=== PATIENT | male | born 1965 | race Caucasian/White ===

== ENCOUNTER 2017-05-31 22:45 | Emergency (ER) | payer SELFPAY ==
[~2017-05-31] VITALS: Ht 170.2 cm; Wt 95.0 kg
[~2017-05-31 22:45] MED LIST: ASPI81TA82 PO
[2017-05-31 22:55] VITALS: BP 133/68; PULSE 84; TEMP 98; O2SAT 98
[2017-05-31] MEDS ORDERED: SODIUM CHLORIDE 0.9% FLUSH 10 ML FLUSH IVF PRN (23:15)
--- NOTE | 2017-05-31 23:15 | PD ---
HPI Chief Complaint: Respiratory Symptoms Time Seen by Provider: 23:11 Travel History International Travel<30 days: Yes (- [place] x3 days) Contact w/Intl Traveler<30days: Yes Name of Country Traveled to: Went to x3 days and [place] x1 day in April 2017 Traveled to known affect area: Yes History of Present Illness HPI The patient is a 51-year-old male that complains of nasal congestion, bilateral ear aches, myalgias and shortness of breath and cough for about 6 days. He thinks he has had a fever although he has not taken his temperature and he does have chills and diaphoresis. He denies any history of congestive heart failure. He smokes one pack of cigarettes weekly. He denies any previous history of lung problems. He states he has had some slight diarrhea and has had nausea and vomiting. [facility]LY [facility] Past Medical History Medical History: Denies Significant Hx Diminished Hearing: No Immunizations Current: Yes Sleep Apnea: Yes Tetanus Vaccination: > 5 Years Past Surgical History Surgical History: No Previous Surgery Social History Alcohol Use: No Tobacco Use: Yes Substance Use: No Allergies-Medications (Allergen,Severity, Reaction): Coded Allergies: No Known Allergies (Verified , 08/30/14) Reported Meds & Prescriptions Reported Meds & Active Scripts Active Review of Systems Except as stated in HPI: all other systems reviewed are Neg Physical Exam Narrative GENERAL: The patient is alert, oriented 3, moderately dehydrated appearing with a persistent cough which is nonproductive and no respiratory distress. His vital signs are normal. SKIN: Focused skin assessment warm/dry. No skin rashes noted. HEAD: Atraumatic. Normocephalic. EYES: Pupils equal and round. No scleral icterus. No injection or drainage. ENT: No nasal bleeding or discharge. Mucous membranes pink and moist. Both tympanic membranes are red but not distorted. NECK: Trachea midline. No JVD. There is no meningismus present. CARDIOVASCULAR: Regular rate and rhythm. No murmur appreciated. RESPIRATORY: No accessory muscle use. Scattered rhonchi and wheezes are heard in all lung wood.. Breath sounds equal bilaterally. GASTROINTESTINAL: Abdomen soft, non-tender, nondistended. Hepatic and splenic margins not palpable. MUSCULOSKELETAL: No obvious deformities. No clubbing. No cyanosis. No edema. NEUROLOGICAL: Awake and alert. No obvious cranial nerve deficits. Motor grossly within normal limits. Normal speech. PSYCHIATRIC: Appropriate mood and affect; insight and judgment normal. Data Data Last Documented VS Vital Signs Date Time Temp Pulse Resp B/P (MAP) Pulse Ox O2 Delivery O2 Flow Rate FiO2 05/31/17 23:07 98 Nasal Cannula 2.00 05/31/17 22:55 98.0 84 133/68 (89) Orders Orders Complete Blood Count With Diff (05/31/17 23:11) Basic Metabolic Panel (Bmp) (05/31/17 23:11) Chest, Pa & Lat (05/31/17 23:11) Influenzae A/B Antigen (05/31/17 23:15) Sodium Chloride 0.9% Flush (Ns Flush) (05/31/17 23:15) Sodium Chlor 0.9% 1000 Ml Inj (Ns 1000 M (05/31/17 23:30) Labs Laboratory Tests Test 05/31/17 23:15 White Blood Count 9.3 TH/MM3 Red Blood Count 5.85 MIL/MM3 Hemoglobin 15.5 GM/DL Hematocrit 47.3 % Mean Corpuscular Volume 80.9 FL Mean Corpuscular Hemoglobin 26.5 PG Mean Corpuscular Hemoglobin Concent 32.7 % Red Cell Distribution Width 13.2 % Platelet Count 330 TH/MM3 Mean Platelet Volume 8.7 FL Neutrophils (%) (Auto) 73.7 % Lymphocytes (%) (Auto) 17.0 % Monocytes (%) (Auto) 5.7 % Eosinophils (%) (Auto) 2.4 % Basophils (%) (Auto) 1.2 % Neutrophils # (Auto) 6.9 TH/MM3 Lymphocytes # (Auto) 1.6 TH/MM3 Monocytes # (Auto) 0.5 TH/MM3 Eosinophils # (Auto) 0.2 TH/MM3 Basophils # (Auto) 0.1 TH/MM3 CBC Comment DIFF FINAL Differential Comment Blood Urea Nitrogen 14 MG/DL Creatinine 1.00 MG/DL Random Glucose 122 MG/DL Calcium Level 8.3 MG/DL Sodium Level 140 MEQ/L Potassium Level 3.8 MEQ/L Chloride Level 108 MEQ/L Carbon Dioxide Level 24.1 MEQ/L Anion Gap 8 MEQ/L Estimat Glomerular Filtration Rate 79 ML/MIN MDM Medical Decision Making Medical Screen Exam Complete: Yes Emergency Medical Condition: Yes Medical Record Reviewed: Yes Interpretation(s) The CBC is normal. The basic metabolic profile shows a GFR of 79, glucose 122, calcium 8.3 but is otherwise unremarkable. The chest x-ray shows no acute cardiopulmonary disease and the influenza A/B antigen is negative for flu a and negative for flu B antigen. Differential Diagnosis Bilateral otitis media, pneumonia, bronchitis, viral upper respiratory infection , flu syndrome, electrolyte disorder, dehydration Narrative Course The patient does have bilateral otitis media. He likely also has a viral bronchitis. There is no evidence on x-ray for pneumonia. He does not have the flu. Plan: The patient will be given amoxicillin 875 mg twice daily for 10 days. The patient will also be given Robitussin-DAC. Diagnosis Primary Impression: Bilateral otitis media Additional Impression: Acute viral bronchitis Additional Instructions: Completely discontinue smoking. Drink plenty of liquids and take the antibiotic twice daily for 10 days. Follow-up with a primary care physician next week. Med/Other Pt SpecificInfo: Prescription(s) given Scripts Gcloigjgdxghiil-Pwqqupc-Cpbybtflrto Liq (Guaifenesin DAC Liq) 30-10-100 Mg/5 Ml Soln 10 ML PO Q4H Y for COUGH AND/OR COLD SYMPTOMS, #1 BOTTLE 0 Refills Prov: Winston Salcedo MD 06/01/17 Amoxicillin (Amoxicillin) 875 Mg Tab 875 MG PO BID for Infection for 10 Days, #20 TAB 0 Refills Prov: Winston Salcedo MD 06/01/17 Disposition: 01 DISCHARGE HOME Condition: Stable Winston Salcedo MD May 31, 2017 23:15
[2017-05-31 23:22] LABS: AUTOMATED NEUTROPHIL # 6.9 TH/MM3 (1.8-7.7); BASOPHIL # 0.1 TH/MM3 (0-0.2); BASOPHIL % 1.2 % (0.0-2.0); EOSINOPHIL # 0.2 TH/MM3 (0-0.4); EOSINOPHIL % 2.4 % (0.0-4.0); HEMATOCRIT 47.3 % (39.0-51.0); HEMO FLAGS DIFF FINAL; LYMPHOCYTE # 1.6 TH/MM3 (1.0-4.8); MEAN CELL VOLUME 80.9 FL (80.0-100.0); MEAN CORPUSCULAR HEMOGLOBIN 26.5 PG (27.0-34.0); MEAN CORPUSCULAR HGB CONC 32.7 % (32.0-36.0); MONO % 5.7 % (0.0-8.0); NEUT % 73.7 % (16.0-70.0); PLATELET COUNT 330 TH/MM3 (150-450); RED BLOOD COUNT 5.85 MIL/MM3 (4.50-5.90); RED CELL DISTRIBUTION WIDTH 13.2 % (11.6-17.2); WHITE BLOOD COUNT 9.3 TH/MM3 (4.0-11.0)
[2017-05-31 23:31] LABS: POTASSIUM 3.8 MEQ/L (3.5-5.1)
[2017-05-31 23:35] LABS: BICARBONATE 24.1 MEQ/L (21.0-32.0)
--- NOTE | 2017-05-31 23:48 | RADRPT ---
EXAM DATE/TIME: 05/31/2017 23:25 [place] COMPARISON: CHEST PA & LAT, August 30, 2014, 12:26. INDICATIONS : Cough and short of breath. MEDICAL HISTORY : None. SURGICAL HISTORY : None. ENCOUNTER: Initial ACUITY: 1 week PAIN SCORE: 3/10 LOCATION: Left chest FINDINGS: PA and lateral views of the chest. The lungs are clear. Cardiomediastinal silhouette within normal li mits. No evidence of pleural effusion or pneumothorax. CONCLUSION: No acute cardiopulmonary disease identified. Dexter Calvillo MD on May 31, 2017 at 23:45 Board Certified Radiologist. This report was verified electronically.
[2017-06-01] MEDS ORDERED: AMOX875T PO (00:02)
[2017-06-01] MEDS ORDERED: GUAISOL PO (00:06)
[2017-06-01] MEDS: SODIUM CHLOR 0.9% 1000 ML INJ 1,000 ML IV SCH ×2 (00:11→01:01)
[2017-06-01] MEDS ORDERED: guaiFENesin/CODEINE SYRUP 200 MG/20 MG/10 ML CUP PO ONE (00:15)
[2017-06-01 01:54] VITALS: BP 145/87; TEMP 98.4
== END 2017-06-01 02:00 | disposition home or self-care (01) ==
LOC: PHED 22:45
DX: H66.93 Otitis media, unspecified, bilateral (principal); J20.8 Acute bronchitis due to other specified organisms; F17.210 Nicotine dependence, cigarettes, uncomplicated
CPT/HCPCS: 71020; 80048; 85025; 87804; 96360; 96361; 99284; J7030

== ENCOUNTER 2018-07-30 08:39 | Inpatient (IN) ==
[~2018-07-30 08:39] MED LIST changes: -ASPI81TA82 PO; +Sodium Bicarbonate 8.4% Inj 50 MEQ/50 ML Syringe IV.PUSH ONE
[2018-07-30] MEDS ORDERED: Etomidate Inj 40 MG/20 ML Vial IV.PUSH ONE (08:47)
[2018-07-30] MEDS ORDERED: Propofol 1000 mg/100 ml Inj 1,000 MG/100 ML BOTTLE ONE (08:51)
[2018-07-30] MEDS ORDERED: Succinylcholine Inj 100 MG/5 ML Syringe IV.PUSH ONE (08:56)
[2018-07-30] MEDS ORDERED: Naloxone Inj 0.4 MG/ML Vial IV.PUSH ONE (08:56)
[2018-07-30] MEDS ORDERED: Etomidate Inj 20 MG/10 ML Ampul IV.PUSH ONE (08:56)
[2018-07-30] MEDS ORDERED: Sod Chloride 0.9% Inj 1,000 ML IV.SIG SCH ×2 (09:00→09:30)
[2018-07-30] MEDS ORDERED: Midazolam 100 MG/100 ML Inj 100 MG/100 ML BAG IV.CONT ONE (09:03)
[2018-07-30] MEDS ORDERED: Midazolam Inj 5 MG/ML 1 ML Vial ONE (09:03)
--- NOTE | 2018-07-30 09:08 | ED ---
HPI General Chief Complaint: Altered Mental Status Stated Complaint: AMS Time Seen by Provider: 07/30/18 08:53 Source: patient Mode of arrival: other Limitations: altered mental status History of Present Illness HPI narrative: The patient is a 53-year-old male who presents to the emergency department via private vehicle by a friend who found him unconscious at home. According to the friend the patient was unconscious last night, when they reevaluated the patient this morning he was still unconscious with snoring respirations. The patient was brought back emergently from triage in a stretcher, the patient had his eyes closed, was nonverbal, would not follow commands, and had snoring respirations. Physical examination revealed the patient be tachycardic, hypoxic, and severely confused. The patient's blood sugar was 88 at bedside, the patient was administered Narcan intravenously, he became somewhat more responsive but extremely combative and agitated. He was unable to answer any questions. The patient continued to be hypoxic with an O2 saturation in the 70s, therefore, was intubated emergently. No further information is obtainable from the patient. 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 MD complaint: Reports altered mental status Onset (ago): hour(s) Timing confirmed by: other Severity: severe Consistency of symptoms: unknown Related Data Home Medications Medication Instructions Recorded Confirmed Unable to Obtain Home Meds 07/30/18 07/30/18 Allergies Allergy/AdvReac Type Severity Reaction Status Date / Time No Known Allergies Allergy Verified 07/30/18 08:55 Review of Systems ROS Unobtainable ROS Unobtainable: unobtainable due to mental status PMFSH Medical History Medical History Patient denies medical problems (Acute) Surgical History Surgical History No history of previous surgery (Acute) Social History Social History Substance History: Active Abuse Smoking Status: Unknown if ever smoked How Often Do You Have a Drink Containing Alcohol: Unable to Obtain Recent Travel in [facility] within the Last 8 Weeks: No Recent Out of Country Travel within the Last 8 Weeks: No Exam Narrative Exam Narrative: GENERAL: 53-year-old male with snoring respirations, eyes closed , and mostly nonresponsive. SKIN: Focused skin assessment warm/dry. HEAD: Atraumatic. Normocephalic. EYES: Pupils equal and round. 1-2 mm bilaterally. ENT: No nasal bleeding or discharge. Dry mucous membranes with visible blood in the oropharynx. NECK: Trachea midline. No JVD. CARDIOVASCULAR: Regular, tachycardic with a heart rate in the 130s. RESPIRATORY: Tachypnea with a respiratory rate of 28, snoring respirations, rhonchi noted in the bases. GASTROINTESTINAL: Abdomen soft, non-tender, nondistended. Back: No obvious deformity or evidence of trauma. Genitourinary: Uncircumcised phallus. No visible blood. MUSCULOSKELETAL: No obvious deformities. No clubbing. No cyanosis. No edema. NEUROLOGICAL: Eyes closed, groans occasionally, but nonverbal. Does not withdrawal to pain, initial positive gag reflex. PSYCHIATRIC: Unable to obtain. Course Initial Documented Vital Signs Temperature 98.9 F 07/30/18 08:47 Pulse Rate 117 H 07/30/18 08:47 Respiratory Rate 25 H 07/30/18 08:47 Blood Pressure 107/56 L 07/30/18 08:47 Last Documented Vital Signs Temperature 98.9 F 07/30/18 08:47 Pulse Rate 110 H 07/30/18 09:19 Respiratory Rate 16 07/30/18 09:19 Blood Pressure 96/55 L 07/30/18 09:19 Pulse Oximetry 98 07/30/18 09:16 Procedures Arterial Line Size (Gauge): 18 Technique Used: guide wire technique Post-Procedure: line sutured into place Patient Tolerated Procedure: well Complications: none Site: right and radial Central Line Placement Right IJ: Time Out Performed: Yes Patient Placed on Monitor/Pulse Ox: Yes MD Prep: mask, gown and gloves Central Line Prep: Chlorhexidine scrub Local anesthesia used: lidocaine 1% Amount of anesthesia used (mL): 3 Ultrasound Used for Placement: Yes Central Line Lumen Inserted: triple Post Procedure: good blood return, all ports aspirated, flushed, capped and sterile dressing applied Post Procedure X-Ray: tip of catheter in good position and no pneumothorax seen Patient Tolerated Procedure: well Complications: none Intubation Time Out Performed: Yes Sedative: etomidate Mg Given: 20 Paralytic: succinylcholine Mg Given: 100 Laryngoscope: fiber optic video scope Assist Device Used: fiber optic device ET Tube Size: 8 ET Tube Uncuffed: No Tube Secured Depth (cm): 24 Tube Secured Location: lips Tube Placement Confirmation: visualized tube passing through cords, equal breath sounds bilaterally and no breath sounds over epigastrium Patient Tolerated Procedure: well Intubation Complications: none Critical Care Time Critical Care Time: Yes Total Critical Care Time: 50 Attestation: Aggregate critical care time was 50 minutes. Time to perform other separately billable procedures was not included in the critical care time. My time did not include minutes spent treating any other patients simultaneously or on activities that did not directly contribute to the patient's treatment. The services I provided to this patient were to treat and/or prevent clinically significant deterioration that could result in: Anoxia, hypoxia, aspiration, sepsis, . I provided critical care services requiring my management, as noted below: Chart data review, documentation time, medication orders and management, vital sign assessments/reviewing monitor data, ordering and reviewing lab tests, ordering and interpreting/reviewing x-rays and diagnostic studies, care of the patient and discussion of the patient with the admitting physicians. Medical Decision Making MDM Narrative Medical decision making narrative: IV was established, labs are drawn and sent, and the patient was placed on cardiac telemetry monitoring and continuous pulse oximetry monitoring. Bedside Accu-Chek was checked immediately, blood sugar was 88. The patient was administered Narcan, he became somewhat combative, but still was unable to answer questions or follow commands. The patient continued to be hypoxic with a good waveform with an O2 saturation in the 70s, therefore, was intubated using rapid sequence intubation. The patient initially had a blood pressure systolic of 100, therefore, was administer 1 L of IV fluids and Versed intravenously for sedation with a Versed drip. Stat CT the brain was obtained. Post intubation chest x-ray was obtained. Tox screen was sent to lab. CT of the brain was negative for intracranial hemorrhage. Tox screen is positive for opiates and cocaine. The patient was administered 3 L of fluid, however, became hypotensive with a systolic pressure in the 50s and 60s. Therefore, the patient was administered phenylephrine 50 mics intravenously and a central line was placed in the right internal jugular vein and an arterial line was placed in the right radial artery. The patient was then placed on Levophed with a goal of a mean arterial pressure greater than 65. The on-call shift supervisor melting was paged for admission. Medical Screen Exam Complete: Yes Emergency Medical Condition: Yes Differential Diagnosis Differential Diagnosis: Differential diagnosis includes heroin overdose, opiate overdose, aspiration pneumonia, hypoxic cerebral injury, intracranial hemorrhage , polysubstance abuse, encephalopathy, metabolic encephalopathy. Lab Data Result diagrams: 07/30/18 09:00 07/30/18 09:00 Lab Results 07/30/18 07/30/18 07/30/18 Range/Units 09:00 09:00 09:00 WBC 17.4 H (4.0-11.0) th/mm3 RBC 5.70 (4.50-5.90) mil/mm3 Hgb 16.0 (13.0-17.0) gm/dL Hct 48.6 (39.0-51.0) % MCV 85.3 (80.0-100.0) fL MCH 28.0 (27.0-34.0) pg MCHC 32.8 (32.0-36.0) % RDW 15.2 (11.6-17.2) % Plt Count 346 (150-450) th/mm3 MPV 8.2 (7.0-11.0) fL Neut % (Auto) 88.6 H (16.0-70.0) % Lymph % (Auto) 4.6 L (9.0-44.0) % Iron % (Auto) 6.6 (0.0-8.0) % Eos % (Auto) 0.1 (0.0-4.0) % Baso % (Auto) 0.1 (0.0-2.0) % Neut # (Auto) 15.4 H (1.8-7.7) th/mm3 Lymph # (Auto) 0.8 L (1.0-4.8) th/mm3 Iron # (Auto) 1.2 H (0.0-0.9) th/mm3 Eos # (Auto) 0.0 (0.0-0.4) th/mm3 Baso # (Auto) 0.0 (0.0-0.2) th/mm3 WBC Differential . Differential Comment Auto diff final PT 10.0 (9.8-11.6) sec INR 1.0 Ratio APTT 26.1 (23.4-31.7) sec Puncture Site Patient Temperature O2 Saturation (90-100) % ABG pH (7.380-7.420) ABG pCO2 (38-42) mmHg ABG pO2 (61-120) mmHg ABG HCO3 (22-26) mmol/L ABG O2 Content (12.0-20.0) Vol % ABG Base Excess (-2-2) mmol/L ABG Methemoglobin (0-2) % Federico Test Hemoglobin (12.0-16.0) G/DL Carboxyhemoglobin (0-4) % O2 Delivery Device Vent Setting Inspired O2 % Critical Value Sodium 138 (136-145) meq/L Potassium 4.9 (3.5-5.1) meq/L Chloride 103 (98-107) meq/L Carbon Dioxide 22.0 (21.0-32.0) meq/L Anion Gap 13 (5-15) meq/L BUN 23 H (7-18) mg/dL Creatinine 3.09 H (0.60-1.30) mg/dL Estimated GFR 21 L (>89) mL/min Random Glucose 82 (74-106) mg/dL Lactic Acid (0.4-2.0) mmol/L Calcium 8.8 (8.5-10.1) mg/dL Magnesium 2.5 (1.5-2.5) mg/dL Total Bilirubin 0.8 (0.2-1.0) mg/dL AST 59 H (15-37) U/L ALT 80 H (12-78) U/L Alkaline Phosphatase 95 (45-117) U/L Ammonia (11-32) mcmol/L Total Creatine Kinase 888 H (39-308) U/L CK-MB (CK-2) 10.9 H (0.5-3.6) ng/mL CK-MB (CK-2) % 1.2 (0.0-4.0) % Troponin I Less than 0.02 L (0.02-0.05) ng/mL Total Protein 8.2 (6.4-8.2) g/dL Albumin 4.1 (3.4-5.0) g/dL TSH 5.520 H (0.358-3.740) uIU/mL Urine Color (Yellw/Straw) Urine Clarity (Clear) Urine pH (5.0-8.5) Ur Specific [place] (1.002-1.035) Urine Protein (Neg-Trace) mg/dL Urine Glucose (UA) (Negative) mg/dL Urine Ketones (Negative) mg/dL Urine Occult Blood (Negative) Urine Nitrate (Negative) Urine Bilirubin (Negative) Urine Urobilinogen (Less than 2) mg/dL Ur Leukocyte Esterase (Negative) Urine RBC (0-3) /hpf Urine WBC (0-5) /hpf Ur Squamous Epith Cells (0-5) /hpf Urine Bacteria (None) /hpf Hyaline Casts (0-3) /lpf Granular Casts (None) /lpf Urine Mucus (Occasional) /lpf Micro UA Comment Ur Microscopic Review Urine Culture Comments Urine Opiates Screen (Neg) Acetaminophen Less than 2.0 L (10.0-30.0) mcg/mL Ur Barbiturates Screen (Neg) Phenytoin 0.9 L (10.0-20.0) mcg/mL Ur Amphetamines Screen (Neg) Phenobarbital Less than 2.1 L (15.0-40.0) mcg/mL U Benzodiazepines Scrn (Neg) Urine Cocaine Screen (Neg) U Cannabinoids Screen (Neg) Serum Alcohol Less than 3 (0-5) mg/dL 07/30/18 07/30/18 07/30/18 Range/Units 09:00 09:00 09:19 WBC (4.0-11.0) th/mm3 RBC (4.50-5.90) mil/mm3 Hgb (13.0-17.0) gm/dL Hct (39.0-51.0) % MCV (80.0-100.0) fL MCH (27.0-34.0) pg MCHC (32.0-36.0) % RDW (11.6-17.2) % Plt Count (150-450) th/mm3 MPV (7.0-11.0) fL Neut % (Auto) (16.0-70.0) % Lymph % (Auto) (9.0-44.0) % Iron % (Auto) (0.0-8.0) % Eos % (Auto) (0.0-4.0) % Baso % (Auto) (0.0-2.0) % Neut # (Auto) (1.8-7.7) th/mm3 Lymph # (Auto) (1.0-4.8) th/mm3 Iron # (Auto) (0.0-0.9) th/mm3 Eos # (Auto) (0.0-0.4) th/mm3 Baso # (Auto) (0.0-0.2) th/mm3 WBC Differential Differential Comment PT (9.8-11.6) sec INR Ratio APTT (23.4-31.7) sec Puncture Site Right radial Patient Temperature 98.6 O2 Saturation 92 (90-100) % ABG pH 7.15 L* (7.380-7.420) ABG pCO2 57 H* (38-42) mmHg ABG pO2 105 (61-120) mmHg ABG HCO3 19 L (22-26) mmol/L ABG O2 Content 19.3 (12.0-20.0) Vol % ABG Base Excess -8.3 L (-2-2) mmol/L ABG Methemoglobin 0.7 (0-2) % Federico Test Present Hemoglobin 14.8 (12.0-16.0) G/DL Carboxyhemoglobin 4.5 H (0-4) % O2 Delivery Device Ventilator Vent Setting Ac16/550/+8 Inspired O2 100 % Critical Value Yes Sodium (136-145) meq/L Potassium (3.5-5.1) meq/L Chloride (98-107) meq/L Carbon Dioxide (21.0-32.0) meq/L Anion Gap (5-15) meq/L BUN (7-18) mg/dL Creatinine (0.60-1.30) mg/dL Estimated GFR (>89) mL/min Random Glucose (74-106) mg/dL Lactic Acid 6.6 H* (0.4-2.0) mmol/L Calcium (8.5-10.1) mg/dL Magnesium (1.5-2.5) mg/dL Total Bilirubin (0.2-1.0) mg/dL AST (15-37) U/L ALT (12-78) U/L Alkaline Phosphatase (45-117) U/L Ammonia 45 H (11-32) mcmol/L Total Creatine Kinase (39-308) U/L CK-MB (CK-2) (0.5-3.6) ng/mL CK-MB (CK-2) % (0.0-4.0) % Troponin I (0.02-0.05) ng/mL Total Protein (6.4-8.2) g/dL Albumin (3.4-5.0) g/dL TSH (0.358-3.740) uIU/mL Urine Color (Yellw/Straw) Urine Clarity (Clear) Urine pH (5.0-8.5) Ur Specific [place] (1.002-1.035) Urine Protein (Neg-Trace) mg/dL Urine Glucose (UA) (Negative) mg/dL Urine Ketones (Negative) mg/dL Urine Occult Blood (Negative) Urine Nitrate (Negative) Urine Bilirubin (Negative) Urine Urobilinogen (Less than 2) mg/dL Ur Leukocyte Esterase (Negative) Urine RBC (0-3) /hpf Urine WBC (0-5) /hpf Ur Squamous Epith Cells (0-5) /hpf Urine Bacteria (None) /hpf Hyaline Casts (0-3) /lpf Granular Casts (None) /lpf Urine Mucus (Occasional) /lpf Micro UA Comment Ur Microscopic Review Urine Culture Comments Urine Opiates Screen (Neg) Acetaminophen (10.0-30.0) mcg/mL Ur Barbiturates Screen (Neg) Phenytoin (10.0-20.0) mcg/mL Ur Amphetamines Screen (Neg) Phenobarbital (15.0-40.0) mcg/mL U Benzodiazepines Scrn (Neg) Urine Cocaine Screen (Neg) U Cannabinoids Screen (Neg) Serum Alcohol (0-5) mg/dL 07/30/18 07/30/18 Range/Units 09:20 09:20 WBC (4.0-11.0) th/mm3 RBC (4.50-5.90) mil/mm3 Hgb (13.0-17.0) gm/dL Hct (39.0-51.0) % MCV (80.0-100.0) fL MCH (27.0-34.0) pg MCHC (32.0-36.0) % RDW (11.6-17.2) % Plt Count (150-450) th/mm3 MPV (7.0-11.0) fL Neut % (Auto) (16.0-70.0) % Lymph % (Auto) (9.0-44.0) % Iron % (Auto) (0.0-8.0) % Eos % (Auto) (0.0-4.0) % Baso % (Auto) (0.0-2.0) % Neut # (Auto) (1.8-7.7) th/mm3 Lymph # (Auto) (1.0-4.8) th/mm3 Iron # (Auto) (0.0-0.9) th/mm3 Eos # (Auto) (0.0-0.4) th/mm3 Baso # (Auto) (0.0-0.2) th/mm3 WBC Differential Differential Comment PT (9.8-11.6) sec INR Ratio APTT (23.4-31.7) sec Puncture Site Patient Temperature O2 Saturation (90-100) % ABG pH (7.380-7.420) ABG pCO2 (38-42) mmHg ABG pO2 (61-120) mmHg ABG HCO3 (22-26) mmol/L ABG O2 Content (12.0-20.0) Vol % ABG Base Excess (-2-2) mmol/L ABG Methemoglobin (0-2) % Efderico Test Hemoglobin (12.0-16.0) G/DL Carboxyhemoglobin (0-4) % O2 Delivery Device Vent Setting Inspired O2 % Critical Value Sodium (136-145) meq/L Potassium (3.5-5.1) meq/L Chloride (98-107) meq/L Carbon Dioxide (21.0-32.0) meq/L Anion Gap (5-15) meq/L BUN (7-18) mg/dL Creatinine (0.60-1.30) mg/dL Estimated GFR (>89) mL/min Random Glucose (74-106) mg/dL Lactic Acid (0.4-2.0) mmol/L Calcium (8.5-10.1) mg/dL Magnesium (1.5-2.5) mg/dL Total Bilirubin (0.2-1.0) mg/dL AST (15-37) U/L ALT (12-78) U/L Alkaline Phosphatase (45-117) U/L Ammonia (11-32) mcmol/L Total Creatine Kinase (39-308) U/L CK-MB (CK-2) (0.5-3.6) ng/mL CK-MB (CK-2) % (0.0-4.0) % Troponin I (0.02-0.05) ng/mL Total Protein (6.4-8.2) g/dL Albumin (3.4-5.0) g/dL TSH (0.358-3.740) uIU/mL Urine Color Yellow (Yellw/Straw) Urine Clarity Clear (Clear) Urine pH 5.0 (5.0-8.5) Ur Specific [place] 1.027 (1.002-1.035) Urine Protein 100 H (Neg-Trace) mg/dL Urine Glucose (UA) Negative (Negative) mg/dL Urine Ketones Negative (Negative) mg/dL Urine Occult Blood Negative (Negative) Urine Nitrate Negative (Negative) Urine Bilirubin Negative (Negative) Urine Urobilinogen Less than 2 (Less than 2) mg/dL Ur Leukocyte Esterase Negative (Negative) Urine RBC 1 (0-3) /hpf Urine WBC 1 (0-5) /hpf Ur Squamous Epith Cells <1 (0-5) /hpf Urine Bacteria Few H (None) /hpf Hyaline Casts 10 (0-3) /lpf Granular Casts 1 (None) /lpf Urine Mucus Few H (Occasional) /lpf Micro UA Comment Cath-culture ind Ur Microscopic Review Not Reportable Urine Culture Comments Cath-cult indicated Urine Opiates Screen Pos H (Neg) Acetaminophen (10.0-30.0) mcg/mL Ur Barbiturates Screen Neg (Neg) Phenytoin (10.0-20.0) mcg/mL Ur Amphetamines Screen Neg (Neg) Phenobarbital (15.0-40.0) mcg/mL U Benzodiazepines Scrn Neg (Neg) Urine Cocaine Screen Pos H (Neg) U Cannabinoids Screen Neg (Neg) Serum Alcohol (0-5) mg/dL Imaging Data Radiologist's impression: Head CT 07/30/18 08:54 CONCLUSION: Unremarkable study except for mild chronic sinusitis . ECG Data EKG Prior to Arrival: No Attestation: I personally reviewed and interpreted this ECG as follows: Interpretation: EKG reveals sinus tachycardia with a heart rate of 113. RSR prime in V1 with QRS of 97 ms, incomplete right bundle branch block. Nonspecific ST and T wave changes. Discharge Plan Discharge Disposition Patient Disposition: ED Admit(ED Internal Use Only) Discharge Condition Condition: Critical Discharge Details Diagnosis: Heroin overdose, Acidosis, lactic, Rhabdomyolysis, Acute renal failure Physicians Team ED Provider: Anmol Rodgers Primary Care Provider: UNKNOWN, Rxs /Orders / Referrals /Forms Prescriptions: No Action Unable to Obtain Home Meds RF: 0 Discharge Interventions Interventions: Vital Signs Last Done: 07/30/18 09:19 Status ED Status: Pending Admission
[2018-07-30 09:27] LABS: Baso % (Auto) 0.1 % (0.0-2.0); Eos % (Auto) 0.1 % (0.0-4.0); Hematocrit 48.6 % (39.0-51.0); Lymph # (Auto) 0.8 th/mm3 (1.0-4.8); Lymph % (Auto) 4.6 % (9.0-44.0); Mean Corpuscular HGB Conc 32.8 % (32.0-36.0); Mean Corpuscular Volume 85.3 fL (80.0-100.0); Mean Platelet Volume 8.2 fL (7.0-11.0); Mono # (Auto) 1.2 th/mm3 (0.0-0.9); Mono % (Auto) 6.6 % (0.0-8.0); Neut # (Auto) 15.4 th/mm3 (1.8-7.7); Neut % (Auto) 88.6 % (16.0-70.0); Platelet Count 346 th/mm3 (150-450); Red Cell Distribution Width 15.2 % (11.6-17.2); White Blood Count 17.4 th/mm3 (4.0-11.0)
[2018-07-30 09:38] LABS: Bacteria,Urine Few /hpf; Bilirubin,Urine Negative (Negative); Color,Urine Yellow (Yellw/Straw); Glucose,Urine (UA) Negative (Negative); Hyaline Casts,Urine 10 /lpf (0-3); Leukocyte Esterase,Urine Negative (Negative); Mucus,Urine Few /lpf (Occasional); Nitrite,Urine Negative (Negative); Specific Gravity,Urine 1.027 (1.002-1.035); Squamous Epithelial Cell,Urine <1 /hpf (0-5)
[2018-07-30 09:39] LABS: Amphetamine Screen,Urine Neg (Neg); Barbiturate Screen,Urine Neg (Neg); Cannabinoid Screen,Urine Neg (Neg); Cocaine Screen,Urine Pos (Neg)
[2018-07-30 09:41] LABS: Opiate Screen,Urine Pos (Neg)
[2018-07-30 09:41] LABS: Albumin 4.1 g/dL (3.4-5.0); Anion Gap 13 meq/L (5-15); Blood Urea Nitrogen 23 mg/dL (7-18); Calcium 8.8 mg/dL (8.5-10.1); Chloride 103 meq/L (98-107); Glucose,Random 82 mg/dL (74-106); Magnesium 2.5 mg/dL (1.5-2.5); Potassium 4.9 meq/L (3.5-5.1); Sodium 138 meq/L (136-145)
[2018-07-30 09:42] LABS: Aspartate Aminotransferase 59 U/L (15-37); Glomerular Filtration Rate 21 mL/min (>89)
[2018-07-30 09:43] LABS: Clarity,Urine Clear (Clear)
[2018-07-30 09:46] LABS: ABG Base Excess -8.3 mmol/L (-2-2); ABG PCO2 57 mmHg (38-42); ABG PO2 105 mmHg (61-120)
--- NOTE | 2018-07-30 09:47 | CT ---
EXAM DATE: 07/30/2018 9:39 AM EST AGE/SEX: 53 years / Male INDICATIONS: Altered mental status, found unresponsive. CLINICAL DATA: This is the patient's initial encounter. Patient reports that signs and symptoms have been present for 1 day and indicates a pain score of Nonresponsive. MEDICAL/SURGICAL HISTORY: None. None. RADIATION DOSE: 40.89 CTDI (mGy) [place] [facility] [place]. . TECHNIQUE: CT of the head without contrast. Using automated exposure control and adjustment of the mA and/or kV according to patient size, radiation dose was kept as low as reasonably achievable to ob tain optimal diagnostic quality images. DICOM format image data is available electronically for revi ew and comparison. FINDINGS: There is no evidence for intracranial hemorrhage, mass effect, mass lesions, edema, or extra-axial fl uid collections. The visualized bony structures appear intact. The ventricles are normal size for t he patient's age. There are no signs of acute infarction for technique. There is mild mucoperiostea l thickening within these ethmoid air cells. CONCLUSION: Unremarkable study except for mild chronic sinusitis . Electronically signed by: Allyson Mitchell MD Board Certified Radiologist 07/30/2018 9:46 AM EST
[2018-07-30 09:50] LABS: Activated Partial Thrombo Time 26.1 sec (23.4-31.7); Alanine Aminotransferase 80 U/L (12-78); Alkaline Phosphatase 95 U/L (45-117); Creatine Kinase 888 U/L (39-308); Phenytoin (Dilantin) 0.9 mcg/mL (10.0-20.0); Total Protein 8.2 g/dL (6.4-8.2)
[2018-07-30] MEDS ORDERED: Norepinephrine Inj 4 MG/4 ML Ampul ONE (09:56)
[2018-07-30 10:03] LABS: CKMB Percent 1.2 % (0.0-4.0); Creatine Kinase MB 10.9 ng/mL (0.5-3.6)
[2018-07-30] MEDS: Midazolam 100 MG/100 ML Inj 100 MG/100 ML BAG IV.CONT PRN ×2 (10:33→21:32)
--- NOTE | 2018-07-30 10:50 | XR ---
EXAM DATE: 07/30/2018 10:47 AM EST AGE/SEX: 53 years / Male INDICATIONS: ET tube and central line placement. CLINICAL DATA: This is the patient's subsequent encounter. Patient reports that signs and symptoms h ave been present for 1 day and indicates a pain score of Nonresponsive. MEDICAL/SURGICAL HISTORY: Non-responsive. Non-responsive. COMPARISON: [facility], CHEST PA & LAT, 05/31/2017. . FINDINGS: There is mild haziness to the perivascular structures most likely pulmonary edema. Slight cardiomegaly seen. Focal consolidation is not seen. ET tube is present with tip overlapping approxima tely 3 above the lit.Right IJ line is present with tip overlapping the expected region of the S VC. NG tube is present with tip in the stomach. No definite pneumothorax is seen for technique. CONCLUSION: Slight CHF. Electronically signed by: Allyson Mitchell MD Board Certified Radiologist 07/30/2018 10:48 AM EST
[2018-07-30] MEDS ORDERED: Phenylephrine Inj 160 MG in Sodium Chlor 0.9% Inj 484 ML IV.CONT PRN (11:08)
[2018-07-30] MEDS ORDERED: Bisacodyl 10 MG Supp RECTAL PRN (11:38)
[2018-07-30] MEDS ORDERED: Sod Chloride 0.9% Inj 1,000 ML IV.CONT SCH (11:45)
[2018-07-30] MEDS ORDERED: Dextrose 50% in Water 50 ML Vial IV.PUSH PRN (11:46)
[2018-07-30] MEDS ORDERED: Vasopressin Inj 40 UNIT in Sodium Chlor 0.9% Inj 98 ML IV.CONT SCH (12:00)
--- NOTE | 2018-07-30 12:12 | P.HPCC ---
History of Present Illness Service: Critical care medicine Primary Care Physician: UNKNOWN Chief Complaint: Overdose, respiratory failure History of Present Illness: This is a 53-year-old male. Date of admission 07/30/2018. Past medical history in reviewing records includes headaches and increased BMI. Per ED documentation [facility] a friend who found him unconscious at his residence. According to the friend the patient was unconscious last night, when they reevaluated the patient this morning he was still unconscious with sonorous respirations. Upon Dr. Rodgers examination, this patient was noted to be tachycardic, hypoxic, and severely confused. The patient's blood sugar was 88 at bedside, the patient was administered Narcan intravenously, he became somewhat more responsive but extremely combative and agitated. Bed. No further information is obtainable from the patient. 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 Attempt to contact these people were not successful A central line and arterial line placed with the ED physician. Patient was quite hypotensive and required 4 L of normal saline crystalloid resuscitation. He was started on norepinephrine is currently 50 mcg/min. Patient had no palpable pulse and patient actually was coded for 2 minutes after receiving 1 mg of epinephrine and 1 ampicillin bicarbonate with return of spontaneous circulation after 2 minutes. During the code he received a crystalloid bolus. She is currently on epinephrine, phenylephrine and vasopressin drips. CT brain revealed no acute intracranial signs. Tox screen revealed opiates and cocaine. Laboratories reveal initial lactate of 6.6 currently 4.4. Leukocytosis, acute kidney injury with creatinine 3.1 and elevated transaminases and ammonia level. Inpatient Certification: I certify that the inpatient services were ordered in accordance with Medicare regulations governing the order. This includes certification that hospital inpatient services are reasonable and necessary and in the case of services not specified as inpatient-only under 42 CFR 419.22(n), that they are appropriately provided as inpatient services in accordance to with the 2-midnight benchmark under 43 CFR 412.3(e) Estimated Total Length of Stay (Days): 5 Plans for Post Hospital Care: Not yet determined Review of Systems unobtainable due to endotracheal tube PMFSH - History History Provided By: Patient - Medical History Medical History: Medical History (Last Updated 07/30/18 @ 09:11 by Jaelyn Shields) Patient denies medical problems - Surgical History Surgical History: Surgical History (Last Updated 07/30/18 @ 09:11 by Jaelyn Shields) No history of previous surgery - Family History Family History: Family History (Last Updated 07/30/18 @ 12:13 by Aries Hilliard MD) Other Family history unobtainable - Tobacco History Smoking Status: Unknown if ever smoked - Alcohol History How Often Do You Have a Drink Containing Alcohol: Unable to Obtain - Substance Use History Substance History: Active Abuse - Substance Use Type Opiates Status: Active Route Used: Intramuscular Reason for Use: Feels Good - Travel History Recent Travel in the [place] Within the Last 8 Weeks: No Recent Travel Out of the Country Within the Last 8 Weeks: No - Immunization History Tetanus Immunization: Unable to Assess Medications and Allergies Active Medications: Active Medications Al Hydroxide/Mg Hydroxide (Milk Of Magnrick Liq) 30 ml PO Q12H PRN PRN Reason: Mild Constipation Albuterol (Albuterol Neb (Michelle)) 2.5 mg NEB Q2HR NEB PRN PRN Reason: SHORTNESS OF BREATH/WHEEZING Albuterol (Duoneb Neb (Prn)) 1 ampul NEB Q4HR NEB MICHELLE Artificial Tears (Tears Naturale Opth Drops) 1 drop EACH EYE Q8H [facility] Bisacodyl (Dulcolax Supp) 10 mg RECTAL DAILY PRN PRN Reason: SEVERE CONSITIPATION Chlorhexidine Gluconate (Peridex 0.12% Oral Kit) 15 ml OROPHARYNG BID@0800, 2000 [facility] Chlorhexidine Gluconate (Chlorhexidine 2% Cloth) 3 pack TOPICAL DAILY@0400 MICHELLE Stop: 08/05/18 03:59 Chlorhexidine Gluconate (Chlorhexidine 2% Cloth) 3 pack TOPICAL DAILY@0400 PRN PRN Reason: Extra cloth needed Stop: 08/05/18 03:59 Dextrose (D50w Vial) 50 ml IV.PUSH UNSCH PRN PRN Reason: PER HYPOGLYCEMIA PROTOCOL Glucagon (Glucagon Inj) 1 mg OTHER PRN PRN PRN Reason: for Hypoglycemia Protocol Heparin Sodium (Porcine) (Heparin Inj) 5,000 units SQ Q12H MICHELLE Midazolam HCl (Versed Inj) 100 mg in 100 mls @ 2 mls/hr IV.CONT TITRATE PRN; Protocol PRN Reason: See protocol Last Admin: 07/30/18 10:33 Dose: 2 mg/hr, 2 mls/hr Norepinephrine Bitartrate (Levophed-Dextrose 4 Mg/250 Ml Drip) 4 mg in 250 mls @ 7.5 mls/hr IV.SIG TITRATE PRN; Protocol PRN Reason: Per Protocol Last Admin: 07/30/18 10:34 Dose: 2 mcg/min, 7.5 mls/hr Phenylephrine HCl 160 mg/ (Sodium Chloride) 500 mls @ 7.5 mls/hr IV.CONT TITRATE PRN; Protocol PRN Reason: Per Protocol Last Admin: 07/30/18 11:41 Dose: 40 mcg/min, 7.5 mls/hr Vasopressin 40 unit/ Sodium (Chloride) 100 mls @ 6 mls/hr IV.CONT CONT MICHELLE; Protocol Sodium Chloride (Ns Inj) 1,000 mls @ 84 mls/hr IV.CONT .[id number] MICHELLE Norepinephrine Bitartrate 16 (mg/ Sodium Chloride) 250 mls @ 1.87 mls/hr IV.CONT TITRATE PRN; Protocol PRN Reason: See Protocol Insulin Aspart (Novolog Insulin Correctional Sugar Inj) 0 unit SQ Q6HR MICHELLE; Protocol Lactulose (Lactulose Liq) 30 ml PO DAILY PRN PRN Reason: SEVERE CONSITIPATION Lactulose (Lactulose Liq) 30 ml PO BID [facility] Miscellaneous Medication () 1 each OROPHARYNG 0000,0400,1200,1600 MICHELLE Pantoprazole Sodium (Protonix Inj) 40 mg IV.PUSH DAILY [facility] Senna/Docusate Sodium (Vonda-Colace) 1 tab PO BID [facility] Sennosides (Senokot) 17.2 mg PO Q12H PRN PRN Reason: Moderate Constipation Sodium Chloride (Ns Flush) 2 ml IV.FLUSH PRN PRN PRN Reason: FLUSH AFTER USING IV ACCESS Sodium Chloride (Ns Flush) 2 ml IV.FLUSH BID MICHELLE Sodium Chloride (Ns Flush) 2 ml IV.FLUSH PRN PRN PRN Reason: FLUSH AFTER USING IV ACCESS Terbutaline Sulfate (Brethine Inj) 1 mg SQ UNSCH PRN PRN Reason: For Extravasation Terbutaline Sulfate (Brethine Inj) 1 mg SQ UNSCH PRN PRN Reason: For Extravasation Terbutaline Sulfate (Brethine Inj) 1 mg SQ UNSCH PRN PRN Reason: For Extravasation Allergies Allergy/AdvReac Type Severity Reaction Status Date / Time No Known Allergies Allergy Verified 07/30/18 08:55 Home Medications Medication Instructions Recorded Confirmed Type Unable to Obtain Home Meds 07/30/18 07/30/18 History Results - Labs CBC & Chem 7: 07/30/18 09:00 07/30/18 09:00 Labs: Short CBC 07/30/18 Range/Units 09:00 WBC 17.4 H (4.0-11.0) th/mm3 Hgb 16.0 (13.0-17.0) gm/dL Hct 48.6 (39.0-51.0) % Plt Count 346 (150-450) th/mm3 BMP 07/30/18 09:00 Sodium 138 Potassium 4.9 Chloride 103 Carbon Dioxide 22.0 BUN 23 H Creatinine 3.09 H Calcium 8.8 Cardiac Enzymes 07/30/18 Range/Units 09:00 Total Creatine Kinase 888 H (39-308) U/L CK-MB (CK-2) 10.9 H (0.5-3.6) ng/mL Troponin I Less than 0.02 L (0.02-0.05) ng/mL Liver Function 07/30/18 Range/Units 09:00 Total Bilirubin 0.8 (0.2-1.0) mg/dL AST 59 H (15-37) U/L ALT 80 H (12-78) U/L Alkaline Phosphatase 95 (45-117) U/L Albumin 4.1 (3.4-5.0) g/dL Urine 07/30/18 Range/Units 09:20 Urine Color Yellow (Yellw/Straw) Urine Clarity Clear (Clear) Urine pH 5.0 (5.0-8.5) Ur Specific [place] 1.027 (1.002-1.035) Urine Protein 100 H (Neg-Trace) mg/dL Urine Glucose (UA) Negative (Negative) mg/dL - Imaging Impressions Chest X-Ray 07/30/18 08:54 CONCLUSION: Slight CHF. Head CT 07/30/18 08:54 CONCLUSION: Unremarkable study except for mild chronic sinusitis . Exam Vital signs: Vital Signs 07/30/18 08:47 07/30/18 09:16 07/30/18 09:19 Temperature 98.9 F Pulse Rate 117 H 110 H Respiratory Rate 25 H 28 H 16 Blood Pressure 107/56 L 96/55 L Pulse Oximetry 98 07/30/18 09:30 07/30/18 10:00 07/30/18 10:40 Temperature Pulse Rate 96 H Respiratory Rate 16 16 Blood Pressure 76/45 L 73/39 L Pulse Oximetry 100 99 100 07/30/18 11:10 07/30/18 11:28 Temperature Pulse Rate 80 108 H Respiratory Rate 24 Blood Pressure 205/93 H 91/49 L Pulse Oximetry Intake & Output 07/29/18 07/30/18 07/30/18 18:59 06:59 18:59 Intake Total 1999 Balance 1999 Weight 110 kg Intake: IV 1999 NS Inj 1,000 ML @ 1000 mls/hr 1999 IV.SIG BOLUS MICHELLE Rx#:[id number] Narrative: GENERAL: This is a 53-year-old gentleman currently orotracheally intubated with OG tube in place SKIN: Warm and dry. No rash HEAD: Atraumatic. Normocephalic. EYES: Pupils equal and round. No scleral icterus. No injection or drainage. ENT: No nasal bleeding or discharge. Mucous membranes pink and moist. NECK: Trachea midline. No JVD. CARDIOVASCULAR: Regular rate and rhythm. S1, S2. No S4. Without murmur RESPIRATORY: Coarse rhonchorous breath sounds bilateral. No wheezing.. Equal excursion GASTROINTESTINAL: Abdomen distended but reducible. No hernias appreciated hypoactive bowel sounds appreciated. MUSCULOSKELETAL: Extremities without without significant edema NEUROLOGICAL: Positive gag and cough. Slightly moving bilateral extremities. Positive corneal reflex. Pupils are about 3 mm bilaterally and reactive. Septic Shock Reassessment Septic shock perfusion: reassessment completed Caprini VTE Risk Assessment Caprini VTE Risk Assessment: Moderate/High Risk (score >= 2) Caprini Risk Assessment Model: Point Value = 1 Point Value = 2 Point Value = 3 Point Value = 5 Age 41-60 Minor surgery BMI > 25 kg/m2 Swollen legs Varicose veins or History of unexplained or recurrent spontaneous Oral contraceptives or hormone replacement Sepsis (< 1 month) Serious lung disease, including pneumonia (< 1 month) Abnormal pulmonary function Acute myocardial infarction Congestive heart failure (< 1 month) History of inflammatory bowel disease Medical patient at bed rest Age 61-74 Arthroscopic surgery Major open surgery (> 45 min) Laparoscopic surgery (> 45 min) Malignancy Confined to bed (> 72 hours) Immobilizing plaster cast Central venous access Age >= 75 History of VTE Family history of VTE Factor V Leiden Prothrombin [id number] Lupus anticoagulant Anticardiolipin antibodies Elevated serum homocysteine Heparin-induced thrombocytopenia Other congenital or acquired thrombophilia Stroke (< 1 month) Elective arthroplasty Hip, pelvis, or leg fracture Acute spinal cord injury (< 1 month) Prophylaxis Regimen: Total Risk Factor Score Risk Level Prophylaxis Regimen 0-1 Low Early ambulation 2 Moderate Order ONE of the following: *Sequential Compression Device (SCD) *Heparin 5000 units SQ BID 3-4 Higher Order ONE of the following medications: *Heparin 5000 units SQ TID *Enoxaparin/Lovenox 40 mg SQ daily (WT < 150 kg, CrCl > 30 mL/min) *Enoxaparin/Lovenox 30 mg SQ daily (WT < 150 kg, CrCl > 10-29 mL/min) *Enoxaparin/Lovenox 30 mg SQ BID (WT < 150 kg, CrCl > 30 mL/min) AND/OR *Sequential Compression Device (SCD) 5 or more Highest Order ONE of the following medications: *Heparin 5000 units SQ TID (Preferred with Epidurals) *Enoxaparin/Lovenox 40 mg SQ daily (WT < 150 kg, CrCl > 30 mL/min) *Enoxaparin/Lovenox 30 mg SQ daily (WT < 150 kg, CrCl > 10-29 mL/min) *Enoxaparin/Lovenox 30 mg SQ BID (WT < 150 kg, CrCl > 30 mL/min) AND *Sequential Compression Device (SCD) Assessment and Plan - Assessment and Plan Plan: Neuro/Psych: Polysubstance use including heroin, cocaine and opiates CV: Severe shock Lactic acidosis Resp: Acute respiratory failure Aspiration pneumonia GI: Elevated transaminases Elevated ammonia : Endo: Elevated TSH Renal: Acute kidney injury Heme: Leukocytosis ID: [id number]: MSK: Elevated BMI Access -Right IJ CVL day 1. Right radial arterial line day 1 Prophylaxis -GI pantoprazole DVT-SCD/heparin subcu 35 minutes critical care time admission Code Status: Full code Discussed Condition With: ED physician. Care plan discussed and all questions answered. Procedures - Arterial Line Size (Gauge): 18
[2018-07-30] MEDS ORDERED: Vancomycin Consult Pharmacy OTHER PRN (12:14)
[2018-07-30 12:38] LABS: Magnesium 2.5 mg/dL (1.5-2.5); Phosphorus 8.3 mg/dL (2.5-4.9)
[2018-07-30] MEDS ORDERED: Heparin - SQ 10,000 UNITS/ML Vial SQ SCH (13:00)
[2018-07-30] MEDS ORDERED: Norepinephrine Inj 16 MG in Sodium Chlor 0.9% Inj 234 ML IV.CONT PRN (13:00)
[2018-07-30 13:13] LABS: Creatinine,Urine Random 271 mg/dL (27-300); Sodium,Urine Random 47 meq/L
[2018-07-30 13:48] LABS: ABG Base Excess -6.6 mmol/L (-2-2); ABG PCO2 48 mmHg (38-42); ABG PO2 73 mmHg (61-120)
[2018-07-30] MEDS ORDERED: Vancomycin Inj 2,000 MG in Sodium Chlor 0.9% Inj 500 ML IV.SIG ONE (14:00)
[2018-07-30] MEDS: Oral Hygiene Kit OROPHARYNG SCH ×2 (14:19→15:41)
[2018-07-30] MEDS: Hydrocortisone Sod Succinate 100 MG Vial IV.PUSH SCH ×2 (14:19→21:33)
--- NOTE | 2018-07-30 14:38 | US ---
EXAM DATE: 07/30/2018 2:34 PM EST AGE/SEX: 53 years / Male INDICATIONS: Bilateral leg swelling. CLINICAL DATA: This is the patient's initial encounter. Patient reports that signs and symptoms have been present for 1 day and indicates a pain score of Nonresponsive. MEDICAL/SURGICAL HISTORY: . Bilateral leg swelling. None. COMPARISON: No prior exams available for comparison. TECHNIQUE: Venous ultrasound of both lower extremities was performed from the inguinal ligament to t he proximal calf. Real-time, color Doppler and spectral tracing, compression and augmentation techni ques were used. FINDINGS: Right Leg: Normal compression of the deep venous system from the inguinal region to the proximal antonia f. No echogenic clot is seen. Normal response of the venous system to augmentation and respiration. Left Leg: Normal compression of the deep venous system from the inguinal region to the proximal calf . No echogenic clot is seen. Normal response of the venous system to augmentation and respiration. Other: None. CONCLUSION: 1. Negative for deep venous thrombosis Electronically signed by: Steve Pacheco MD Board Certified Radiologist 07/30/2018 2:37 PM EST
--- NOTE | 2018-07-30 15:03 | US ---
EXAM DATE: 07/30/2018 2:40 PM EST AGE/SEX: 53 years / Male INDICATIONS: Increased BUN/Creat nine. CLINICAL DATA: This is the patient's initial encounter. Patient reports that signs and symptoms have been present for 1 day and indicates a pain score of Nonresponsive. MEDICAL/SURGICAL HISTORY: . Increased BUN/Creat nine. Bilateral leg swelling. None. COMPARISON: No prior exams available for comparison. MEASUREMENTS: Right Kidney:__11.2 x 4.6 x 6.0 cm Left Kidney:__11.5 x 5.0 x 6.2 cm FINDINGS: Right Kidney: Normal echogenicity and cortical thickness. No mass or hydronephrosis. Left Kidney: 1.4 cm cyst lower pole left kidney normal echogenicity and cortical thickness. No mass h ydronephrosis Bladder: Giles catheter is present. Bladder decompressed. Other: Liver is enlarged and echogenic. CONCLUSION: 1. Enlarged echogenic liver 2. Normal size kidneys without mass or hydronephrosis. 3. 1.4 cm left renal cyst Electronically signed by: Steve Pacheco MD Board Certified Radiologist 07/30/2018 3:02 PM EST
--- NOTE | 2018-07-30 15:09 | P.CONPAL ---
Consult Service: Palliative Care Requesting Physician: Aries Hilliard Reason for Consult: a. To assist with evaluation and management of symptoms including: Anxiety. b. To assist medical decision maker(s) with: better understanding of current medical conditions; weighing benefits/burdens of medical treatment options; making medical treatment decisions. Primary Care Provider: UNKNOWN History of Present Illness History of Present Illness: Mr. Whitehead is a 53-year-old male with a medical history of chronic sinusitis and Heroin use. Patient presented to ED via private vehicle on 07/30/18 after being found unconscious at home. Patient was found tachypneic and hypoxic with oxygen saturation in the 70s. He was given Glentana and intravenously, he became somewhat more responsive but extremely combative and agitated. Patient was intubated and placed on mechanical ventilation. Laboratory workup revealing WBC of 17.4, BUN/creatinine 23/3.09 and lactic acid of 6.6. UA negative for nitrates or leukocytes. Toxicology positive for cocaine and opioids. Chest x- ray revealing slight CHF. Head CT negative for acute process. Bilateral lower extremities ultrasound negative for DVT. Clinical condition complicated by hypotension requiring fluid resuscitation, he was started on norepinephrine drip while in the ED. Patient was found with no palpable pulse and required CPR with ROSC after 2 minutes. Patient was placed on multiple vasopressors and admitted to medical ICU for further management. Palliative care has been consulted for further clarifications of goals of care, family support. Patient seen in medical ICU, endotracheal intubated on mechanical ventilation. Currently on vasopressin, Levophed and phenylephrine as well as Versed drip. Ultrasound kidney/renal/bladder revealing enlarged echogenic liver and 1.4 cm left renal cyst. Repeat laboratory workup revealing WBC of 22.5, lactic acid 4.4, BUN/creatinine 25/2.99. Troponin 3.43. Telephone call to patient's brother listed on contact Danny Whitehead, left . Received telephone call from patient's sister Argelia. Notified of patient's current critical condition. Argelia reports that patient is single, has 1 daughter by the name of Rhonda Mariano. Telephone conversation with daughter Rhonda, medical update provided. Daughter is very tearful, reports that she will be visiting patient as soon as possible. 15:45. Met with patient's daughter and her mother at bedside. Medical update provided. In this first visit, introduced the role of palliative care and advance illness in regards to symptom management as well as support surrounding goals of care and advance planning. Daughter receptive to palliative care visit. Obtained patient's past medical history, psychosocial history. Reviewed events leading to this hospitalization, clinical course and current medical management. Share concerns of patient's current critical condition in the setting of severe sepsis requiring multiple vasopressors, acute respiratory failure. Goals of treatment reasonably aggressive to include full code, family wishing to allow a few more days or clinical improvement. Reviewed guarded prognosis. Family receptive to palliative care follow-ups for support. Case discussed with Dr. Hilliard. Function/Cognitive Trajectory: Patient independent with all ADLs prior to this acute event. No cognitive deficit reported. Review of Systems unobtainable due to mental condition PMFSH - History History Provided By: Patient, Medical Record - Medical History Medical History: Medical History (Last Updated 07/30/18 @ 15:55 by Dawn Larson APRN) Chronic back pain Chronic sinusitis Drug abuse - Surgical History Surgical History: Surgical History (Last Updated 07/30/18 @ 15:01 by Dawn Larson APRN) No history of previous surgery - Family History Family History: Family History (Last Updated 07/30/18 @ 15:56 by Dawn Larson APRN) Other Hypertension - Social History I have reviewed the patient's Social History: Yes - Tobacco History Smoking Status: Unknown if ever smoked - Alcohol History How Often Do You Have a Drink Containing Alcohol: Unable to Obtain - Substance Use History Substance History: Active Abuse - Substance Use Type Opiates Status: Active Route Used: Intramuscular Reason for Use: Feels Good - Travel History Recent Travel in the [place] Within the Last 8 Weeks: No Recent Travel Out of the Country Within the Last 8 Weeks: No - Immunization History Tetanus Immunization: Unable to Assess Medications and Allergies Active Medications: Active Medications Al Hydroxide/Mg Hydroxide (Milk Of Magnesia Liq) 30 ml PO Q12H PRN PRN Reason: Mild Constipation Albuterol (Albuterol Neb (Prn)) 2.5 mg NEB Q2HR NEB PRN PRN Reason: SHORTNESS OF BREATH Albuterol (Duoneb Neb (Michelle)) 1 ampul NEB Q4HR NEB MICHELLE Artificial Tears (Tears Naturale Opth Drops) 1 drop EACH EYE Q8H MICHELLE Bisacodyl (Dulcolax Supp) 10 mg RECTAL DAILY PRN PRN Reason: SEVERE CONSITIPATION Chlorhexidine Gluconate (Peridex 0.12% Oral Kit) 15 ml OROPHARYNG BID@0800, 2000 [facility] Chlorhexidine Gluconate (Chlorhexidine 2% Cloth) 3 pack TOPICAL DAILY@0400 MICHELLE Stop: 08/05/18 03:59 Chlorhexidine Gluconate (Chlorhexidine 2% Cloth) 3 pack TOPICAL DAILY@0400 PRN PRN Reason: Extra cloth needed Stop: 08/05/18 03:59 Dextrose (D50w Vial) 50 ml IV.PUSH UNSCH PRN PRN Reason: PER HYPOGLYCEMIA PROTOCOL Glucagon (Glucagon Inj) 1 mg OTHER PRN PRN PRN Reason: for Hypoglycemia Protocol Heparin Sodium (Porcine) (Heparin Inj) 5,000 units SQ Q12H [facility] Last Admin: 07/30/18 14:19 Dose: 5,000 units Hydrocortisone Sodium Succinate (Solucortef Inj) 100 mg IV.PUSH Q8HR [facility] Last Admin: 07/30/18 14:19 Dose: 100 mg Midazolam HCl (Versed Inj) 100 mg in 100 mls @ 2 mls/hr IV.CONT TITRATE PRN; Protocol PRN Reason: See protocol Last Admin: 07/30/18 10:33 Dose: 2 mg/hr, 2 mls/hr Phenylephrine HCl 160 mg/ (Sodium Chloride) 500 mls @ 7.5 mls/hr IV.CONT TITRATE PRN; Protocol PRN Reason: Per Protocol Last Admin: 07/30/18 11:41 Dose: 40 mcg/min, 7.5 mls/hr Vasopressin 40 unit/ Sodium (Chloride) 100 mls @ 6 mls/hr IV.CONT CONT MICHELLE; Protocol Sodium Chloride (Ns Inj) 1,000 mls @ 84 mls/hr IV.CONT .[id number] [facility] Last Admin: 07/30/18 12:15 Dose: 84 mls/hr Norepinephrine Bitartrate 16 (mg/ Sodium Chloride) 250 mls @ 1.87 mls/hr IV.CONT TITRATE PRN; Protocol PRN Reason: See Protocol Piperacillin/Tazobactam/Dextrose (Zosyn 2.25 Gm Premix) 2.25 gm in 50 mls @ 100 mls/hr IV.SIG Q6H [facility] Vancomycin HCl 2,000 mg/ (Sodium Chloride) 520 mls @ 250 mls/hr IV.SIG ONCE ONE Stop: 07/30/18 16:04 Last Admin: 07/30/18 14:19 Dose: 250 mls/hr Multivitamins 10 ml/ Thiamine HCl 100 mg/ Folic Acid 1 mg/Sodium Chloride 511.2 mls @ 125 mls/hr IV.SIG Q24H MICHELLE Stop: 08/01/18 20:06 Insulin Aspart (Novolog Insulin Correctional Sugar Inj) 0 unit SQ Q6HR [facility]; Protocol Lactulose (Lactulose Liq) 30 ml PO DAILY PRN PRN Reason: SEVERE CONSITIPATION Lactulose (Lactulose Liq) 30 ml PO BID [facility] Miscellaneous Medication () 1 each OROPHARYNG 0000,0400,1200,1600 [facility] Last Admin: 07/30/18 14:19 Dose: 1 each Pantoprazole Sodium (Protonix Inj) 40 mg IV.PUSH DAILY [facility] Pharmacy Profile Note (Vancomycin Consult Pharmacy) 1 each OTHER UNSCH PRN PRN Reason: Pharmacy to dose Senna/Docusate Sodium (Vonda-Colace) 1 tab PO BID [facility] Sennosides (Senokot) 17.2 mg PO Q12H PRN PRN Reason: Moderate Constipation Sodium Chloride (Ns Flush) 2 ml IV.FLUSH PRN PRN PRN Reason: FLUSH AFTER USING IV ACCESS Sodium Chloride (Ns Flush) 2 ml IV.FLUSH BID MICHELLE Sodium Chloride (Ns Flush) 2 ml IV.FLUSH PRN PRN PRN Reason: FLUSH AFTER USING IV ACCESS Terbutaline Sulfate (Brethine Inj) 1 mg SQ UNSCH PRN PRN Reason: For Extravasation Terbutaline Sulfate (Brethine Inj) 1 mg SQ UNSCH PRN PRN Reason: For Extravasation Terbutaline Sulfate (Brethine Inj) 1 mg SQ UNSCH PRN PRN Reason: For Extravasation Allergies Allergy/AdvReac Type Severity Reaction Status Date / Time No Known Allergies Allergy Verified 07/30/18 08:55 Home Medications Medication Instructions Recorded Confirmed Type Unable to Obtain Home Meds 07/30/18 07/30/18 History Advance Directives Living Will: No Healthcare Surrogate: No Power of Heel Top Lift Splitter: No Physical Exam Vital Signs: Vital Signs - 24 hr 07/30/18 08:47 07/30/18 09:16 07/30/18 09:19 Temperature 98.9 F Pulse Rate 117 H 110 H Respiratory Rate 25 H 28 H 16 Blood Pressure 107/56 L 96/55 L Pulse Oximetry 98 07/30/18 09:30 07/30/18 10:00 07/30/18 10:40 Temperature Pulse Rate 96 H Respiratory Rate 16 16 Blood Pressure 76/45 L 73/39 L Pulse Oximetry 100 99 100 07/30/18 11:10 07/30/18 11:28 07/30/18 12:08 Temperature Pulse Rate 80 108 H 111 H Respiratory Rate 24 24 Blood Pressure 205/93 H 91/49 L 151/86 H Pulse Oximetry 07/30/18 12:24 07/30/18 13:08 07/30/18 13:25 Temperature Pulse Rate 89 Respiratory Rate 19 19 Blood Pressure 130/75 Pulse Oximetry 100 100 I&O: Intake & Output 07/28/18 07/29/18 07/30/18 07/31/18 06:59 06:59 06:59 06:59 Intake Total 1999 Balance 1999 Weight 110 kg Physical Exam: CONSTITUTIONAL/GENERAL: This is an adequately nourished patient, in no apparent distress. Endotracheally intubated on mechanical ventilation. TUBES/LINES/DRAINS: ETT, OG, right IJ, right arterial line, soft wrist restraints, Giles catheter. SKIN: No jaundice, rashes, or lesions. No wounds seen anteriorly. Skin temperature appropriate. Not diaphoretic. HEAD: Atraumatic. Normocephalic. EYES: Pupils equal and round and reactive. No scleral icterus. No injection or drainage. Fundi not examined. ENT: Unable to evaluate hearing secondary to clinical condition. Nose without bleeding or purulent drainage. Moist oral mucosa. NECK: Trachea midline. Supple, nontender. CARDIOVASCULAR: Tachycardic with heart rate in the low 100's. Peripheral pulses symmetric. RESPIRATORY/CHEST: Symmetric, endotracheal intubated on mechanical ventilation. Clear breath sounds. GASTROINTESTINAL: Abdomen soft, obese. Positive bowel sounds. GENITOURINARY: Without palpable bladder distension. Giles catheter in place. MUSCULOSKELETAL: Extremities without clubbing, cyanosis, or edema. No mottling or clubbing. LYMPHATICS: No palpable cervical or supraclavicular adenopathy. NEUROLOGICAL: Unresponsive to verbal stimuli, sedated on Precedex drip. PSYCHIATRIC: Unable to evaluate secondary to clinical condition. Diagnostic Tests Laboratory: Laboratory Results - last 72 hr 07/30/18 07/30/18 07/30/18 09:00 09:00 09:00 WBC 17.4 H RBC 5.70 Hgb 16.0 Hct 48.6 MCV 85.3 MCH 28.0 MCHC 32.8 RDW 15.2 Plt Count 346 MPV 8.2 Neut % (Auto) 88.6 H Lymph % (Auto) 4.6 L [place] % (Auto) 6.6 Eos % (Auto) 0.1 Baso % (Auto) 0.1 Neut # (Auto) 15.4 H Lymph # (Auto) 0.8 L [place] # (Auto) 1.2 H Eos # (Auto) 0.0 Baso # (Auto) 0.0 WBC Differential . Differential Comment Auto diff final PT 10.0 INR 1.0 APTT 26.1 Puncture Site Patient Temperature O2 Saturation ABG pH ABG pCO2 ABG pO2 ABG HCO3 ABG O2 Content ABG Base Excess ABG Methemoglobin Federico Test Hemoglobin Carboxyhemoglobin O2 Delivery Device Vent Setting Inspired O2 Critical Value Sodium 138 Potassium 4.9 Chloride 103 Carbon Dioxide 22.0 Anion Gap 13 BUN 23 H Creatinine 3.09 H Estimated GFR 21 L Random Glucose 82 Lactic Acid Calcium 8.8 Phosphorus Magnesium 2.5 Total Bilirubin 0.8 AST 59 H ALT 80 H Alkaline Phosphatase 95 Ammonia Total Creatine Kinase 888 H CK-MB (CK-2) 10.9 H CK-MB (CK-2) % 1.2 Troponin I Less than 0.02 L Total Protein 8.2 Albumin 4.1 TSH 5.520 H Urine Color Urine Clarity Urine pH Ur Specific [place] Urine Protein Urine Glucose (UA) Urine Ketones Urine Occult Blood Urine Nitrate Urine Bilirubin Urine Urobilinogen Ur Leukocyte Esterase Urine RBC Urine WBC Ur Squamous Epith Cells Urine Bacteria Hyaline Casts Granular Casts Urine Mucus Micro UA Comment Ur Microscopic Review Urine Culture Comments Ur Random Creatinine Ur Random Sodium Salicylates Urine Opiates Screen Acetaminophen Less than 2.0 L Ur Barbiturates Screen Phenytoin 0.9 L Ur Amphetamines Screen Phenobarbital Less than 2.1 L U Benzodiazepines Scrn Urine Cocaine Screen U Cannabinoids Screen Serum Alcohol Less than 3 07/30/18 07/30/18 07/30/18 09:00 09:00 09:00 WBC RBC Hgb Hct MCV MCH MCHC RDW Plt Count MPV Neut % (Auto) Lymph % (Auto) [place] % (Auto) Eos % (Auto) Baso % (Auto) Neut # (Auto) Lymph # (Auto) [place] # (Auto) Eos # (Auto) Baso # (Auto) WBC Differential Differential Comment PT INR APTT Puncture Site Patient Temperature O2 Saturation ABG pH ABG pCO2 ABG pO2 ABG HCO3 ABG O2 Content ABG Base Excess ABG Methemoglobin Federico Test Hemoglobin Carboxyhemoglobin O2 Delivery Device Vent Setting Inspired O2 Critical Value Sodium Potassium Chloride Carbon Dioxide Anion Gap BUN Creatinine Estimated GFR Random Glucose Lactic Acid 6.6 H* Calcium Phosphorus Magnesium Total Bilirubin AST ALT Alkaline Phosphatase Ammonia 45 H Total Creatine Kinase CK-MB (CK-2) CK-MB (CK-2) % Troponin I Total Protein Albumin TSH Urine Color Urine Clarity Urine pH Ur Specific [place] Urine Protein Urine Glucose (UA) Urine Ketones Urine Occult Blood Urine Nitrate Urine Bilirubin Urine Urobilinogen Ur Leukocyte Esterase Urine RBC Urine WBC Ur Squamous Epith Cells Urine Bacteria Hyaline Casts Granular Casts Urine Mucus Micro UA Comment Ur Microscopic Review Urine Culture Comments Ur Random Creatinine Ur Random Sodium Salicylates 2.0 L Urine Opiates Screen Acetaminophen Ur Barbiturates Screen Phenytoin Ur Amphetamines Screen Phenobarbital U Benzodiazepines Scrn Urine Cocaine Screen U Cannabinoids Screen Serum Alcohol 07/30/18 07/30/18 07/30/18 09:00 09:19 09:20 WBC RBC Hgb Hct MCV MCH MCHC RDW Plt Count MPV Neut % (Auto) Lymph % (Auto) [place] % (Auto) Eos % (Auto) Baso % (Auto) Neut # (Auto) Lymph # (Auto) [place] # (Auto) Eos # (Auto) Baso # (Auto) WBC Differential Differential Comment PT INR APTT Puncture Site Right radial Patient Temperature 98.6 O2 Saturation 92 ABG pH 7.15 L* ABG pCO2 57 H* ABG pO2 105 ABG HCO3 19 L ABG O2 Content 19.3 ABG Base Excess -8.3 L ABG Methemoglobin 0.7 Federico Test Present Hemoglobin 14.8 Carboxyhemoglobin 4.5 H O2 Delivery Device Ventilator Vent Setting Ac16/550/+8 Inspired O2 100 Critical Value Yes Sodium Potassium Chloride Carbon Dioxide Anion Gap BUN Creatinine Estimated GFR Random Glucose Lactic Acid Calcium Phosphorus 8.3 H Magnesium 2.5 Total Bilirubin AST ALT Alkaline Phosphatase Ammonia Total Creatine Kinase CK-MB (CK-2) CK-MB (CK-2) % Troponin I Total Protein Albumin TSH Urine Color Urine Clarity Urine pH Ur Specific [place] Urine Protein Urine Glucose (UA) Urine Ketones Urine Occult Blood Urine Nitrate Urine Bilirubin Urine Urobilinogen Ur Leukocyte Esterase Urine RBC Urine WBC Ur Squamous Epith Cells Urine Bacteria Hyaline Casts Granular Casts Urine Mucus Micro UA Comment Ur Microscopic Review Urine Culture Comments Ur Random Creatinine Ur Random Sodium Salicylates Urine Opiates Screen Pos H Acetaminophen Ur Barbiturates Screen Neg Phenytoin Ur Amphetamines Screen Neg Phenobarbital U Benzodiazepines Scrn Neg Urine Cocaine Screen Pos H U Cannabinoids Screen Neg Serum Alcohol 07/30/18 07/30/18 07/30/18 09:20 09:20 11:10 WBC RBC Hgb Hct MCV MCH MCHC RDW Plt Count MPV Neut % (Auto) Lymph % (Auto) [place] % (Auto) Eos % (Auto) Baso % (Auto) Neut # (Auto) Lymph # (Auto) [place] # (Auto) Eos # (Auto) Baso # (Auto) WBC Differential Differential Comment PT INR APTT Puncture Site Patient Temperature O2 Saturation ABG pH ABG pCO2 ABG pO2 ABG HCO3 ABG O2 Content ABG Base Excess ABG Methemoglobin Federico Test Hemoglobin Carboxyhemoglobin O2 Delivery Device Vent Setting Inspired O2 Critical Value Sodium Potassium Chloride Carbon Dioxide Anion Gap BUN Creatinine Estimated GFR Random Glucose Lactic Acid 4.4 H* Calcium Phosphorus Magnesium Total Bilirubin AST ALT Alkaline Phosphatase Ammonia Total Creatine Kinase CK-MB (CK-2) CK-MB (CK-2) % Troponin I Total Protein Albumin TSH Urine Color Yellow Urine Clarity Clear Urine pH 5.0 Ur Specific [place] 1.027 Urine Protein 100 H Urine Glucose (UA) Negative Urine Ketones Negative Urine Occult Blood Negative Urine Nitrate Negative Urine Bilirubin Negative Urine Urobilinogen Less than 2 Ur Leukocyte Esterase Negative Urine RBC 1 Urine WBC 1 Ur Squamous Epith Cells <1 Urine Bacteria Few H Hyaline Casts 10 Granular Casts 1 Urine Mucus Few H Micro UA Comment Cath-culture ind Ur Microscopic Review Not Reportable Urine Culture Comments Cath-cult indicated Ur Random Creatinine 271 Ur Random Sodium 47 Salicylates Urine Opiates Screen Acetaminophen Ur Barbiturates Screen Phenytoin Ur Amphetamines Screen Phenobarbital U Benzodiazepines Scrn Urine Cocaine Screen U Cannabinoids Screen Serum Alcohol 07/30/18 11:53 WBC RBC Hgb Hct MCV MCH MCHC RDW Plt Count MPV Neut % (Auto) Lymph % (Auto) [place] % (Auto) Eos % (Auto) Baso % (Auto) Neut # (Auto) Lymph # (Auto) [place] # (Auto) Eos # (Auto) Baso # (Auto) WBC Differential Differential Comment PT INR APTT Puncture Site Art line Patient Temperature 98.6 O2 Saturation 91 ABG pH 7.23 L* ABG pCO2 48 H ABG pO2 73 ABG HCO3 20 L ABG O2 Content 16.1 ABG Base Excess -6.6 L ABG Methemoglobin 0.8 Federico Test Present Hemoglobin 12.6 Carboxyhemoglobin 2.2 O2 Delivery Device Ventilator Vent Setting Prvc20/700/0.9/+8 Inspired O2 100 Critical Value Yes Sodium Potassium Chloride Carbon Dioxide Anion Gap BUN Creatinine Estimated GFR Random Glucose Lactic Acid Calcium Phosphorus Magnesium Total Bilirubin AST ALT Alkaline Phosphatase Ammonia Total Creatine Kinase CK-MB (CK-2) CK-MB (CK-2) % Troponin I Total Protein Albumin TSH Urine Color Urine Clarity Urine pH Ur Specific [place] Urine Protein Urine Glucose (UA) Urine Ketones Urine Occult Blood Urine Nitrate Urine Bilirubin Urine Urobilinogen Ur Leukocyte Esterase Urine RBC Urine WBC Ur Squamous Epith Cells Urine Bacteria Hyaline Casts Granular Casts Urine Mucus Micro UA Comment Ur Microscopic Review Urine Culture Comments Ur Random Creatinine Ur Random Sodium Salicylates Urine Opiates Screen Acetaminophen Ur Barbiturates Screen Phenytoin Ur Amphetamines Screen Phenobarbital U Benzodiazepines Scrn Urine Cocaine Screen U Cannabinoids Screen Serum Alcohol Result Diagrams: 07/30/18 15:00 07/30/18 15:00 Procedures: 07/30/18: Endotracheal intubation. Patient/Family Conference Present at Family Conference: Daughter Naomi Ellis, Sister Argelia. Family Conference Time: 44 Family Conference Location: Bedside, Telephone Issues Discussed: * Palliative care role, purpose, approach * Additional medical, psychosocial, and spiritual history * Patients general health, functional status, and cognitive changes in the months leading up to the current hospitalization * Patient/family understanding of the current medical problems * Patient/family understanding of prognosis -guarded * Patients goals of care as best understood from advance directives and/or conversations and/or values * Current medical treatment options and benefits/burdens of those options * Questions answered to the best of my ability * Palliative care contact information provided Assessment and Plan - Disease Oriented Problem List (1) Septic shock (2) Acute respiratory failure (3) Aspiration pneumonia (4) Acidosis, lactic (5) Acute renal failure - Symptom Scale (1) Anxiety 0-10 Scale: Unable to quantify Pertinent Non-Medical Issues: Psychosocial: Patient from [place] heritage, he was born in [place] while his father was stationed there in the . Patient is single, has 1 daughter. 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 No service. Spiritual: Scientologist jovanny. Legal: No advance directives reported. Ethical issues impacting care: No ethical issues identified. Important Contacts: Daughter Naomi Mariano , Sister Argelia Brother Danny Prognosis: alejandro Whitehead is a 53-year-old male with a medical history of chronic sinusitis, chronic back pain and drug abuse. Patient presented to ED via private vehicle on 07/30/18 after being found unconscious at home. He was found with severe sepsis. Clinical course complicated by severe hypotension requiring multiple vasopressors and CPR with ROSC after 2 minutes. Overall prognosis is guarded. Patient at high risk for further complications, continued decline and . Code Status: Full Code Plan: * CODE STATUS: FULL code. * HEALTHCARE DECISION-MAKING: Patient unable to participating medical decision making secondary to clinical condition, critically ill on life support. No advance directives reported as completed. Patient is single, has 1 biological daughter. As per [place] statue, healthcare proxy decision making falls to patient's daughter Naomi Mariano. She has accepted this role and is fully supported by patient's family. * GOALS OF CARE: Goals of care reasonably aggressive to include full code. Family wishing to allow a few more days for clinical improvement, reassess patient's clinical condition and overall prognosis for recovery. Palliative care following for support. * SYMPTOMS: = Anxiety: In the setting of significant polysubstance drug abuse. Currently on Versed drip. = Dyspnea: Secondary to aspiration pneumonia, sepsis. Currently endotracheally intubated on mechanical ventilation. Duo nebs around -the-clock. * Palliative care contact information has been provided to patient's family. * Case discussed with Dr. Hilliard and bedside RN. * Palliative care will continue to follow-up for further clarifications of goals of care, family support, as patient's clinical course continues to evolve. Time Spent Total Floor Time (mins): 60 (Total time to include review of medical records, physical exam, multiple telephone conversations with patient's family, goals of care discussion with patient's family, case discussion with attending at bedside RN.) >50% Time in Counseling or Coordination of Care: Yes (Total visit time = 60 minutes; > 50% spent counseling/coordinating care) Appreciation Thank you for the opportunity to participate in the care of Tyler Whitehead. Attestation Attestation: To help prompt me to consider important information that might be impacting today's encounter and assessment, information from prior notes written by myself or my colleagues may have been "brought forward" into today's note. My signature on this note, however, is an attestation that I personally performed the exam, history, and/or decision-making noted today, and, unless otherwise indicated, the interactions with patient, family, and staff as well as the review of records all occurred today. I also attest that the listed assessment and stated plan reflect my best clinical judgment today based on the combination of historical information, prior notes, and today's exam/ interactions. When time spent is documented, it refers only to time spent today by the signer, or if indicated, combined time spent today by collaborating physician/nurse practitioner.
[2018-07-30 15:11] LABS: ABG Base Excess -7.4 mmol/L (-2-2); ABG PCO2 43 mmHg (38-42); ABG PO2 172 mmHG (61-120)
--- NOTE | 2018-07-30 15:19 | ECHRPT ---
Indication: SEPSIS POSSIBLE ENDOCARDITIS CONCLUSIONS Technically very difficult study making assessment of left ventricular function and wall motion very suboptimal. Grossly left ventricular function appears to be low normal with ejection fraction rough ly estimated at 50%. Regional wall motion abnormalities cannot be completely excluded. Normal left ventricular size. Wall thickness is normal. The tricuspid valve is not well visualized. The estimated pulmonary arterial pressure is 23 mmHg. There is mild tricuspid valve regurgitation. BP: / HR: Rhythm: MEASUREMENTS (Male / Female) Normal Values Technical Quality: 2D ECHO LV Diastolic Diameter PLAX 3.9 cm 4.2 - 5.9 / 3.9 - 5.3 cm LV Systolic Diameter PLAX 3.1 cm IVS Diastolic Thickness 1.2 cm 0.6 - 1.0 / 0.6 - 0.9 cm LVPW Diastolic Thickness 1.1 cm 0.6 - 1.0 / 0.6 - 0.9 cm LV Relative Wall Thickness 0.6 RV Internal Dim ED PLAX 4.0 cm LVOT Diameter 1.8 cm Aortic Root Diameter 2.1 cm LA Systolic Diameter LX 3.0 cm 3.0 - 4.0 / 2.7 - 3.8 cm LV Ejection Fraction MOD 4C 43.0 % LV Ejection Fraction 4C AL 45.4 % M-MODE Aortic Root Diameter MM 2.6 cm LA Systolic Diameter MM 3.5 cm LA Ao Ratio MM 1.3 AV Cusp Separation MM 2.0 cm DOPPLER AV Peak Velocity 134.0 cm/s AV Peak Gradient 7.2 mmHg LVOT Peak Velocity 87.9 cm/s LVOT Peak Gradient 3.1 mmHg AV Area Cont Eq pk 1.7 cm Mitral E Point Velocity 64.7 cm/s Mitral A Point Velocity 48.4 cm/s Mitral E to A Ratio 1.3 LV E' Lateral Velocity 4.6 cm/s Mitral E to LV E' Lateral Ratio 14.1 LV E' Septal Velocity 5.5 cm/s Mitral E to LV E' Septal Ratio 11.8 TR Peak Velocity 183.0 cm/s TR Peak Gradient 13.4 mmHg Right Atrial Pressure 10.0 mmHg Pulmonary Artery Systolic Pressu 23.4 mmHg Right Ventricular Systolic Press 23.4 mmHg PV Peak Velocity 155.0 cm/s PV Peak Gradient 9.6 mmHg FINDINGS LEFT VENTRICLE Technically very difficult study making assessment of left ventricular function and wall motion very suboptimal. Grossly left ventricular function appears to be low normal with ejection fraction rough ly estimated at 50%. Regional wall motion abnormalities cannot be completely excluded. Normal left ventricular size. Wall thickness is normal. RIGHT VENTRICLE The right ventriclar size is upper limits of normal. LEFT ATRIUM The left atrial size is normal. RIGHT ATRIUM The right atrial size is normal. ATRIAL SEPTUM Normal atrial septal thickness without atrial level shunting by limited color doppler interrogation. AORTA The aortic root and proximal ascending aorta are normal in size on limited imaging. MITRAL VALVE Structurally normal mitral valve. No mitral valve stenosis or regurgitation. AORTIC VALVE Trileaflet aortic valve. No aortic valve stenosis or regurgitation. TRICUSPID VALVE The tricuspid valve is not well visualized. The estimated pulmonary arterial pressure is 23 mmHg. There is mild tricuspid valve regurgitation. PULMONARY VALVE No pulmonary valve regurgitation or stenosis. VESSELS The inferior vena cava is normal in size. PERICARDIUM No pericardial effusion. Jorge Batres MD (Electronically Signed) Final Date:30 July 2018 15:19
[2018-07-30] MEDS: Insulin NovoLOG Aspart Correctional Sugar Inj SQ SCH ×2 (15:21→19:33)
[2018-07-30 15:22] LABS: Baso # (Auto) 0.1 th/mm3 (0.0-0.2); Baso % (Auto) 0.5 % (0.0-2.0); Hematocrit 43.4 % (39.0-51.0); Hemoglobin 14.1 gm/dL (13.0-17.0); Lymph # (Auto) 1.5 th/mm3 (1.0-4.8); Lymph % (Auto) 6.4 % (9.0-44.0); Mean Corpuscular HGB Conc 32.5 % (32.0-36.0); Mean Corpuscular Hemoglobin 27.8 pg (27.0-34.0); Mean Corpuscular Volume 85.7 fL (80.0-100.0); Mono # (Auto) 0.9 th/mm3 (0.0-0.9); Mono % (Auto) 4.1 % (0.0-8.0); Neut # (Auto) 20.1 th/mm3 (1.8-7.7); Platelet Count 257 th/mm3 (150-450); Red Blood Count 5.06 mil/mm3 (4.50-5.90); Red Cell Distribution Width 15.1 % (11.6-17.2); White Blood Count 22.5 th/mm3 (4.0-11.0)
[2018-07-30] MEDS: Piperacil/Tazo 2.25 GM Premix 2.25 GM/50 ML PIGGYBACK IV.SIG SCH ×2 (15:22→21:31)
[2018-07-30] MEDS ORDERED: Sod Chloride 0.9% Inj 1,000 ML IV.SIG ONE (15:30)
[2018-07-30] MEDS ORDERED: Sodium Bicarbonate 8.4% Inj 50 MEQ/50 ML Syringe IV.PUSH ONE (15:30)
[2018-07-30] MEDS: Artificial Tears Opth Drops 15 ML Bottle EACH EYE SCH ×2 (15:41→21:33)
[2018-07-30 15:46] LABS: Calcium 6.6 mg/dL (8.5-10.1); Carbon Dioxide 22.1 meq/L (21.0-32.0); Potassium 6.1 meq/L (3.5-5.1)
[2018-07-30 15:47] LABS: Troponin I 3.43 ng/mL (0.02-0.05)
[2018-07-30] MEDS: Multivitamin Inj 10 ML, Thiamine Inj 100 MG, Folic Acid Inj 1 MG in Sodium Chlor 0.9% I... IV.SIG SCH (16:02)
[2018-07-30 16:04] LABS: Albumin 3.3 g/dL (3.4-5.0)
[2018-07-30 16:07] LABS: Calcium-Albumin Corrected 7.2 mg/dL (8.5-10.1)
--- NOTE | 2018-07-30 16:46 | P.PCN ---
Date of procedure: 07/29/18 Pre-op diagnosis: Hemodynamic instability Post-op diagnosis: same Procedure: DATE: 07/30/2018 PROCEDURE: Right femoral arterial catheter placement INDICATION: Hemodynamic access DETAILS OF PROCEDURE The patient was placed in supine position. The skin was cleansed with Chloraprep. Additional barrier precautions included large sterile drape, sterile gloves, sterile gown, face mask, and hat. 1% lidocaine was used for local anesthesia. Under direct ultrasound guidance and on the initial attempt, the artery was accessed with an introducer needle. The guide wire was advanced. Using Seldinger technique 20 gauge arterial catheter was placed. The guide wire was removed. The catheter was connected to a transducer line and flushed with saline. The video monitor displayed normal arterial wave forms. The catheter was secured with 2-0 silk. A sterile dressing with antibiotic disc was applied. Noted attempted to place left femoral arterial line. At that time the skin was cleansed with ChloraPrep. Same. Protections and 1% lidocaine used for local anesthesia. Under direct ultrasound guidance and an initial temp of the artery was accessed with introducer needle. The guidewire was advanced but controlled. ESTIMATED BLOOD LOSS: minimal COMPLICATIONS: None
[2018-07-30] MEDS ORDERED: RASS Change Order OTHER ONE (17:00)
[2018-07-30] MEDS ORDERED: RESP: Albuterol Concentrated 2.5 MG/0.5 ML Neb NEB ONE (17:00)
[2018-07-30] MEDS ORDERED: Dextrose 50% in Water 50 ML Vial IV.PUSH ONE (17:00)
[2018-07-30] MEDS ORDERED: Calcium Chloride Inj 1 GM in Sodium Chlor 0.9% Inj 100 ML IV.SIG ONE (17:30)
[2018-07-30] MEDS ORDERED: Sodium Polystyrene Sulfonate Powder 15 GM Bottle PO ONE (17:30)
[2018-07-30] MEDS: Sodium Bicarbonate 8.4% Inj 150 MEQ in Water for Inj, Sterile 850 ML IV.CONT SCH (17:33)
[2018-07-30 18:14] LABS: Hemoglobin A1c 6.1 % (4.3-6.0)
[2018-07-30] MEDS: Chlorhexidine 0.12% Oral Kit 15 ML UDC OROPHARYNG SCH (21:31)
[2018-07-30] MEDS: Senna/Docusate Sodium 8.6/50 MG Tablet PO SCH (21:33)
[2018-07-30 22:20] LABS: Hepatitis A IgM Antibody Nonreactive (Nonreactive)
[2018-07-30 22:21] LABS: Hepatitits B Surface Antigen Nonreactive (Nonreactive)
[2018-07-30 22:34] LABS: Chol/HDL Ratio 3.55 Ratio; HDL Cholesterol 33.5 mg/dL (40.0-60.0); Potassium 3.9 meq/L (3.5-5.1)
[2018-07-30 23:00] LABS: Troponin I 29.5 ng/mL (0.02-0.05)
[2018-07-30] MEDS ORDERED: Heparin 10,000 UNITS/10 ML Vial (for IV use) IV.PUSH STA (23:17)
[2018-07-30] MEDS: fentaNYL 10 mcg/mL Premix Drip 2,500 MCG/250 ML BAG IV.SIG PRN (23:25)
[2018-07-30] MEDS: Heparin Drip 25,000 UNIT/250 ML BAG IV.CONT PRN (23:42)
[2018-07-30 23:59] LABS: Prothrombin Time 10.6 sec (9.8-11.6)
[2018-07-31 00:20] LABS: ABG Base Excess 1.3 mmol/L (-2-2); ABG PCO2 30 mmHg (38-42); ABG PO2 76 mmHG (61-120)
[2018-07-31] MEDS: Sodium Bicarbonate 8.4% Inj 150 MEQ in Water for Inj, Sterile 850 ML IV.CONT SCH ×4 (00:28→20:56)
[2018-07-31] MEDS: Insulin NovoLOG Aspart Correctional Sugar Inj SQ SCH ×5 (00:51→23:39)
[2018-07-31] MEDS: Oral Hygiene Kit OROPHARYNG SCH ×5 (00:52→23:40)
[2018-07-31 02:48] LABS: CKMB Percent 0.5 % (0.0-4.0); Creatine Kinase MB 62.9 ng/mL (0.5-3.6)
[2018-07-31] MEDS: Piperacil/Tazo 2.25 GM Premix 2.25 GM/50 ML PIGGYBACK IV.SIG SCH ×4 (03:23→20:58)
[2018-07-31] MEDS: Vasopressin Inj 40 UNIT in Sodium Chlor 0.9% Inj 98 ML IV.CONT SCH ×2 (03:24→20:55)
[2018-07-31] MEDS: Chlorhexidine Gluconate 2% 1 Pack (2 Cloths) TOPICAL SCH (03:25)
[2018-07-31] MEDS ORDERED: Chlorhexidine Gluconate 2% 1 Pack (2 Cloths) TOPICAL PRN (04:00)
[2018-07-31 05:29] LABS: Activated Partial Thrombo Time 49.4 sec (23.4-31.7); INR 1.1 Ratio; Prothrombin Time 11.2 sec (9.8-11.6)
[2018-07-31 05:36] LABS: Baso % (Auto) 0.2 % (0.0-2.0); Hematocrit 38.6 % (39.0-51.0); Hemoglobin 12.7 gm/dL (13.0-17.0); Lymph # (Auto) 1.1 th/mm3 (1.0-4.8); Mean Corpuscular Hemoglobin 27.4 pg (27.0-34.0); Mean Corpuscular Volume 83.1 fL (80.0-100.0); Mean Platelet Volume 8.2 fL (7.0-11.0); Mono # (Auto) 0.8 th/mm3 (0.0-0.9); Neut % (Auto) 90.8 % (16.0-70.0); Platelet Count 216 th/mm3 (150-450); Red Blood Count 4.65 mil/mm3 (4.50-5.90); Red Cell Distribution Width 14.6 % (11.6-17.2); White Blood Count 20.9 th/mm3 (4.0-11.0)
--- NOTE | 2018-07-31 05:44 | XR ---
EXAM DATE: 07/31/2018 5:41 AM EST AGE/SEX: 53 years / Male INDICATIONS: Shortness of breath, possible pulmonary disease. CLINICAL DATA: This is the patient's subsequent encounter. Patient reports that signs and symptoms h ave been present for 2 days and indicates a pain score of Nonresponsive. MEDICAL/SURGICAL HISTORY: Non-responsive. Non-responsive. COMPARISON: [facility], CHEST 1V SINGLE AP, 07/30/2018. . FINDINGS: The ET tube, NG tube and right internal jugular central line are well placed. The heart size is withi n normal limits. This increased density seen in the left perihilar region and at the bases bilaterall y being worse in the left. The costophrenic angles are grossly clear. CONCLUSION: Suspected consolidation in the left perihilar and bases bilaterally. When compared to the prior exam, there has been slight worsening. Electronically signed by: Paul Schroeder MD Board Certified Radiologist 07/31/2018 5:43 AM EST
[2018-07-31 05:53] LABS: Albumin 2.7 g/dL (3.4-5.0); Calcium 7.4 mg/dL (8.5-10.1); Carbon Dioxide 29.9 meq/L (21.0-32.0); Magnesium 1.6 mg/dL (1.5-2.5); Phosphorus 3.3 mg/dL (2.5-4.9); Potassium 3.3 meq/L (3.5-5.1); Total Protein 5.6 g/dL (6.4-8.2); Vancomycin,Random 10.1 Comment
[2018-07-31 05:55] LABS: Troponin I 28.6 ng/mL (0.02-0.05)
[2018-07-31] MEDS: Hydrocortisone Sod Succinate 100 MG Vial IV.PUSH SCH ×3 (06:38→21:01)
[2018-07-31] MEDS: Midazolam 100 MG/100 ML Inj 100 MG/100 ML BAG IV.CONT PRN ×2 (06:38→23:38)
[2018-07-31] MEDS: Artificial Tears Opth Drops 15 ML Bottle EACH EYE SCH ×3 (06:39→21:02)
[2018-07-31 08:21] LABS: Lymphocytes 4 % (9-44); Monocytes 5 % (0-8)
[2018-07-31 08:22] LABS: Platelet Estimate Normal (Normal); Platelet Morphology Normal (Normal); Stomatocytes 1+
[2018-07-31] MEDS: Senna/Docusate Sodium 8.6/50 MG Tablet PO SCH ×2 (08:38→20:58)
[2018-07-31] MEDS: Chlorhexidine 0.12% Oral Kit 15 ML UDC OROPHARYNG SCH ×2 (08:38→20:58)
[2018-07-31] MEDS: Pantoprazole Inj 40 MG Vial IV.PUSH SCH (08:39)
--- NOTE | 2018-07-31 09:31 | P.PNCC ---
Subjective Subjective Remarks/Hospital Course: This is a 53-year-old male. Date of admission 07/30/2018. Past medical history in reviewing records includes headaches and increased BMI. Per ED documentation this patient arrived to [facility] via private vehicle by a friend who found him unconscious at his residence. According to the friend the patient was unconscious last night, when they reevaluated the patient this morning he was still unconscious with sonorous respirations. Upon Dr. Rodgers examination, this patient was noted to be tachycardic, hypoxic, and severely confused. The patient's blood sugar was 88 at bedside, the patient was administered Narcan intravenously, he became somewhat more responsive but extremely combative and agitated. Bed. No further information is obtainable from the patient. 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 Attempt to contact these people were not successful A central line and arterial line placed with the ED physician. Patient was quite hypotensive and required 4 L of normal saline crystalloid resuscitation. He was started on norepinephrine is currently 50 mcg/min. Patient had no palpable pulse and patient actually was coded for 2 minutes after receiving 1 mg of epinephrine and 1 ampicillin bicarbonate with return of spontaneous circulation after 2 minutes. During the code he received a crystalloid bolus. She is currently on epinephrine, phenylephrine and vasopressin drips. CT brain revealed no acute intracranial signs. Tox screen revealed opiates and cocaine. Laboratories reveal initial lactate of 6.6 currently 4.4. Leukocytosis, acute kidney injury with creatinine 3.1 and elevated transaminases and ammonia level. Subjective 07/31: Lactic currently trending down to 3.6. Elevated troponin start heparin drip overnight. Remains on aspirin. Unable to do beta-amy or TOR inhibitor due to hypotension/is received in acute kidney injury. Lipids normal. Cardiology evaluated the same. Adequate urine output. Replacing electrolytes the same. Arousable the ventilator and follows commands. Objective Vital Signs / I&O: Vital Signs 07/30/18 10:00 07/30/18 10:40 07/30/18 11:10 Temperature Pulse Rate 96 H 80 Respiratory Rate 16 16 Blood Pressure 76/45 L 73/39 L 205/93 H Pulse Oximetry 99 100 07/30/18 11:28 07/30/18 12:08 07/30/18 12:24 Temperature Pulse Rate 108 H 111 H Respiratory Rate 24 24 19 Blood Pressure 91/49 L 151/86 H Pulse Oximetry 100 07/30/18 13:00 07/30/18 13:08 07/30/18 13:25 Temperature Pulse Rate 89 Respiratory Rate 22 19 Blood Pressure 147/58 H 130/75 Pulse Oximetry 100 100 07/30/18 14:00 07/30/18 15:00 07/30/18 15:55 Temperature 98.2 F Pulse Rate 100 H 98 H 96 H Respiratory Rate 22 22 20 Blood Pressure 104/74 78/52 L Pulse Oximetry 100 100 96 07/30/18 16:00 07/30/18 17:00 07/30/18 17:13 Temperature Pulse Rate 97 H 95 H 93 H Respiratory Rate 22 22 20 Blood Pressure 159/77 H 120/79 Pulse Oximetry 100 100 07/30/18 18:00 07/30/18 19:52 07/30/18 20:00 Temperature 99.5 F Pulse Rate 91 H 91 H 91 H Respiratory Rate 22 22 22 Blood Pressure 167/95 H 177/95 H Pulse Oximetry 100 99 99 07/30/18 20:15 07/30/18 20:30 07/30/18 20:37 Temperature Pulse Rate 91 H 90 91 H Respiratory Rate 22 22 22 Blood Pressure 168/92 H 167/98 H Pulse Oximetry 99 100 100 07/30/18 20:45 07/30/18 21:00 07/30/18 21:15 Temperature Pulse Rate 92 H 91 H 92 H Respiratory Rate 22 22 22 Blood Pressure 169/92 H 175/96 H 170/95 H Pulse Oximetry 99 100 100 07/30/18 21:30 07/30/18 21:45 07/30/18 22:00 Temperature Pulse Rate 93 H 89 91 H Respiratory Rate 4 L 22 22 Blood Pressure 170/100 H 177/102 H 174/95 H Pulse Oximetry 99 99 99 07/30/18 22:15 07/30/18 22:30 07/30/18 22:45 Temperature Pulse Rate 90 90 89 Respiratory Rate 22 22 22 Blood Pressure 170/90 H 170/93 H 171/90 H Pulse Oximetry 100 100 99 07/30/18 23:00 07/30/18 23:15 07/30/18 23:30 Temperature Pulse Rate 88 102 H 90 Respiratory Rate 22 27 H 22 Blood Pressure 170/91 H 179/97 H 171/90 H Pulse Oximetry 99 95 94 L 07/30/18 23:45 07/31/18 00:00 07/31/18 00:15 Temperature Pulse Rate 89 91 H 85 Respiratory Rate 22 22 22 Blood Pressure 158/86 H 171/91 H 163/92 H Pulse Oximetry 96 96 96 07/31/18 00:30 07/31/18 00:44 07/31/18 00:45 Temperature Pulse Rate 85 87 84 Respiratory Rate 16 16 16 Blood Pressure 159/89 H 156/85 H Pulse Oximetry 95 95 95 07/31/18 01:00 07/31/18 01:15 07/31/18 01:30 Temperature Pulse Rate 85 86 84 Respiratory Rate 16 16 16 Blood Pressure 155/85 H 159/87 H 163/89 H Pulse Oximetry 96 97 96 07/31/18 01:45 07/31/18 02:00 07/31/18 02:15 Temperature Pulse Rate 84 82 82 Respiratory Rate 16 16 16 Blood Pressure 167/92 H 168/91 H 164/92 H Pulse Oximetry 97 96 97 07/31/18 02:30 07/31/18 02:45 07/31/18 03:00 Temperature Pulse Rate 80 80 79 Respiratory Rate 16 16 16 Blood Pressure 167/93 H 169/95 H 166/96 H Pulse Oximetry 97 96 96 07/31/18 03:15 07/31/18 03:30 07/31/18 03:43 Temperature 99 F Pulse Rate 79 84 79 Respiratory Rate 16 16 16 Blood Pressure 168/96 H 157/88 H Pulse Oximetry 97 97 97 07/31/18 03:45 07/31/18 04:00 07/31/18 04:15 Temperature Pulse Rate 80 79 78 Respiratory Rate 16 16 16 Blood Pressure 162/90 H 168/94 H 159/93 H Pulse Oximetry 97 97 98 07/31/18 04:30 07/31/18 04:45 07/31/18 05:00 Temperature Pulse Rate 77 73 71 Respiratory Rate 16 16 16 Blood Pressure 164/92 H 167/95 H 159/93 H Pulse Oximetry 97 97 98 07/31/18 05:15 07/31/18 05:30 07/31/18 05:45 Temperature Pulse Rate 72 69 81 Respiratory Rate 16 16 16 Blood Pressure 162/91 H 146/84 H 129/71 Pulse Oximetry 98 98 98 07/31/18 06:00 07/31/18 07:41 Temperature Pulse Rate 73 71 Respiratory Rate 1 L 16 Blood Pressure 151/93 H Pulse Oximetry 98 98 Intake & Output 07/30/18 07/31/18 07/31/18 18:59 06:59 18:59 Intake Total 2049 4501.2 / 4501.2 1000 / 1000 Output Total 800 / 800 2650 / 2650 Balance 1250 / 1250 1851.2 / 1851.2 1000 / 1000 Weight 110 kg 107.002 kg Intake: IV 2049 4441.2 / 4441.2 1000 / 1000 Versed Inj 100 mg In 100 ml @ 2 200 / 200 MG/HR 2 mls/hr IV.CONT TITRATE PRN Rx#:[id number] Sodium Bicarbonate 8.4% Inj 150 1000 / 1000 1000 / 1000 MEQ In Sterile Water for Inj 850 ML @ 150 mls/hr IV.CONT . Q6H40M FOR[facility]LY [facility], 1928–1983 Rx#:[id number] Calcium Chloride Inj 1 GM In NS 110 / 110 Inj 100 ML @ 110 mls/hr IV.SIG ONCE ONE Rx#:[id number] MVI-12 Inj 10 ML Thiamine Inj 511.2 / 511.2 100 MG Folvite Inj 1 MG In NS Inj 500 ML @ 125 mls/hr IV.SIG Q24H FOR[facility]LY [facility], 1928–1983 Rx#:[id number] Zosyn 2.25 GM Premix 2.25 gm In 50 / 50 100 / 100 50 ml @ 100 mls/hr IV.SIG Q6H FOR[facility]LY [facility], [facility]–1983 Rx#:[id number] NS Inj 1,000 ML @ Wide Open IV. 1999 / 1999 1000 / 1000 SIG BOLUS ONE Rx#:[id number] Vancomycin Inj 2,000 MG In NS 520 / 520 Inj 500 ML @ 250 mls/hr IV.SIG ONCE ONE Rx#:[id number] Water Bolus Amount 60 / 60 Output: Urine Amount (Catheter) 800 / 800 2550 / 2550 Indwelling Urethral Catheter 800 / 800 2550 / 2550 Gastric Drainage 100 / 100 Oral 100 / 100 Result Diagrams: 07/31/18 05:00 07/31/18 05:00 Other Results: Microbiology 07/31/18 00:50 Nasal Wash Influenza Types A,B Antigen - Final Negative for FLU A and B antigen Infection due to influenza A or B cannot be ruled out since the antigen present in the sample may be below the detection limit of the test. Imaging: ITS Impressions Venous Doppler Study 07/30/18 00:00 CONCLUSION: 1. Negative for deep venous thrombosis Head CT 07/30/18 08:54 CONCLUSION: Unremarkable study except for mild chronic sinusitis . Abdomen/Bladder Ultrasound 07/30/18 12:07 CONCLUSION: 1. Enlarged echogenic liver 2. Normal size kidneys without mass or hydronephrosis. 3. 1.4 cm left renal cyst Chest X-Ray 07/31/18 06:00 CONCLUSION: Suspected consolidation in the left perihilar and bases bilaterally. When compared to the prior exam, there has been slight worsening. Objective Remarks: GENERAL: This is a 53-year-old male currently orotracheally intubated SKIN: Warm and dry. Multiple tattoos. HEAD: Atraumatic. Normocephalic. EYES: Pupils equal and round. No scleral icterus. No injection or drainage. ENT: No nasal bleeding or discharge. Mucous membranes pink and moist. NECK: Trachea midline. No JVD. Right IJ CVL is clean dry and intact CARDIOVASCULAR: Regular rate and rhythm. S1, S2. No S4. Without murmur RESPIRATORY: Few crackles in the bases. No wheezing. GASTROINTESTINAL: Abdomen soft, non-tender, nondistended. Hepatic and splenic margins not palpable. MUSCULOSKELETAL: Extremities with trace bilateral lower extremity edema. No obvious deformities. NEUROLOGICAL: Arousable on the ventilator follows simple commands. Moves all 4 extremities spontaneously. Assessment and Plan - Assessment and Plan Plan: Neuro/Psych: Polysubstance use including heroin, cocaine and opiates Currently on midazolam drip for sedation/analgesia while intubated Goal of RA SS -[address] brain revealed no acute intracranial findings CV: Severe shock Lactic acidosis Status post 4 L normal saline in the ED. Aggressive crystalloid resuscitation. Norepinephrine, phenylephrine and vasopressin to maintain mean artery pressure critical 65 wean as tolerated. Continue sterile water 3 ampoules of sodium bicarbonate 150 cc an hour Serial lactates until cleared. Currently 3.6 Cycle troponins trending upward. Heparin drip initiated overnight 2D echocardiogram ejection fraction 50%. PA P 25 mmHg. Mild TR. Cardiology consultation for elevated troponin. Start aspirin 81 mg daily. I will beta-amy or TOR inhibitor due to acute kidney injury/hypotension vasopressors unable to use statin secondary to liver injury. Resp: Acute respiratory failure Aspiration pneumonia PRVC ventilation Head of bed at 30 degrees Ventilator bundle Albuterol/ipratropium aerosols every 4 hours with albuterol aerosols every 2 as needed dyspnea Spontaneous breathing trials and clinically indicated We will attempt extubation this a.m. Her chest x-ray revealed bilateral lower lobe infiltrates 1/3 GI: Elevated transaminases Elevated ammonia NG tube to low inner wall suction to PT if not extubated Pantoprazole for GI prophylax Docusate serum/senna 1 tablet twice daily for bowel regimen Follow-up on ammonia level in a.m. Lactulose 30 cc twice daily Hepatitis panel negative : Giles catheter is indicated for accurate I's and O's in a critical patient Endo: Elevated TSH Check free T3-T4. Sliding scale insulin Accu-Cheks to maintain euglycemia Renal: Acute kidney injury Renal ultrasound revealed enlarged echogenic liver however no signs of hydronephrosis Check urine eosinophil Avoid nephrotoxic medication Nephrology consultation Monitor urine output Check BMP in a.m. Heme: Leukocytosis Normocytic anemia Monitor CBC daily. Follow trends. No indication for transfusion of blood products at this time ID: Empirically placed on vancomycin and piperacillin/tazobactam day #2 Blood cultures x2 ordered FEN: Hypokalemia Replace electro lites as clinically indicated MSK: Elevated BMI Weight loss encouraged PT evaluate and treat Access -Right IJ CVL day 2. Right femoral arterial line day #2 Prophylaxis -GI pantoprazole DVT-SCD/heparin drip 35 minutes critical care time follow-up Code Status: Full code Procedures - Arterial Line Size (Gauge): 18
[2018-07-31] MEDS ORDERED: Potassium Chlor 40 mEq Premix 40 MEQ/100 ML PIGGYBACK IV.SIG ONE (11:00)
--- NOTE | 2018-07-31 11:25 | P.CONNP ---
<Mariama Childress - Last Filed: 07/31/18 11:04> History of Present Illness Service: Nephrology Consult date: 07/31/18 Requesting Physician: Aries Hilliard Reason for Consult: Acute kidney injury with hyperkalemia Primary Care Provider: UNKNOWN Chief Complaint: Overdose, respiratory failure History of Present Illness: The patient is a 53-year-old male who presents to the emergency department via private vehicle by a friend who found him unconscious at home. According to records the friend found patient unconscious, when they reevaluated the patient this morning he was still unconscious with snoring respirations. Patient is none intubated on pressors with mild sedation. All information is obtained from chart. Nephrology is consulted for acute kidney injury with a creatinine on admission of 3.09 and potassium level of 4.9 which increased to 6.1. Creatinine this morning has improved at 2.15, potassium normal with good urinary output. US with normal size kidneys, no masses or hydronephrosis. Over a year ago creatinine was noted to 1.0. Review of Systems unobtainable due to endotracheal tube PMFSH - History History Provided By: Patient, Medical Record - Medical History Medical History: Medical History (Last Reviewed 07/31/18 @ 07:38 by Romeo Joe) Chronic back pain Chronic sinusitis Drug abuse - Surgical History Surgical History: Surgical History (Last Reviewed 07/31/18 @ 07:38 by Romeo Joe) No history of previous surgery - Family History Family History: Family History (Last Updated 07/30/18 @ 15:56 by Dawn Larson APRN) Other Hypertension - Tobacco History Smoking Status: Unknown if ever smoked - Alcohol History How Often Do You Have a Drink Containing Alcohol: Unable to Obtain - Substance Use History Substance History: Active Abuse - Substance Use Type Opiates Status: Active Route Used: Intramuscular Reason for Use: Feels Good - Travel History Recent Travel in the [place] Within the Last 8 Weeks: No Recent Travel Out of the Country Within the Last 8 Weeks: No - Immunization History Tetanus Immunization: Unable to Assess Medications and Allergies Allergies Allergy/AdvReac Type Severity Reaction Status Date / Time No Known Allergies Allergy Verified 07/30/18 08:55 Home Medications Medication Instructions Recorded Confirmed Type Unable to Obtain Home Meds 07/30/18 07/30/18 History Active Medications: Active Medications Al Hydroxide/Mg Hydroxide (Milk Of Magnrick Liq) 30 ml PO Q12H PRN PRN Reason: Mild Constipation Albuterol (Albuterol Neb (Prn)) 2.5 mg NEB Q2HR NEB PRN PRN Reason: SHORTNESS OF BREATH Albuterol (Duoneb Neb (Michelle)) 1 ampul NEB Q4HR NEB [facility] Last Admin: 07/31/18 07:41 Dose: 1 ampul Artificial Tears (Tears Naturale Opth Drops) 1 drop EACH EYE Q8H [facility] Last Admin: 07/31/18 06:39 Dose: Not Given Aspirin (Aspirin Chew) 81 mg PO DAILY [facility] [place] Last Admin: 07/31/18 08:38 Dose: 81 mg Bisacodyl (Dulcolax Supp) 10 mg RECTAL DAILY PRN PRN Reason: SEVERE CONSITIPATION Chlorhexidine Gluconate (Peridex 0.12% Oral Kit) 15 ml OROPHARYNG BID@0800, 2000 [facility] Last Admin: 07/31/18 08:38 Dose: 15 ml Chlorhexidine Gluconate (Chlorhexidine 2% Cloth) 3 pack TOPICAL DAILY@0400 [facility] Stop: 08/05/18 03:59 Last Admin: 07/31/18 03:25 Dose: 3 pack Chlorhexidine Gluconate (Chlorhexidine 2% Cloth) 3 pack TOPICAL DAILY@0400 PRN PRN Reason: Extra cloth needed Stop: 08/05/18 03:59 Dextrose (D50w Vial) 50 ml IV.PUSH UNSCH PRN PRN Reason: PER HYPOGLYCEMIA PROTOCOL Glucagon (Glucagon Inj) 1 mg OTHER PRN PRN PRN Reason: for Hypoglycemia Protocol Hydrocortisone Sodium Succinate (Solucortef Inj) 100 mg IV.PUSH Q8HR [facility] Last Admin: 07/31/18 06:38 Dose: 100 mg Midazolam HCl (Versed Inj) 100 mg in 100 mls @ 2 mls/hr IV.CONT TITRATE PRN; Protocol PRN Reason: See protocol Last Admin: 07/31/18 06:38 Dose: 10 mg/hr, 10 mls/hr Phenylephrine HCl 160 mg/ (Sodium Chloride) 500 mls @ 7.5 mls/hr IV.CONT TITRATE PRN; Protocol PRN Reason: Per Protocol Last Titration: 07/31/18 00:30 Dose: 160 mcg/min, 30 mls/hr Vasopressin 40 unit/ Sodium (Chloride) 100 mls @ 6 mls/hr IV.CONT CONT MICHELLE; Protocol Last Admin: 07/31/18 03:24 Dose: 0.04 units/min, 6 mls/hr Norepinephrine Bitartrate 16 (mg/ Sodium Chloride) 250 mls @ 1.87 mls/hr IV.CONT TITRATE PRN; Protocol PRN Reason: See Protocol Last Titration: 07/31/18 00:13 Dose: 0 mcg/min, 0 mls/hr Piperacillin/Tazobactam/Dextrose (Zosyn 2.25 Gm Premix) 2.25 gm in 50 mls @ 100 mls/hr IV.SIG Q6H [facility] [place] Last Admin: 07/31/18 08:37 Dose: 100 mls/hr Multivitamins 10 ml/ Thiamine HCl 100 mg/ Folic Acid 1 mg/Sodium Chloride 511.2 mls @ 125 mls/hr IV.SIG Q24H [facility] Stop: 08/01/18 20:06 Last Infusion: 07/31/18 00:11 Dose: Infused Fentanyl (Fentanyl 10 Mcg/Ml Premix Drip) 2,500 mcg in 250 mls @ 5 mls/hr IV.SIG TITRATE PRN; Protocol PRN Reason: Per Protocol Last Titration: 07/30/18 23:35 Dose: 100 mcg/hr, 10 mls/hr Sodium Bicarbonate 150 meq/ (Sterile Water) 1,000 mls @ 150 mls/hr IV.CONT .Q6H40M [facility] [place] Last Admin: 07/31/18 07:29 Dose: 150 mls/hr Heparin Sodium/Dextrose (Heparin/D5w 25,000 U/250 Ml) 25,000 unit in 250 mls @ 0 mls/hr IV.CONT TITRATE PRN; Protocol PRN Reason: Per Protocol Last Admin: 07/30/18 23:42 Dose: 1,000 units/hr, 10 mls/hr Magnesium Sulfate 4 gm/ Sodium (Chloride) 100 mls @ 25 mls/hr IV.SIG ONCE ONE Stop: 07/31/18 15:59 Potassium Chloride (Kcl 40 Meq Premix Inj) 40 meq in 100 mls @ 25 mls/hr IV.SIG ONCE ONE Stop: 07/31/18 14:59 Vancomycin HCl 2,000 mg/ (Sodium Chloride) 520 mls @ 250 mls/hr IV.SIG ONCE ONE Stop: 07/31/18 14:04 Insulin Aspart (Novolog Insulin Correctional Sugar Inj) 0 unit SQ Q6HR [facility]; Protocol Last Admin: 07/31/18 05:57 Dose: Not Given Lactulose (Lactulose Liq) 30 ml PO DAILY PRN PRN Reason: SEVERE CONSITIPATION Lactulose (Lactulose Liq) 30 ml PO BID [facility] Last Admin: 07/31/18 08:38 Dose: 30 ml Miscellaneous Medication () 1 each OROPHARYNG 0000,0400,1200,1600 [facility] Last Admin: 07/31/18 03:25 Dose: 1 each Pantoprazole Sodium (Protonix Inj) 40 mg IV.PUSH DAILY [facility] Last Admin: 07/31/18 08:39 Dose: 40 mg Pharmacy Profile Note (Vancomycin Consult Pharmacy) 1 each OTHER UNSCH PRN PRN Reason: Pharmacy to dose Senna/Docusate Sodium (Vonda-Colace) 1 tab PO BID [facility] Last Admin: 07/31/18 08:38 Dose: 1 tab Sennosides (Senokot) 17.2 mg PO Q12H PRN PRN Reason: Moderate Constipation Sodium Chloride (Ns Flush) 2 ml IV.FLUSH BID [facility] Last Admin: 07/31/18 08:39 Dose: 2 ml Sodium Chloride (Ns Flush) 2 ml IV.FLUSH PRN PRN PRN Reason: FLUSH AFTER USING IV ACCESS Terbutaline Sulfate (Brethine Inj) 1 mg SQ UNSCH PRN PRN Reason: For Extravasation Terbutaline Sulfate (Brethine Inj) 1 mg SQ UNSCH PRN PRN Reason: For Extravasation Terbutaline Sulfate (Brethine Inj) 1 mg SQ UNSCH PRN PRN Reason: For Extravasation Exam Vital signs: Vital Signs 07/30/18 11:10 07/30/18 11:28 07/30/18 12:08 Temperature Pulse Rate 80 108 H 111 H Respiratory Rate 24 24 Blood Pressure 205/93 H 91/49 L 151/86 H Pulse Oximetry 07/30/18 12:24 07/30/18 13:00 07/30/18 13:08 Temperature Pulse Rate 89 Respiratory Rate 19 22 Blood Pressure 147/58 H 130/75 Pulse Oximetry 100 100 07/30/18 13:25 07/30/18 14:00 07/30/18 15:00 Temperature 98.2 F Pulse Rate 100 H 98 H Respiratory Rate 19 22 22 Blood Pressure 104/74 78/52 L Pulse Oximetry 100 100 100 07/30/18 15:55 07/30/18 16:00 07/30/18 17:00 Temperature Pulse Rate 96 H 97 H 95 H Respiratory Rate 20 22 22 Blood Pressure 159/77 H 120/79 Pulse Oximetry 96 100 100 07/30/18 17:13 07/30/18 18:00 07/30/18 19:52 Temperature Pulse Rate 93 H 91 H 91 H Respiratory Rate 20 22 22 Blood Pressure 167/95 H Pulse Oximetry 100 99 07/30/18 20:00 07/30/18 20:15 07/30/18 20:30 Temperature 99.5 F Pulse Rate 91 H 91 H 90 Respiratory Rate 22 22 22 Blood Pressure 177/95 H 168/92 H 167/98 H Pulse Oximetry 99 99 100 07/30/18 20:37 07/30/18 20:45 07/30/18 21:00 Temperature Pulse Rate 91 H 92 H 91 H Respiratory Rate 22 22 22 Blood Pressure 169/92 H 175/96 H Pulse Oximetry 100 99 100 07/30/18 21:15 07/30/18 21:30 07/30/18 21:45 Temperature Pulse Rate 92 H 93 H 89 Respiratory Rate 22 4 L 22 Blood Pressure 170/95 H 170/100 H 177/102 H Pulse Oximetry 100 99 99 07/30/18 22:00 07/30/18 22:15 07/30/18 22:30 Temperature Pulse Rate 91 H 90 90 Respiratory Rate 22 22 22 Blood Pressure 174/95 H 170/90 H 170/93 H Pulse Oximetry 99 100 100 07/30/18 22:45 07/30/18 23:00 07/30/18 23:15 Temperature Pulse Rate 89 88 102 H Respiratory Rate 22 22 27 H Blood Pressure 171/90 H 170/91 H 179/97 H Pulse Oximetry 99 99 95 07/30/18 23:30 07/30/18 23:45 07/31/18 00:00 Temperature Pulse Rate 90 89 91 H Respiratory Rate 22 22 22 Blood Pressure 171/90 H 158/86 H 171/91 H Pulse Oximetry 94 L 96 96 07/31/18 00:15 07/31/18 00:30 07/31/18 00:44 Temperature Pulse Rate 85 85 87 Respiratory Rate 22 16 16 Blood Pressure 163/92 H 159/89 H Pulse Oximetry 96 95 95 07/31/18 00:45 07/31/18 01:00 07/31/18 01:15 Temperature Pulse Rate 84 85 86 Respiratory Rate 16 16 16 Blood Pressure 156/85 H 155/85 H 159/87 H Pulse Oximetry 95 96 97 07/31/18 01:30 07/31/18 01:45 07/31/18 02:00 Temperature Pulse Rate 84 84 82 Respiratory Rate 16 16 16 Blood Pressure 163/89 H 167/92 H 168/91 H Pulse Oximetry 96 97 96 07/31/18 02:15 07/31/18 02:30 07/31/18 02:45 Temperature Pulse Rate 82 80 80 Respiratory Rate 16 16 16 Blood Pressure 164/92 H 167/93 H 169/95 H Pulse Oximetry 97 97 96 07/31/18 03:00 07/31/18 03:15 07/31/18 03:30 Temperature 99 F Pulse Rate 79 79 84 Respiratory Rate 16 16 16 Blood Pressure 166/96 H 168/96 H 157/88 H Pulse Oximetry 96 97 97 07/31/18 03:43 07/31/18 03:45 07/31/18 04:00 Temperature Pulse Rate 79 80 79 Respiratory Rate 16 16 16 Blood Pressure 162/90 H 168/94 H Pulse Oximetry 97 97 97 07/31/18 04:15 07/31/18 04:30 07/31/18 04:45 Temperature Pulse Rate 78 77 73 Respiratory Rate 16 16 16 Blood Pressure 159/93 H 164/92 H 167/95 H Pulse Oximetry 98 97 97 07/31/18 05:00 07/31/18 05:15 07/31/18 05:30 Temperature Pulse Rate 71 72 69 Respiratory Rate 16 16 16 Blood Pressure 159/93 H 162/91 H 146/84 H Pulse Oximetry 98 98 98 07/31/18 05:45 07/31/18 06:00 07/31/18 07:00 Temperature Pulse Rate 81 73 71 Respiratory Rate 16 1 L 16 Blood Pressure 129/71 151/93 H 144/90 H Pulse Oximetry 98 98 98 07/31/18 07:15 07/31/18 07:30 07/31/18 07:41 Temperature Pulse Rate 72 71 71 Respiratory Rate 16 Blood Pressure 135/85 133/81 Pulse Oximetry 98 97 98 07/31/18 07:45 07/31/18 08:00 07/31/18 08:15 Temperature 98.2 F Pulse Rate 71 73 75 Respiratory Rate Blood Pressure 128/81 129/79 134/79 Pulse Oximetry 98 97 96 07/31/18 08:30 07/31/18 08:45 07/31/18 09:00 Temperature Pulse Rate 74 75 74 Respiratory Rate Blood Pressure 129/79 134/80 118/74 Pulse Oximetry 97 98 98 07/31/18 09:15 07/31/18 09:30 07/31/18 09:45 Temperature Pulse Rate 70 70 68 Respiratory Rate Blood Pressure 115/73 114/72 115/74 Pulse Oximetry 98 98 99 07/31/18 10:00 07/31/18 10:15 Temperature Pulse Rate 69 69 Respiratory Rate Blood Pressure 115/75 112/76 Pulse Oximetry 98 98 Intake & Output 07/30/18 07/31/18 07/31/18 18:59 06:59 18:59 Intake Total 2049 4501.2 / 4501.2 1000 / 1000 Output Total 800 / 800 2650 / 2650 Balance 1250 / 1250 1851.2 / 1851.2 1000 / 1000 Weight 110 kg 107.002 kg Intake: IV 2049 4441.2 / 4441.2 1000 / 1000 Versed Inj 100 mg In 100 ml @ 2 200 / 200 MG/HR 2 mls/hr IV.CONT TITRATE PRN Rx#:[id number] Sodium Bicarbonate 8.4% Inj 150 1000 / 1000 1000 / 1000 MEQ In Sterile Water for Inj 850 ML @ 150 mls/hr IV.CONT . Q6H40M [facility] Rx#:[id number] Calcium Chloride Inj 1 GM In NS 110 / 110 Inj 100 ML @ 110 mls/hr IV.SIG ONCE ONE Rx#:[id number] MVI-12 Inj 10 ML Thiamine Inj 511.2 / 511.2 100 MG Folvite Inj 1 MG In NS Inj 500 ML @ 125 mls/hr IV.SIG Q24H [facility] Rx#:[id number] Zosyn 2.25 GM Premix 2.25 gm In 50 / 50 100 / 100 50 ml @ 100 mls/hr IV.SIG Q6H [facility] Rx#:[id number] NS Inj 1,000 ML @ Wide Open IV. 1999 1000 / 1000 SIG BOLUS ONE Rx#:[id number] Vancomycin Inj 2,000 MG In NS 520 / 520 Inj 500 ML @ 250 mls/hr IV.SIG ONCE ONE Rx#:[id number] Water Bolus Amount 60 / 60 Output: Urine Amount (Catheter) 800 / 800 2550 / 2550 Indwelling Urethral Catheter 800 / 800 2550 / 2550 Gastric Drainage 100 / 100 Oral 100 / 100 Narrative: GENERAL: Orally intubated on mild sedation. SKIN: Warm and dry. NECK: Supple, trachea midline. No JVD. CARDIOVASCULAR: Regular rate and rhythm without murmurs, gallops, or rubs. Right triple lumen IJ. Art line right femoral. RESPIRATORY: Breath sounds coarse bilaterally. No accessory muscle use. Intubated. GASTROINTESTINAL: Abdomen soft, non-tender, nondistended. +BS. OG tube present GENITOURINARY: Indwelling Giles catheter with tami urine. MUSCULOSKELETAL: No cyanosis, or edema. Results - Lab Results 07/31/18 05:00 07/31/18 05:00 Most recent lab results ABG pH 7.52 (7.380-7.420) H* 07/31/18 00:09 ABG pCO2 30 mmHg (38-42) L 07/31/18 00:09 ABG pO2 76 mmHG (61-120) 07/31/18 00:09 ABG HCO3 24 mmol/L (22-26) 07/31/18 00:09 Calcium 7.4 mg/dL (8.5-10.1) L* D 07/31/18 05:00 Phosphorus 3.3 mg/dL (2.5-4.9) D 07/31/18 05:00 Magnesium 1.6 mg/dL (1.5-2.5) D 07/31/18 05:00 - Image Kidney/bladder ultrasound: report reviewed Assessment and Plan - Assessment (1) Acute kidney injury Code(s): N17.9 - Acute kidney failure, unspecified Status: Acute Plan: Acute kidney injury with a creatinine on admission of 3.09 and potassium level of 4.9 which increased to 6.1 on admission. Creatinine this morning has improved at 2.15, potassium normal with good urinary output. GRABIEL with FeNA of 0.37 % suggestive of prerenal but also possible ATN with hypotension. US with normal size kidneys, no masses or hydronephrosis. Maintain strict I+O, indwelling catheter with good output. Maintain Map greater than 65 mmHG. On pressors for blood pressure support. On antibiotics renal dose as appropriate. Avoid nephrotoxins including NSAIDS and IV contrast. Will follow urinary output and BMP. Fluids and electrolytes stable. Labs in AM. (2) Acute respiratory failure Code(s): J96.00 - Acute respiratory failure, unspecified whether with hypoxia or hypercapnia Status: Acute Plan: Intubated on mild sedation. Antibiotics for aspiration pneumonia (3) Septic shock Code(s): A41.9 - Sepsis, unspecified organism; R65.21 - Severe sepsis with septic shock Status: Acute Plan: On antibiotics and pressors for blood pressure support. Procedures - Arterial Line Size (Gauge): 18 <Girma Nguyen Q - Last Filed: 07/31/18 20:33> History of Present Illness Primary Care Provider: UNKNOWN [facility] - Medical History Medical History: Medical History (Last Reviewed 07/31/18 @ 07:38 by Romeo Joe) Chronic back pain Chronic sinusitis Drug abuse - Surgical History Surgical History: Surgical History (Last Reviewed 07/31/18 @ 07:38 by Romeo Joe) No history of previous surgery - Family History Family History: Family History (Last Updated 07/30/18 @ 15:56 by Dawn Larson APRN) Other Hypertension Medications and Allergies Active Medications: Active Medications Al Hydroxide/Mg Hydroxide (Milk Of Magnrick Liq) 30 ml PO Q12H PRN PRN Reason: Mild Constipation Albuterol (Albuterol Neb (Prn)) 2.5 mg NEB Q2HR NEB PRN PRN Reason: SHORTNESS OF BREATH Albuterol (Duoneb Neb (Michelle)) 1 ampul NEB Q4HR NEB [facility]HELLE Last Admin: 07/31/18 15:37 Dose: 1 ampul Artificial Tears (Tears Naturale Opth Drops) 1 drop EACH EYE Q8H [facility] Last Admin: 07/31/18 13:32 Dose: 1 drop Aspirin (Aspirin Chew) 81 mg PO DAILY [facility] [place] Last Admin: 07/31/18 08:38 Dose: 81 mg Bisacodyl (Dulcolax Supp) 10 mg RECTAL DAILY PRN PRN Reason: SEVERE CONSITIPATION Chlorhexidine Gluconate (Peridex 0.12% Oral Kit) 15 ml OROPHARYNG BID@0800, 2000 [facility] [place] Last Admin: 07/31/18 08:38 Dose: 15 ml Chlorhexidine Gluconate (Chlorhexidine 2% Cloth) 3 pack TOPICAL DAILY@0400 [facility] Stop: 08/05/18 03:59 Last Admin: 07/31/18 03:25 Dose: 3 pack Chlorhexidine Gluconate (Chlorhexidine 2% Cloth) 3 pack TOPICAL DAILY@0400 PRN PRN Reason: Extra cloth needed Stop: 08/05/18 03:59 Dextrose (D50w Vial) 50 ml IV.PUSH UNSCH PRN PRN Reason: PER HYPOGLYCEMIA PROTOCOL Glucagon (Glucagon Inj) 1 mg OTHER PRN PRN PRN Reason: for Hypoglycemia Protocol Hydrocortisone Sodium Succinate (Solucortef Inj) 100 mg IV.PUSH Q8HR [facility] Last Admin: 07/31/18 13:31 Dose: 100 mg Midazolam HCl (Versed Inj) 100 mg in 100 mls @ 2 mls/hr IV.CONT TITRATE PRN; Protocol PRN Reason: See protocol Last Admin: 07/31/18 06:38 Dose: 10 mg/hr, 10 mls/hr Phenylephrine HCl 160 mg/ (Sodium Chloride) 500 mls @ 7.5 mls/hr IV.CONT TITRATE PRN; Protocol PRN Reason: Per Protocol Last Titration: 07/31/18 00:30 Dose: 160 mcg/min, 30 mls/hr Vasopressin 40 unit/ Sodium (Chloride) 100 mls @ 6 mls/hr IV.CONT CONT MICHELLE; Protocol Last Admin: 07/31/18 03:24 Dose: 0.04 units/min, 6 mls/hr Norepinephrine Bitartrate 16 (mg/ Sodium Chloride) 250 mls @ 1.87 mls/hr IV.CONT TITRATE PRN; Protocol PRN Reason: See Protocol Last Titration: 07/31/18 00:13 Dose: 0 mcg/min, 0 mls/hr Piperacillin/Tazobactam/Dextrose (Zosyn 2.25 Gm Premix) 2.25 gm in 50 mls @ 100 mls/hr IV.SIG Q6H [facility] Last Infusion: 07/31/18 16:44 Dose: Infused Multivitamins 10 ml/ Thiamine HCl 100 mg/ Folic Acid 1 mg/Sodium Chloride 511.2 mls @ 125 mls/hr IV.SIG Q24H [facility] Stop: 08/01/18 20:06 Last Admin: 07/31/18 16:41 Dose: 125 mls/hr Fentanyl (Fentanyl 10 Mcg/Ml Premix Drip) 2,500 mcg in 250 mls @ 5 mls/hr IV.SIG TITRATE PRN; Protocol PRN Reason: Per Protocol Last Admin: 07/31/18 16:40 Dose: 100 mcg/hr, 10 mls/hr Sodium Bicarbonate 150 meq/ (Sterile Water) 1,000 mls @ 150 mls/hr IV.CONT .Q6H40M [facility] Last Admin: 07/31/18 13:35 Dose: 150 mls/hr Heparin Sodium/Dextrose (Heparin/D5w 25,000 U/250 Ml) 25,000 unit in 250 mls @ 0 mls/hr IV.CONT TITRATE PRN; Protocol PRN Reason: Per Protocol Last Admin: 07/30/18 23:42 Dose: 1,000 units/hr, 10 mls/hr Insulin Aspart (Novolog Insulin Correctional Sugar Inj) 0 unit SQ Q6HR [facility]; Protocol Last Admin: 07/31/18 19:26 Dose: Not Given Lactulose (Lactulose Liq) 30 ml PO DAILY PRN PRN Reason: SEVERE CONSITIPATION Lactulose (Lactulose Liq) 30 ml PO BID [facility] Last Admin: 07/31/18 08:38 Dose: 30 ml Miscellaneous Medication () 1 each OROPHARYNG 0000,0400,1200,1600 [facility] Last Admin: 07/31/18 16:43 Dose: 1 each Pantoprazole Sodium (Protonix Inj) 40 mg IV.PUSH DAILY [facility] Last Admin: 07/31/18 08:39 Dose: 40 mg Pharmacy Profile Note (Vancomycin Consult Pharmacy) 1 each OTHER UNSCH PRN PRN Reason: Pharmacy to dose Senna/Docusate Sodium (Vonda-Colace) 1 tab PO BID [facility] Last Admin: 07/31/18 08:38 Dose: 1 tab Sennosides (Senokot) 17.2 mg PO Q12H PRN PRN Reason: Moderate Constipation Sodium Chloride (Ns Flush) 2 ml IV.FLUSH BID [facility] Last Admin: 07/31/18 08:39 Dose: 2 ml Sodium Chloride (Ns Flush) 2 ml IV.FLUSH PRN PRN PRN Reason: FLUSH AFTER USING IV ACCESS Terbutaline Sulfate (Brethine Inj) 1 mg SQ UNSCH PRN PRN Reason: For Extravasation Terbutaline Sulfate (Brethine Inj) 1 mg SQ UNSCH PRN PRN Reason: For Extravasation Terbutaline Sulfate (Brethine Inj) 1 mg SQ UNSCH PRN PRN Reason: For Extravasation Exam Vital signs: Vital Signs 07/30/18 20:37 07/30/18 20:45 07/30/18 21:00 Temperature Pulse Rate 91 H 92 H 91 H Respiratory Rate 22 22 22 Blood Pressure 169/92 H 175/96 H Pulse Oximetry 100 99 100 07/30/18 21:15 07/30/18 21:30 07/30/18 21:45 Temperature Pulse Rate 92 H 93 H 89 Respiratory Rate 22 4 L 22 Blood Pressure 170/95 H 170/100 H 177/102 H Pulse Oximetry 100 99 99 07/30/18 22:00 07/30/18 22:15 07/30/18 22:30 Temperature Pulse Rate 91 H 90 90 Respiratory Rate 22 22 22 Blood Pressure 174/95 H 170/90 H 170/93 H Pulse Oximetry 99 100 100 07/30/18 22:45 07/30/18 23:00 07/30/18 23:15 Temperature Pulse Rate 89 88 102 H Respiratory Rate 22 22 27 H Blood Pressure 171/90 H 170/91 H 179/97 H Pulse Oximetry 99 99 95 07/30/18 23:30 07/30/18 23:45 07/31/18 00:00 Temperature Pulse Rate 90 89 91 H Respiratory Rate 22 22 22 Blood Pressure 171/90 H 158/86 H 171/91 H Pulse Oximetry 94 L 96 96 07/31/18 00:15 07/31/18 00:30 07/31/18 00:44 Temperature Pulse Rate 85 85 87 Respiratory Rate 22 16 16 Blood Pressure 163/92 H 159/89 H Pulse Oximetry 96 95 95 07/31/18 00:45 07/31/18 01:00 07/31/18 01:15 Temperature Pulse Rate 84 85 86 Respiratory Rate 16 16 16 Blood Pressure 156/85 H 155/85 H 159/87 H Pulse Oximetry 95 96 97 07/31/18 01:30 07/31/18 01:45 07/31/18 02:00 Temperature Pulse Rate 84 84 82 Respiratory Rate 16 16 16 Blood Pressure 163/89 H 167/92 H 168/91 H Pulse Oximetry 96 97 96 07/31/18 02:15 07/31/18 02:30 07/31/18 02:45 Temperature Pulse Rate 82 80 80 Respiratory Rate 16 16 16 Blood Pressure 164/92 H 167/93 H 169/95 H Pulse Oximetry 97 97 96 07/31/18 03:00 07/31/18 03:15 07/31/18 03:30 Temperature 99 F Pulse Rate 79 79 84 Respiratory Rate 16 16 16 Blood Pressure 166/96 H 168/96 H 157/88 H Pulse Oximetry 96 97 97 07/31/18 03:43 07/31/18 03:45 07/31/18 04:00 Temperature Pulse Rate 79 80 79 Respiratory Rate 16 16 16 Blood Pressure 162/90 H 168/94 H Pulse Oximetry 97 97 97 07/31/18 04:15 07/31/18 04:30 07/31/18 04:45 Temperature Pulse Rate 78 77 73 Respiratory Rate 16 16 16 Blood Pressure 159/93 H 164/92 H 167/95 H Pulse Oximetry 98 97 97 07/31/18 05:00 07/31/18 05:15 07/31/18 05:30 Temperature Pulse Rate 71 72 69 Respiratory Rate 16 16 16 Blood Pressure 159/93 H 162/91 H 146/84 H Pulse Oximetry 98 98 98 07/31/18 05:45 07/31/18 06:00 07/31/18 07:00 Temperature Pulse Rate 81 73 71 Respiratory Rate 16 1 L 16 Blood Pressure 129/71 151/93 H 144/90 H Pulse Oximetry 98 98 98 07/31/18 07:15 07/31/18 07:30 07/31/18 07:41 Temperature Pulse Rate 72 71 71 Respiratory Rate 16 Blood Pressure 135/85 133/81 Pulse Oximetry 98 97 98 07/31/18 07:45 07/31/18 08:00 07/31/18 08:15 Temperature 98.2 F Pulse Rate 71 73 75 Respiratory Rate Blood Pressure 128/81 129/79 134/79 Pulse Oximetry 98 97 96 07/31/18 08:30 07/31/18 08:45 07/31/18 09:00 Temperature Pulse Rate 74 75 74 Respiratory Rate Blood Pressure 129/79 134/80 118/74 Pulse Oximetry 97 98 98 07/31/18 09:15 07/31/18 09:30 07/31/18 09:45 Temperature Pulse Rate 70 70 68 Respiratory Rate Blood Pressure 115/73 114/72 115/74 Pulse Oximetry 98 98 99 07/31/18 10:00 07/31/18 10:15 07/31/18 10:30 Temperature Pulse Rate 69 69 66 Respiratory Rate Blood Pressure 115/75 112/76 115/75 Pulse Oximetry 98 98 98 07/31/18 10:45 07/31/18 11:00 07/31/18 11:15 Temperature Pulse Rate 67 68 66 Respiratory Rate Blood Pressure 112/74 110/75 108/70 Pulse Oximetry 97 97 97 07/31/18 11:30 07/31/18 11:45 07/31/18 11:59 Temperature Pulse Rate 69 71 75 Respiratory Rate 15 Blood Pressure 103/66 104/66 Pulse Oximetry 96 96 07/31/18 12:00 07/31/18 12:15 07/31/18 12:30 Temperature 97.2 F L Pulse Rate 71 70 71 Respiratory Rate 15 Blood Pressure 101/63 103/62 104/61 Pulse Oximetry 96 96 96 07/31/18 12:45 07/31/18 13:00 07/31/18 13:15 Temperature Pulse Rate 77 68 70 Respiratory Rate Blood Pressure 99/57 L 106/65 108/66 Pulse Oximetry 95 96 96 07/31/18 13:30 07/31/18 13:45 07/31/18 14:00 Temperature Pulse Rate 71 82 88 Respiratory Rate Blood Pressure 98/62 L 97/59 L Pulse Oximetry 97 95 95 07/31/18 14:01 07/31/18 14:15 07/31/18 14:30 Temperature Pulse Rate 89 89 79 Respiratory Rate Blood Pressure 119/56 L 118/68 120/66 Pulse Oximetry 94 L 92 L 90 L 07/31/18 14:45 07/31/18 15:00 07/31/18 15:15 Temperature Pulse Rate 90 87 79 Respiratory Rate Blood Pressure 124/65 119/58 L 117/56 L Pulse Oximetry 91 L 92 L 93 L 07/31/18 15:30 07/31/18 15:37 07/31/18 15:45 Temperature Pulse Rate 74 71 71 Respiratory Rate 8 L Blood Pressure 112/59 L 110/62 Pulse Oximetry 95 96 96 01/03/19 16:00 07/31/18 16:15 07/31/18 16:30 Temperature 97.8 F Pulse Rate 73 73 73 Respiratory Rate Blood Pressure 111/67 114/64 114/66 Pulse Oximetry 96 96 96 07/31/18 16:45 07/31/18 17:00 07/31/18 17:15 Temperature Pulse Rate 73 77 78 Respiratory Rate Blood Pressure 115/65 115/69 123/68 Pulse Oximetry 96 96 96 07/31/18 17:31 07/31/18 17:45 07/31/18 18:00 Temperature Pulse Rate 82 72 70 Respiratory Rate Blood Pressure 128/90 116/68 117/68 Pulse Oximetry 96 95 96 07/31/18 18:15 07/31/18 18:30 Temperature Pulse Rate 82 69 Respiratory Rate Blood Pressure 117/73 118/69 Pulse Oximetry 94 L 95 Intake & Output 07/31/18 07/31/18 08/01/18 06:59 18:59 06:59 Intake Total 4501.2 / 4501.2 2350 / 2350 Output Total 2650 / 2650 800 / 800 Balance 1851.2 / 1851.2 1550 / 1550 Weight 107.002 kg Intake: IV 4441.2 / 4441.2 2350 / 2350 Versed Inj 100 mg In 100 ml @ 2 200 / 200 MG/HR 2 mls/hr IV.CONT TITRATE PRN Rx#:[id number] Sodium Bicarbonate 8.4% Inj 150 1000 / 1000 2000 / 2000 MEQ In Sterile Water for Inj 850 ML @ 150 mls/hr IV.CONT . Q6H40M [facility] Rx#:[id number] Calcium Chloride Inj 1 GM In NS 110 / 110 Inj 100 ML @ 110 mls/hr IV.SIG ONCE ONE Rx#:[id number] MVI-12 Inj 10 ML Thiamine Inj 511.2 / 511.2 100 MG Folvite Inj 1 MG In NS Inj 500 ML @ 125 mls/hr IV.SIG Q24H [facility] Rx#:[id number] Zosyn 2.25 GM Premix 2.25 gm In 100 / 100 100 / 100 50 ml @ 100 mls/hr IV.SIG Q6H [facility] Rx#:[id number] NS Inj 1,000 ML @ Wide Open IV. 1000 / 1000 SIG BOLUS ONE Rx#:[id number] Vancomycin Inj 2,000 MG In NS 520 / 520 Inj 500 ML @ 250 mls/hr IV.SIG ONCE ONE Rx#:[id number] fentaNYL 10 mcg/mL Premix Drip 250 / 250 2,500 mcg In 250 ml @ 50 MCG/HR 5 mls/hr IV.SIG TITRATE PRN Rx #:[id number] Water Bolus Amount 60 / 60 Output: Urine Amount (Catheter) 2550 / 2550 700 / 700 Indwelling Urethral Catheter 2550 / 2550 700 / 700 Gastric Drainage 100 / 100 100 / 100 Oral 100 / 100 100 / 100 Results - Lab Results 07/31/18 05:00 07/31/18 05:00 Most recent lab results ABG pH 7.52 (7.380-7.420) H* 07/31/18 00:09 ABG pCO2 30 mmHg (38-42) L 07/31/18 00:09 ABG pO2 76 mmHG (61-120) 07/31/18 00:09 ABG HCO3 24 mmol/L (22-26) 07/31/18 00:09 Calcium 7.4 mg/dL (8.5-10.1) L* D 07/31/18 05:00 Phosphorus 3.3 mg/dL (2.5-4.9) D 07/31/18 05:00 Magnesium 1.6 mg/dL (1.5-2.5) D 07/31/18 05:00 Assessment and Plan - Assessment (1) Acute kidney injury Code(s): N17.9 - Acute kidney failure, unspecified Status: Acute Plan: Patient seen and examined, agree with above. Patient has GRABIEL, most likely due to ATN from Hypotension. (2) Acute respiratory failure Code(s): J96.00 - Acute respiratory failure, unspecified whether with hypoxia or hypercapnia Status: Acute (3) Septic shock Code(s): A41.9 - Sepsis, unspecified organism; R65.21 - Severe sepsis with septic shock Status: Acute
[2018-07-31] MEDS ORDERED: Magnesium Sulfate Inj 4 GM in Sodium Chlor 0.9% Inj 92 ML IV.SIG ONE (12:00)
[2018-07-31] MEDS ORDERED: Vancomycin Inj 2,000 MG in Sodium Chlor 0.9% Inj 500 ML IV.SIG ONE (12:00)
--- NOTE | 2018-07-31 12:14 | ECG ---
Date Performed: 07/30/2018 Time Performed: 23:34:42 PTAGE: 53 years EKG: Sinus rhythm . Inferior/lateral ST-T changes are nonspecific Borderline ECG Since the PREVIOUS TRACING , no significant change noted PREVIOUS TRACIN07/30/2018 17.00 DOCTOR: Joslyn Gardner Interpretating Date/Time 07/31/2018 12:12:07
--- NOTE | 2018-07-31 13:51 | MB ---
cc: Jorge Batres MD DATE: 07/31/2018 REASON FOR CONSULTATION: Elevated cardiac enzymes. HISTORY OF PRESENT ILLNESS: History is difficult to elicit from the patient who is intubated and sedated. He answers yes to almost every question. He apparently is a 53-year-old white male with a history of sleep apnea, who was found unconscious by a neighbor. He was brought to the hospital and found to be hypoxemic with toxicology screen revealing evidence for cocaine and opiates. Cardiac enzymes were checked and found to be abnormal. Echocardiogram here in the hospital has been technically difficult. There seems to be low normal left ventricular systolic function with ejection fraction of roughly 50%. PAST MEDICAL HISTORY: Sleep apnea. CURRENT CARDIAC MEDICATIONS: 1. Aspirin 81 mg p.o. daily. 2. Heparin drip. 3. Phenylephrine drip. ALLERGIES: NO KNOWN DRUG ALLERGIES. Family history, social history, and review of systems are currently unobtainable. PHYSICAL EXAMINATION: VITAL SIGNS: His blood pressure 112/76 with a pulse of 70, respirations 15. GENERAL: He is a well-developed, well-nourished white male, currently intubated and sedated, arousable. HEENT: Jugular venous pressure is normal. Carotid pulses are 2+ bilaterally and without bruits. CHEST: Reveals clear lungs wood anteriorly. CARDIAC: He has a regular rhythm and rate without S3, S4, or murmur. ABDOMEN: He has a soft, obese, nontender abdomen. Bowel sounds are present. There is no definite hepatosplenomegaly. EXTREMITIES: Reveals no clubbing, cyanosis or edema. LABORATORY DATA: EKG shows sinus tachycardia, diffuse nonspecific ST and T-wave abnormalities. Chest x-ray shows haziness in the perivascular structures suggestive of slight pulmonary edema. LABORATORY DATA: Includes WBC 20.9, hemoglobin 12.7, platelets 216. INR 1.1, PTT 50.4. Potassium 3.3, BUN 23, creatinine 2.15, AST 382, ALT 249. CK 12,163, with 0.5% MB fraction. Troponin 28.60. IMPRESSION: Probable non-ST elevation myocardial infarction in this 53-year-old white male with a history of sleep apnea, admitted unresponsive, hypoxemic, confused after possible heroin, cocaine abuse. Echocardiogram this admission unfortunately is technically very difficult. Ejection fraction appears to be low normal at 50%. Regional wall motion abnormalities cannot be completely excluded. His troponin level is elevated, suggestive of non-ST elevation myocardial infarction. Chest x-ray also suggests possibility of mild congestive heart failure. At this point, he is not a good candidate for invasive cardiac evaluation with his renal insufficiency. His blood pressure is still somewhat too low to initiate beta amy therapy. RECOMMENDATIONS: 1. Continue daily aspirin and the heparin drip. 2. Should his renal indices improve, consider cardiac catheterization. 3. When his blood pressures will tolerate consider beta amy therapy with carvedilol. Jorge Batres MD [facility] , 01:27 PM , 01:37 PM
--- NOTE | 2018-07-31 14:43 | P.PNPAL ---
Reason for Visit Reason for visit: a. To assist with evaluation and management of symptoms including: Anxiety. b. To assist medical decision maker(s) with: better understanding of current medical conditions; weighing benefits/burdens of medical treatment options; making medical treatment decisions. Subjective Subjective/Interval History: Palliative care follow-up for verification of goals of care, family support. Patient seen in medical ICU, remains endotracheally intubated on mechanical ventilation. Currently on 2 vasopressors, appears more stable than yesterday. On CPAP trials during my visit. Patient following simple commands while on low- dose fentanyl drip for pain. Patient seen by nephrology today for evaluation of acute kidney injury, BUN/creatinine 23/2.15. Cardiology consulted given abnormal cardiac enzymes. Patient with probable non-ST elevation [place], not a good candidate for invasive cardiac eval given renal insufficiency. Patient's daughter Rhonda at bedside. Medical update provided. Daughter verbalized feeling hopeful regarding this patient's clinical condition, currently on CPAP trials and following simple commands. Goals of therapy remains aggressive. Case reviewed with Dr. Hilliard and bedside RN. Advance Directives Living Will: Never completed Health Care Surrogate: Never completed Durable Power of [employer] Senior Officer: Never completed Objective Vital Signs: Vital Signs 07/30/18 15:00 07/30/18 15:55 07/30/18 16:00 Temperature Pulse Rate 98 H 96 H 97 H Respiratory Rate 22 20 22 Blood Pressure 78/52 L 159/77 H Pulse Oximetry 100 96 100 07/30/18 17:00 07/30/18 17:13 07/30/18 18:00 Temperature Pulse Rate 95 H 93 H 91 H Respiratory Rate 22 20 22 Blood Pressure 120/79 167/95 H Pulse Oximetry 100 100 07/30/18 19:52 07/30/18 20:00 07/30/18 20:15 Temperature 99.5 F Pulse Rate 91 H 91 H 91 H Respiratory Rate 22 22 22 Blood Pressure 177/95 H 168/92 H Pulse Oximetry 99 99 99 07/30/18 20:30 07/30/18 20:37 07/30/18 20:45 Temperature Pulse Rate 90 91 H 92 H Respiratory Rate 22 22 22 Blood Pressure 167/98 H 169/92 H Pulse Oximetry 100 100 99 07/30/18 21:00 07/30/18 21:15 07/30/18 21:30 Temperature Pulse Rate 91 H 92 H 93 H Respiratory Rate 22 22 4 L Blood Pressure 175/96 H 170/95 H 170/100 H Pulse Oximetry 100 100 99 07/30/18 21:45 07/30/18 22:00 07/30/18 22:15 Temperature Pulse Rate 89 91 H 90 Respiratory Rate 22 22 22 Blood Pressure 177/102 H 174/95 H 170/90 H Pulse Oximetry 99 99 100 07/30/18 22:30 07/30/18 22:45 07/30/18 23:00 Temperature Pulse Rate 90 89 88 Respiratory Rate 22 22 22 Blood Pressure 170/93 H 171/90 H 170/91 H Pulse Oximetry 100 99 99 07/30/18 23:15 07/30/18 23:30 07/30/18 23:45 Temperature Pulse Rate 102 H 90 89 Respiratory Rate 27 H 22 22 Blood Pressure 179/97 H 171/90 H 158/86 H Pulse Oximetry 95 94 L 96 07/31/18 00:00 07/31/18 00:15 07/31/18 00:30 Temperature Pulse Rate 91 H 85 85 Respiratory Rate 22 22 16 Blood Pressure 171/91 H 163/92 H 159/89 H Pulse Oximetry 96 96 95 07/31/18 00:44 07/31/18 00:45 07/31/18 01:00 Temperature Pulse Rate 87 84 85 Respiratory Rate 16 16 16 Blood Pressure 156/85 H 155/85 H Pulse Oximetry 95 95 96 07/31/18 01:15 07/31/18 01:30 07/31/18 01:45 Temperature Pulse Rate 86 84 84 Respiratory Rate 16 16 16 Blood Pressure 159/87 H 163/89 H 167/92 H Pulse Oximetry 97 96 97 07/31/18 02:00 07/31/18 02:15 07/31/18 02:30 Temperature Pulse Rate 82 82 80 Respiratory Rate 16 16 16 Blood Pressure 168/91 H 164/92 H 167/93 H Pulse Oximetry 96 97 97 07/31/18 02:45 07/31/18 03:00 07/31/18 03:15 Temperature Pulse Rate 80 79 79 Respiratory Rate 16 16 16 Blood Pressure 169/95 H 166/96 H 168/96 H Pulse Oximetry 96 96 97 07/31/18 03:30 07/31/18 03:43 07/31/18 03:45 Temperature 99 F Pulse Rate 84 79 80 Respiratory Rate 16 16 16 Blood Pressure 157/88 H 162/90 H Pulse Oximetry 97 97 97 07/31/18 04:00 07/31/18 04:15 07/31/18 04:30 Temperature Pulse Rate 79 78 77 Respiratory Rate 16 16 16 Blood Pressure 168/94 H 159/93 H 164/92 H Pulse Oximetry 97 98 97 07/31/18 04:45 07/31/18 05:00 07/31/18 05:15 Temperature Pulse Rate 73 71 72 Respiratory Rate 16 16 16 Blood Pressure 167/95 H 159/93 H 162/91 H Pulse Oximetry 97 98 98 07/31/18 05:30 07/31/18 05:45 07/31/18 06:00 Temperature Pulse Rate 69 81 73 Respiratory Rate 16 16 1 L Blood Pressure 146/84 H 129/71 151/93 H Pulse Oximetry 98 98 98 07/31/18 07:00 07/31/18 07:15 07/31/18 07:30 Temperature Pulse Rate 71 72 71 Respiratory Rate 16 Blood Pressure 144/90 H 135/85 133/81 Pulse Oximetry 98 98 97 07/31/18 07:41 07/31/18 07:45 07/31/18 08:00 Temperature 98.2 F Pulse Rate 71 71 73 Respiratory Rate 16 Blood Pressure 128/81 129/79 Pulse Oximetry 98 98 97 07/31/18 08:15 07/31/18 08:30 07/31/18 08:45 Temperature Pulse Rate 75 74 75 Respiratory Rate Blood Pressure 134/79 129/79 134/80 Pulse Oximetry 96 97 98 07/31/18 09:00 07/31/18 09:15 07/31/18 09:30 Temperature Pulse Rate 74 70 70 Respiratory Rate Blood Pressure 118/74 115/73 114/72 Pulse Oximetry 98 98 98 07/31/18 09:45 07/31/18 10:00 07/31/18 10:15 Temperature Pulse Rate 68 69 69 Respiratory Rate Blood Pressure 115/74 115/75 112/76 Pulse Oximetry 99 98 98 07/31/18 10:30 07/31/18 10:45 07/31/18 11:00 Temperature Pulse Rate 66 67 68 Respiratory Rate Blood Pressure 115/75 112/74 110/75 Pulse Oximetry 98 97 97 07/31/18 11:15 07/31/18 11:30 07/31/18 11:45 Temperature Pulse Rate 66 69 71 Respiratory Rate Blood Pressure 108/70 103/66 104/66 Pulse Oximetry 97 96 96 07/31/18 11:59 07/31/18 12:00 07/31/18 12:15 Temperature 97.2 F L Pulse Rate 75 71 70 Respiratory Rate 15 15 Blood Pressure 101/63 103/62 Pulse Oximetry 96 96 07/31/18 12:30 07/31/18 12:45 07/31/18 13:00 Temperature Pulse Rate 71 77 68 Respiratory Rate Blood Pressure 104/61 99/57 L 106/65 Pulse Oximetry 96 95 96 07/31/18 13:15 07/31/18 13:30 07/31/18 13:45 Temperature Pulse Rate 70 71 82 Respiratory Rate Blood Pressure 108/66 98/62 L 97/59 L Pulse Oximetry 96 97 95 07/31/18 14:00 07/31/18 14:01 07/31/18 14:15 Temperature Pulse Rate 88 89 89 Respiratory Rate Blood Pressure 119/56 L 118/68 Pulse Oximetry 95 94 L 92 L 07/31/18 14:30 Temperature Pulse Rate 79 Respiratory Rate Blood Pressure 120/66 Pulse Oximetry 90 L Intake & Output 07/30/18 07/31/18 07/31/18 18:59 06:59 18:59 Intake Total 2049 4501.2 / 4501.2 2049 Output Total 800 / 800 2650 / 2650 Balance 1250 / 1250 1851.2 / 1851.2 2049 Weight 110 kg 107.002 kg Intake: IV 2049 4441.2 / 4441.2 2049 Versed Inj 100 mg In 100 ml @ 2 200 / 200 MG/HR 2 mls/hr IV.CONT TITRATE PRN Rx#:[id number] Sodium Bicarbonate 8.4% Inj 150 1000 / 1000 2000 / 2000 MEQ In Sterile Water for Inj 850 ML @ 150 mls/hr IV.CONT . Q6H40M [facility] Rx#:[id number] Calcium Chloride Inj 1 GM In NS 110 / 110 Inj 100 ML @ 110 mls/hr IV.SIG ONCE ONE Rx#:[id number] MVI-12 Inj 10 ML Thiamine Inj 511.2 / 511.2 100 MG Folvite Inj 1 MG In NS Inj 500 ML @ 125 mls/hr IV.SIG Q24H [facility] Rx#:[id number] Zosyn 2.25 GM Premix 2.25 gm In 50 / 50 100 / 100 50 / 50 50 ml @ 100 mls/hr IV.SIG Q6H [facility] Rx#:[id number] NS Inj 1,000 ML @ Wide Open IV. 1999 / 1999 1000 / 1000 SIG BOLUS ONE Rx#:[id number] Vancomycin Inj 2,000 MG In NS 520 / 520 Inj 500 ML @ 250 mls/hr IV.SIG ONCE ONE Rx#:[id number] Water Bolus Amount 60 / 60 Output: Urine Amount (Catheter) 800 / 800 2550 / 2550 Indwelling Urethral Catheter 800 / 800 2550 / 2550 Gastric Drainage 100 / 100 Oral 100 / 100 Physical Exam: CONSTITUTIONAL/GENERAL: This is an adequately nourished patient, in no apparent distress. Endotracheally intubated on mechanical ventilation. TUBES/LINES/DRAINS: ETT, OG, right IJ, soft wrist restraints, Giles catheter. SKIN: No jaundice, rashes, or lesions. No wounds seen anteriorly. Ecchymosis to right arm. Skin temperature appropriate. Not diaphoretic. HEAD: Atraumatic. Normocephalic. EYES: Pupils equal and round and reactive. No scleral icterus. No injection or drainage. Fundi not examined. ENT: Unable to evaluate hearing secondary to clinical condition. Nose without bleeding or purulent drainage. Moist oral mucosa. NECK: Trachea midline. Supple, nontender. CARDIOVASCULAR: Normal rate and rhythm. Peripheral pulses symmetric. RESPIRATORY/CHEST: Symmetric, endotracheal intubated on mechanical ventilation. Clear breath sounds. GASTROINTESTINAL: Abdomen soft, obese. Positive bowel sounds. GENITOURINARY: Without palpable bladder distension. Giles catheter in place. MUSCULOSKELETAL: Extremities without clubbing, cyanosis, or edema. No mottling or clubbing. NEUROLOGICAL: Following simple commands while on fentanyl drip. PSYCHIATRIC: Calm. Diagnostic Tests Laboratory: Laboratory Results - last 72 hr 07/30/18 07/30/18 07/30/18 09:00 09:00 09:00 WBC 17.4 H RBC 5.70 Hgb 16.0 Hct 48.6 MCV 85.3 MCH 28.0 MCHC 32.8 RDW 15.2 Plt Count 346 MPV 8.2 Prelim Diff (Auto) Neut % (Auto) 88.6 H Lymph % (Auto) 4.6 L King % (Auto) 6.6 Eos % (Auto) 0.1 Baso % (Auto) 0.1 Neut # (Auto) 15.4 H Lymph # (Auto) 0.8 L King # (Auto) 1.2 H Eos # (Auto) 0.0 Baso # (Auto) 0.0 WBC Differential . Seg Neuts % (Manual) Band Neuts % (Manual) Lymphocytes % (Manual) Monocytes % (Manual) Abs Neuts (Manual) Differential Comment Auto diff final Platelet Estimate Platelet Morphology Stomatocytes PT 10.0 INR 1.0 APTT 26.1 Fibrinogen Puncture Site Patient Temperature O2 Saturation ABG pH ABG pCO2 ABG pO2 ABG HCO3 ABG O2 Content ABG Base Excess ABG Methemoglobin Federico Test Hemoglobin Carboxyhemoglobin O2 Delivery Device Vent Setting Inspired O2 Critical Value Sodium 138 Potassium 4.9 Chloride 103 Carbon Dioxide 22.0 Anion Gap 13 BUN 23 H Creatinine 3.09 H Estimated GFR 21 L POC Glucose Random Glucose 82 Hemoglobin A1c Lactic Acid Calcium 8.8 Calcium Adj for Albumin Phosphorus Magnesium 2.5 Total Bilirubin 0.8 AST 59 H ALT 80 H Alkaline Phosphatase 95 Ammonia Total Creatine Kinase 888 H CK-MB (CK-2) 10.9 H CK-MB (CK-2) % 1.2 Troponin I Less than 0.02 L Total Protein 8.2 Albumin 4.1 Triglycerides Cholesterol LDL Cholesterol, Calc HDL Cholesterol Cholesterol/HDL Ratio Amylase Lipase TSH 5.520 H Urine Color Urine Clarity Urine pH Ur Specific [place] Urine Protein Urine Glucose (UA) Urine Ketones Urine Occult Blood Urine Nitrate Urine Bilirubin Urine Urobilinogen Ur Leukocyte Esterase Urine RBC Urine WBC Ur Squamous Epith Cells Urine Bacteria Hyaline Casts Granular Casts Urine Mucus Micro UA Comment Ur Microscopic Review Urine Culture Comments Ur Random Creatinine Ur Random Sodium Nasal Screen MRSA (PCR) Random Vancomycin Salicylates Urine Opiates Screen Acetaminophen Less than 2.0 L Ur Barbiturates Screen Phenytoin 0.9 L Ur Amphetamines Screen Phenobarbital Less than 2.1 L U Benzodiazepines Scrn [place] Urine Cocaine Screen U Cannabinoids Screen Serum Alcohol Less than 3 Hepatitis A IgM Ab Hep Bs Antigen Hep B Core IgM Ab Hep C IgG Ab 07/30/18 07/30/18 07/30/18 09:00 09:00 09:00 WBC RBC Hgb Hct MCV MCH MCHC RDW Plt Count MPV Prelim Diff (Auto) Neut % (Auto) Lymph % (Auto) King % (Auto) Eos % (Auto) Baso % (Auto) Neut # (Auto) Lymph # (Auto) King # (Auto) Eos # (Auto) Baso # (Auto) WBC Differential Seg Neuts % (Manual) Band Neuts % (Manual) Lymphocytes % (Manual) Monocytes % (Manual) Abs Neuts (Manual) Differential Comment Platelet Estimate Platelet Morphology Stomatocytes PT INR APTT Fibrinogen Puncture Site Patient Temperature O2 Saturation ABG pH ABG pCO2 ABG pO2 ABG HCO3 ABG O2 Content ABG Base Excess ABG Methemoglobin [place] Test Hemoglobin Carboxyhemoglobin O2 Delivery Device Vent Setting Inspired O2 Critical Value Sodium Potassium Chloride Carbon Dioxide Anion Gap BUN Creatinine Estimated GFR POC Glucose Random Glucose Hemoglobin A1c Lactic Acid 6.6 H* Calcium Calcium Adj for Albumin Phosphorus Magnesium Total Bilirubin AST ALT Alkaline Phosphatase Ammonia 45 H Total Creatine Kinase CK-MB (CK-2) CK-MB (CK-2) % Troponin I Total Protein Albumin Triglycerides Cholesterol LDL Cholesterol, Calc HDL Cholesterol Cholesterol/HDL Ratio Amylase Lipase TSH Urine Color Urine Clarity Urine pH Ur Specific [place] Urine Protein Urine Glucose (UA) Urine Ketones Urine Occult Blood Urine Nitrate Urine Bilirubin Urine Urobilinogen Ur Leukocyte Esterase Urine RBC Urine WBC Ur Squamous Epith Cells Urine Bacteria Hyaline Casts Granular Casts Urine Mucus Micro UA Comment Ur Microscopic Review Urine Culture Comments Ur Random Creatinine Ur Random Sodium Nasal Screen MRSA (PCR) Random Vancomycin Salicylates 2.0 L Urine Opiates Screen Acetaminophen Ur Barbiturates Screen Phenytoin Ur Amphetamines Screen Phenobarbital U Benzodiazepines Scrn [place] Urine Cocaine Screen U Cannabinoids Screen Serum Alcohol Hepatitis A IgM Ab Hep Bs Antigen Hep B Core IgM Ab Hep C IgG Ab 07/30/18 07/30/18 07/30/18 09:00 09:19 09:20 WBC RBC Hgb Hct MCV MCH MCHC RDW Plt Count MPV Prelim Diff (Auto) Neut % (Auto) Lymph % (Auto) King % (Auto) Eos % (Auto) Baso % (Auto) Neut # (Auto) Lymph # (Auto) King # (Auto) Eos # (Auto) Baso # (Auto) WBC Differential Seg Neuts % (Manual) Band Neuts % (Manual) Lymphocytes % (Manual) Monocytes % (Manual) Abs Neuts (Manual) Differential Comment Platelet Estimate Platelet Morphology Stomatocytes PT INR APTT Fibrinogen Puncture Site Right radial Patient Temperature 98.6 O2 Saturation 92 ABG pH 7.15 L* ABG pCO2 57 H* ABG pO2 105 ABG HCO3 19 L ABG O2 Content 19.3 ABG Base Excess -8.3 L ABG Methemoglobin 0.7 Federico Test Present Hemoglobin 14.8 Carboxyhemoglobin 4.5 H O2 Delivery Device Ventilator Vent Setting Ac16/550/+8 Inspired O2 100 Critical Value Yes Sodium Potassium Chloride Carbon Dioxide Anion Gap BUN Creatinine Estimated GFR POC Glucose Random Glucose Hemoglobin A1c Lactic Acid Calcium Calcium Adj for Albumin Phosphorus 8.3 H Magnesium 2.5 Total Bilirubin AST ALT Alkaline Phosphatase Ammonia Total Creatine Kinase CK-MB (CK-2) CK-MB (CK-2) % Troponin I Total Protein Albumin Triglycerides Cholesterol LDL Cholesterol, Calc HDL Cholesterol Cholesterol/HDL Ratio Amylase Lipase TSH Urine Color Urine Clarity Urine pH Ur Specific [place] Urine Protein Urine Glucose (UA) Urine Ketones Urine Occult Blood Urine Nitrate Urine Bilirubin Urine Urobilinogen Ur Leukocyte Esterase Urine RBC Urine WBC Ur Squamous Epith Cells Urine Bacteria Hyaline Casts Granular Casts Urine Mucus Micro UA Comment Ur Microscopic Review Urine Culture Comments Ur Random Creatinine Ur Random Sodium Nasal Screen MRSA (PCR) Random Vancomycin Salicylates Urine Opiates Screen Pos H Acetaminophen Ur Barbiturates Screen Neg Phenytoin Ur Amphetamines Screen Neg Phenobarbital U Benzodiazepines Scrn Neg [place] Urine Cocaine Screen Pos H U Cannabinoids Screen Neg Serum Alcohol Hepatitis A IgM Ab Hep Bs Antigen Hep B Core IgM Ab Hep C IgG Ab 07/30/18 07/30/18 07/30/18 09:20 09:20 11:10 WBC RBC Hgb Hct MCV MCH MCHC RDW Plt Count MPV Prelim Diff (Auto) Neut % (Auto) Lymph % (Auto) King % (Auto) Eos % (Auto) Baso % (Auto) Neut # (Auto) Lymph # (Auto) King # (Auto) Eos # (Auto) Baso # (Auto) WBC Differential Seg Neuts % (Manual) Band Neuts % (Manual) Lymphocytes % (Manual) Monocytes % (Manual) Abs Neuts (Manual) Differential Comment Platelet Estimate Platelet Morphology Stomatocytes PT INR APTT Fibrinogen Puncture Site Patient Temperature O2 Saturation ABG pH ABG pCO2 ABG pO2 ABG HCO3 ABG O2 Content ABG Base Excess ABG Methemoglobin [place] Test Hemoglobin Carboxyhemoglobin O2 Delivery Device Vent Setting Inspired O2 Critical Value Sodium Potassium Chloride Carbon Dioxide Anion Gap BUN Creatinine Estimated GFR POC Glucose Random Glucose Hemoglobin A1c Lactic Acid 4.4 H* Calcium Calcium Adj for Albumin Phosphorus Magnesium Total Bilirubin AST ALT Alkaline Phosphatase Ammonia Total Creatine Kinase CK-MB (CK-2) CK-MB (CK-2) % Troponin I Total Protein Albumin Triglycerides Cholesterol LDL Cholesterol, Calc HDL Cholesterol Cholesterol/HDL Ratio Amylase Lipase TSH Urine Color Yellow Urine Clarity Clear Urine pH 5.0 Ur Specific [place] 1.027 Urine Protein 100 H Urine Glucose (UA) Negative Urine Ketones Negative Urine Occult Blood Negative Urine Nitrate Negative Urine Bilirubin Negative Urine Urobilinogen Less than 2 Ur Leukocyte Esterase Negative Urine RBC 1 Urine WBC 1 Ur Squamous Epith Cells <1 Urine Bacteria Few H Hyaline Casts 10 Granular Casts 1 Urine Mucus Few H Micro UA Comment Cath-culture ind Ur Microscopic Review Not Reportable Urine Culture Comments Cath-cult indicated Ur Random Creatinine 271 Ur Random Sodium 47 Nasal Screen MRSA (PCR) Random Vancomycin Salicylates Urine Opiates Screen Acetaminophen Ur Barbiturates Screen Phenytoin Ur Amphetamines Screen Phenobarbital U Benzodiazepines Scrn [place] Urine Cocaine Screen U Cannabinoids Screen Serum Alcohol Hepatitis A IgM Ab Hep Bs Antigen Hep B Core IgM Ab Hep C IgG Ab 07/30/18 07/30/18 07/30/18 11:53 13:30 14:58 WBC RBC Hgb Hct MCV MCH MCHC RDW Plt Count MPV Prelim Diff (Auto) Neut % (Auto) Lymph % (Auto) King % (Auto) Eos % (Auto) Baso % (Auto) Neut # (Auto) Lymph # (Auto) King # (Auto) Eos # (Auto) Baso # (Auto) WBC Differential Seg Neuts % (Manual) Band Neuts % (Manual) Lymphocytes % (Manual) Monocytes % (Manual) Abs Neuts (Manual) Differential Comment Platelet Estimate Platelet Morphology Stomatocytes PT INR APTT Fibrinogen Puncture Site Art line Art line Patient Temperature 98.6 98.6 O2 Saturation 91 97 ABG pH 7.23 L* 7.26 L* ABG pCO2 48 H 43 H ABG pO2 73 172 H ABG HCO3 20 L 18 L ABG O2 Content 16.1 19.5 ABG Base Excess -6.6 L -7.4 L ABG Methemoglobin 0.8 1.6 Federico Test Present Present Hemoglobin 12.6 14.2 Carboxyhemoglobin 2.2 0.6 O2 Delivery Device Ventilator Ventilator Vent Setting Prvc20/700/0.9/+8 Prvc/ac Inspired O2 100 100 Critical Value Yes Yes Sodium Potassium Chloride Carbon Dioxide Anion Gap BUN Creatinine Estimated GFR POC Glucose Random Glucose Hemoglobin A1c Lactic Acid Calcium Calcium Adj for Albumin Phosphorus Magnesium Total Bilirubin AST ALT Alkaline Phosphatase Ammonia Total Creatine Kinase CK-MB (CK-2) CK-MB (CK-2) % Troponin I Total Protein Albumin Triglycerides Cholesterol LDL Cholesterol, Calc HDL Cholesterol Cholesterol/HDL Ratio Amylase Lipase TSH Urine Color Urine Clarity Urine pH Ur Specific [place] Urine Protein Urine Glucose (UA) Urine Ketones Urine Occult Blood Urine Nitrate Urine Bilirubin Urine Urobilinogen Ur Leukocyte Esterase Urine RBC Urine WBC Ur Squamous Epith Cells Urine Bacteria Hyaline Casts Granular Casts Urine Mucus Micro UA Comment Ur Microscopic Review Urine Culture Comments Ur Random Creatinine Ur Random Sodium Nasal Screen MRSA (PCR) Not detected Random Vancomycin Salicylates Urine Opiates Screen Acetaminophen Ur Barbiturates Screen Phenytoin Ur Amphetamines Screen Phenobarbital U Benzodiazepines Scrn [place] Urine Cocaine Screen U Cannabinoids Screen Serum Alcohol Hepatitis A IgM Ab Hep Bs Antigen Hep B Core IgM Ab Hep C IgG Ab 07/30/18 07/30/18 07/30/18 15:00 15:00 15:00 WBC 22.5 H RBC 5.06 Hgb 14.1 Hct 43.4 MCV 85.7 MCH 27.8 MCHC 32.5 RDW 15.1 Plt Count 257 MPV 8.0 Prelim Diff (Auto) Neut % (Auto) 89.0 H Lymph % (Auto) 6.4 L King % (Auto) 4.1 Eos % (Auto) 0.0 Baso % (Auto) 0.5 Neut # (Auto) 20.1 H Lymph # (Auto) 1.5 King # (Auto) 0.9 Eos # (Auto) 0.0 Baso # (Auto) 0.1 WBC Differential . Seg Neuts % (Manual) Band Neuts % (Manual) Lymphocytes % (Manual) Monocytes % (Manual) Abs Neuts (Manual) Differential Comment Auto diff final Platelet Estimate Platelet Morphology Stomatocytes PT INR APTT Fibrinogen Puncture Site Patient Temperature O2 Saturation ABG pH ABG pCO2 ABG pO2 ABG HCO3 ABG O2 Content ABG Base Excess ABG Methemoglobin Fed[place] Test Hemoglobin Carboxyhemoglobin O2 Delivery Device Vent Setting Inspired O2 Critical Value Sodium 140 Potassium 6.1 H D Chloride 109 H Carbon Dioxide 22.1 Anion Gap 9 BUN 25 H Creatinine 2.99 H Estimated GFR 22 L POC Glucose Random Glucose 137 H Hemoglobin A1c Lactic Acid Calcium 6.6 L* D Calcium Adj for Albumin 7.2 L* Phosphorus Magnesium Total Bilirubin AST ALT Alkaline Phosphatase Ammonia Total Creatine Kinase CK-MB (CK-2) CK-MB (CK-2) % Troponin I 3.43 H* Total Protein Albumin 3.3 L D Triglycerides Cholesterol LDL Cholesterol, Calc HDL Cholesterol Cholesterol/HDL Ratio Amylase Lipase TSH Urine Color Urine Clarity Urine pH Ur Specific [place] Urine Protein Urine Glucose (UA) Urine Ketones Urine Occult Blood Urine Nitrate Urine Bilirubin Urine Urobilinogen Ur Leukocyte Esterase Urine RBC Urine WBC Ur Squamous Epith Cells Urine Bacteria Hyaline Casts Granular Casts Urine Mucus Micro UA Comment Ur Microscopic Review Urine Culture Comments Ur Random Creatinine Ur Random Sodium Nasal Screen MRSA (PCR) Random Vancomycin Salicylates Urine Opiates Screen Acetaminophen Ur Barbiturates Screen Phenytoin Ur Amphetamines Screen Phenobarbital U Benzodiazepines Scrn [place] Less than 0.1 L Urine Cocaine Screen U Cannabinoids Screen Serum Alcohol Hepatitis A IgM Ab Hep Bs Antigen Hep B Core IgM Ab Hep C IgG Ab 07/30/18 07/30/18 07/30/18 15:00 18:30 18:47 WBC RBC Hgb Hct MCV MCH MCHC RDW Plt Count MPV Prelim Diff (Auto) Neut % (Auto) Lymph % (Auto) King % (Auto) Eos % (Auto) Baso % (Auto) Neut # (Auto) Lymph # (Auto) King # (Auto) Eos # (Auto) Baso # (Auto) WBC Differential Seg Neuts % (Manual) Band Neuts % (Manual) Lymphocytes % (Manual) Monocytes % (Manual) Abs Neuts (Manual) Differential Comment Platelet Estimate Platelet Morphology Stomatocytes PT INR APTT Fibrinogen Puncture Site Patient Temperature O2 Saturation ABG pH ABG pCO2 ABG pO2 ABG HCO3 ABG O2 Content ABG Base Excess ABG Methemoglobin [place] Test Hemoglobin Carboxyhemoglobin O2 Delivery Device Vent Setting Inspired O2 Critical Value Sodium Potassium Chloride Carbon Dioxide Anion Gap BUN Creatinine Estimated GFR POC Glucose 218 H Random Glucose Hemoglobin A1c 6.1 H Lactic Acid 7.1 H* Calcium Calcium Adj for Albumin Phosphorus Magnesium Total Bilirubin AST ALT Alkaline Phosphatase Ammonia Total Creatine Kinase CK-MB (CK-2) CK-MB (CK-2) % Troponin I Total Protein Albumin Triglycerides Cholesterol LDL Cholesterol, Calc HDL Cholesterol Cholesterol/HDL Ratio Amylase Lipase TSH Urine Color Urine Clarity Urine pH Ur Specific [place] Urine Protein Urine Glucose (UA) Urine Ketones Urine Occult Blood Urine Nitrate Urine Bilirubin Urine Urobilinogen Ur Leukocyte Esterase Urine RBC Urine WBC Ur Squamous Epith Cells Urine Bacteria Hyaline Casts Granular Casts Urine Mucus Micro UA Comment Ur Microscopic Review Urine Culture Comments Ur Random Creatinine Ur Random Sodium Nasal Screen MRSA (PCR) Random Vancomycin Salicylates Urine Opiates Screen Acetaminophen Ur Barbiturates Screen Phenytoin Ur Amphetamines Screen Phenobarbital U Benzodiazepines Scrn [place] Urine Cocaine Screen U Cannabinoids Screen Serum Alcohol Hepatitis A IgM Ab Hep Bs Antigen Hep B Core IgM Ab Hep C IgG Ab 07/30/18 07/30/18 07/30/18 18:47 20:51 20:51 WBC RBC Hgb Hct MCV MCH MCHC RDW Plt Count MPV Prelim Diff (Auto) Neut % (Auto) Lymph % (Auto) King % (Auto) Eos % (Auto) Baso % (Auto) Neut # (Auto) Lymph # (Auto) King # (Auto) Eos # (Auto) Baso # (Auto) WBC Differential Seg Neuts % (Manual) Band Neuts % (Manual) Lymphocytes % (Manual) Monocytes % (Manual) Abs Neuts (Manual) Differential Comment Platelet Estimate Platelet Morphology Stomatocytes PT INR APTT Fibrinogen Puncture Site Patient Temperature O2 Saturation ABG pH ABG pCO2 ABG pO2 ABG HCO3 ABG O2 Content ABG Base Excess ABG Methemoglobin [place] Test Hemoglobin Carboxyhemoglobin O2 Delivery Device Vent Setting Inspired O2 Critical Value Sodium Potassium 3.9 D Chloride Carbon Dioxide Anion Gap BUN Creatinine Estimated GFR POC Glucose Random Glucose Hemoglobin A1c Lactic Acid Calcium Calcium Adj for Albumin Phosphorus Magnesium Total Bilirubin AST ALT Alkaline Phosphatase Ammonia Total Creatine Kinase CK-MB (CK-2) CK-MB (CK-2) % Troponin I Cancelled 29.50 H* Total Protein Albumin Triglycerides Cancelled 171 H Cholesterol Cancelled 119 L LDL Cholesterol, Calc Cancelled 51 HDL Cholesterol Cancelled 33.5 L Cholesterol/HDL Ratio Cancelled 3.55 Amylase Lipase TSH Urine Color Urine Clarity Urine pH Ur Specific [place] Urine Protein Urine Glucose (UA) Urine Ketones Urine Occult Blood Urine Nitrate Urine Bilirubin Urine Urobilinogen Ur Leukocyte Esterase Urine RBC Urine WBC Ur Squamous Epith Cells Urine Bacteria Hyaline Casts Granular Casts Urine Mucus Micro UA Comment Ur Microscopic Review Urine Culture Comments Ur Random Creatinine Ur Random Sodium Nasal Screen MRSA (PCR) Random Vancomycin Salicylates Urine Opiates Screen Acetaminophen Ur Barbiturates Screen Phenytoin Ur Amphetamines Screen Phenobarbital U Benzodiazepines Scrn [place] Urine Cocaine Screen U Cannabinoids Screen Serum Alcohol Hepatitis A IgM Ab Nonreactive Hep Bs Antigen Nonreactive Hep B Core IgM Ab Nonreactive Hep C IgG Ab Nonreactive 07/30/18 07/30/18 07/31/18 23:30 23:30 00:09 WBC RBC Hgb Hct MCV MCH MCHC RDW Plt Count MPV Prelim Diff (Auto) Neut % (Auto) Lymph % (Auto) King % (Auto) Eos % (Auto) Baso % (Auto) Neut # (Auto) Lymph # (Auto) King # (Auto) Eos # (Auto) Baso # (Auto) WBC Differential Seg Neuts % (Manual) Band Neuts % (Manual) Lymphocytes % (Manual) Monocytes % (Manual) Abs Neuts (Manual) Differential Comment Platelet Estimate Platelet Morphology Stomatocytes PT 10.6 INR 1.0 APTT 29.0 Fibrinogen Puncture Site Art line Patient Temperature 98.6 O2 Saturation 94 ABG pH 7.52 H* ABG pCO2 30 L ABG pO2 76 ABG HCO3 24 ABG O2 Content 17.3 ABG Base Excess 1.3 ABG Methemoglobin 1.6 Federico Test Hemoglobin 13.1 Carboxyhemoglobin 0.9 O2 Delivery Device Ventilator Vent Setting See comment Inspired O2 35 Critical Value Yes Sodium Potassium Chloride Carbon Dioxide Anion Gap BUN Creatinine Estimated GFR POC Glucose Random Glucose Hemoglobin A1c Lactic Acid 5.2 H* Calcium Calcium Adj for Albumin Phosphorus Magnesium Total Bilirubin AST ALT Alkaline Phosphatase Ammonia Total Creatine Kinase CK-MB (CK-2) CK-MB (CK-2) % Troponin I Total Protein Albumin Triglycerides Cholesterol LDL Cholesterol, Calc HDL Cholesterol Cholesterol/HDL Ratio Amylase Lipase TSH Urine Color Urine Clarity Urine pH Ur Specific [place] Urine Protein Urine Glucose (UA) Urine Ketones Urine Occult Blood Urine Nitrate Urine Bilirubin Urine Urobilinogen Ur Leukocyte Esterase Urine RBC Urine WBC Ur Squamous Epith Cells Urine Bacteria Hyaline Casts Granular Casts Urine Mucus Micro UA Comment Ur Microscopic Review Urine Culture Comments Ur Random Creatinine Ur Random Sodium Nasal Screen MRSA (PCR) Random Vancomycin Salicylates Urine Opiates Screen Acetaminophen Ur Barbiturates Screen Phenytoin Ur Amphetamines Screen Phenobarbital U Benzodiazepines Scrn [place] Urine Cocaine Screen U Cannabinoids Screen Serum Alcohol Hepatitis A IgM Ab Hep Bs Antigen Hep B Core IgM Ab Hep C IgG Ab 07/31/18 07/31/18 07/31/18 00:49 01:27 01:27 WBC RBC Hgb Hct MCV MCH MCHC RDW Plt Count MPV Prelim Diff (Auto) Neut % (Auto) Lymph % (Auto) King % (Auto) Eos % (Auto) Baso % (Auto) Neut # (Auto) Lymph # (Auto) King # (Auto) Eos # (Auto) Baso # (Auto) WBC Differential Seg Neuts % (Manual) Band Neuts % (Manual) Lymphocytes % (Manual) Monocytes % (Manual) Abs Neuts (Manual) Differential Comment Platelet Estimate Platelet Morphology Stomatocytes PT INR APTT Fibrinogen Puncture Site Patient Temperature O2 Saturation ABG pH ABG pCO2 ABG pO2 ABG HCO3 ABG O2 Content ABG Base Excess ABG Methemoglobin Federico Test Hemoglobin Carboxyhemoglobin O2 Delivery Device Vent Setting Inspired O2 Critical Value Sodium Potassium Chloride Carbon Dioxide Anion Gap BUN Creatinine Estimated GFR POC Glucose 175 H Random Glucose Hemoglobin A1c Lactic Acid Calcium Calcium Adj for Albumin Phosphorus Magnesium Total Bilirubin AST ALT Alkaline Phosphatase Ammonia 31 Total Creatine Kinase 33589 H CK-MB (CK-2) 62.9 H CK-MB (CK-2) % 0.5 Troponin I Total Protein Albumin Triglycerides Cholesterol LDL Cholesterol, Calc HDL Cholesterol Cholesterol/HDL Ratio Amylase 97 Lipase 92 TSH Urine Color Urine Clarity Urine pH Ur Specific [place] Urine Protein Urine Glucose (UA) Urine Ketones Urine Occult Blood Urine Nitrate Urine Bilirubin Urine Urobilinogen Ur Leukocyte Esterase Urine RBC Urine WBC Ur Squamous Epith Cells Urine Bacteria Hyaline Casts Granular Casts Urine Mucus Micro UA Comment Ur Microscopic Review Urine Culture Comments Ur Random Creatinine Ur Random Sodium Nasal Screen MRSA (PCR) Random Vancomycin Salicylates Urine Opiates Screen Acetaminophen Ur Barbiturates Screen Phenytoin Ur Amphetamines Screen Phenobarbital U Benzodiazepines Scrn [place] Urine Cocaine Screen U Cannabinoids Screen Serum Alcohol Hepatitis A IgM Ab Hep Bs Antigen Hep B Core IgM Ab Hep C IgG Ab 07/31/18 07/31/18 07/31/18 05:00 05:00 05:00 WBC 20.9 H RBC 4.65 Hgb 12.7 L Hct 38.6 L MCV 83.1 MCH 27.4 MCHC 33.0 RDW 14.6 Plt Count 216 MPV 8.2 Prelim Diff (Auto) Slide review pending Neut % (Auto) 90.8 H Lymph % (Auto) 5.0 L King % (Auto) 4.0 Eos % (Auto) 0.0 Baso % (Auto) 0.2 Neut # (Auto) 19.0 H Lymph # (Auto) 1.1 King # (Auto) 0.8 Eos # (Auto) 0.0 Baso # (Auto) 0.0 WBC Differential Manual diff final Seg Neuts % (Manual) 71 H Band Neuts % (Manual) 20 H Lymphocytes % (Manual) 4 L Monocytes % (Manual) 5 Abs Neuts (Manual) 19.0 H Differential Comment . Platelet Estimate Normal Platelet Morphology Normal Stomatocytes 1+ H PT 11.2 INR 1.1 APTT 49.4 H D Fibrinogen 536 H Puncture Site Patient Temperature O2 Saturation ABG pH ABG pCO2 ABG pO2 ABG HCO3 ABG O2 Content ABG Base Excess ABG Methemoglobin Federico Test Hemoglobin Carboxyhemoglobin O2 Delivery Device Vent Setting Inspired O2 Critical Value Sodium 141 Potassium 3.3 L Chloride 102 Carbon Dioxide 29.9 Anion Gap 9 BUN 23 H Creatinine 2.15 H Estimated GFR 32 L POC Glucose Random Glucose 180 H Hemoglobin A1c Lactic Acid Calcium 7.4 L* D Calcium Adj for Albumin 8.4 L Phosphorus 3.3 D Magnesium 1.6 D Total Bilirubin 1.6 H AST 382 H ALT 249 H Alkaline Phosphatase 62 Ammonia Total Creatine Kinase CK-MB (CK-2) CK-MB (CK-2) % Troponin I 28.60 H* Total Protein 5.6 L D Albumin 2.7 L D Triglycerides Cholesterol LDL Cholesterol, Calc HDL Cholesterol Cholesterol/HDL Ratio Amylase Lipase TSH Urine Color Urine Clarity Urine pH Ur Specific [place] Urine Protein Urine Glucose (UA) Urine Ketones Urine Occult Blood Urine Nitrate Urine Bilirubin Urine Urobilinogen Ur Leukocyte Esterase Urine RBC Urine WBC Ur Squamous Epith Cells Urine Bacteria Hyaline Casts Granular Casts Urine Mucus Micro UA Comment Ur Microscopic Review Urine Culture Comments Ur Random Creatinine Ur Random Sodium Nasal Screen MRSA (PCR) Random Vancomycin 10.1 Salicylates Urine Opiates Screen Acetaminophen Ur Barbiturates Screen Phenytoin Ur Amphetamines Screen Phenobarbital U Benzodiazepines Scrn [place] Urine Cocaine Screen U Cannabinoids Screen Serum Alcohol Hepatitis A IgM Ab Hep Bs Antigen Hep B Core IgM Ab Hep C IgG Ab 07/31/18 07/31/18 07/31/18 05:00 11:00 13:10 WBC RBC Hgb Hct MCV MCH MCHC RDW Plt Count MPV Prelim Diff (Auto) Neut % (Auto) Lymph % (Auto) King % (Auto) Eos % (Auto) Baso % (Auto) Neut # (Auto) Lymph # (Auto) King # (Auto) Eos # (Auto) Baso # (Auto) WBC Differential Seg Neuts % (Manual) Band Neuts % (Manual) Lymphocytes % (Manual) Monocytes % (Manual) Abs Neuts (Manual) Differential Comment Platelet Estimate Platelet Morphology Stomatocytes PT INR APTT 50.4 H Fibrinogen Puncture Site Patient Temperature O2 Saturation ABG pH ABG pCO2 ABG pO2 ABG HCO3 ABG O2 Content ABG Base Excess ABG Methemoglobin Federico Test Hemoglobin Carboxyhemoglobin O2 Delivery Device Vent Setting Inspired O2 Critical Value Sodium Potassium Chloride Carbon Dioxide Anion Gap BUN Creatinine Estimated GFR POC Glucose 181 H Random Glucose Hemoglobin A1c Lactic Acid 3.6 H Calcium Calcium Adj for Albumin Phosphorus Magnesium Total Bilirubin AST ALT Alkaline Phosphatase Ammonia Total Creatine Kinase CK-MB (CK-2) CK-MB (CK-2) % Troponin I Total Protein Albumin Triglycerides Cholesterol LDL Cholesterol, Calc HDL Cholesterol Cholesterol/HDL Ratio Amylase Lipase TSH Urine Color Urine Clarity Urine pH Ur Specific [place] Urine Protein Urine Glucose (UA) Urine Ketones Urine Occult Blood Urine Nitrate Urine Bilirubin Urine Urobilinogen Ur Leukocyte Esterase Urine RBC Urine WBC Ur Squamous Epith Cells Urine Bacteria Hyaline Casts Granular Casts Urine Mucus Micro UA Comment Ur Microscopic Review Urine Culture Comments Ur Random Creatinine Ur Random Sodium Nasal Screen MRSA (PCR) Random Vancomycin Salicylates Urine Opiates Screen Acetaminophen Ur Barbiturates Screen Phenytoin Ur Amphetamines Screen Phenobarbital U Benzodiazepines Scrn [place] Urine Cocaine Screen U Cannabinoids Screen Serum Alcohol Hepatitis A IgM Ab Hep Bs Antigen Hep B Core IgM Ab Hep C IgG Ab Result Diagrams: 07/31/18 05:00 07/31/18 05:00 Microbiology: Microbiology 07/30/18 09:20 Urine Culture - Preliminary Catheterized Urine No growth in 24 hours 07/31/18 00:53 Gram Stain - Final Sputum - Endotracheal 07/30/18 12:00 Aerobic Blood Culture - Preliminary Blood - Peripheral No growth in 1 day Anaerobic Blood Culture - Preliminary No growth in 1 day 07/30/18 12:00 Aerobic Blood Culture - Preliminary Blood - Peripheral No growth in 1 day Anaerobic Blood Culture - Preliminary No growth in 1 day 07/31/18 00:50 Influenza Types A,B Antigen - Final Nasal Wash Negative for FLU A and B antigen Infection due to influenza A or B cannot be ruled out since the antigen present in the sample may be below the detection limit of the test. Procedures: 07/30/18: Endotracheal intubation. Assessment and Plan - Disease Oriented Problem List (1) Septic shock (2) Acute respiratory failure (3) Aspiration pneumonia (4) Acidosis, lactic (5) Acute renal failure - Symptom Scale (1) Anxiety 0-10 Scale: 0 Pertinent Non-Medical Issues: Psychosocial: Patient from [facility], he was born in [place] while his father was stationed there in the . Patient is single, has 1 daughter. 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 No service. Spiritual: Holiness jovanny. Legal: No advance directives reported. Ethical issues impacting care: No ethical issues identified. Important Contacts: Daughter Naomi Mariano , Sister Argelia Brother Danny Prognosis: alejandro Whitehead is a 53-year-old male with a medical history of chronic sinusitis, chronic back pain and drug abuse. Patient presented to ED via private vehicle on 07/30/18 after being found unconscious at home. He was found with severe sepsis. Clinical course complicated by severe hypotension requiring multiple vasopressors and CPR with ROSC after 2 minutes. Overall prognosis is guarded. Patient at high risk for further complications, continued decline and . Code Status: Full Code Plan: * CODE STATUS: FULL code. * HEALTHCARE DECISION-MAKING: Patient unable to participating medical decision making secondary to clinical condition, critically ill on life support. No advance directives reported as completed. Patient is single, has 1 biological daughter. As per [place] statue, healthcare proxy decision making falls to patient's daughter Naomi Mariano. She has accepted this role and is fully supported by patient's family. * GOALS OF CARE: Goals of care reasonably aggressive to include full code. Family wishing to allow a few more days for clinical improvement, reassess patient's clinical condition and overall prognosis for recovery. Palliative care following for support. * SYMPTOMS: = Anxiety: In the setting of significant polysubstance drug abuse. Versed drip has been discontinued, palliative care recommends low dose benzodiazepine as needed. = Dyspnea: Secondary to aspiration pneumonia, sepsis. Currently endotracheally intubated on mechanical ventilation. Duo nebs [id number]. = Pain: History of chronic back pain. Currently on fentanyl drip for comfort. * Palliative care contact information has been provided to patient's family. * Case discussed with Dr. Hilliard and bedside RN. * Palliative care will continue to follow-up for further clarifications of goals of care, family support, as patient's clinical course continues to evolve. Time Spent Total Floor Time (mins): 26 (Total time to include review of medical records, physical exam, conversation with patient's daughter, case discussion with attending and bedside RN.) >50% Time in Counseling or Coordination of Care: Yes (Total visit time = 26 minutes; > 50% spent counseling/coordinating care) Attestation Attestation: To help prompt me to consider important information that might be impacting today's encounter and assessment, information from prior notes written by myself or my colleagues may have been "brought forward" into today's note. My signature on this note, however, is an attestation that I personally performed the exam, history, and/or decision-making noted today, and, unless otherwise indicated, the interactions with patient, family, and staff as well as the review of records all occurred today. I also attest that the listed assessment and stated plan reflect my best clinical judgment today based on the combination of historical information, prior notes, and today's exam/ interactions. When time spent is documented, it refers only to time spent today by the signer, or if indicated, combined time spent today by collaborating physician/nurse practitioner.
--- NOTE | 2018-07-31 15:38 | ECG ---
Date Performed: 07/30/2018 Time Performed: 08:57:40 PTAGE: 53 years EKG: SINUS TACHYCARDIA INCOMPLETE RIGHT BUNDLE BRANCH BLOCK NONSPECIFIC ST & T-WAVE ABNORMALITY ABNORMAL RHYTHM ECG Compared to PREVIOUS TRACING , the sinus tachycardia and the anterolateral ST segment depression is n ew. Clinical correlation to exclude myocardial ischemia would be important. PREVIOUS TRACIN12/19/19 16 [id number] DOCTOR: Joslyn Gardner Interpretating Date/Time 07/31/2018 15:36:53
--- NOTE | 2018-07-31 15:39 | ECG ---
Date Performed: 07/30/2018 Time Performed: 17:00:45 PTAGE: 53 years EKG: Sinus rhythm POSSIBLE RIGHT VENTRICULAR CONDUCTION DELAY MODERATE ST DEPRESSION ABNORMAL ECG Compared to PREVIOUS TRACING , sinus tachycardia has resolved. There has been a marked improvement in the anterolateral ST segment depression. The early R-wave transition persists. Serial EKGs are consi stent with improvement in myocardial ischemia. Clinical correlation would be important. PREVIOUS TRAC IN07/30/2018 08.57 DOCTOR: Joslyn Gardner Interpretating Date/Time 07/31/2018 15:37:58
[2018-07-31] MEDS: fentaNYL 10 mcg/mL Premix Drip 2,500 MCG/250 ML BAG IV.SIG PRN (16:40)
[2018-07-31] MEDS: Multivitamin Inj 10 ML, Thiamine Inj 100 MG, Folic Acid Inj 1 MG in Sodium Chlor 0.9% I... IV.SIG SCH (16:41)
[2018-07-31] MEDS: Heparin Drip 25,000 UNIT/250 ML BAG IV.CONT PRN (20:57)
[2018-07-31 20:59] LABS: Carbon Dioxide 37.5 meq/L (21.0-32.0); Magnesium 2.9 mg/dL (1.5-2.5); Phosphorus 3.4 mg/dL (2.5-4.9); Potassium 3.2 meq/L (3.5-5.1)
[2018-07-31 21:36] LABS: Albumin 2.7 g/dL (3.4-5.0)
[2018-08-01] MEDS: Potassium Chlor 40 mEq Premix 40 MEQ/100 ML PIGGYBACK IV.SIG SCH ×2 (00:03→04:03)
[2018-08-01] MEDS: Piperacil/Tazo 2.25 GM Premix 2.25 GM/50 ML PIGGYBACK IV.SIG SCH ×4 (02:36→20:02)
[2018-08-01] MEDS: Sodium Bicarbonate 8.4% Inj 150 MEQ in Water for Inj, Sterile 850 ML IV.CONT SCH ×2 (03:37→09:05)
[2018-08-01] MEDS: Oral Hygiene Kit OROPHARYNG SCH ×4 (05:36→23:26)
[2018-08-01] MEDS: Chlorhexidine Gluconate 2% 1 Pack (2 Cloths) TOPICAL SCH (05:36)
[2018-08-01 06:09] LABS: Hematocrit 31.4 % (39.0-51.0); Hemoglobin 10.6 gm/dL (13.0-17.0); Mean Corpuscular HGB Conc 33.8 % (32.0-36.0); Mean Corpuscular Hemoglobin 27.7 pg (27.0-34.0); Mean Corpuscular Volume 81.9 fL (80.0-100.0); Mean Platelet Volume 8.5 fL (7.0-11.0); Platelet Count 162 th/mm3 (150-450); Red Blood Count 3.84 mil/mm3 (4.50-5.90); Red Cell Distribution Width 14.6 % (11.6-17.2)
[2018-08-01 06:36] LABS: Albumin 2.6 g/dL (3.4-5.0); Carbon Dioxide 36.4 meq/L (21.0-32.0); Magnesium 2.6 mg/dL (1.5-2.5); Potassium 3.2 meq/L (3.5-5.1)
[2018-08-01] MEDS: Insulin NovoLOG Aspart Correctional Sugar Inj SQ SCH ×4 (06:43→23:25)
[2018-08-01 06:55] LABS: Phosphorus 2.2 mg/dL (2.5-4.9); Total Protein 5.7 g/dL (6.4-8.2); Vancomycin,Random 13.9 Comment
[2018-08-01 07:10] LABS: CKMB Percent 0.2 % (0.0-4.0); Creatine Kinase MB 12.4 ng/mL (0.5-3.6)
[2018-08-01] MEDS: Artificial Tears Opth Drops 15 ML Bottle EACH EYE SCH ×3 (07:15→21:28)
[2018-08-01] MEDS: Hydrocortisone Sod Succinate 100 MG Vial IV.PUSH SCH ×3 (07:15→21:28)
[2018-08-01] MEDS: fentaNYL 10 mcg/mL Premix Drip 2,500 MCG/250 ML BAG IV.SIG PRN (07:17)
[2018-08-01] MEDS: Chlorhexidine 0.12% Oral Kit 15 ML UDC OROPHARYNG SCH ×2 (09:01→20:02)
[2018-08-01] MEDS: Senna/Docusate Sodium 8.6/50 MG Tablet PO SCH ×2 (09:02→20:02)
[2018-08-01] MEDS: Pantoprazole Inj 40 MG Vial IV.PUSH SCH (09:03)
--- NOTE | 2018-08-01 09:03 | P.PNCA ---
Subjective Interval history: Intubated. Sedated. Medications and Allergies Active Medications: Active Medications Al Hydroxide/Mg Hydroxide (Milk Of Magnrick Liq) 30 ml PO Q12H PRN PRN Reason: Mild Constipation Albuterol (Albuterol Neb (Prn)) 2.5 mg NEB Q2HR NEB PRN PRN Reason: SHORTNESS OF BREATH Albuterol (Duoneb Neb (Michelle)) 1 ampul NEB Q4HR NEB [facility] Last Admin: 08/01/18 07:29 Dose: 1 ampul Artificial Tears (Tears Naturale Opth Drops) 1 drop EACH EYE Q8H [facility] Last Admin: 08/01/18 07:15 Dose: 1 drop Aspirin (Aspirin Chew) 81 mg PO DAILY [facility] Last Admin: 07/31/18 08:38 Dose: 81 mg Bisacodyl (Dulcolax Supp) 10 mg RECTAL DAILY PRN PRN Reason: SEVERE CONSITIPATION Chlorhexidine Gluconate (Peridex 0.12% Oral Kit) 15 ml OROPHARYNG BID@0800, 2000 [facility] Last Admin: 07/31/18 20:58 Dose: 15 ml Chlorhexidine Gluconate (Chlorhexidine 2% Cloth) 3 pack TOPICAL DAILY@0400 [facility] Stop: 08/05/18 03:59 Last Admin: 08/01/18 05:36 Dose: 3 pack Chlorhexidine Gluconate (Chlorhexidine 2% Cloth) 3 pack TOPICAL DAILY@0400 PRN PRN Reason: Extra cloth needed Stop: 08/05/18 03:59 Dextrose (D50w Vial) 50 ml IV.PUSH UNSCH PRN PRN Reason: PER HYPOGLYCEMIA PROTOCOL Glucagon (Glucagon Inj) 1 mg OTHER PRN PRN PRN Reason: for Hypoglycemia Protocol Hydrocortisone Sodium Succinate (Solucortef Inj) 100 mg IV.PUSH Q8HR [facility] Last Admin: 08/01/18 07:15 Dose: 100 mg Midazolam HCl (Versed Inj) 100 mg in 100 mls @ 2 mls/hr IV.CONT TITRATE PRN; Protocol PRN Reason: See protocol Last Admin: 07/31/18 23:38 Dose: 6 mg/hr, 6 mls/hr Phenylephrine HCl 160 mg/ (Sodium Chloride) 500 mls @ 7.5 mls/hr IV.CONT TITRATE PRN; Protocol PRN Reason: Per Protocol Last Titration: 08/01/18 07:16 Dose: 0 mcg/min, 0 mls/hr Vasopressin 40 unit/ Sodium (Chloride) 100 mls @ 6 mls/hr IV.CONT CONT [facility]; Protocol Last Admin: 07/31/18 20:55 Dose: 0.04 units/min, 6 mls/hr Norepinephrine Bitartrate 16 (mg/ Sodium Chloride) 250 mls @ 1.87 mls/hr IV.CONT TITRATE PRN; Protocol PRN Reason: See Protocol Last Titration: 07/31/18 00:13 Dose: 0 mcg/min, 0 mls/hr Piperacillin/Tazobactam/Dextrose (Zosyn 2.25 Gm Premix) 2.25 gm in 50 mls @ 100 mls/hr IV.SIG Q6H [facility] Last Infusion: 08/01/18 03:20 Dose: Infused Multivitamins 10 ml/ Thiamine HCl 100 mg/ Folic Acid 1 mg/Sodium Chloride 511.2 mls @ 125 mls/hr IV.SIG Q24H [facility] Stop: 08/01/18 20:06 Last Infusion: 07/31/18 21:46 Dose: Infused Fentanyl (Fentanyl 10 Mcg/Ml Premix Drip) 2,500 mcg in 250 mls @ 5 mls/hr IV.SIG TITRATE PRN; Protocol PRN Reason: Per Protocol Last Admin: 08/01/18 07:17 Dose: 200 mcg/hr, 20 mls/hr Sodium Bicarbonate 150 meq/ (Sterile Water) 1,000 mls @ 150 mls/hr IV.CONT .Q6H40M [facility] Last Admin: 08/01/18 03:37 Dose: 150 mls/hr Heparin Sodium/Dextrose (Heparin/D5w 25,000 U/250 Ml) 25,000 unit in 250 mls @ 0 mls/hr IV.CONT TITRATE PRN; Protocol PRN Reason: Per Protocol Last Titration: 08/01/18 07:16 Dose: 1,100 units/hr, 11 mls/hr Insulin Aspart (Novolog Insulin Correctional Sugar Inj) 0 unit SQ Q6HR [facility]; Protocol Last Admin: 08/01/18 06:43 Dose: Not Given Lactulose (Lactulose Liq) 30 ml PO DAILY PRN PRN Reason: SEVERE CONSITIPATION Lactulose (Lactulose Liq) 30 ml PO BID [facility] Last Admin: 07/31/18 20:58 Dose: 30 ml Miscellaneous Medication () 1 each OROPHARYNG 0000,0400,1200,1600 [facility] Last Admin: 08/01/18 05:36 Dose: 1 each Pantoprazole Sodium (Protonix Inj) 40 mg IV.PUSH DAILY [facility] Last Admin: 07/31/18 08:39 Dose: 40 mg Pharmacy Profile Note (Vancomycin Consult Pharmacy) 1 each OTHER UNSCH PRN PRN Reason: Pharmacy to dose Senna/Docusate Sodium (Vonda-Colace) 1 tab PO BID [facility] Last Admin: 07/31/18 20:58 Dose: 1 tab Sennosides (Senokot) 17.2 mg PO Q12H PRN PRN Reason: Moderate Constipation Sodium Chloride (Ns Flush) 2 ml IV.FLUSH BID [facility] Last Admin: 07/31/18 20:58 Dose: 2 ml Sodium Chloride (Ns Flush) 2 ml IV.FLUSH PRN PRN PRN Reason: FLUSH AFTER USING IV ACCESS Terbutaline Sulfate (Brethine Inj) 1 mg SQ UNSCH PRN PRN Reason: For Extravasation Terbutaline Sulfate (Brethine Inj) 1 mg SQ UNSCH PRN PRN Reason: For Extravasation Terbutaline Sulfate (Brethine Inj) 1 mg SQ UNSCH PRN PRN Reason: For Extravasation Allergies Allergy/AdvReac Type Severity Reaction Status Date / Time No Known Allergies Allergy Verified 07/30/18 08:55 Home Medications Medication Instructions Recorded Confirmed Type Unable to Obtain Home Meds 07/30/18 07/30/18 History Physical Exam Vital signs: Vital Signs 07/31/18 09:00 07/31/18 09:15 07/31/18 09:30 Temperature Pulse Rate 74 70 70 Respiratory Rate Blood Pressure 118/74 115/73 114/72 Pulse Oximetry 98 98 98 07/31/18 09:45 07/31/18 10:00 07/31/18 10:15 Temperature Pulse Rate 68 69 69 Respiratory Rate Blood Pressure 115/74 115/75 112/76 Pulse Oximetry 99 98 98 07/31/18 10:30 07/31/18 10:45 07/31/18 11:00 Temperature Pulse Rate 66 67 68 Respiratory Rate Blood Pressure 115/75 112/74 110/75 Pulse Oximetry 98 97 97 07/31/18 11:15 07/31/18 11:30 07/31/18 11:45 Temperature Pulse Rate 66 69 71 Respiratory Rate Blood Pressure 108/70 103/66 104/66 Pulse Oximetry 97 96 96 07/31/18 11:59 07/31/18 12:00 07/31/18 12:15 Temperature 97.2 F L Pulse Rate 75 71 70 Respiratory Rate 15 15 Blood Pressure 101/63 103/62 Pulse Oximetry 96 96 07/31/18 12:30 07/31/18 12:45 07/31/18 13:00 Temperature Pulse Rate 71 77 68 Respiratory Rate Blood Pressure 104/61 99/57 L 106/65 Pulse Oximetry 96 95 96 07/31/18 13:15 07/31/18 13:30 07/31/18 13:45 Temperature Pulse Rate 70 71 82 Respiratory Rate Blood Pressure 108/66 98/62 L 97/59 L Pulse Oximetry 96 97 95 07/31/18 14:00 07/31/18 14:01 07/31/18 14:15 Temperature Pulse Rate 88 89 89 Respiratory Rate Blood Pressure 119/56 L 118/68 Pulse Oximetry 95 94 L 92 L 07/31/18 14:30 07/31/18 14:45 07/31/18 15:00 Temperature Pulse Rate 79 90 87 Respiratory Rate Blood Pressure 120/66 124/65 119/58 L Pulse Oximetry 90 L 91 L 92 L 07/31/18 15:15 07/31/18 15:30 07/31/18 15:37 Temperature Pulse Rate 79 74 71 Respiratory Rate 8 L Blood Pressure 117/56 L 112/59 L Pulse Oximetry 93 L 95 96 07/31/18 15:45 07/31/18 16:00 07/31/18 16:15 Temperature 97.8 F Pulse Rate 71 73 73 Respiratory Rate Blood Pressure 110/62 111/67 114/64 Pulse Oximetry 96 96 96 07/31/18 16:30 07/31/18 16:45 07/31/18 17:00 Temperature Pulse Rate 73 73 77 Respiratory Rate Blood Pressure 114/66 115/65 115/69 Pulse Oximetry 96 96 96 07/31/18 17:15 07/31/18 17:31 07/31/18 17:45 Temperature Pulse Rate 78 82 72 Respiratory Rate Blood Pressure 123/68 128/90 116/68 Pulse Oximetry 96 96 95 07/31/18 18:00 07/31/18 18:15 07/31/18 18:30 Temperature Pulse Rate 70 82 69 Respiratory Rate Blood Pressure 117/68 117/73 118/69 Pulse Oximetry 96 94 L 95 07/31/18 20:00 07/31/18 20:15 07/31/18 20:30 Temperature 99 F Pulse Rate 73 73 73 Respiratory Rate Blood Pressure 117/70 115/71 117/66 Pulse Oximetry 95 97 94 L 07/31/18 20:45 07/31/18 21:00 07/31/18 21:15 Temperature Pulse Rate 80 73 75 Respiratory Rate 15 Blood Pressure 117/76 113/64 110/63 Pulse Oximetry 97 92 L 95 07/31/18 21:30 07/31/18 21:45 07/31/18 22:00 Temperature Pulse Rate 72 69 73 Respiratory Rate Blood Pressure 113/70 118/73 122/72 Pulse Oximetry 94 L 96 96 07/31/18 22:15 07/31/18 22:30 07/31/18 22:45 Temperature Pulse Rate 71 82 68 Respiratory Rate Blood Pressure 126/71 108/64 124/73 Pulse Oximetry 95 93 L 92 L 07/31/18 23:00 07/31/18 23:15 07/31/18 23:30 Temperature Pulse Rate 68 67 76 Respiratory Rate Blood Pressure 128/74 127/76 117/68 Pulse Oximetry 92 L 95 94 L 07/31/18 23:45 07/31/18 23:56 08/01/18 00:00 Temperature Pulse Rate 69 61 63 Respiratory Rate 15 Blood Pressure 113/65 113/71 Pulse Oximetry 95 100 100 08/01/18 00:15 08/01/18 00:30 08/01/18 00:45 Temperature Pulse Rate 67 68 64 Respiratory Rate Blood Pressure 115/72 115/69 116/69 Pulse Oximetry 97 96 96 08/01/18 01:00 08/01/18 01:15 08/01/18 01:30 Temperature Pulse Rate 61 64 63 Respiratory Rate Blood Pressure 124/73 123/74 120/75 Pulse Oximetry 97 96 96 08/01/18 01:45 08/01/18 02:00 08/01/18 02:15 Temperature 99.3 F Pulse Rate 66 63 62 Respiratory Rate Blood Pressure 117/75 119/73 118/74 Pulse Oximetry 97 97 98 08/01/18 02:30 08/01/18 02:45 08/01/18 03:00 Temperature Pulse Rate 63 62 63 Respiratory Rate Blood Pressure 116/74 116/74 112/73 Pulse Oximetry 97 97 96 08/01/18 03:15 08/01/18 03:30 08/01/18 03:45 Temperature Pulse Rate 54 L 56 L 58 L Respiratory Rate Blood Pressure 120/79 124/81 128/83 Pulse Oximetry 99 98 98 08/01/18 04:00 08/01/18 04:15 08/01/18 04:22 Temperature Pulse Rate 58 L 59 L 62 Respiratory Rate 15 Blood Pressure 128/86 131/85 Pulse Oximetry 100 99 99 08/01/18 04:30 08/01/18 04:45 08/01/18 05:00 Temperature Pulse Rate 62 71 65 Respiratory Rate Blood Pressure 130/85 127/87 126/83 Pulse Oximetry 99 97 97 08/01/18 05:15 08/01/18 05:30 08/01/18 05:45 Temperature Pulse Rate 66 65 64 Respiratory Rate Blood Pressure 125/80 120/78 119/78 Pulse Oximetry 98 97 97 08/01/18 06:00 08/01/18 07:30 08/01/18 07:41 Temperature Pulse Rate 61 60 Respiratory Rate 15 15 Blood Pressure 117/78 Pulse Oximetry 97 98 Intake & Output 07/31/18 08/01/18 08/01/18 18:59 06:59 18:59 Intake Total 2350 / 2350 3941.2 / 3941.2 250 / 250 Output Total 800 / 800 900 / 900 Balance 1550 / 1550 3041.2 / 3041.2 250 / 250 Weight 114.3 kg Intake: IV 2350 / 2350 3881.2 / 3881.2 250 / 250 Heparin/D5W 25,000 U/250 mL 25, 250 / 250 000 unit In 250 ml @ Per Protocol IV.CONT TITRATE PRN Rx #:[id number] Versed Inj 100 mg In 100 ml @ 2 100 / 100 MG/HR 2 mls/hr IV.CONT TITRATE PRN Rx#:[id number] Sodium Bicarbonate 8.4% Inj 150 2000 / 2000 2000 / 2000 MEQ In Sterile Water for Inj 850 ML @ 150 mls/hr IV.CONT . Q6H40M [facility] Rx#:[id number] Pitressin Inj 40 UNIT In NS Inj 100 / 100 98 ML @ 0.04 UNITS/MIN 6 mls/ hr IV.CONT CONT [facility] Rx#: [id number] Magnesium Sulfate Inj 4 GM In 100 / 100 NS Inj 92 ML @ 25 mls/hr IV.SIG ONCE ONE Rx#:[id number] MVI-12 Inj 10 ML Thiamine Inj 511.2 / 511.2 100 MG Folvite Inj 1 MG In NS Inj 500 ML @ 125 mls/hr IV.SIG Q24H [facility] Rx#:[id number] Zosyn 2.25 GM Premix 2.25 gm In 100 / 100 100 / 100 50 ml @ 100 mls/hr IV.SIG Q6H [facility] Rx#:[id number] KCl 40 mEq Premix Inj 40 meq In 200 / 200 100 ml @ 25 mls/hr IV.SIG Q4H [facility] Rx#:[id number] Vancomycin Inj 2,000 MG In NS 520 / 520 Inj 500 ML @ 250 mls/hr IV.SIG ONCE ONE Rx#:[id number] fentaNYL 10 mcg/mL Premix Drip 250 / 250 250 / 250 2,500 mcg In 250 ml @ 50 MCG/HR 5 mls/hr IV.SIG TITRATE PRN Rx #:[id number] Water Bolus Amount 60 / 60 Output: Urine Amount (Catheter) 700 / 700 800 / 800 Indwelling Urethral Catheter 700 / 700 800 / 800 Gastric Drainage 100 / 100 100 / 100 Oral 100 / 100 100 / 100 - Constitutional no acute distress Comments: Intubated. Sedated. - Routine Neck Exam Absent: JVD - Routine Respiratory Exam Present: CTA bilaterally - Routine Cardiovascular Exam Present: RRR, S1, S2. Absent: murmur, gallop - Routine Abdominal Exam Present: soft, normoactive bowel sounds. Absent: organomegaly - Routine Extremities Exam Absent: cyanosis, clubbing, edema - Urinary Catheter Management Indwelling Urethral Catheter Cath placed during this visit: yes Reason for continuing: Hourly intake/output Insertion date: 07/30/18 Insertion time: 09:24 Results 08/01/18 05:44 08/01/18 05:44 Cardiac Enzymes 07/30/18 07/30/18 07/30/18 Range/Units 09:00 15:00 20:51 AST 59 H (15-37) U/L CK-MB (CK-2) 10.9 H (0.5-3.6) ng/mL Troponin I Less than 0.02 L 3.43 H* Cancelled (0.02-0.05) ng/mL 07/30/18 07/31/18 07/31/18 Range/Units 20:51 01:27 05:00 AST 382 H (15-37) U/L CK-MB (CK-2) 62.9 H (0.5-3.6) ng/mL Troponin I 29.50 H* 28.60 H* (0.02-0.05) ng/mL 08/01/18 Range/Units 05:44 AST 328 H (15-37) U/L CK-MB (CK-2) 12.4 H (0.5-3.6) ng/mL Troponin I (0.02-0.05) ng/mL Coagulation 07/30/18 07/30/18 07/31/18 Range/Units 09:00 23:30 05:00 PT 10.0 10.6 11.2 (9.8-11.6) sec APTT 26.1 29.0 49.4 H D (23.4-31.7) sec 07/31/18 08/01/18 Range/Units 11:00 05:44 PT (9.8-11.6) sec APTT 50.4 H 39.3 H D (23.4-31.7) sec Lipids 07/30/18 07/30/18 Range/Units 20:51 20:51 Triglycerides Cancelled 171 H Cholesterol Cancelled 119 L HDL Cholesterol Cancelled 33.5 L Cholesterol/HDL Ratio Cancelled 3.55 CBC 07/30/18 07/30/18 07/31/18 Range/Units 09:00 15:00 05:00 WBC 17.4 H 22.5 H 20.9 H (4.0-11.0) th/mm3 RBC 5.70 5.06 4.65 (4.50-5.90) mil/mm3 Hgb 16.0 14.1 12.7 L (13.0-17.0) gm/dL Hct 48.6 43.4 38.6 L (39.0-51.0) % Plt Count 346 257 216 (150-450) th/mm3 Neut # (Auto) 15.4 H 20.1 H 19.0 H (1.8-7.7) th/mm3 Lymph # (Auto) 0.8 L 1.5 1.1 (1.0-4.8) th/mm3 [place] # (Auto) 1.2 H 0.9 0.8 (0.0-0.9) th/mm3 Eos # (Auto) 0.0 0.0 0.0 (0.0-0.4) th/mm3 Baso # (Auto) 0.0 0.1 0.0 (0.0-0.2) th/mm3 08/01/18 Range/Units 05:44 WBC 15.0 H (4.0-11.0) th/mm3 RBC 3.84 L (4.50-5.90) mil/mm3 Hgb 10.6 L D (13.0-17.0) gm/dL Hct 31.4 L (39.0-51.0) % Plt Count 162 (150-450) th/mm3 Neut # (Auto) (1.8-7.7) th/mm3 Lymph # (Auto) (1.0-4.8) th/mm3 [place] # (Auto) (0.0-0.9) th/mm3 Eos # (Auto) (0.0-0.4) th/mm3 Baso # (Auto) (0.0-0.2) th/mm3 Comprehensive Metabolic Panel 07/30/18 07/30/18 07/30/18 Range/Units 09:00 15:00 20:51 Sodium 138 140 (136-145) meq/L Potassium 4.9 6.1 H D 3.9 D (3.5-5.1) meq/L Chloride 103 109 H (98-107) meq/L Carbon Dioxide 22.0 22.1 (21.0-32.0) meq/L BUN 23 H 25 H (7-18) mg/dL Creatinine 3.09 H 2.99 H (0.60-1.30) mg/dL Calcium 8.8 6.6 L* D (8.5-10.1) mg/dL AST 59 H (15-37) U/L ALT 80 H (12-78) U/L Alkaline Phosphatase 95 (45-117) U/L Total Protein 8.2 (6.4-8.2) g/dL Albumin 4.1 3.3 L D (3.4-5.0) g/dL 07/31/18 07/31/18 08/01/18 Range/Units 05:00 18:30 05:44 Sodium 141 141 140 (136-145) meq/L Potassium 3.3 L 3.2 L 3.2 L (3.5-5.1) meq/L Chloride 102 99 97 L (98-107) meq/L Carbon Dioxide 29.9 37.5 H 36.4 H (21.0-32.0) meq/L BUN 23 H 25 H 26 H (7-18) mg/dL Creatinine 2.15 H 1.73 H 1.55 H (0.60-1.30) mg/dL Calcium 7.4 L* D 7.0 L* 7.0 L* (8.5-10.1) mg/dL AST 382 H 328 H (15-37) U/L ALT 249 H 275 H (12-78) U/L Alkaline Phosphatase 62 56 (45-117) U/L Total Protein 5.6 L D 5.7 L (6.4-8.2) g/dL Albumin 2.7 L D 2.7 L 2.6 L (3.4-5.0) g/dL Intake and Output 07/31/18 08/01/18 08/01/18 22:59 06:59 14:59 Intake Total 2931.2 / 2931.2 1310 / 1310 250 / 250 Output Total 800 / 800 900 / 900 Balance 2131.2 / 2131.2 410 / 410 250 / 250 Intake: IV 2931.2 / 2931.2 1250 / 1250 250 / 250 Heparin/D5W 25,000 U/250 mL 25, 250 / 250 000 unit In 250 ml @ Per Protocol IV.CONT TITRATE PRN Rx #:[id number] Versed Inj 100 mg In 100 ml @ 2 100 / 100 MG/HR 2 mls/hr IV.CONT TITRATE PRN Rx#:[id number] Sodium Bicarbonate 8.4% Inj 150 1000 / 1000 1000 / 1000 MEQ In Sterile Water for Inj 850 ML @ 150 mls/hr IV.CONT . Q6H40M [facility] Rx#:[id number] Pitressin Inj 40 UNIT In NS Inj 100 / 100 98 ML @ 0.04 UNITS/MIN 6 mls/ hr IV.CONT CONT [facility] Rx#: [id number] Magnesium Sulfate Inj 4 GM In 100 / 100 NS Inj 92 ML @ 25 mls/hr IV.SIG ONCE ONE Rx#:[id number] MVI-12 Inj 10 ML Thiamine Inj 511.2 / 511.2 100 MG Folvite Inj 1 MG In NS Inj 500 ML @ 125 mls/hr IV.SIG Q24H [facility] Rx#:[id number] Zosyn 2.25 GM Premix 2.25 gm In 100 / 100 50 / 50 50 ml @ 100 mls/hr IV.SIG Q6H [facility] Rx#:[id number] KCl 40 mEq Premix Inj 40 meq In 100 / 100 100 / 100 100 ml @ 25 mls/hr IV.SIG Q4H [facility] Rx#:[id number] Vancomycin Inj 2,000 MG In NS 520 / 520 Inj 500 ML @ 250 mls/hr IV.SIG ONCE ONE Rx#:[id number] fentaNYL 10 mcg/mL Premix Drip 250 / 250 250 / 250 2,500 mcg In 250 ml @ 50 MCG/HR 5 mls/hr IV.SIG TITRATE PRN Rx #:[id number] Water Bolus Amount 60 / 60 Output: Urine Amount (Catheter) 700 / 700 800 / 800 Indwelling Urethral Catheter 700 / 700 800 / 800 Gastric Drainage 100 / 100 100 / 100 Oral 100 / 100 100 / 100 Other: Weight 114.3 kg - Imaging and Cardiology Imaging: Impressions Venous Doppler Study 07/30/18 00:00 CONCLUSION: 1. Negative for deep venous thrombosis Chest X-Ray 07/30/18 08:54 CONCLUSION: Slight CHF. Head CT 07/30/18 08:54 CONCLUSION: Unremarkable study except for mild chronic sinusitis . Abdomen/Bladder Ultrasound 07/30/18 12:07 CONCLUSION: 1. Enlarged echogenic liver 2. Normal size kidneys without mass or hydronephrosis. 3. 1.4 cm left renal cyst Chest X-Ray 07/31/18 06:00 CONCLUSION: Suspected consolidation in the left perihilar and bases bilaterally. When compared to the prior exam, there has been slight worsening. Assessment and Plan - Assessment (1) Non-ST elevated myocardial infarction Code(s): I21.4 - Non-ST elevation (NSTEMI) myocardial infarction Status: Acute Plan: Overall stable cardiac status. Renal indices continue to improve. EF roughly 50% by technically very difficult echo. Consider start low dose carvedilol, no TOR-I with his renal insufficiency, continue aspirin/heparin drip , consider cath once extubated. - Plan Code Status: full code Procedures - Arterial Line Size (Gauge): 18
[2018-08-01] MEDS ORDERED: Sodium Phosphate Inj 30 MMOL in Sodium Chlor 0.9% Inj 250 ML IV.SIG PRN (10:20)
[2018-08-01] MEDS ORDERED: Potassium Chlor 20 mEq Premix 20 MEQ/100 ML PIGGYBACK IV.SIG PRN (10:20)
[2018-08-01] MEDS ORDERED: Potassium Chloride 25 MEQ Effervescent Tablet PO PRN (10:20)
[2018-08-01] MEDS ORDERED: Magnesium Sulfate Inj 2 GM in Sodium Chlor 0.9% Inj 96 ML IV.SIG PRN (10:20)
[2018-08-01] MEDS ORDERED: Magnesium Sulfate Inj 4 GM in Sodium Chlor 0.9% Inj 92 ML IV.SIG PRN (10:20)
[2018-08-01] MEDS ORDERED: Potassium Chlor 40 mEq Premix 40 MEQ/100 ML PIGGYBACK IV.SIG PRN (10:20)
[2018-08-01] MEDS ORDERED: Magnesium Oxide 400 MG Tablet PO PRN (10:20)
[2018-08-01] MEDS ORDERED: Potassium Phosphate 500 MG Soluble Tablet PO PRN ×2 (10:20)
[2018-08-01] MEDS ORDERED: Methylnaltrexone Inj 12 MG/0.6 ML Vial SQ ONE (10:23)
[2018-08-01] MEDS ORDERED: Polyethylene Glycol 3350 17 GM Packet PO ONE (10:23)
--- NOTE | 2018-08-01 10:31 | P.PNCC ---
Subjective Subjective Remarks/Hospital Course: This is a 53-year-old male. Date of admission 07/30/2018. Past medical history in reviewing records includes headaches and increased BMI. Per ED documentation this patient arrived to [facility] via private vehicle by a friend who found him unconscious at his residence. According to the friend the patient was unconscious last night, when they reevaluated the patient this morning he was still unconscious with sonorous respirations. Upon Dr. Rodgers examination, this patient was noted to be tachycardic, hypoxic, and severely confused. The patient's blood sugar was 88 at bedside, the patient was administered Narcan intravenously, he became somewhat more responsive but extremely combative and agitated. Bed. No further information is obtainable from the patient. 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 Attempt to contact these people were not successful A central line and arterial line placed with the ED physician. Patient was quite hypotensive and required 4 L of normal saline crystalloid resuscitation. He was started on norepinephrine is currently 50 mcg/min. Patient had no palpable pulse and patient actually was coded for 2 minutes after receiving 1 mg of epinephrine and 1 ampicillin bicarbonate with return of spontaneous circulation after 2 minutes. During the code he received a crystalloid bolus. She is currently on epinephrine, phenylephrine and vasopressin drips. CT brain revealed no acute intracranial signs. Tox screen revealed opiates and cocaine. Laboratories reveal initial lactate of 6.6 currently 4.4. Leukocytosis, acute kidney injury with creatinine 3.1 and elevated transaminases and ammonia level. 07/31: Lactic currently trending down to 3.6. Elevated troponin start heparin drip overnight. Remains on aspirin. Unable to do beta-amy or TOR inhibitor due to hypotension/is received in acute kidney injury. Lipids normal. Cardiology evaluated the same. Adequate urine output. Replacing electrolytes the same. Arousable the ventilator and follows commands. Subjective 08/01: Objective Vital Signs / I&O: Vital Signs 07/31/18 10:30 07/31/18 10:45 07/31/18 11:00 Temperature Pulse Rate 66 67 68 Respiratory Rate Blood Pressure 115/75 112/74 110/75 Pulse Oximetry 98 97 97 07/31/18 11:15 07/31/18 11:30 07/31/18 11:45 Temperature Pulse Rate 66 69 71 Respiratory Rate Blood Pressure 108/70 103/66 104/66 Pulse Oximetry 97 96 96 07/31/18 11:59 07/31/18 12:00 07/31/18 12:15 Temperature 97.2 F L Pulse Rate 75 71 70 Respiratory Rate 15 15 Blood Pressure 101/63 103/62 Pulse Oximetry 96 96 07/31/18 12:30 07/31/18 12:45 07/31/18 13:00 Temperature Pulse Rate 71 77 68 Respiratory Rate Blood Pressure 104/61 99/57 L 106/65 Pulse Oximetry 96 95 96 07/31/18 13:15 07/31/18 13:30 07/31/18 13:45 Temperature Pulse Rate 70 71 82 Respiratory Rate Blood Pressure 108/66 98/62 L 97/59 L Pulse Oximetry 96 97 95 07/31/18 14:00 07/31/18 14:01 07/31/18 14:15 Temperature Pulse Rate 88 89 89 Respiratory Rate Blood Pressure 119/56 L 118/68 Pulse Oximetry 95 94 L 92 L 07/31/18 14:30 07/31/18 14:45 07/31/18 15:00 Temperature Pulse Rate 79 90 87 Respiratory Rate Blood Pressure 120/66 124/65 119/58 L Pulse Oximetry 90 L 91 L 92 L 07/31/18 15:15 07/31/18 15:30 07/31/18 15:37 Temperature Pulse Rate 79 74 71 Respiratory Rate 8 L Blood Pressure 117/56 L 112/59 L Pulse Oximetry 93 L 95 96 07/31/18 15:45 07/31/18 16:00 07/31/18 16:15 Temperature 97.8 F Pulse Rate 71 73 73 Respiratory Rate Blood Pressure 110/62 111/67 114/64 Pulse Oximetry 96 96 96 07/31/18 16:30 07/31/18 16:45 07/31/18 17:00 Temperature Pulse Rate 73 73 77 Respiratory Rate Blood Pressure 114/66 115/65 115/69 Pulse Oximetry 96 96 96 07/31/18 17:15 07/31/18 17:31 07/31/18 17:45 Temperature Pulse Rate 78 82 72 Respiratory Rate Blood Pressure 123/68 128/90 116/68 Pulse Oximetry 96 96 95 07/31/18 18:00 07/31/18 18:15 07/31/18 18:30 Temperature Pulse Rate 70 82 69 Respiratory Rate Blood Pressure 117/68 117/73 118/69 Pulse Oximetry 96 94 L 95 07/31/18 20:00 07/31/18 20:15 07/31/18 20:30 Temperature 99 F Pulse Rate 73 73 73 Respiratory Rate Blood Pressure 117/70 115/71 117/66 Pulse Oximetry 95 97 94 L 07/31/18 20:45 07/31/18 21:00 07/31/18 21:15 Temperature Pulse Rate 80 73 75 Respiratory Rate 15 Blood Pressure 117/76 113/64 110/63 Pulse Oximetry 97 92 L 95 07/31/18 21:30 07/31/18 21:45 07/31/18 22:00 Temperature Pulse Rate 72 69 73 Respiratory Rate Blood Pressure 113/70 118/73 122/72 Pulse Oximetry 94 L 96 96 07/31/18 22:15 07/31/18 22:30 07/31/18 22:45 Temperature Pulse Rate 71 82 68 Respiratory Rate Blood Pressure 126/71 108/64 124/73 Pulse Oximetry 95 93 L 92 L 07/31/18 23:00 07/31/18 23:15 07/31/18 23:30 Temperature Pulse Rate 68 67 76 Respiratory Rate Blood Pressure 128/74 127/76 117/68 Pulse Oximetry 92 L 95 94 L 07/31/18 23:45 07/31/18 23:56 08/01/18 00:00 Temperature Pulse Rate 69 61 63 Respiratory Rate 15 Blood Pressure 113/65 113/71 Pulse Oximetry 95 100 100 08/01/18 00:15 08/01/18 00:30 08/01/18 00:45 Temperature Pulse Rate 67 68 64 Respiratory Rate Blood Pressure 115/72 115/69 116/69 Pulse Oximetry 97 96 96 08/01/18 01:00 08/01/18 01:15 08/01/18 01:30 Temperature Pulse Rate 61 64 63 Respiratory Rate Blood Pressure 124/73 123/74 120/75 Pulse Oximetry 97 96 96 08/01/18 01:45 08/01/18 02:00 08/01/18 02:15 Temperature 99.3 F Pulse Rate 66 63 62 Respiratory Rate Blood Pressure 117/75 119/73 118/74 Pulse Oximetry 97 97 98 08/01/18 02:30 08/01/18 02:45 08/01/18 03:00 Temperature Pulse Rate 63 62 63 Respiratory Rate Blood Pressure 116/74 116/74 112/73 Pulse Oximetry 97 97 96 08/01/18 03:15 08/01/18 03:30 08/01/18 03:45 Temperature Pulse Rate 54 L 56 L 58 L Respiratory Rate Blood Pressure 120/79 124/81 128/83 Pulse Oximetry 99 98 98 08/01/18 04:00 08/01/18 04:15 08/01/18 04:22 Temperature Pulse Rate 58 L 59 L 62 Respiratory Rate 15 Blood Pressure 128/86 131/85 Pulse Oximetry 100 99 99 08/01/18 04:30 08/01/18 04:45 08/01/18 05:00 Temperature Pulse Rate 62 71 65 Respiratory Rate Blood Pressure 130/85 127/87 126/83 Pulse Oximetry 99 97 97 08/01/18 05:15 08/01/18 05:30 08/01/18 05:45 Temperature Pulse Rate 66 65 64 Respiratory Rate Blood Pressure 125/80 120/78 119/78 Pulse Oximetry 98 97 97 08/01/18 06:00 08/01/18 07:30 08/01/18 07:41 Temperature Pulse Rate 61 60 Respiratory Rate 15 15 Blood Pressure 117/78 Pulse Oximetry 97 98 Intake & Output 07/31/18 08/01/18 08/01/18 18:59 06:59 18:59 Intake Total 2350 / 2350 3941.2 / 3941.2 1250 / 1250 Output Total 800 / 800 900 / 900 Balance 1550 / 1550 3041.2 / 3041.2 1250 / 1250 Weight 114.3 kg Intake: IV 2350 / 2350 3881.2 / 3881.2 1250 / 1250 Heparin/D5W 25,000 U/250 mL 25, 250 / 250 000 unit In 250 ml @ Per Protocol IV.CONT TITRATE PRN Rx #:[id number] Versed Inj 100 mg In 100 ml @ 2 100 / 100 MG/HR 2 mls/hr IV.CONT TITRATE PRN Rx#:[id number] Sodium Bicarbonate 8.4% Inj 150 1999 / 1999 2000 / 1999 1000 / 1000 MEQ In Sterile Water for Inj 850 ML @ 150 mls/hr IV.CONT . Q6H40M [facility] Rx#:[id number] Pitressin Inj 40 UNIT In NS Inj 100 / 100 98 ML @ 0.04 UNITS/MIN 6 mls/ hr IV.CONT CONT [facility] Rx#: [id number] Magnesium Sulfate Inj 4 GM In 100 / 100 NS Inj 92 ML @ 25 mls/hr IV.SIG ONCE ONE Rx#:[id number] MVI-12 Inj 10 ML Thiamine Inj 511.2 / 511.2 100 MG Folvite Inj 1 MG In NS Inj 500 ML @ 125 mls/hr IV.SIG Q24H [facility] Rx#:[id number] Zosyn 2.25 GM Premix 2.25 gm In 100 / 100 100 / 100 50 ml @ 100 mls/hr IV.SIG Q6H [facility] Rx#:[id number] KCl 40 mEq Premix Inj 40 meq In 200 / 200 100 ml @ 25 mls/hr IV.SIG Q4H [facility] Rx#:[id number] Vancomycin Inj 2,000 MG In NS 520 / 520 Inj 500 ML @ 250 mls/hr IV.SIG ONCE ONE Rx#:[id number] fentaNYL 10 mcg/mL Premix Drip 250 / 250 250 / 250 2,500 mcg In 250 ml @ 50 MCG/HR 5 mls/hr IV.SIG TITRATE PRN Rx #:[id number] Water Bolus Amount 60 / 60 Output: Urine Amount (Catheter) 700 / 700 800 / 800 Indwelling Urethral Catheter 700 / 700 800 / 800 Gastric Drainage 100 / 100 100 / 100 Oral 100 / 100 100 / 100 Result Diagrams: 08/01/18 05:44 08/01/18 05:44 Other Results: Microbiology 07/30/18 09:20 Catheterized Urine Urine Culture - Final No growth in 48 hours 07/31/18 00:53 Sputum - Endotracheal Gram Stain - Final 07/30/18 12:00 Blood - Peripheral Aerobic Blood Culture - Preliminary No growth in 1 day 07/30/18 12:00 Blood - Peripheral Anaerobic Blood Culture - Preliminary No growth in 1 day 07/30/18 12:00 Blood - Peripheral Aerobic Blood Culture - Preliminary No growth in 1 day 07/30/18 12:00 Blood - Peripheral Anaerobic Blood Culture - Preliminary No growth in 1 day 07/31/18 00:50 Nasal Wash Influenza Types A,B Antigen - Final Negative for FLU A and B antigen Infection due to influenza A or B cannot be ruled out since the antigen present in the sample may be below the detection limit of the test. Imaging: Venous Doppler Study 07/30/18 00:00 CONCLUSION: 1. Negative for deep venous thrombosis Chest X-Ray 07/30/18 08:54 CONCLUSION: Slight CHF. Head CT 07/30/18 08:54 CONCLUSION: Unremarkable study except for mild chronic sinusitis . Abdomen/Bladder Ultrasound 07/30/18 12:07 CONCLUSION: 1. Enlarged echogenic liver 2. Normal size kidneys without mass or hydronephrosis. 3. 1.4 cm left renal cyst Chest X-Ray 07/31/18 06:00 CONCLUSION: Suspected consolidation in the left perihilar and bases bilaterally. When compared to the prior exam, there has been slight worsening. Objective Remarks: GENERAL: This is a 53-year-old male currently orotracheally intubated SKIN: Warm and dry. Multiple tattoos. HEAD: Atraumatic. Normocephalic. EYES: Pupils equal and round. No scleral icterus. No injection or drainage. ENT: No nasal bleeding or discharge. Mucous membranes pink and moist. NECK: Trachea midline. No JVD. Right IJ CVL is clean dry and intact CARDIOVASCULAR: Regular rate and rhythm. S1, S2. No S4. Without murmur RESPIRATORY: Few crackles in the bases. No wheezing. GASTROINTESTINAL: Abdomen soft, non-tender, nondistended. Hepatic and splenic margins not palpable. MUSCULOSKELETAL: Extremities with trace bilateral lower extremity edema. No obvious deformities. NEUROLOGICAL: Arousable on the ventilator follows simple commands. Positive gag and cough. Moves all 4 extremities spontaneously. Assessment and Plan - Assessment and Plan Plan: Neuro/Psych: Polysubstance use including heroin, cocaine and opiates Currently on midazolam drip for sedation/analgesia while intubated Goal of RA SS -[address] brain revealed no acute intracranial findings CV: Severe shock Lactic acidosis Status post 4 L normal saline in the ED. Aggressive crystalloid resuscitation. Norepinephrine, phenylephrine and vasopressin to maintain mean artery pressure critical 65 wean as tolerated. Continue sterile water 3 ampoules of sodium bicarbonate 150 cc an hour Serial lactates until cleared. Currently 3.6 Cycle troponins trending upward. Heparin drip initiated overnight 2D echocardiogram ejection fraction 50%. PA P 25 mmHg. Mild TR. Cardiology consultation for elevated troponin. Start aspirin 81 mg daily. I will beta-amy or TOR inhibitor due to acute kidney injury/hypotension vasopressors unable to use statin secondary to liver injury. Resp: Acute respiratory failure Aspiration pneumonia PRVC ventilation Head of bed at 30 degrees Ventilator bundle Albuterol/ipratropium aerosols every 4 hours with albuterol aerosols every 2 as needed dyspnea Spontaneous breathing trials and clinically indicated We will attempt extubation this a.m. Her chest x-ray revealed bilateral lower lobe infiltrates 1/3 GI: Elevated transaminases Elevated ammonia NG tube to low inner wall suction to PT if not extubated Pantoprazole for GI prophylax Docusate serum/senna 1 tablet twice daily for bowel regimen Follow-up on ammonia level in a.m. Lactulose 30 cc twice daily Hepatitis panel negative : Giles catheter is indicated for accurate I's and O's in a critical patient Endo: Elevated TSH Check free T3-T4. Sliding scale insulin Accu-Cheks to maintain euglycemia Renal: Acute kidney injury Rhabdomyolysis Renal ultrasound revealed enlarged echogenic liver however no signs of hydronephrosis Check urine eosinophil Avoid nephrotoxic medication Nephrology consultation Monitor urine output Check BMP and CPK in a.m. Heme: Leukocytosis Normocytic anemia Monitor CBC daily. Follow trends. No indication for transfusion of blood products at this time ID: Empirically placed on vancomycin and piperacillin/tazobactam day #2 Blood cultures x2 ordered FEN: Hypokalemia Hypophosphatemia Hypermagnesia Replace electro lites as clinically indicated per ICU likely protocol. Recheck at 1800 and in a.m. Currently on sterile water with C bicarbonate for rhabdomyolysis. Continue. MSK: Elevated BMI Weight loss encouraged PT evaluate and treat Access -Right IJ CVL day 2. Right femoral arterial line day #2 Prophylaxis -GI pantoprazole DVT-SCD/heparin drip 35 minutes critical care time follow-up Code Status: Full code Procedures - Arterial Line Size (Gauge): 18
[2018-08-01] MEDS: Sod Chloride 0.9% Inj 1,000 ML IV.CONT SCH ×3 (10:45→20:18)
[2018-08-01] MEDS: Dexmedetomidine Inj 200 MCG in Sodium Chlor 0.9% Inj 48 ML IV.CONT PRN ×4 (11:22→23:23)
[2018-08-01] MEDS ORDERED: Vancomycin Inj 2,000 MG in Sodium Chlor 0.9% Inj 500 ML IV.SIG ONE (14:00)
--- NOTE | 2018-08-01 15:00 | P.PNPAL ---
Reason for Visit Reason for visit: a. To assist with evaluation and management of symptoms including: Anxiety. b. To assist medical decision maker(s) with: better understanding of current medical conditions; weighing benefits/burdens of medical treatment options; making medical treatment decisions. Subjective Subjective/Interval History: Palliative care follow-up for family support, recommendations on symptoms. Patient seen in medical ICU, remains endotracheally intubated on mechanical ventilation. Off vasopressors with stable blood pressure. Currently on Precedex drip in the setting of anxiety/restlessness, fentanyl infusion for pain. Patient briefly opening eyes to verbal stimuli, not as responsive as yesterday. Lactic acid within normal limits today from 6.6 on admission. Persistent renal insufficiency, BUN/creatinine 26/1.55. Nephrology was consulted yesterday. Cardiology following, may consider cardiac cath once extubated and clinically stable. Met with patient's Sister Argelia at bedside. Medical update provided and plan of care reviewed. Sister hopeful for patient's recovery and return to his independent baseline. She reports that patient is likely to be discharged to her house if he were to require assistance. Reviewed that patient is likely to required physical therapy for strengthening and given acute illness/ hospitalization. Family appreciative of palliative care visit, receptive to follow-ups as needed. Case discussed with bedside RN. Advance Directives Living Will: Never completed Health Care Surrogate: Never completed Durable Power of Stack Clerk: Never completed Objective Vital Signs: Vital Signs 07/31/18 15:00 07/31/18 15:15 07/31/18 15:30 Temperature Pulse Rate 87 79 74 Respiratory Rate Blood Pressure 119/58 L 117/56 L 112/59 L Pulse Oximetry 92 L 93 L 95 07/31/18 15:37 07/31/18 15:45 07/31/18 16:00 Temperature 97.8 F Pulse Rate 71 71 73 Respiratory Rate 8 L Blood Pressure 110/62 111/67 Pulse Oximetry 96 96 96 07/31/18 16:15 07/31/18 16:30 07/31/18 16:45 Temperature Pulse Rate 73 73 73 Respiratory Rate Blood Pressure 114/64 114/66 115/65 Pulse Oximetry 96 96 96 07/31/18 17:00 07/31/18 17:15 07/31/18 17:31 Temperature Pulse Rate 77 78 82 Respiratory Rate Blood Pressure 115/69 123/68 128/90 Pulse Oximetry 96 96 96 07/31/18 17:45 07/31/18 18:00 07/31/18 18:15 Temperature Pulse Rate 72 70 82 Respiratory Rate Blood Pressure 116/68 117/68 117/73 Pulse Oximetry 95 96 94 L 07/31/18 18:30 07/31/18 20:00 07/31/18 20:15 Temperature 99 F Pulse Rate 69 73 73 Respiratory Rate Blood Pressure 118/69 117/70 115/71 Pulse Oximetry 95 95 97 07/31/18 20:30 07/31/18 20:45 07/31/18 21:00 Temperature Pulse Rate 73 80 73 Respiratory Rate 15 Blood Pressure 117/66 117/76 113/64 Pulse Oximetry 94 L 97 92 L 07/31/18 21:15 07/31/18 21:30 07/31/18 21:45 Temperature Pulse Rate 75 72 69 Respiratory Rate Blood Pressure 110/63 113/70 118/73 Pulse Oximetry 95 94 L 96 07/31/18 22:00 07/31/18 22:15 07/31/18 22:30 Temperature Pulse Rate 73 71 82 Respiratory Rate Blood Pressure 122/72 126/71 108/64 Pulse Oximetry 96 95 93 L 07/31/18 22:45 07/31/18 23:00 07/31/18 23:15 Temperature Pulse Rate 68 68 67 Respiratory Rate Blood Pressure 124/73 128/74 127/76 Pulse Oximetry 92 L 92 L 95 07/31/18 23:30 07/31/18 23:45 07/31/18 23:56 Temperature Pulse Rate 76 69 61 Respiratory Rate 15 Blood Pressure 117/68 113/65 Pulse Oximetry 94 L 95 100 08/01/18 00:00 08/01/18 00:15 08/01/18 00:30 Temperature Pulse Rate 63 67 68 Respiratory Rate Blood Pressure 113/71 115/72 115/69 Pulse Oximetry 100 97 96 08/01/18 00:45 08/01/18 01:00 08/01/18 01:15 Temperature Pulse Rate 64 61 64 Respiratory Rate Blood Pressure 116/69 124/73 123/74 Pulse Oximetry 96 97 96 08/01/18 01:30 08/01/18 01:45 08/01/18 02:00 Temperature 99.3 F Pulse Rate 63 66 63 Respiratory Rate Blood Pressure 120/75 117/75 119/73 Pulse Oximetry 96 97 97 08/01/18 02:15 08/01/18 02:30 08/01/18 02:45 Temperature Pulse Rate 62 63 62 Respiratory Rate Blood Pressure 118/74 116/74 116/74 Pulse Oximetry 98 97 97 08/01/18 03:00 08/01/18 03:15 08/01/18 03:30 Temperature Pulse Rate 63 54 L 56 L Respiratory Rate Blood Pressure 112/73 120/79 124/81 Pulse Oximetry 96 99 98 08/01/18 03:45 08/01/18 04:00 08/01/18 04:15 Temperature Pulse Rate 58 L 58 L 59 L Respiratory Rate Blood Pressure 128/83 128/86 131/85 Pulse Oximetry 98 100 99 08/01/18 04:22 08/01/18 04:30 08/01/18 04:45 Temperature Pulse Rate 62 62 71 Respiratory Rate 15 Blood Pressure 130/85 127/87 Pulse Oximetry 99 99 97 08/01/18 05:00 08/01/18 05:15 08/01/18 05:30 Temperature Pulse Rate 65 66 65 Respiratory Rate Blood Pressure 126/83 125/80 120/78 Pulse Oximetry 97 98 97 08/01/18 05:45 08/01/18 06:00 08/01/18 07:30 Temperature Pulse Rate 64 61 60 Respiratory Rate 15 Blood Pressure 119/78 117/78 Pulse Oximetry 97 97 08/01/18 07:41 08/01/18 11:08 08/01/18 11:37 Temperature Pulse Rate 70 Respiratory Rate 15 15 15 Blood Pressure Pulse Oximetry 98 96 Intake & Output 07/31/18 08/01/18 08/01/18 18:59 06:59 18:59 Intake Total 2350 / 2350 3941.2 / 3941.2 1300 / 1300 Output Total 800 / 800 900 / 900 Balance 1550 / 1550 3041.2 / 3041.2 1300 / 1300 Weight 114.3 kg Intake: IV 2350 / 2350 3881.2 / 3881.2 1300 / 1300 Heparin/D5W 25,000 U/250 mL 25, 250 / 250 000 unit In 250 ml @ Per Protocol IV.CONT TITRATE PRN Rx #:[id number] Versed Inj 100 mg In 100 ml @ 2 100 / 100 MG/HR 2 mls/hr IV.CONT TITRATE PRN Rx#:[id number] Sodium Bicarbonate 8.4% Inj 150 1999 / 1999 2000 / 1999 1000 / 1000 MEQ In Sterile Water for Inj 850 ML @ 150 mls/hr IV.CONT . Q6H40M [facility] Rx#:[id number] Pitressin Inj 40 UNIT In NS Inj 100 / 100 98 ML @ 0.04 UNITS/MIN 6 mls/ hr IV.CONT CONT [facility] Rx#: [id number] Magnesium Sulfate Inj 4 GM In 100 / 100 NS Inj 92 ML @ 25 mls/hr IV.SIG ONCE ONE Rx#:[id number] MVI-12 Inj 10 ML Thiamine Inj 511.2 / 511.2 100 MG Folvite Inj 1 MG In NS Inj 500 ML @ 125 mls/hr IV.SIG Q24H [facility] Rx#:[id number] Zosyn 2.25 GM Premix 2.25 gm In 100 / 100 100 / 100 50 / 50 50 ml @ 100 mls/hr IV.SIG Q6H [facility] Rx#:[id number] KCl 40 mEq Premix Inj 40 meq In 200 / 200 100 ml @ 25 mls/hr IV.SIG Q4H [facility] Rx#:[id number] Vancomycin Inj 2,000 MG In NS 520 / 520 Inj 500 ML @ 250 mls/hr IV.SIG ONCE ONE Rx#:[id number] fentaNYL 10 mcg/mL Premix Drip 250 / 250 250 / 250 2,500 mcg In 250 ml @ 50 MCG/HR 5 mls/hr IV.SIG TITRATE PRN Rx #:[id number] Water Bolus Amount 60 / 60 Output: Urine Amount (Catheter) 700 / 700 800 / 800 Indwelling Urethral Catheter 700 / 700 800 / 800 Gastric Drainage 100 / 100 100 / 100 Oral 100 / 100 100 / 100 Physical Exam: CONSTITUTIONAL/GENERAL: This is an adequately nourished patient, in no apparent distress. Endotracheally intubated on mechanical ventilation. TUBES/LINES/DRAINS: ETT, OG, right IJ, soft wrist restraints, Giles catheter. SKIN: No jaundice, rashes, or lesions. No wounds seen anteriorly. Ecchymosis to right arm. Skin temperature appropriate. Not diaphoretic. HEAD: Atraumatic. Normocephalic. EYES: Pupils equal and round and reactive. No scleral icterus. No injection or drainage. Fundi not examined. ENT: Hearing appears normal. Nose without bleeding or purulent drainage. Moist oral mucosa. NECK: Trachea midline. Supple, nontender. CARDIOVASCULAR: Normal rate and rhythm. Peripheral pulses symmetric. RESPIRATORY/CHEST: Symmetric, endotracheal intubated on mechanical ventilation. Clear breath sounds. GASTROINTESTINAL: Abdomen soft, obese. Positive bowel sounds. GENITOURINARY: Without palpable bladder distension. Giles catheter in place. MUSCULOSKELETAL: Extremities without clubbing, cyanosis, or edema. No mottling or clubbing. NEUROLOGICAL: Briefly opening eyes to verbal stimuli. Sleepy. PSYCHIATRIC: Calm. Diagnostic Tests Laboratory: Laboratory Results - last 72 hr 07/30/18 07/30/18 07/30/18 09:00 09:00 09:00 WBC 17.4 H RBC 5.70 Hgb 16.0 Hct 48.6 MCV 85.3 MCH 28.0 MCHC 32.8 RDW 15.2 Plt Count 346 MPV 8.2 Prelim Diff (Auto) Neut % (Auto) 88.6 H Lymph % (Auto) 4.6 L [place] % (Auto) 6.6 Eos % (Auto) 0.1 Baso % (Auto) 0.1 Neut # (Auto) 15.4 H Lymph # (Auto) 0.8 L [place] # (Auto) 1.2 H Eos # (Auto) 0.0 Baso # (Auto) 0.0 WBC Differential . Seg Neuts % (Manual) Band Neuts % (Manual) Lymphocytes % (Manual) Monocytes % (Manual) Abs Neuts (Manual) Differential Comment Auto diff final Platelet Estimate Platelet Morphology Stomatocytes PT 10.0 INR 1.0 APTT 26.1 Fibrinogen Puncture Site Patient Temperature O2 Saturation ABG pH ABG pCO2 ABG pO2 ABG HCO3 ABG O2 Content ABG Base Excess ABG Methemoglobin Federico Test Hemoglobin Carboxyhemoglobin O2 Delivery Device Vent Setting Inspired O2 Critical Value Sodium 138 Potassium 4.9 Chloride 103 Carbon Dioxide 22.0 Anion Gap 13 BUN 23 H Creatinine 3.09 H Estimated GFR 21 L POC Glucose Random Glucose 82 Hemoglobin A1c Lactic Acid Calcium 8.8 Calcium Adj for Albumin Phosphorus Magnesium 2.5 Total Bilirubin 0.8 AST 59 H ALT 80 H Alkaline Phosphatase 95 Ammonia Total Creatine Kinase 888 H CK-MB (CK-2) 10.9 H CK-MB (CK-2) % 1.2 Troponin I Less than 0.02 L Total Protein 8.2 Albumin 4.1 Triglycerides Cholesterol LDL Cholesterol, Calc HDL Cholesterol Cholesterol/HDL Ratio Amylase Lipase TSH 5.520 H Urine Color Urine Clarity Urine pH Ur Specific [place] Urine Protein Urine Glucose (UA) Urine Ketones Urine Occult Blood Urine Nitrate Urine Bilirubin Urine Urobilinogen Ur Leukocyte Esterase Urine RBC Urine WBC Ur Squamous Epith Cells Urine Bacteria Hyaline Casts Granular Casts Urine Mucus Micro UA Comment Ur Microscopic Review Urine Culture Comments Urine Eosinophils Ur Random Creatinine Ur Random Sodium Nasal Screen MRSA (PCR) Random Vancomycin Salicylates Urine Opiates Screen Acetaminophen Less than 2.0 L Ur Barbiturates Screen Phenytoin 0.9 L Ur Amphetamines Screen Phenobarbital Less than 2.1 L U Benzodiazepines Scrn Bowler Urine Cocaine Screen U Cannabinoids Screen Serum Alcohol Less than 3 Hepatitis A IgM Ab Hep Bs Antigen Hep B Core IgM Ab Hep C IgG Ab 07/30/18 07/30/18 07/30/18 09:00 09:00 09:00 WBC RBC Hgb Hct MCV MCH MCHC RDW Plt Count MPV Prelim Diff (Auto) Neut % (Auto) Lymph % (Auto) [place] % (Auto) Eos % (Auto) Baso % (Auto) Neut # (Auto) Lymph # (Auto) [place] # (Auto) Eos # (Auto) Baso # (Auto) WBC Differential Seg Neuts % (Manual) Band Neuts % (Manual) Lymphocytes % (Manual) Monocytes % (Manual) Abs Neuts (Manual) Differential Comment Platelet Estimate Platelet Morphology Stomatocytes PT INR APTT Fibrinogen Puncture Site Patient Temperature O2 Saturation ABG pH ABG pCO2 ABG pO2 ABG HCO3 ABG O2 Content ABG Base Excess ABG Methemoglobin Federico Test Hemoglobin Carboxyhemoglobin O2 Delivery Device Vent Setting Inspired O2 Critical Value Sodium Potassium Chloride Carbon Dioxide Anion Gap BUN Creatinine Estimated GFR POC Glucose Random Glucose Hemoglobin A1c Lactic Acid 6.6 H* Calcium Calcium Adj for Albumin Phosphorus Magnesium Total Bilirubin AST ALT Alkaline Phosphatase Ammonia 45 H Total Creatine Kinase CK-MB (CK-2) CK-MB (CK-2) % Troponin I Total Protein Albumin Triglycerides Cholesterol LDL Cholesterol, Calc HDL Cholesterol Cholesterol/HDL Ratio Amylase Lipase TSH Urine Color Urine Clarity Urine pH Ur Specific [place] Urine Protein Urine Glucose (UA) Urine Ketones Urine Occult Blood Urine Nitrate Urine Bilirubin Urine Urobilinogen Ur Leukocyte Esterase Urine RBC Urine WBC Ur Squamous Epith Cells Urine Bacteria Hyaline Casts Granular Casts Urine Mucus Micro UA Comment Ur Microscopic Review Urine Culture Comments Urine Eosinophils Ur Random Creatinine Ur Random Sodium Nasal Screen MRSA (PCR) Random Vancomycin Salicylates 2.0 L Urine Opiates Screen Acetaminophen Ur Barbiturates Screen Phenytoin Ur Amphetamines Screen Phenobarbital U Benzodiazepines Scrn Bowler Urine Cocaine Screen U Cannabinoids Screen Serum Alcohol Hepatitis A IgM Ab Hep Bs Antigen Hep B Core IgM Ab Hep C IgG Ab 07/30/18 07/30/18 07/30/18 09:00 09:19 09:20 WBC RBC Hgb Hct MCV MCH MCHC RDW Plt Count MPV Prelim Diff (Auto) Neut % (Auto) Lymph % (Auto) [place] % (Auto) Eos % (Auto) Baso % (Auto) Neut # (Auto) Lymph # (Auto) [place] # (Auto) Eos # (Auto) Baso # (Auto) WBC Differential Seg Neuts % (Manual) Band Neuts % (Manual) Lymphocytes % (Manual) Monocytes % (Manual) Abs Neuts (Manual) Differential Comment Platelet Estimate Platelet Morphology Stomatocytes PT INR APTT Fibrinogen Puncture Site Right radial Patient Temperature 98.6 O2 Saturation 92 ABG pH 7.15 L* ABG pCO2 57 H* ABG pO2 105 ABG HCO3 19 L ABG O2 Content 19.3 ABG Base Excess -8.3 L ABG Methemoglobin 0.7 Federico Test Present Hemoglobin 14.8 Carboxyhemoglobin 4.5 H O2 Delivery Device Ventilator Vent Setting Ac16/550/+8 Inspired O2 100 Critical Value Yes Sodium Potassium Chloride Carbon Dioxide Anion Gap BUN Creatinine Estimated GFR POC Glucose Random Glucose Hemoglobin A1c Lactic Acid Calcium Calcium Adj for Albumin Phosphorus 8.3 H Magnesium 2.5 Total Bilirubin AST ALT Alkaline Phosphatase Ammonia Total Creatine Kinase CK-MB (CK-2) CK-MB (CK-2) % Troponin I Total Protein Albumin Triglycerides Cholesterol LDL Cholesterol, Calc HDL Cholesterol Cholesterol/HDL Ratio Amylase Lipase TSH Urine Color Urine Clarity Urine pH Ur Specific [place] Urine Protein Urine Glucose (UA) Urine Ketones Urine Occult Blood Urine Nitrate Urine Bilirubin Urine Urobilinogen Ur Leukocyte Esterase Urine RBC Urine WBC Ur Squamous Epith Cells Urine Bacteria Hyaline Casts Granular Casts Urine Mucus Micro UA Comment Ur Microscopic Review Urine Culture Comments Urine Eosinophils Ur Random Creatinine Ur Random Sodium Nasal Screen MRSA (PCR) Random Vancomycin Salicylates Urine Opiates Screen Pos H Acetaminophen Ur Barbiturates Screen Neg Phenytoin Ur Amphetamines Screen Neg Phenobarbital U Benzodiazepines Scrn Neg Bowler Urine Cocaine Screen Pos H U Cannabinoids Screen Neg Serum Alcohol Hepatitis A IgM Ab Hep Bs Antigen Hep B Core IgM Ab Hep C IgG Ab 07/30/18 07/30/18 07/30/18 09:20 09:20 11:10 WBC RBC Hgb Hct MCV MCH MCHC RDW Plt Count MPV Prelim Diff (Auto) Neut % (Auto) Lymph % (Auto) [place] % (Auto) Eos % (Auto) Baso % (Auto) Neut # (Auto) Lymph # (Auto) [place] # (Auto) Eos # (Auto) Baso # (Auto) WBC Differential Seg Neuts % (Manual) Band Neuts % (Manual) Lymphocytes % (Manual) Monocytes % (Manual) Abs Neuts (Manual) Differential Comment Platelet Estimate Platelet Morphology Stomatocytes PT INR APTT Fibrinogen Puncture Site Patient Temperature O2 Saturation ABG pH ABG pCO2 ABG pO2 ABG HCO3 ABG O2 Content ABG Base Excess ABG Methemoglobin Federico Test Hemoglobin Carboxyhemoglobin O2 Delivery Device Vent Setting Inspired O2 Critical Value Sodium Potassium Chloride Carbon Dioxide Anion Gap BUN Creatinine Estimated GFR POC Glucose Random Glucose Hemoglobin A1c Lactic Acid 4.4 H* Calcium Calcium Adj for Albumin Phosphorus Magnesium Total Bilirubin AST ALT Alkaline Phosphatase Ammonia Total Creatine Kinase CK-MB (CK-2) CK-MB (CK-2) % Troponin I Total Protein Albumin Triglycerides Cholesterol LDL Cholesterol, Calc HDL Cholesterol Cholesterol/HDL Ratio Amylase Lipase TSH Urine Color Yellow Urine Clarity Clear Urine pH 5.0 Ur Specific [place] 1.027 Urine Protein 100 H Urine Glucose (UA) Negative Urine Ketones Negative Urine Occult Blood Negative Urine Nitrate Negative Urine Bilirubin Negative Urine Urobilinogen Less than 2 Ur Leukocyte Esterase Negative Urine RBC 1 Urine WBC 1 Ur Squamous Epith Cells <1 Urine Bacteria Few H Hyaline Casts 10 Granular Casts 1 Urine Mucus Few H Micro UA Comment Cath-culture ind Ur Microscopic Review Not Reportable Urine Culture Comments Cath-cult indicated Urine Eosinophils Ur Random Creatinine 271 Ur Random Sodium 47 Nasal Screen MRSA (PCR) Random Vancomycin Salicylates Urine Opiates Screen Acetaminophen Ur Barbiturates Screen Phenytoin Ur Amphetamines Screen Phenobarbital U Benzodiazepines Scrn Bowler Urine Cocaine Screen U Cannabinoids Screen Serum Alcohol Hepatitis A IgM Ab Hep Bs Antigen Hep B Core IgM Ab Hep C IgG Ab 07/30/18 07/30/18 07/30/18 11:53 13:30 14:58 WBC RBC Hgb Hct MCV MCH MCHC RDW Plt Count MPV Prelim Diff (Auto) Neut % (Auto) Lymph % (Auto) [place] % (Auto) Eos % (Auto) Baso % (Auto) Neut # (Auto) Lymph # (Auto) [place] # (Auto) Eos # (Auto) Baso # (Auto) WBC Differential Seg Neuts % (Manual) Band Neuts % (Manual) Lymphocytes % (Manual) Monocytes % (Manual) Abs Neuts (Manual) Differential Comment Platelet Estimate Platelet Morphology Stomatocytes PT INR APTT Fibrinogen Puncture Site Art line Art line Patient Temperature 98.6 98.6 O2 Saturation 91 97 ABG pH 7.23 L* 7.26 L* ABG pCO2 48 H 43 H ABG pO2 73 172 H ABG HCO3 20 L 18 L ABG O2 Content 16.1 19.5 ABG Base Excess -6.6 L -7.4 L ABG Methemoglobin 0.8 1.6 Fedreico Test Present Present Hemoglobin 12.6 14.2 Carboxyhemoglobin 2.2 0.6 O2 Delivery Device Ventilator Ventilator Vent Setting Prvc20/700/0.9/+8 Prvc/ac Inspired O2 100 100 Critical Value Yes Yes Sodium Potassium Chloride Carbon Dioxide Anion Gap BUN Creatinine Estimated GFR POC Glucose Random Glucose Hemoglobin A1c Lactic Acid Calcium Calcium Adj for Albumin Phosphorus Magnesium Total Bilirubin AST ALT Alkaline Phosphatase Ammonia Total Creatine Kinase CK-MB (CK-2) CK-MB (CK-2) % Troponin I Total Protein Albumin Triglycerides Cholesterol LDL Cholesterol, Calc HDL Cholesterol Cholesterol/HDL Ratio Amylase Lipase TSH Urine Color Urine Clarity Urine pH Ur Specific [place] Urine Protein Urine Glucose (UA) Urine Ketones Urine Occult Blood Urine Nitrate Urine Bilirubin Urine Urobilinogen Ur Leukocyte Esterase Urine RBC Urine WBC Ur Squamous Epith Cells Urine Bacteria Hyaline Casts Granular Casts Urine Mucus Micro UA Comment Ur Microscopic Review Urine Culture Comments Urine Eosinophils Ur Random Creatinine Ur Random Sodium Nasal Screen MRSA (PCR) Not detected Random Vancomycin Salicylates Urine Opiates Screen Acetaminophen Ur Barbiturates Screen Phenytoin Ur Amphetamines Screen Phenobarbital U Benzodiazepines Scrn Bowler Urine Cocaine Screen U Cannabinoids Screen Serum Alcohol Hepatitis A IgM Ab Hep Bs Antigen Hep B Core IgM Ab Hep C IgG Ab 07/30/18 07/30/18 07/30/18 15:00 15:00 15:00 WBC 22.5 H RBC 5.06 Hgb 14.1 Hct 43.4 MCV 85.7 MCH 27.8 MCHC 32.5 RDW 15.1 Plt Count 257 MPV 8.0 Prelim Diff (Auto) Neut % (Auto) 89.0 H Lymph % (Auto) 6.4 L [place] % (Auto) 4.1 Eos % (Auto) 0.0 Baso % (Auto) 0.5 Neut # (Auto) 20.1 H Lymph # (Auto) 1.5 [place] # (Auto) 0.9 Eos # (Auto) 0.0 Baso # (Auto) 0.1 WBC Differential . Seg Neuts % (Manual) Band Neuts % (Manual) Lymphocytes % (Manual) Monocytes % (Manual) Abs Neuts (Manual) Differential Comment Auto diff final Platelet Estimate Platelet Morphology Stomatocytes PT INR APTT Fibrinogen Puncture Site Patient Temperature O2 Saturation ABG pH ABG pCO2 ABG pO2 ABG HCO3 ABG O2 Content ABG Base Excess ABG Methemoglobin Federico Test Hemoglobin Carboxyhemoglobin O2 Delivery Device Vent Setting Inspired O2 Critical Value Sodium 140 Potassium 6.1 H D Chloride 109 H Carbon Dioxide 22.1 Anion Gap 9 BUN 25 H Creatinine 2.99 H Estimated GFR 22 L POC Glucose Random Glucose 137 H Hemoglobin A1c Lactic Acid Calcium 6.6 L* D Calcium Adj for Albumin 7.2 L* Phosphorus Magnesium Total Bilirubin AST ALT Alkaline Phosphatase Ammonia Total Creatine Kinase CK-MB (CK-2) CK-MB (CK-2) % Troponin I 3.43 H* Total Protein Albumin 3.3 L D Triglycerides Cholesterol LDL Cholesterol, Calc HDL Cholesterol Cholesterol/HDL Ratio Amylase Lipase TSH Urine Color Urine Clarity Urine pH Ur Specific [place] Urine Protein Urine Glucose (UA) Urine Ketones Urine Occult Blood Urine Nitrate Urine Bilirubin Urine Urobilinogen Ur Leukocyte Esterase Urine RBC Urine WBC Ur Squamous Epith Cells Urine Bacteria Hyaline Casts Granular Casts Urine Mucus Micro UA Comment Ur Microscopic Review Urine Culture Comments Urine Eosinophils Ur Random Creatinine Ur Random Sodium Nasal Screen MRSA (PCR) Random Vancomycin Salicylates Urine Opiates Screen Acetaminophen Ur Barbiturates Screen Phenytoin Ur Amphetamines Screen Phenobarbital U Benzodiazepines Scrn Bowler Less than 0.1 L Urine Cocaine Screen U Cannabinoids Screen Serum Alcohol Hepatitis A IgM Ab Hep Bs Antigen Hep B Core IgM Ab Hep C IgG Ab 07/30/18 07/30/18 07/30/18 15:00 18:30 18:47 WBC RBC Hgb Hct MCV MCH MCHC RDW Plt Count MPV Prelim Diff (Auto) Neut % (Auto) Lymph % (Auto) [place] % (Auto) Eos % (Auto) Baso % (Auto) Neut # (Auto) Lymph # (Auto) [place] # (Auto) Eos # (Auto) Baso # (Auto) WBC Differential Seg Neuts % (Manual) Band Neuts % (Manual) Lymphocytes % (Manual) Monocytes % (Manual) Abs Neuts (Manual) Differential Comment Platelet Estimate Platelet Morphology Stomatocytes PT INR APTT Fibrinogen Puncture Site Patient Temperature O2 Saturation ABG pH ABG pCO2 ABG pO2 ABG HCO3 ABG O2 Content ABG Base Excess ABG Methemoglobin Federico Test Hemoglobin Carboxyhemoglobin O2 Delivery Device Vent Setting Inspired O2 Critical Value Sodium Potassium Chloride Carbon Dioxide Anion Gap BUN Creatinine Estimated GFR POC Glucose 218 H Random Glucose Hemoglobin A1c 6.1 H Lactic Acid 7.1 H* Calcium Calcium Adj for Albumin Phosphorus Magnesium Total Bilirubin AST ALT Alkaline Phosphatase Ammonia Total Creatine Kinase CK-MB (CK-2) CK-MB (CK-2) % Troponin I Total Protein Albumin Triglycerides Cholesterol LDL Cholesterol, Calc HDL Cholesterol Cholesterol/HDL Ratio Amylase Lipase TSH Urine Color Urine Clarity Urine pH Ur Specific [place] Urine Protein Urine Glucose (UA) Urine Ketones Urine Occult Blood Urine Nitrate Urine Bilirubin Urine Urobilinogen Ur Leukocyte Esterase Urine RBC Urine WBC Ur Squamous Epith Cells Urine Bacteria Hyaline Casts Granular Casts Urine Mucus Micro UA Comment Ur Microscopic Review Urine Culture Comments Urine Eosinophils Ur Random Creatinine Ur Random Sodium Nasal Screen MRSA (PCR) Random Vancomycin Salicylates Urine Opiates Screen Acetaminophen Ur Barbiturates Screen Phenytoin Ur Amphetamines Screen Phenobarbital U Benzodiazepines Scrn Bowler Urine Cocaine Screen U Cannabinoids Screen Serum Alcohol Hepatitis A IgM Ab Hep Bs Antigen Hep B Core IgM Ab Hep C IgG Ab 07/30/18 07/30/18 07/30/18 18:47 20:51 20:51 WBC RBC Hgb Hct MCV MCH MCHC RDW Plt Count MPV Prelim Diff (Auto) Neut % (Auto) Lymph % (Auto) [place] % (Auto) Eos % (Auto) Baso % (Auto) Neut # (Auto) Lymph # (Auto) [place] # (Auto) Eos # (Auto) Baso # (Auto) WBC Differential Seg Neuts % (Manual) Band Neuts % (Manual) Lymphocytes % (Manual) Monocytes % (Manual) Abs Neuts (Manual) Differential Comment Platelet Estimate Platelet Morphology Stomatocytes PT INR APTT Fibrinogen Puncture Site Patient Temperature O2 Saturation ABG pH ABG pCO2 ABG pO2 ABG HCO3 ABG O2 Content ABG Base Excess ABG Methemoglobin Federico Test Hemoglobin Carboxyhemoglobin O2 Delivery Device Vent Setting Inspired O2 Critical Value Sodium Potassium 3.9 D Chloride Carbon Dioxide Anion Gap BUN Creatinine Estimated GFR POC Glucose Random Glucose Hemoglobin A1c Lactic Acid Calcium Calcium Adj for Albumin Phosphorus Magnesium Total Bilirubin AST ALT Alkaline Phosphatase Ammonia Total Creatine Kinase CK-MB (CK-2) CK-MB (CK-2) % Troponin I Cancelled 29.50 H* Total Protein Albumin Triglycerides Cancelled 171 H Cholesterol Cancelled 119 L LDL Cholesterol, Calc Cancelled 51 HDL Cholesterol Cancelled 33.5 L Cholesterol/HDL Ratio Cancelled 3.55 Amylase Lipase TSH Urine Color Urine Clarity Urine pH Ur Specific [place] Urine Protein Urine Glucose (UA) Urine Ketones Urine Occult Blood Urine Nitrate Urine Bilirubin Urine Urobilinogen Ur Leukocyte Esterase Urine RBC Urine WBC Ur Squamous Epith Cells Urine Bacteria Hyaline Casts Granular Casts Urine Mucus Micro UA Comment Ur Microscopic Review Urine Culture Comments Urine Eosinophils Ur Random Creatinine Ur Random Sodium Nasal Screen MRSA (PCR) Random Vancomycin Salicylates Urine Opiates Screen Acetaminophen Ur Barbiturates Screen Phenytoin Ur Amphetamines Screen Phenobarbital U Benzodiazepines Scrn Bowler Urine Cocaine Screen U Cannabinoids Screen Serum Alcohol Hepatitis A IgM Ab Nonreactive Hep Bs Antigen Nonreactive Hep B Core IgM Ab Nonreactive Hep C IgG Ab Nonreactive 07/30/18 07/30/18 07/31/18 23:30 23:30 00:09 WBC RBC Hgb Hct MCV MCH MCHC RDW Plt Count MPV Prelim Diff (Auto) Neut % (Auto) Lymph % (Auto) [place] % (Auto) Eos % (Auto) Baso % (Auto) Neut # (Auto) Lymph # (Auto) [place] # (Auto) Eos # (Auto) Baso # (Auto) WBC Differential Seg Neuts % (Manual) Band Neuts % (Manual) Lymphocytes % (Manual) Monocytes % (Manual) Abs Neuts (Manual) Differential Comment Platelet Estimate Platelet Morphology Stomatocytes PT 10.6 INR 1.0 APTT 29.0 Fibrinogen Puncture Site Art line Patient Temperature 98.6 O2 Saturation 94 ABG pH 7.52 H* ABG pCO2 30 L ABG pO2 76 ABG HCO3 24 ABG O2 Content 17.3 ABG Base Excess 1.3 ABG Methemoglobin 1.6 Federico Test Hemoglobin 13.1 Carboxyhemoglobin 0.9 O2 Delivery Device Ventilator Vent Setting See comment Inspired O2 35 Critical Value Yes Sodium Potassium Chloride Carbon Dioxide Anion Gap BUN Creatinine Estimated GFR POC Glucose Random Glucose Hemoglobin A1c Lactic Acid 5.2 H* Calcium Calcium Adj for Albumin Phosphorus Magnesium Total Bilirubin AST ALT Alkaline Phosphatase Ammonia Total Creatine Kinase CK-MB (CK-2) CK-MB (CK-2) % Troponin I Total Protein Albumin Triglycerides Cholesterol LDL Cholesterol, Calc HDL Cholesterol Cholesterol/HDL Ratio Amylase Lipase TSH Urine Color Urine Clarity Urine pH Ur Specific [place] Urine Protein Urine Glucose (UA) Urine Ketones Urine Occult Blood Urine Nitrate Urine Bilirubin Urine Urobilinogen Ur Leukocyte Esterase Urine RBC Urine WBC Ur Squamous Epith Cells Urine Bacteria Hyaline Casts Granular Casts Urine Mucus Micro UA Comment Ur Microscopic Review Urine Culture Comments Urine Eosinophils Ur Random Creatinine Ur Random Sodium Nasal Screen MRSA (PCR) Random Vancomycin Salicylates Urine Opiates Screen Acetaminophen Ur Barbiturates Screen Phenytoin Ur Amphetamines Screen Phenobarbital U Benzodiazepines Scrn Bowler Urine Cocaine Screen U Cannabinoids Screen Serum Alcohol Hepatitis A IgM Ab Hep Bs Antigen Hep B Core IgM Ab Hep C IgG Ab 07/31/18 07/31/18 07/31/18 00:49 01:27 01:27 WBC RBC Hgb Hct MCV MCH MCHC RDW Plt Count MPV Prelim Diff (Auto) Neut % (Auto) Lymph % (Auto) [place] % (Auto) Eos % (Auto) Baso % (Auto) Neut # (Auto) Lymph # (Auto) [place] # (Auto) Eos # (Auto) Baso # (Auto) WBC Differential Seg Neuts % (Manual) Band Neuts % (Manual) Lymphocytes % (Manual) Monocytes % (Manual) Abs Neuts (Manual) Differential Comment Platelet Estimate Platelet Morphology Stomatocytes PT INR APTT Fibrinogen Puncture Site Patient Temperature O2 Saturation ABG pH ABG pCO2 ABG pO2 ABG HCO3 ABG O2 Content ABG Base Excess ABG Methemoglobin Federico Test Hemoglobin Carboxyhemoglobin O2 Delivery Device Vent Setting Inspired O2 Critical Value Sodium Potassium Chloride Carbon Dioxide Anion Gap BUN Creatinine Estimated GFR POC Glucose 175 H Random Glucose Hemoglobin A1c Lactic Acid Calcium Calcium Adj for Albumin Phosphorus Magnesium Total Bilirubin AST ALT Alkaline Phosphatase Ammonia 31 Total Creatine Kinase 92797 H CK-MB (CK-2) 62.9 H CK-MB (CK-2) % 0.5 Troponin I Total Protein Albumin Triglycerides Cholesterol LDL Cholesterol, Calc HDL Cholesterol Cholesterol/HDL Ratio Amylase 97 Lipase 92 TSH Urine Color Urine Clarity Urine pH Ur Specific [place] Urine Protein Urine Glucose (UA) Urine Ketones Urine Occult Blood Urine Nitrate Urine Bilirubin Urine Urobilinogen Ur Leukocyte Esterase Urine RBC Urine WBC Ur Squamous Epith Cells Urine Bacteria Hyaline Casts Granular Casts Urine Mucus Micro UA Comment Ur Microscopic Review Urine Culture Comments Urine Eosinophils Ur Random Creatinine Ur Random Sodium Nasal Screen MRSA (PCR) Random Vancomycin Salicylates Urine Opiates Screen Acetaminophen Ur Barbiturates Screen Phenytoin Ur Amphetamines Screen Phenobarbital U Benzodiazepines Scrn Bowler Urine Cocaine Screen U Cannabinoids Screen Serum Alcohol Hepatitis A IgM Ab Hep Bs Antigen Hep B Core IgM Ab Hep C IgG Ab 07/31/18 07/31/18 07/31/18 05:00 05:00 05:00 WBC 20.9 H RBC 4.65 Hgb 12.7 L Hct 38.6 L MCV 83.1 MCH 27.4 MCHC 33.0 RDW 14.6 Plt Count 216 MPV 8.2 Prelim Diff (Auto) Slide review pending Neut % (Auto) 90.8 H Lymph % (Auto) 5.0 L [place] % (Auto) 4.0 Eos % (Auto) 0.0 Baso % (Auto) 0.2 Neut # (Auto) 19.0 H Lymph # (Auto) 1.1 [place] # (Auto) 0.8 Eos # (Auto) 0.0 Baso # (Auto) 0.0 WBC Differential Manual diff final Seg Neuts % (Manual) 71 H Band Neuts % (Manual) 20 H Lymphocytes % (Manual) 4 L Monocytes % (Manual) 5 Abs Neuts (Manual) 19.0 H Differential Comment . Platelet Estimate Normal Platelet Morphology Normal Stomatocytes 1+ H PT 11.2 INR 1.1 APTT 49.4 H D Fibrinogen 536 H Puncture Site Patient Temperature O2 Saturation ABG pH ABG pCO2 ABG pO2 ABG HCO3 ABG O2 Content ABG Base Excess ABG Methemoglobin Federico Test Hemoglobin Carboxyhemoglobin O2 Delivery Device Vent Setting Inspired O2 Critical Value Sodium 141 Potassium 3.3 L Chloride 102 Carbon Dioxide 29.9 Anion Gap 9 BUN 23 H Creatinine 2.15 H Estimated GFR 32 L POC Glucose Random Glucose 180 H Hemoglobin A1c Lactic Acid Calcium 7.4 L* D Calcium Adj for Albumin 8.4 L Phosphorus 3.3 D Magnesium 1.6 D Total Bilirubin 1.6 H AST 382 H ALT 249 H Alkaline Phosphatase 62 Ammonia Total Creatine Kinase CK-MB (CK-2) CK-MB (CK-2) % Troponin I 28.60 H* Total Protein 5.6 L D Albumin 2.7 L D Triglycerides Cholesterol LDL Cholesterol, Calc HDL Cholesterol Cholesterol/HDL Ratio Amylase Lipase TSH Urine Color Urine Clarity Urine pH Ur Specific [place] Urine Protein Urine Glucose (UA) Urine Ketones Urine Occult Blood Urine Nitrate Urine Bilirubin Urine Urobilinogen Ur Leukocyte Esterase Urine RBC Urine WBC Ur Squamous Epith Cells Urine Bacteria Hyaline Casts Granular Casts Urine Mucus Micro UA Comment Ur Microscopic Review Urine Culture Comments Urine Eosinophils Ur Random Creatinine Ur Random Sodium Nasal Screen MRSA (PCR) Random Vancomycin 10.1 Salicylates Urine Opiates Screen Acetaminophen Ur Barbiturates Screen Phenytoin Ur Amphetamines Screen Phenobarbital U Benzodiazepines Scrn Bowler Urine Cocaine Screen U Cannabinoids Screen Serum Alcohol Hepatitis A IgM Ab Hep Bs Antigen Hep B Core IgM Ab Hep C IgG Ab 07/31/18 07/31/18 07/31/18 05:00 11:00 13:10 WBC RBC Hgb Hct MCV MCH MCHC RDW Plt Count MPV Prelim Diff (Auto) Neut % (Auto) Lymph % (Auto) [place] % (Auto) Eos % (Auto) Baso % (Auto) Neut # (Auto) Lymph # (Auto) [place] # (Auto) Eos # (Auto) Baso # (Auto) WBC Differential Seg Neuts % (Manual) Band Neuts % (Manual) Lymphocytes % (Manual) Monocytes % (Manual) Abs Neuts (Manual) Differential Comment Platelet Estimate Platelet Morphology Stomatocytes PT INR APTT 50.4 H Fibrinogen Puncture Site Patient Temperature O2 Saturation ABG pH ABG pCO2 ABG pO2 ABG HCO3 ABG O2 Content ABG Base Excess ABG Methemoglobin Federico Test Hemoglobin Carboxyhemoglobin O2 Delivery Device Vent Setting Inspired O2 Critical Value Sodium Potassium Chloride Carbon Dioxide Anion Gap BUN Creatinine Estimated GFR POC Glucose 181 H Random Glucose Hemoglobin A1c Lactic Acid 3.6 H Calcium Calcium Adj for Albumin Phosphorus Magnesium Total Bilirubin AST ALT Alkaline Phosphatase Ammonia Total Creatine Kinase CK-MB (CK-2) CK-MB (CK-2) % Troponin I Total Protein Albumin Triglycerides Cholesterol LDL Cholesterol, Calc HDL Cholesterol Cholesterol/HDL Ratio Amylase Lipase TSH Urine Color Urine Clarity Urine pH Ur Specific [place] Urine Protein Urine Glucose (UA) Urine Ketones Urine Occult Blood Urine Nitrate Urine Bilirubin Urine Urobilinogen Ur Leukocyte Esterase Urine RBC Urine WBC Ur Squamous Epith Cells Urine Bacteria Hyaline Casts Granular Casts Urine Mucus Micro UA Comment Ur Microscopic Review Urine Culture Comments Urine Eosinophils Ur Random Creatinine Ur Random Sodium Nasal Screen MRSA (PCR) Random Vancomycin Salicylates Urine Opiates Screen Acetaminophen Ur Barbiturates Screen Phenytoin Ur Amphetamines Screen Phenobarbital U Benzodiazepines Scrn Bowler Urine Cocaine Screen U Cannabinoids Screen Serum Alcohol Hepatitis A IgM Ab Hep Bs Antigen Hep B Core IgM Ab Hep C IgG Ab 07/31/18 07/31/18 07/31/18 14:31 18:09 18:30 WBC RBC Hgb Hct MCV MCH MCHC RDW Plt Count MPV Prelim Diff (Auto) Neut % (Auto) Lymph % (Auto) [place] % (Auto) Eos % (Auto) Baso % (Auto) Neut # (Auto) Lymph # (Auto) [place] # (Auto) Eos # (Auto) Baso # (Auto) WBC Differential Seg Neuts % (Manual) Band Neuts % (Manual) Lymphocytes % (Manual) Monocytes % (Manual) Abs Neuts (Manual) Differential Comment Platelet Estimate Platelet Morphology Stomatocytes PT INR APTT Fibrinogen Puncture Site Patient Temperature O2 Saturation ABG pH ABG pCO2 ABG pO2 ABG HCO3 ABG O2 Content ABG Base Excess ABG Methemoglobin Federico Test Hemoglobin Carboxyhemoglobin O2 Delivery Device Vent Setting Inspired O2 Critical Value Sodium 141 Potassium 3.2 L Chloride 99 Carbon Dioxide 37.5 H Anion Gap 5 BUN 25 H Creatinine 1.73 H Estimated GFR 42 L POC Glucose 169 H Random Glucose 149 H Hemoglobin A1c Lactic Acid 2.9 H Calcium 7.0 L* Calcium Adj for Albumin 8.0 L D Phosphorus 3.4 Magnesium 2.9 H D Total Bilirubin AST ALT Alkaline Phosphatase Ammonia Total Creatine Kinase CK-MB (CK-2) CK-MB (CK-2) % Troponin I Total Protein Albumin 2.7 L Triglycerides Cholesterol LDL Cholesterol, Calc HDL Cholesterol Cholesterol/HDL Ratio Amylase Lipase TSH Urine Color Urine Clarity Urine pH Ur Specific [place] Urine Protein Urine Glucose (UA) Urine Ketones Urine Occult Blood Urine Nitrate Urine Bilirubin Urine Urobilinogen Ur Leukocyte Esterase Urine RBC Urine WBC Ur Squamous Epith Cells Urine Bacteria Hyaline Casts Granular Casts Urine Mucus Micro UA Comment Ur Microscopic Review Urine Culture Comments Urine Eosinophils Ur Random Creatinine Ur Random Sodium Nasal Screen MRSA (PCR) Random Vancomycin Salicylates Urine Opiates Screen Acetaminophen Ur Barbiturates Screen Phenytoin Ur Amphetamines Screen Phenobarbital U Benzodiazepines Scrn Bowler Urine Cocaine Screen U Cannabinoids Screen Serum Alcohol Hepatitis A IgM Ab Hep Bs Antigen Hep B Core IgM Ab Hep C IgG Ab 07/31/18 08/01/18 08/01/18 23:39 00:38 01:04 WBC RBC Hgb Hct MCV MCH MCHC RDW Plt Count MPV Prelim Diff (Auto) Neut % (Auto) Lymph % (Auto) [place] % (Auto) Eos % (Auto) Baso % (Auto) Neut # (Auto) Lymph # (Auto) [place] # (Auto) Eos # (Auto) Baso # (Auto) WBC Differential Seg Neuts % (Manual) Band Neuts % (Manual) Lymphocytes % (Manual) Monocytes % (Manual) Abs Neuts (Manual) Differential Comment Platelet Estimate Platelet Morphology Stomatocytes PT INR APTT Fibrinogen Puncture Site Patient Temperature O2 Saturation ABG pH ABG pCO2 ABG pO2 ABG HCO3 ABG O2 Content ABG Base Excess ABG Methemoglobin Federico Test Hemoglobin Carboxyhemoglobin O2 Delivery Device Vent Setting Inspired O2 Critical Value Sodium Potassium Chloride Carbon Dioxide Anion Gap BUN Creatinine Estimated GFR POC Glucose 192 H Random Glucose Hemoglobin A1c Lactic Acid 2.1 H Calcium Calcium Adj for Albumin Phosphorus Magnesium Total Bilirubin AST ALT Alkaline Phosphatase Ammonia Total Creatine Kinase CK-MB (CK-2) CK-MB (CK-2) % Troponin I Total Protein Albumin Triglycerides Cholesterol LDL Cholesterol, Calc HDL Cholesterol Cholesterol/HDL Ratio Amylase Lipase TSH Urine Color Urine Clarity Urine pH Ur Specific [place] Urine Protein Urine Glucose (UA) Urine Ketones Urine Occult Blood Urine Nitrate Urine Bilirubin Urine Urobilinogen Ur Leukocyte Esterase Urine RBC Urine WBC Ur Squamous Epith Cells Urine Bacteria Hyaline Casts Granular Casts Urine Mucus Micro UA Comment Ur Microscopic Review Urine Culture Comments Urine Eosinophils None seen Ur Random Creatinine Ur Random Sodium Nasal Screen MRSA (PCR) Random Vancomycin Salicylates Urine Opiates Screen Acetaminophen Ur Barbiturates Screen Phenytoin Ur Amphetamines Screen Phenobarbital U Benzodiazepines Scrn Bowler Urine Cocaine Screen U Cannabinoids Screen Serum Alcohol Hepatitis A IgM Ab Hep Bs Antigen Hep B Core IgM Ab Hep C IgG Ab 08/01/18 08/01/18 08/01/18 01:04 05:44 05:44 WBC RBC Hgb Hct MCV MCH MCHC RDW Plt Count MPV Prelim Diff (Auto) Neut % (Auto) Lymph % (Auto) [place] % (Auto) Eos % (Auto) Baso % (Auto) Neut # (Auto) Lymph # (Auto) [place] # (Auto) Eos # (Auto) Baso # (Auto) WBC Differential Seg Neuts % (Manual) Band Neuts % (Manual) Lymphocytes % (Manual) Monocytes % (Manual) Abs Neuts (Manual) Differential Comment Platelet Estimate Platelet Morphology Stomatocytes PT INR APTT Fibrinogen Puncture Site Patient Temperature O2 Saturation ABG pH ABG pCO2 ABG pO2 ABG HCO3 ABG O2 Content ABG Base Excess ABG Methemoglobin Federico Test Hemoglobin Carboxyhemoglobin O2 Delivery Device Vent Setting Inspired O2 Critical Value Sodium 140 Potassium 3.2 L Chloride 97 L Carbon Dioxide 36.4 H Anion Gap 7 BUN 26 H Creatinine 1.55 H Estimated GFR 47 L POC Glucose Random Glucose 181 H Hemoglobin A1c Lactic Acid 2.0 Calcium 7.0 L* Calcium Adj for Albumin 8.1 L Phosphorus 2.2 L D Magnesium 2.6 H Total Bilirubin 1.2 H AST 328 H ALT 275 H Alkaline Phosphatase 56 Ammonia 40 H Total Creatine Kinase 6790 H CK-MB (CK-2) 12.4 H CK-MB (CK-2) % 0.2 Troponin I Total Protein 5.7 L Albumin 2.6 L Triglycerides Cholesterol LDL Cholesterol, Calc HDL Cholesterol Cholesterol/HDL Ratio Amylase Lipase TSH Urine Color Urine Clarity Urine pH Ur Specific [place] Urine Protein Urine Glucose (UA) Urine Ketones Urine Occult Blood Urine Nitrate Urine Bilirubin Urine Urobilinogen Ur Leukocyte Esterase Urine RBC Urine WBC Ur Squamous Epith Cells Urine Bacteria Hyaline Casts Granular Casts Urine Mucus Micro UA Comment Ur Microscopic Review Urine Culture Comments Urine Eosinophils Ur Random Creatinine Ur Random Sodium Nasal Screen MRSA (PCR) Random Vancomycin 13.9 Salicylates Urine Opiates Screen Acetaminophen Ur Barbiturates Screen Phenytoin Ur Amphetamines Screen Phenobarbital U Benzodiazepines Scrn Bowler Urine Cocaine Screen U Cannabinoids Screen Serum Alcohol Hepatitis A IgM Ab Hep Bs Antigen Hep B Core IgM Ab Hep C IgG Ab 08/01/18 08/01/18 08/01/18 05:44 05:44 13:15 WBC 15.0 H RBC 3.84 L Hgb 10.6 L D Hct 31.4 L MCV 81.9 MCH 27.7 MCHC 33.8 RDW 14.6 Plt Count 162 MPV 8.5 Prelim Diff (Auto) Neut % (Auto) Lymph % (Auto) [place] % (Auto) Eos % (Auto) Baso % (Auto) Neut # (Auto) Lymph # (Auto) [place] # (Auto) Eos # (Auto) Baso # (Auto) WBC Differential Seg Neuts % (Manual) Band Neuts % (Manual) Lymphocytes % (Manual) Monocytes % (Manual) Abs Neuts (Manual) Differential Comment Platelet Estimate Platelet Morphology Stomatocytes PT INR APTT 39.3 H D 38.7 H Fibrinogen Puncture Site Patient Temperature O2 Saturation ABG pH ABG pCO2 ABG pO2 ABG HCO3 ABG O2 Content ABG Base Excess ABG Methemoglobin Federico Test Hemoglobin Carboxyhemoglobin O2 Delivery Device Vent Setting Inspired O2 Critical Value Sodium Potassium Chloride Carbon Dioxide Anion Gap BUN Creatinine Estimated GFR POC Glucose Random Glucose Hemoglobin A1c Lactic Acid Calcium Calcium Adj for Albumin Phosphorus Magnesium Total Bilirubin AST ALT Alkaline Phosphatase Ammonia Total Creatine Kinase CK-MB (CK-2) CK-MB (CK-2) % Troponin I Total Protein Albumin Triglycerides Cholesterol LDL Cholesterol, Calc HDL Cholesterol Cholesterol/HDL Ratio Amylase Lipase TSH Urine Color Urine Clarity Urine pH Ur Specific [place] Urine Protein Urine Glucose (UA) Urine Ketones Urine Occult Blood Urine Nitrate Urine Bilirubin Urine Urobilinogen Ur Leukocyte Esterase Urine RBC Urine WBC Ur Squamous Epith Cells Urine Bacteria Hyaline Casts Granular Casts Urine Mucus Micro UA Comment Ur Microscopic Review Urine Culture Comments Urine Eosinophils Ur Random Creatinine Ur Random Sodium Nasal Screen MRSA (PCR) Random Vancomycin Salicylates Urine Opiates Screen Acetaminophen Ur Barbiturates Screen Phenytoin Ur Amphetamines Screen Phenobarbital U Benzodiazepines Scrn Bowler Urine Cocaine Screen U Cannabinoids Screen Serum Alcohol Hepatitis A IgM Ab Hep Bs Antigen Hep B Core IgM Ab Hep C IgG Ab 08/01/18 13:33 WBC RBC Hgb Hct MCV MCH MCHC RDW Plt Count MPV Prelim Diff (Auto) Neut % (Auto) Lymph % (Auto) [place] % (Auto) Eos % (Auto) Baso % (Auto) Neut # (Auto) Lymph # (Auto) [place] # (Auto) Eos # (Auto) Baso # (Auto) WBC Differential Seg Neuts % (Manual) Band Neuts % (Manual) Lymphocytes % (Manual) Monocytes % (Manual) Abs Neuts (Manual) Differential Comment Platelet Estimate Platelet Morphology Stomatocytes PT INR APTT Fibrinogen Puncture Site Patient Temperature O2 Saturation ABG pH ABG pCO2 ABG pO2 ABG HCO3 ABG O2 Content ABG Base Excess ABG Methemoglobin Federico Test Hemoglobin Carboxyhemoglobin O2 Delivery Device Vent Setting Inspired O2 Critical Value Sodium Potassium Chloride Carbon Dioxide Anion Gap BUN Creatinine Estimated GFR POC Glucose 161 H Random Glucose Hemoglobin A1c Lactic Acid Calcium Calcium Adj for Albumin Phosphorus Magnesium Total Bilirubin AST ALT Alkaline Phosphatase Ammonia Total Creatine Kinase CK-MB (CK-2) CK-MB (CK-2) % Troponin I Total Protein Albumin Triglycerides Cholesterol LDL Cholesterol, Calc HDL Cholesterol Cholesterol/HDL Ratio Amylase Lipase TSH Urine Color Urine Clarity Urine pH Ur Specific [place] Urine Protein Urine Glucose (UA) Urine Ketones Urine Occult Blood Urine Nitrate Urine Bilirubin Urine Urobilinogen Ur Leukocyte Esterase Urine RBC Urine WBC Ur Squamous Epith Cells Urine Bacteria Hyaline Casts Granular Casts Urine Mucus Micro UA Comment Ur Microscopic Review Urine Culture Comments Urine Eosinophils Ur Random Creatinine Ur Random Sodium Nasal Screen MRSA (PCR) Random Vancomycin Salicylates Urine Opiates Screen Acetaminophen Ur Barbiturates Screen Phenytoin Ur Amphetamines Screen Phenobarbital U Benzodiazepines Scrn Bowler Urine Cocaine Screen U Cannabinoids Screen Serum Alcohol Hepatitis A IgM Ab Hep Bs Antigen Hep B Core IgM Ab Hep C IgG Ab Result Diagrams: 08/01/18 05:44 08/01/18 05:44 Microbiology: Microbiology 07/31/18 00:53 Gram Stain - Final Sputum - Endotracheal Sputum Culture - Preliminary Heavy growth normal respiratory bree at 24 hours 07/30/18 12:00 Aerobic Blood Culture - Preliminary Blood - Peripheral No growth in 2 days Anaerobic Blood Culture - Preliminary No growth in 2 days 07/30/18 12:00 Aerobic Blood Culture - Preliminary Blood - Peripheral No growth in 2 days Anaerobic Blood Culture - Preliminary No growth in 2 days 07/30/18 09:20 Urine Culture - Final Catheterized Urine No growth in 48 hours 07/31/18 00:50 Influenza Types A,B Antigen - Final Nasal Wash Negative for FLU A and B antigen Infection due to influenza A or B cannot be ruled out since the antigen present in the sample may be below the detection limit of the test. Procedures: 07/30/18: Endotracheal intubation. Assessment and Plan - Disease Oriented Problem List (1) Septic shock (2) Acute respiratory failure (3) Aspiration pneumonia (4) Acidosis, lactic (5) Acute renal failure - Symptom Scale (1) Anxiety 0-10 Scale: Unable to quantify Pertinent Non-Medical Issues: Psychosocial: Patient from [place] heritage, he was born in [place] while his father was stationed there in the . Patient is single, has 1 daughter. 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 No service. Spiritual: Religious jovanny. Legal: No advance directives reported. Ethical issues impacting care: No ethical issues identified. Important Contacts: Daughter Naomi Mariano , Sister Argelia Brother Danny Prognosis: alejandro Whitehead is a 53-year-old male with a medical history of chronic sinusitis, chronic back pain and drug abuse. Patient presented to ED via private vehicle on 07/30/18 after being found unconscious at home. He was found with severe sepsis. Clinical course complicated by severe hypotension requiring multiple vasopressors and CPR with ROSC after 2 minutes. Overall prognosis is guarded. Patient at high risk for further complications, continued decline and . Code Status: Full Code Plan: * CODE STATUS: FULL code. * HEALTHCARE DECISION-MAKING: Patient unable to participating medical decision making secondary to clinical condition, critically ill on life support. Patient anticipated to regain medical decision-making. No advance directives reported as completed. Patient is single, has 1 biological daughter. As per [place] statue, healthcare proxy decision making falls to patient's daughter Naomi Mariano. She has accepted this role and is fully supported by patient's family. * GOALS OF CARE: Goals of care reasonably aggressive to include full code. Family hoping for a full clinical recovery. Palliative care following for support. * SYMPTOMS: = Anxiety: In the setting of significant polysubstance drug abuse. Versed drip ongoing = Dyspnea: Secondary to aspiration pneumonia, sepsis. Currently endotracheally intubated on mechanical ventilation. Duo nebs around- the-clock. = Pain: History of chronic back pain. Currently on fentanyl drip for comfort. * Palliative care contact information has been provided to patient's family. * Case discussed with bedside RN. * Palliative care will continue to follow-up as needed for further clarifications of goals of care, family support, as patient's clinical course continues to evolve. Time Spent Total Floor Time (mins): 24 (Total time to include review of medical records, physical exam, but the conversation with patient's family, case discussion with bedside RN.) >50% Time in Counseling or Coordination of Care: Yes (Total visit time = 24 minutes; > 50% spent counseling/coordinating care) Attestation Attestation: To help prompt me to consider important information that might be impacting today's encounter and assessment, information from prior notes written by myself or my colleagues may have been "brought forward" into today's note. My signature on this note, however, is an attestation that I personally performed the exam, history, and/or decision-making noted today, and, unless otherwise indicated, the interactions with patient, family, and staff as well as the review of records all occurred today. I also attest that the listed assessment and stated plan reflect my best clinical judgment today based on the combination of historical information, prior notes, and today's exam/ interactions. When time spent is documented, it refers only to time spent today by the signer, or if indicated, combined time spent today by collaborating physician/nurse practitioner.
[2018-08-01] MEDS: Multivitamin Inj 10 ML, Thiamine Inj 100 MG, Folic Acid Inj 1 MG in Sodium Chlor 0.9% I... IV.SIG SCH (16:12)
[2018-08-01] MEDS: Potassium Chlor 40 mEq Premix 40 MEQ/100 ML PIGGYBACK IV.SIG PRN ×2 (16:41→20:25)
[2018-08-01] MEDS: Heparin Drip 25,000 UNIT/250 ML BAG IV.CONT PRN (20:17)
--- NOTE | 2018-08-01 21:00 | P.PNNP ---
Subjective Interval history: Patient seen in the afternoon, remain intubated, awake. Physical Exam Vital signs: Vital Signs 07/31/18 21:00 07/31/18 21:15 07/31/18 21:30 Temperature Pulse Rate 73 75 72 Respiratory Rate Blood Pressure 113/64 110/63 113/70 Pulse Oximetry 92 L 95 94 L 07/31/18 21:45 07/31/18 22:00 07/31/18 22:15 Temperature Pulse Rate 69 73 71 Respiratory Rate Blood Pressure 118/73 122/72 126/71 Pulse Oximetry 96 96 95 07/31/18 22:30 07/31/18 22:45 07/31/18 23:00 Temperature Pulse Rate 82 68 68 Respiratory Rate Blood Pressure 108/64 124/73 128/74 Pulse Oximetry 93 L 92 L 92 L 07/31/18 23:15 07/31/18 23:30 07/31/18 23:45 Temperature Pulse Rate 67 76 69 Respiratory Rate Blood Pressure 127/76 117/68 113/65 Pulse Oximetry 95 94 L 95 07/31/18 23:56 08/01/18 00:00 08/01/18 00:15 Temperature Pulse Rate 61 63 67 Respiratory Rate 15 Blood Pressure 113/71 115/72 Pulse Oximetry 100 100 97 08/01/18 00:30 08/01/18 00:45 08/01/18 01:00 Temperature Pulse Rate 68 64 61 Respiratory Rate Blood Pressure 115/69 116/69 124/73 Pulse Oximetry 96 96 97 08/01/18 01:15 08/01/18 01:30 08/01/18 01:45 Temperature Pulse Rate 64 63 66 Respiratory Rate Blood Pressure 123/74 120/75 117/75 Pulse Oximetry 96 96 97 08/01/18 02:00 08/01/18 02:15 08/01/18 02:30 Temperature 99.3 F Pulse Rate 63 62 63 Respiratory Rate Blood Pressure 119/73 118/74 116/74 Pulse Oximetry 97 98 97 08/01/18 02:45 08/01/18 03:00 08/01/18 03:15 Temperature Pulse Rate 62 63 54 L Respiratory Rate Blood Pressure 116/74 112/73 120/79 Pulse Oximetry 97 96 99 08/01/18 03:30 08/01/18 03:45 08/01/18 04:00 Temperature Pulse Rate 56 L 58 L 58 L Respiratory Rate Blood Pressure 124/81 128/83 128/86 Pulse Oximetry 98 98 100 08/01/18 04:15 08/01/18 04:22 08/01/18 04:30 Temperature Pulse Rate 59 L 62 62 Respiratory Rate 15 Blood Pressure 131/85 130/85 Pulse Oximetry 99 99 99 08/01/18 04:45 08/01/18 05:00 08/01/18 05:15 Temperature Pulse Rate 71 65 66 Respiratory Rate Blood Pressure 127/87 126/83 125/80 Pulse Oximetry 97 97 98 08/01/18 05:30 08/01/18 05:45 08/01/18 06:00 Temperature Pulse Rate 65 64 61 Respiratory Rate Blood Pressure 120/78 119/78 117/78 Pulse Oximetry 97 97 97 08/01/18 07:30 08/01/18 07:41 08/01/18 08:00 Temperature Pulse Rate 60 62 Respiratory Rate 15 15 Blood Pressure Pulse Oximetry 98 08/01/18 08:15 08/01/18 08:30 08/01/18 08:45 Temperature 98.6 F Pulse Rate 62 65 65 Respiratory Rate Blood Pressure 125/85 126/82 126/80 Pulse Oximetry 97 97 96 08/01/18 09:00 08/01/18 09:15 08/01/18 09:30 Temperature Pulse Rate 65 69 66 Respiratory Rate Blood Pressure 126/81 119/77 125/76 Pulse Oximetry 96 96 95 08/01/18 09:45 08/01/18 10:00 08/01/18 10:15 Temperature Pulse Rate 72 82 76 Respiratory Rate Blood Pressure 113/69 110/67 114/68 Pulse Oximetry 96 95 96 08/01/18 10:30 08/01/18 10:45 08/01/18 11:00 Temperature Pulse Rate 76 87 89 Respiratory Rate Blood Pressure 116/67 144/88 H 111/64 Pulse Oximetry 93 L 91 L 97 08/01/18 11:08 08/01/18 11:10 08/01/18 11:15 Temperature Pulse Rate 74 96 H Respiratory Rate 15 Blood Pressure 121/71 124/75 Pulse Oximetry 96 96 94 L 08/01/18 11:30 08/01/18 11:37 08/01/18 11:45 Temperature Pulse Rate 70 70 74 Respiratory Rate 15 Blood Pressure 121/70 114/66 Pulse Oximetry 98 98 08/01/18 12:00 08/01/18 12:15 08/01/18 12:30 Temperature Pulse Rate 74 73 73 Respiratory Rate Blood Pressure 114/66 114/65 117/65 Pulse Oximetry 99 98 98 08/01/18 12:45 08/01/18 13:00 08/01/18 13:15 Temperature Pulse Rate 71 68 56 L Respiratory Rate Blood Pressure 113/64 118/67 126/73 Pulse Oximetry 98 98 98 08/01/18 13:30 08/01/18 13:45 08/01/18 14:00 Temperature Pulse Rate 62 63 64 Respiratory Rate Blood Pressure 124/74 121/74 122/71 Pulse Oximetry 99 99 99 08/01/18 15:00 08/01/18 15:13 08/01/18 15:15 Temperature Pulse Rate 62 64 74 Respiratory Rate 15 Blood Pressure 121/72 124/80 Pulse Oximetry 99 100 100 08/01/18 15:30 08/01/18 15:45 08/01/18 16:00 Temperature 98.5 F Pulse Rate 71 71 70 Respiratory Rate Blood Pressure 119/73 121/72 119/69 Pulse Oximetry 99 99 98 08/01/18 16:15 08/01/18 16:30 08/01/18 16:45 Temperature Pulse Rate 69 69 70 Respiratory Rate Blood Pressure 114/71 113/69 111/71 Pulse Oximetry 99 98 99 08/01/18 17:00 08/01/18 18:00 08/01/18 19:50 Temperature Pulse Rate 75 93 H 64 Respiratory Rate 15 Blood Pressure 119/59 L Pulse Oximetry 99 90 L Intake & Output 08/01/18 08/01/18 08/02/18 06:59 18:59 06:59 Intake Total 3941.2 / 3941.2 4755 / 4755 150 / 150 Output Total 900 / 900 1000 / 1000 Balance 3041.2 / 3041.2 3755 / 3755 150 / 150 Weight 114.3 kg Intake: IV 3881.2 / 3881.2 4665 / 4665 150 / 150 Precedex Inj 200 MCG In NS Inj 50 / 50 48 ML @ 0.2 MCG/KG/HR 5.71 mls/ hr IV.CONT TITRATE PRN Rx#: [id number] Heparin/D5W 25,000 U/250 mL 25, 250 / 250 000 unit In 250 ml @ Per Protocol IV.CONT TITRATE PRN Rx #:[id number] Versed Inj 100 mg In 100 ml @ 2 100 / 100 90 / 90 MG/HR 2 mls/hr IV.CONT TITRATE PRN Rx#:[id number] Levophed Inj 16 MG In NS Inj 250 / 250 234 ML @ 2 MCG/MIN 1.87 mls/hr IV.CONT TITRATE PRN Rx#: [id number] NS Inj 1,000 ML @ 125 mls/hr IV 1000 / 1000 .CONT .Q8H [facility] Rx#:[id number] Sodium Bicarbonate 8.4% Inj 150 2000 / 2000 1000 / 1000 MEQ In Sterile Water for Inj 850 ML @ 150 mls/hr IV.CONT . Q6H40M [facility] Rx#:[id number] Pitressin Inj 40 UNIT In NS Inj 100 / 100 80 / 80 98 ML @ 0.04 UNITS/MIN 6 mls/ hr IV.CONT CONT [facility] Rx#: [id number] Magnesium Sulfate Inj 4 GM In 100 / 100 NS Inj 92 ML @ 25 mls/hr IV.SIG ONCE ONE Rx#:[id number] MVI-12 Inj 10 ML Thiamine Inj 511.2 / 511.2 100 MG Folvite Inj 1 MG In NS Inj 500 ML @ 125 mls/hr IV.SIG Q24H [facility] Rx#:[id number] Zosyn 2.25 GM Premix 2.25 gm In 100 / 100 100 / 100 50 / 50 50 ml @ 100 mls/hr IV.SIG Q6H [facility] Rx#:[id number] KCl 40 mEq Premix Inj 40 meq In 200 / 200 100 / 100 100 / 100 100 ml @ 25 mls/hr IV.SIG Q2H [facility] Rx#:[id number] Vancomycin Inj 2,000 MG In NS 520 / 520 520 / 520 Inj 500 ML @ 250 mls/hr IV.SIG ONCE ONE Rx#:[id number] fentaNYL 10 mcg/mL Premix Drip 250 / 250 2,500 mcg In 250 ml @ 50 MCG/HR 5 mls/hr IV.SIG TITRATE PRN Rx #:[id number] Water Bolus Amount 60 / 60 90 / 90 Output: Urine Amount (Catheter) 800 / 800 1000 / 1000 Indwelling Urethral Catheter 800 / 800 1000 / 1000 Gastric Drainage 100 / 100 Oral 100 / 100 Narrative: GENERAL: Orally intubated on mild sedation. SKIN: Warm and dry. NECK: Supple, trachea midline. No JVD. CARDIOVASCULAR: Regular rate and rhythm without murmurs, gallops, or rubs. Right triple lumen IJ. Art line right femoral. RESPIRATORY: Breath sounds coarse bilaterally. No accessory muscle use. Intubated. GASTROINTESTINAL: Abdomen soft, non-tender, nondistended. +BS. OG tube present GENITOURINARY: Indwelling Giles catheter with tami urine. MUSCULOSKELETAL: No cyanosis, or edema. - Urinary Catheter Management Indwelling Urethral Catheter Cath placed during this visit: yes Reason for continuing: Hourly intake/output Insertion date: 07/30/18 Insertion time: 09:24 Assessment and Plan - Assessment (1) Acute kidney injury Code(s): N17.9 - Acute kidney failure, unspecified Status: Acute Plan: Patient was admitted with resp. failure and was intubated. Patient has GRABIEL, most likely due to ATN from Hypotension. Remain non oliguric, and Creatinine is improving, K is low, on replaced. Weaning as per CCM. (2) Acute respiratory failure Code(s): J96.00 - Acute respiratory failure, unspecified whether with hypoxia or hypercapnia Status: Acute Plan: Intubated on mild sedation. Antibiotics for aspiration pneumonia (3) Septic shock Code(s): A41.9 - Sepsis, unspecified organism; R65.21 - Severe sepsis with septic shock Status: Acute Plan: On antibiotics and pressors for blood pressure support. Procedures - Arterial Line Size (Gauge): 18
[2018-08-01 21:35] LABS: Calcium 7.5 mg/dL (8.5-10.1); Carbon Dioxide 36.6 meq/L (21.0-32.0); Magnesium 2.8 mg/dL (1.5-2.5); Potassium 3.4 meq/L (3.5-5.1)
[2018-08-01 22:05] LABS: CKMB Percent 0.1 % (0.0-4.0); Creatine Kinase MB 7.4 ng/mL (0.5-3.6)
[2018-08-02] MEDS: Piperacil/Tazo 2.25 GM Premix 2.25 GM/50 ML PIGGYBACK IV.SIG SCH ×4 (01:06→20:26)
[2018-08-02] MEDS: Dexmedetomidine Inj 200 MCG in Sodium Chlor 0.9% Inj 48 ML IV.CONT PRN ×6 (01:30→09:48)
[2018-08-02] MEDS: Sod Chloride 0.9% Inj 1,000 ML IV.CONT SCH ×4 (03:57→17:54)
[2018-08-02] MEDS: Oral Hygiene Kit OROPHARYNG SCH ×3 (03:57→15:50)
[2018-08-02] MEDS: Chlorhexidine Gluconate 2% 1 Pack (2 Cloths) TOPICAL SCH (03:57)
[2018-08-02 04:08] LABS: Baso % (Auto) 0.1 % (0.0-2.0); Hematocrit 34.4 % (39.0-51.0); Lymph # (Auto) 0.5 th/mm3 (1.0-4.8); Lymph % (Auto) 3.6 % (9.0-44.0); Mean Corpuscular HGB Conc 32.1 % (32.0-36.0); Mean Corpuscular Volume 84.2 fL (80.0-100.0); Mean Platelet Volume 8.7 fL (7.0-11.0); Mono # (Auto) 0.5 th/mm3 (0.0-0.9); Mono % (Auto) 3.1 % (0.0-8.0); Neut # (Auto) 14.3 th/mm3 (1.8-7.7); Neut % (Auto) 93.2 % (16.0-70.0); Platelet Count 163 th/mm3 (150-450); Red Blood Count 4.09 mil/mm3 (4.50-5.90); Red Cell Distribution Width 14.7 % (11.6-17.2); White Blood Count 15.3 th/mm3 (4.0-11.0)
[2018-08-02 04:27] LABS: Anion Gap 9 meq/L (5-15); Aspartate Aminotransferase 243 U/L (15-37); Blood Urea Nitrogen 23 mg/dL (7-18); Calcium 7.7 mg/dL (8.5-10.1); Carbon Dioxide 32.4 meq/L (21.0-32.0); Chloride 102 meq/L (98-107); Glomerular Filtration Rate 53 mL/min (>89); Magnesium 2.8 mg/dL (1.5-2.5); Potassium 3.4 meq/L (3.5-5.1); Sodium 143 meq/L (136-145)
[2018-08-02 04:41] LABS: Alanine Aminotransferase 315 U/L (12-78); Albumin 2.5 g/dL (3.4-5.0); Alkaline Phosphatase 70 U/L (45-117); Creatine Kinase 5396 U/L (39-308); Glucose,Random 158 mg/dL (74-106); Phosphorus 2.2 mg/dL (2.5-4.9); Total Protein 6.2 g/dL (6.4-8.2); Vancomycin,Random 18.4 Comment
[2018-08-02 04:53] LABS: CKMB Percent 0.1 % (0.0-4.0)
[2018-08-02] MEDS: Potassium Chlor 20 mEq Premix 20 MEQ/100 ML PIGGYBACK IV.SIG PRN ×2 (05:09→06:45)
[2018-08-02] MEDS: Hydrocortisone Sod Succinate 100 MG Vial IV.PUSH SCH ×3 (05:09→21:24)
[2018-08-02] MEDS: Artificial Tears Opth Drops 15 ML Bottle EACH EYE SCH ×3 (05:09→21:25)
[2018-08-02] MEDS: Insulin NovoLOG Aspart Correctional Sugar Inj SQ SCH ×3 (05:36→18:04)
--- NOTE | 2018-08-02 06:02 | XR ---
EXAM DATE: 08/02/2018 5:14 AM EST AGE/SEX: 53 years / Male INDICATIONS: Shortness of breath, possible pulmonary disease. CLINICAL DATA: This is the patient's subsequent encounter. Patient reports that signs and symptoms h ave been present for 4 - 6 days and indicates a pain score of Nonresponsive. MEDICAL/SURGICAL HISTORY: Non-responsive. Non-responsive. COMPARISON: C, CHEST 1V SINGLE AP, 07/31/2018. . FINDINGS: A single AP semierect view the chest was obtained and again demonstrates an endotracheal tube in plac e with the tip approximately 1 cm above the lit. Nasogastric tube remains in place. The right inte rnal jugular central venous line is unchanged. Mild hazy perihilar and bibasilar airspace disease rem ains with no distinct. The heart size is at the upper limits of normal. CONCLUSION: No significant change. Bilateral hazy airspace disease remains. Electronically signed by: Romeo Mishra MD Board Certified Radiologist 08/02/2018 6:01 AM EST
[2018-08-02] MEDS: Chlorhexidine 0.12% Oral Kit 15 ML UDC OROPHARYNG SCH ×2 (07:37→20:24)
[2018-08-02] MEDS: Senna/Docusate Sodium 8.6/50 MG Tablet PO SCH ×2 (08:01→20:25)
[2018-08-02] MEDS: Pantoprazole Inj 40 MG Vial IV.PUSH SCH (08:02)
--- NOTE | 2018-08-02 10:05 | P.PNCC ---
Subjective Subjective Remarks/Hospital Course: This is a 53-year-old male. Date of admission 07/30/2018. Past medical history in reviewing records includes headaches and increased BMI. Per ED documentation [facility] by a friend who found him unconscious at his residence. According to the friend the patient was unconscious last night, when they reevaluated the patient this morning he was still unconscious with sonorous respirations. Upon Dr. Rodgers examination, this patient was noted to be tachycardic, hypoxic, and severely confused. The patient's blood sugar was 88 at bedside, the patient was administered Narcan intravenously, he became somewhat more responsive but extremely combative and agitated. Bed. No further information is obtainable from the patient. 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 Attempt to contact these people were not successful A central line and arterial line placed with the ED physician. Patient was quite hypotensive and required 4 L of normal saline crystalloid resuscitation. He was started on norepinephrine is currently 50 mcg/min. Patient had no palpable pulse and patient actually was coded for 2 minutes after receiving 1 mg of epinephrine and 1 ampicillin bicarbonate with return of spontaneous circulation after 2 minutes. During the code he received a crystalloid bolus. She is currently on epinephrine, phenylephrine and vasopressin drips. CT brain revealed no acute intracranial signs. Tox screen revealed opiates and cocaine. Laboratories reveal initial lactate of 6.6 currently 4.4. Leukocytosis, acute kidney injury with creatinine 3.1 and elevated transaminases and ammonia level. 13: Lactic currently trending down to 3.6. Elevated troponin start heparin drip overnight. Remains on aspirin. Unable to do beta-amy or TOR inhibitor due to hypotension/is received in acute kidney injury. Lipids normal. Cardiology evaluated the same. Adequate urine output. Replacing electrolytes the same. Arousable the ventilator and follows commands. 1/4: Resting in bed in no acute distress. Attempting weaning today. Creatinine improving. CPK downtrending. Arousable and follows commands. Subjective 5: Afebrile. Creatinine downtrending currently 1.4. CPK downtrending in the 5000. Patient potassium and phosphorus currently. Remains on dexmedetomidine drip at 0.8 mcg/kg/h. Hypertensive we will start carvedilol Objective Vital Signs / I&O: Vital Signs 08/01/18 10:15 08/01/18 10:30 08/01/18 10:45 Temperature Pulse Rate 76 76 87 Respiratory Rate Blood Pressure 114/68 116/67 144/88 H Pulse Oximetry 96 93 L 91 L 08/01/18 11:00 08/01/18 11:08 08/01/18 11:10 Temperature Pulse Rate 89 74 Respiratory Rate 15 Blood Pressure 111/64 121/71 Pulse Oximetry 97 96 96 08/01/18 11:15 08/01/18 11:30 08/01/18 11:37 Temperature Pulse Rate 96 H 70 70 Respiratory Rate 15 Blood Pressure 124/75 121/70 Pulse Oximetry 94 L 98 08/01/18 11:45 08/01/18 12:00 08/01/18 12:15 Temperature Pulse Rate 74 74 73 Respiratory Rate Blood Pressure 114/66 114/66 114/65 Pulse Oximetry 98 99 98 08/01/18 12:30 08/01/18 12:45 08/01/18 13:00 Temperature Pulse Rate 73 71 68 Respiratory Rate Blood Pressure 117/65 113/64 118/67 Pulse Oximetry 98 98 98 08/01/18 13:15 08/01/18 13:30 08/01/18 13:45 Temperature Pulse Rate 56 L 62 63 Respiratory Rate Blood Pressure 126/73 124/74 121/74 Pulse Oximetry 98 99 99 08/01/18 14:00 08/01/18 15:00 08/01/18 15:13 Temperature Pulse Rate 64 62 64 Respiratory Rate 15 Blood Pressure 122/71 121/72 Pulse Oximetry 99 99 100 08/01/18 15:15 08/01/18 15:30 08/01/18 15:45 Temperature Pulse Rate 74 71 71 Respiratory Rate Blood Pressure 124/80 119/73 121/72 Pulse Oximetry 100 99 99 08/01/18 16:00 08/01/18 16:15 08/01/18 16:30 Temperature 98.5 F Pulse Rate 70 69 69 Respiratory Rate Blood Pressure 119/69 114/71 113/69 Pulse Oximetry 98 99 98 08/01/18 16:45 08/01/18 17:00 08/01/18 17:15 Temperature Pulse Rate 70 75 67 Respiratory Rate Blood Pressure 111/71 117/71 Pulse Oximetry 99 99 100 08/01/18 17:30 08/01/18 17:46 08/01/18 18:00 Temperature Pulse Rate 75 108 H 93 H Respiratory Rate Blood Pressure 107/58 L 117/71 119/59 L Pulse Oximetry 98 92 L 90 L 08/01/18 18:15 08/01/18 18:30 08/01/18 18:45 Temperature Pulse Rate 74 69 73 Respiratory Rate Blood Pressure 131/87 123/81 122/80 Pulse Oximetry 94 L 96 95 08/01/18 19:00 08/01/18 19:15 08/01/18 19:30 Temperature Pulse Rate 68 65 65 Respiratory Rate Blood Pressure 131/87 131/87 130/88 Pulse Oximetry 98 99 98 08/01/18 19:45 08/01/18 19:47 08/01/18 19:50 Temperature Pulse Rate 64 64 Respiratory Rate 15 15 Blood Pressure 130/87 Pulse Oximetry 99 99 08/01/18 20:00 08/01/18 20:15 08/01/18 20:30 Temperature 98.4 F Pulse Rate 65 65 62 Respiratory Rate Blood Pressure 139/91 H 143/92 H 139/92 H Pulse Oximetry 100 98 98 08/01/18 20:45 08/01/18 21:00 08/01/18 22:00 Temperature Pulse Rate 64 63 65 Respiratory Rate Blood Pressure 142/93 H 144/93 H 139/90 Pulse Oximetry 98 98 99 08/01/18 23:00 08/01/18 23:06 08/01/18 23:43 Temperature Pulse Rate 62 62 Respiratory Rate 15 Blood Pressure 147/100 H 148/102 H Pulse Oximetry 99 100 100 08/01/18 23:45 08/02/18 00:00 08/02/18 00:34 Temperature 98.6 F Pulse Rate 61 63 67 Respiratory Rate 15 Blood Pressure 159/105 H 149/99 H Pulse Oximetry 99 96 08/02/18 00:53 08/02/18 01:00 08/02/18 02:00 Temperature Pulse Rate 82 67 61 Respiratory Rate Blood Pressure 124/81 Pulse Oximetry 99 94 L 98 08/02/18 03:39 08/02/18 03:55 08/02/18 03:57 Temperature Pulse Rate 66 60 Respiratory Rate 15 15 Blood Pressure 153/104 H Pulse Oximetry 98 98 08/02/18 04:00 08/02/18 05:00 08/02/18 06:00 Temperature 98.2 F Pulse Rate 62 62 65 Respiratory Rate Blood Pressure 164/108 H 168/110 H 158/110 H Pulse Oximetry 100 98 99 08/02/18 07:00 08/02/18 07:05 08/02/18 07:40 Temperature Pulse Rate 82 65 Respiratory Rate 25 H 22 Blood Pressure 153/109 H 151/108 H Pulse Oximetry 99 98 99 08/02/18 08:00 Temperature 98.7 F Pulse Rate 68 Respiratory Rate 11 L Blood Pressure 154/106 H Pulse Oximetry 97 Intake & Output 08/01/18 08/02/18 08/02/18 18:59 06:59 18:59 Intake Total 4755 / 4755 3261.2 / 3261.2 1600 / 1600 Output Total 1000 / 1000 750 / 750 Balance 3755 / 3755 2511.2 / 2511.2 1600 / 1600 Weight 116.4 kg Intake: IV 4665 / 4665 3261.2 / 3261.2 1600 / 1600 Precedex Inj 200 MCG In NS Inj 50 / 50 350 / 350 50 / 50 48 ML @ 0.2 MCG/KG/HR 5.71 mls/ hr IV.CONT TITRATE PRN Rx#: [id number] Heparin/D5W 25,000 U/250 mL 25, 250 / 250 000 unit In 250 ml @ Per Protocol IV.CONT TITRATE PRN Rx #:[id number] Versed Inj 100 mg In 100 ml @ 2 90 / 90 MG/HR 2 mls/hr IV.CONT TITRATE PRN Rx#:[id number] Levophed Inj 16 MG In NS Inj 250 / 250 234 ML @ 2 MCG/MIN 1.87 mls/hr IV.CONT TITRATE PRN Rx#: [id number] NS Inj 1,000 ML @ 125 mls/hr IV 1000 / 1000 2000 / 2000 1000 / 1000 .CONT .Q8H [facility] Rx#:[id number] Sodium Bicarbonate 8.4% Inj 150 1000 / 1000 MEQ In Sterile Water for Inj 850 ML @ 150 mls/hr IV.CONT . Q6H40M [facility] Rx#:[id number] Pitressin Inj 40 UNIT In NS Inj 80 / 80 98 ML @ 0.04 UNITS/MIN 6 mls/ hr IV.CONT CONT [facility] Rx#: [id number] MVI-12 Inj 10 ML Thiamine Inj 511.2 / 511.2 100 MG Folvite Inj 1 MG In NS Inj 500 ML @ 125 mls/hr IV.SIG Q24H [facility] Rx#:[id number] Zosyn 2.25 GM Premix 2.25 gm In 100 / 100 100 / 100 50 / 50 50 ml @ 100 mls/hr IV.SIG Q6H [facility] Rx#:[id number] KCl 20 mEq Premix Inj 20 meq In 100 / 100 100 ml @ 50 mls/hr IV.SIG Q2H [facility] Rx#:[id number] KCl 40 mEq Premix Inj 40 meq In 100 / 100 200 / 200 100 ml @ 25 mls/hr IV.SIG Q2H [facility] Rx#:[id number] Vancomycin Inj 2,000 MG In NS 520 / 520 Inj 500 ML @ 250 mls/hr IV.SIG ONCE ONE Rx#:[id number] fentaNYL 10 mcg/mL Premix Drip 250 / 250 250 / 250 2,500 mcg In 250 ml @ 50 MCG/HR 5 mls/hr IV.SIG TITRATE PRN Rx #:[id number] Water Bolus Amount 90 / 90 Output: Urine 400 / 400 Urine Amount (Catheter) 1000 / 1000 Indwelling Urethral Catheter 1000 / 1000 Gastric Drainage 350 / 350 Oral 350 / 350 Other: # Bowel Movements 0 Result Diagrams: 08/02/18 03:05 08/02/18 03:05 Other Results: Microbiology 07/31/18 00:53 Sputum - Endotracheal Gram Stain - Final 07/31/18 00:53 Sputum - Endotracheal Sputum Culture - Preliminary Heavy growth normal respiratory bree at 24 hours 07/30/18 12:00 Blood - Peripheral Aerobic Blood Culture - Preliminary No growth in 2 days 07/30/18 12:00 Blood - Peripheral Anaerobic Blood Culture - Preliminary No growth in 2 days 07/30/18 12:00 Blood - Peripheral Aerobic Blood Culture - Preliminary No growth in 2 days 07/30/18 12:00 Blood - Peripheral Anaerobic Blood Culture - Preliminary No growth in 2 days 07/30/18 09:20 Catheterized Urine Urine Culture - Final No growth in 48 hours 07/31/18 00:50 Nasal Wash Influenza Types A,B Antigen - Final Negative for FLU A and B antigen Infection due to influenza A or B cannot be ruled out since the antigen present in the sample may be below the detection limit of the test. Imaging: Venous Doppler Study 07/30/18 00:00 CONCLUSION: 1. Negative for deep venous thrombosis Chest X-Ray 07/30/18 08:54 CONCLUSION: Slight CHF. Head CT 07/30/18 08:54 CONCLUSION: Unremarkable study except for mild chronic sinusitis . Abdomen/Bladder Ultrasound 07/30/18 12:07 CONCLUSION: 1. Enlarged echogenic liver 2. Normal size kidneys without mass or hydronephrosis. 3. 1.4 cm left renal cyst Chest X-Ray 07/31/18 06:00 CONCLUSION: Suspected consolidation in the left perihilar and bases bilaterally. When compared to the prior exam, there has been slight worsening. Chest X-Ray 08/02/18 06:00 CONCLUSION: No significant change. Bilateral hazy airspace disease remains. Objective Remarks: GENERAL: This is a 53-year-old male currently orotracheally intubated SKIN: Warm and dry. Multiple tattoos. HEAD: Atraumatic. Normocephalic. EYES: Pupils equal and round. No scleral icterus. No injection or drainage. ENT: No nasal bleeding or discharge. Mucous membranes pink and moist. NECK: Trachea midline. No JVD. Right IJ CVL is clean dry and intact CARDIOVASCULAR: Regular rate and rhythm. S1, S2. No S4. Without murmur RESPIRATORY: Few crackles in the bases. No wheezing. GASTROINTESTINAL: Abdomen soft, non-tender, nondistended. Hepatic and splenic margins not palpable. MUSCULOSKELETAL: Extremities with trace bilateral lower extremity edema. No obvious deformities. NEUROLOGICAL: Arousable on the ventilator follows simple commands. Opens eyes. Positive gag and cough. Moves all 4 extremities spontaneously. Assessment and Plan - Assessment and Plan Plan: Neuro/Psych: Polysubstance use including heroin, cocaine and opiates Currently on midazolam drip for sedation/analgesia while intubated Goal of RA SS -[address] brain revealed no acute intracranial findings CV: Severe shock Lactic acidosis Status post 4 L normal saline in the ED. Aggressive crystalloid resuscitation. Norepinephrine, phenylephrine and vasopressin to maintain mean artery pressure critical 65 wean as tolerated. Continue sterile water 3 ampoules of sodium bicarbonate 150 cc an hour Serial lactates until cleared. Currently 3.6 Cycle troponins trending upward. Heparin drip initiated overnight 2D echocardiogram ejection fraction 50%. PA P 25 mmHg. Mild TR. Cardiology consultation for elevated troponin. Start aspirin 81 mg daily. I will beta-amy or TOR inhibitor due to acute kidney injury/hypotension vasopressors unable to use statin secondary to liver injury. Resp: Acute respiratory failure Aspiration pneumonia PRVC ventilation Head of bed at 30 degrees Ventilator bundle Albuterol/ipratropium aerosols every 4 hours with albuterol aerosols every 2 as needed dyspnea Spontaneous breathing trials and clinically indicated We will attempt extubation this a.m. Her chest x-ray revealed bilateral lower lobe infiltrates 1/ GI: Elevated transaminases Elevated ammonia NG tube to low inner wall suction to PT if not extubated Pantoprazole for GI prophylax Docusate serum/senna 1 tablet twice daily for bowel regimen Follow-up on ammonia level in a.m. 1/ Lactulose 30 cc twice daily Hepatitis panel negative : Giles catheter is indicated for accurate I's and O's in a critical patient Endo: Elevated TSH Check free T3-T4. Sliding scale insulin Accu-Cheks to maintain euglycemia Renal: Acute kidney injury Rhabdomyolysis Renal ultrasound revealed enlarged echogenic liver however no signs of hydronephrosis Check urine eosinophil Avoid nephrotoxic medication Nephrology consultation Monitor urine output Check BMP and CPK in a.m.. CPK is downtrending currently 5300 Heme: Leukocytosis Normocytic anemia Monitor CBC daily. Follow trends. No indication for transfusion of blood products at this time ID: Empirically placed on vancomycin and piperacillin/tazobactam day #3 Blood cultures x2 no growth today. FEN: Hypokalemia Hypophosphatemia Hypermagnesia Replace electro lites as clinically indicated per ICU likely protocol. Recheck at 1800 and in a.m. Currently on sterile water with C bicarbonate for rhabdomyolysis. Continue. MSK: Elevated BMI Weight loss encouraged PT evaluate and treat Access -Right IJ CVL day 3. Right femoral arterial line day #3 Prophylaxis -GI pantoprazole DVT-SCD/heparin drip 35 minutes critical care time follow-up Code Status: Full code Code Status: Full code Discussed Condition With: Mother and sister at bedside. Care plan discussed and all questions answered. Procedures - Arterial Line Size (Gauge): 18
[2018-08-02] MEDS: Potassium Phosphate Inj 30 MMOL in Sodium Chlor 0.9% Inj 250 ML IV.SIG PRN (10:19)
--- NOTE | 2018-08-02 11:28 | P.PNNP ---
Subjective Interval history: Intubated, no acute events Physical Exam Vital signs: Vital Signs 08/01/18 11:30 08/01/18 11:37 08/01/18 11:45 Temperature Pulse Rate 70 70 74 Respiratory Rate 15 Blood Pressure 121/70 114/66 Pulse Oximetry 98 98 08/01/18 12:00 08/01/18 12:15 08/01/18 12:30 Temperature Pulse Rate 74 73 73 Respiratory Rate Blood Pressure 114/66 114/65 117/65 Pulse Oximetry 99 98 98 08/01/18 12:45 08/01/18 13:00 08/01/18 13:15 Temperature Pulse Rate 71 68 56 L Respiratory Rate Blood Pressure 113/64 118/67 126/73 Pulse Oximetry 98 98 98 08/01/18 13:30 08/01/18 13:45 08/01/18 14:00 Temperature Pulse Rate 62 63 64 Respiratory Rate Blood Pressure 124/74 121/74 122/71 Pulse Oximetry 99 99 99 08/01/18 15:00 08/01/18 15:13 08/01/18 15:15 Temperature Pulse Rate 62 64 74 Respiratory Rate 15 Blood Pressure 121/72 124/80 Pulse Oximetry 99 100 100 08/01/18 15:30 08/01/18 15:45 08/01/18 16:00 Temperature 98.5 F Pulse Rate 71 71 70 Respiratory Rate Blood Pressure 119/73 121/72 119/69 Pulse Oximetry 99 99 98 08/01/18 16:15 08/01/18 16:30 08/01/18 16:45 Temperature Pulse Rate 69 69 70 Respiratory Rate Blood Pressure 114/71 113/69 111/71 Pulse Oximetry 99 98 99 08/01/18 17:00 08/01/18 17:15 08/01/18 17:30 Temperature Pulse Rate 75 67 75 Respiratory Rate Blood Pressure 117/71 107/58 L Pulse Oximetry 99 100 98 08/01/18 17:46 08/01/18 18:00 08/01/18 18:15 Temperature Pulse Rate 108 H 93 H 74 Respiratory Rate Blood Pressure 117/71 119/59 L 131/87 Pulse Oximetry 92 L 90 L 94 L 08/01/18 18:30 08/01/18 18:45 08/01/18 19:00 Temperature Pulse Rate 69 73 68 Respiratory Rate Blood Pressure 123/81 122/80 131/87 Pulse Oximetry 96 95 98 08/01/18 19:15 08/01/18 19:30 08/01/18 19:45 Temperature Pulse Rate 65 65 64 Respiratory Rate Blood Pressure 131/87 130/88 130/87 Pulse Oximetry 99 98 99 08/01/18 19:47 08/01/18 19:50 08/01/18 20:00 Temperature 98.4 F Pulse Rate 64 65 Respiratory Rate 15 15 Blood Pressure 139/91 H Pulse Oximetry 99 100 08/01/18 20:15 08/01/18 20:30 08/01/18 20:45 Temperature Pulse Rate 65 62 64 Respiratory Rate Blood Pressure 143/92 H 139/92 H 142/93 H Pulse Oximetry 98 98 98 08/01/18 21:00 08/01/18 22:00 08/01/18 23:00 Temperature Pulse Rate 63 65 62 Respiratory Rate Blood Pressure 144/93 H 139/90 147/100 H Pulse Oximetry 98 99 99 08/01/18 23:06 08/01/18 23:43 08/01/18 23:45 Temperature Pulse Rate 62 61 Respiratory Rate 15 15 Blood Pressure 148/102 H Pulse Oximetry 100 100 08/02/18 00:00 08/02/18 00:34 08/02/18 00:53 Temperature 98.6 F Pulse Rate 63 67 82 Respiratory Rate Blood Pressure 159/105 H 149/99 H 124/81 Pulse Oximetry 99 96 99 08/02/18 01:00 08/02/18 02:00 08/02/18 03:39 Temperature Pulse Rate 67 61 66 Respiratory Rate Blood Pressure 153/104 H Pulse Oximetry 94 L 98 98 08/02/18 03:55 08/02/18 03:57 08/02/18 04:00 Temperature 98.2 F Pulse Rate 60 62 Respiratory Rate 15 15 Blood Pressure 164/108 H Pulse Oximetry 98 100 08/02/18 05:00 08/02/18 06:00 08/02/18 07:00 Temperature Pulse Rate 62 65 82 Respiratory Rate 25 H Blood Pressure 168/110 H 158/110 H 153/109 H Pulse Oximetry 98 99 99 08/02/18 07:05 08/02/18 07:40 08/02/18 08:00 Temperature 98.7 F Pulse Rate 65 68 Respiratory Rate 22 11 L Blood Pressure 151/108 H 154/106 H Pulse Oximetry 98 99 97 08/02/18 09:00 08/02/18 10:00 08/02/18 11:00 Temperature 98.5 F 98.5 F 98.6 F Pulse Rate 67 68 66 Respiratory Rate 14 12 12 Blood Pressure 167/108 H 158/110 H 153/108 H Pulse Oximetry 92 L 100 100 Intake & Output 08/01/18 08/02/18 08/02/18 18:59 06:59 18:59 Intake Total 4755 / 4755 3261.2 / 3261.2 1700 / 1700 Output Total 1000 / 1000 750 / 750 Balance 3755 / 3755 2511.2 / 2511.2 1700 / 1700 Weight 116.4 kg Intake: IV 4665 / 4665 3261.2 / 3261.2 1700 / 1700 Precedex Inj 200 MCG In NS Inj 50 / 50 350 / 350 50 / 50 48 ML @ 0.2 MCG/KG/HR 5.71 mls/ hr IV.CONT TITRATE PRN Rx#: [id number] Heparin/D5W 25,000 U/250 mL 25, 250 / 250 000 unit In 250 ml @ Per Protocol IV.CONT TITRATE PRN Rx #:[id number] Versed Inj 100 mg In 100 ml @ 2 90 / 90 MG/HR 2 mls/hr IV.CONT TITRATE PRN Rx#:[id number] Levophed Inj 16 MG In NS Inj 250 / 250 234 ML @ 2 MCG/MIN 1.87 mls/hr IV.CONT TITRATE PRN Rx#: [id number] NS Inj 1,000 ML @ 125 mls/hr IV 1000 / 1000 2000 / 2000 1000 / 1000 .CONT .Q8H SUSIE Rx#:[id number] Sodium Bicarbonate 8.4% Inj 150 1000 / 1000 MEQ In Sterile Water for Inj 850 ML @ 150 mls/hr IV.CONT . Q6H40M SUSIE Rx#:[id number] Pitressin Inj 40 UNIT In NS Inj 80 / 80 98 ML @ 0.04 UNITS/MIN 6 mls/ hr IV.CONT CONT SUSIE Rx#: [id number] MVI-12 Inj 10 ML Thiamine Inj 511.2 / 511.2 100 MG Folvite Inj 1 MG In NS Inj 500 ML @ 125 mls/hr IV.SIG Q24H SUSIE Rx#:[id number] Zosyn 2.25 GM Premix 2.25 gm In 100 / 100 100 / 100 50 / 50 50 ml @ 100 mls/hr IV.SIG Q6H SUSIE Rx#:[id number] KCl 20 mEq Premix Inj 20 meq In 100 / 100 100 / 100 100 ml @ 50 mls/hr IV.SIG Q2H PRN Rx#:[id number] KCl 40 mEq Premix Inj 40 meq In 100 / 100 200 / 200 100 ml @ 25 mls/hr IV.SIG Q2H PRN Rx#:[id number] Vancomycin Inj 2,000 MG In NS 520 / 520 Inj 500 ML @ 250 mls/hr IV.SIG ONCE ONE Rx#:[id number] fentaNYL 10 mcg/mL Premix Drip 250 / 250 250 / 250 2,500 mcg In 250 ml @ 50 MCG/HR 5 mls/hr IV.SIG TITRATE PRN Rx #:[id number] Water Bolus Amount 90 / 90 Output: Urine 400 / 400 Urine Amount (Catheter) 1000 / 1000 Indwelling Urethral Catheter 1000 / 1000 Gastric Drainage 350 / 350 Oral 350 / 350 Other: # Bowel Movements 0 - Constitutional no acute distress - Routine HEENT Exam Head: Present: normocephalic - Routine Neck Exam Present: supple - Routine Respiratory Exam Present: patient mechanically ventilated, decreased breath sounds - Routine Cardiovascular Exam Present: RRR - Routine Abdominal Exam Present: soft - Routine Extremities Exam Present: pulses intact - Routine Skin Exam Present: intact - Routine Neurological Exam Present: altered mental status - Urinary Catheter Management Indwelling Urethral Catheter Cath placed during this visit: yes, but has since been removed by the nurse Reason for continuing: Hourly intake/output Insertion date: 07/30/18 Insertion time: 09:24 Removal date: 08/01/18 Removal time: 16:00 Assessment and Plan - Assessment (1) Acute kidney injury Code(s): N17.9 - Acute kidney failure, unspecified Status: Acute Plan: Patient was admitted with resp. failure and was intubated. Patient has GRABIEL, most likely due to ATN from Hypotension. CK level trending down Remain non oliguric, and Creatinine is improvin.4-> 1.39 today K is low, on replaced. Weaning as per CCM. (2) Acute respiratory failure Code(s): J96.00 - Acute respiratory failure, unspecified whether with hypoxia or hypercapnia Status: Acute Plan: Wean as tolerated Antibiotics for aspiration pneumonia (3) Septic shock Code(s): A41.9 - Sepsis, unspecified organism; R65.21 - Severe sepsis with septic shock Status: Acute Plan: Improving, off pressors Procedures - Arterial Line Size (Gauge): 18
--- NOTE | 2018-08-02 11:30 | P.PNNP ---
Subjective Interval history: on NS @ 125cc/hour, continue for now. CPK level improving Physical Exam Vital signs: Vital Signs 08/01/18 11:30 08/01/18 11:37 08/01/18 11:45 Temperature Pulse Rate 70 70 74 Respiratory Rate 15 Blood Pressure 121/70 114/66 Pulse Oximetry 98 98 08/01/18 12:00 08/01/18 12:15 08/01/18 12:30 Temperature Pulse Rate 74 73 73 Respiratory Rate Blood Pressure 114/66 114/65 117/65 Pulse Oximetry 99 98 98 08/01/18 12:45 08/01/18 13:00 08/01/18 13:15 Temperature Pulse Rate 71 68 56 L Respiratory Rate Blood Pressure 113/64 118/67 126/73 Pulse Oximetry 98 98 98 08/01/18 13:30 08/01/18 13:45 08/01/18 14:00 Temperature Pulse Rate 62 63 64 Respiratory Rate Blood Pressure 124/74 121/74 122/71 Pulse Oximetry 99 99 99 08/01/18 15:00 08/01/18 15:13 08/01/18 15:15 Temperature Pulse Rate 62 64 74 Respiratory Rate 15 Blood Pressure 121/72 124/80 Pulse Oximetry 99 100 100 08/01/18 15:30 08/01/18 15:45 08/01/18 16:00 Temperature 98.5 F Pulse Rate 71 71 70 Respiratory Rate Blood Pressure 119/73 121/72 119/69 Pulse Oximetry 99 99 98 08/01/18 16:15 08/01/18 16:30 08/01/18 16:45 Temperature Pulse Rate 69 69 70 Respiratory Rate Blood Pressure 114/71 113/69 111/71 Pulse Oximetry 99 98 99 08/01/18 17:00 08/01/18 17:15 08/01/18 17:30 Temperature Pulse Rate 75 67 75 Respiratory Rate Blood Pressure 117/71 107/58 L Pulse Oximetry 99 100 98 08/01/18 17:46 08/01/18 18:00 08/01/18 18:15 Temperature Pulse Rate 108 H 93 H 74 Respiratory Rate Blood Pressure 117/71 119/59 L 131/87 Pulse Oximetry 92 L 90 L 94 L 08/01/18 18:30 08/01/18 18:45 08/01/18 19:00 Temperature Pulse Rate 69 73 68 Respiratory Rate Blood Pressure 123/81 122/80 131/87 Pulse Oximetry 96 95 98 08/01/18 19:15 08/01/18 19:30 08/01/18 19:45 Temperature Pulse Rate 65 65 64 Respiratory Rate Blood Pressure 131/87 130/88 130/87 Pulse Oximetry 99 98 99 08/01/18 19:47 08/01/18 19:50 08/01/18 20:00 Temperature 98.4 F Pulse Rate 64 65 Respiratory Rate 15 15 Blood Pressure 139/91 H Pulse Oximetry 99 100 08/01/18 20:15 08/01/18 20:30 08/01/18 20:45 Temperature Pulse Rate 65 62 64 Respiratory Rate Blood Pressure 143/92 H 139/92 H 142/93 H Pulse Oximetry 98 98 98 08/01/18 21:00 08/01/18 22:00 08/01/18 23:00 Temperature Pulse Rate 63 65 62 Respiratory Rate Blood Pressure 144/93 H 139/90 147/100 H Pulse Oximetry 98 99 99 08/01/18 23:06 08/01/18 23:43 08/01/18 23:45 Temperature Pulse Rate 62 61 Respiratory Rate 15 15 Blood Pressure 148/102 H Pulse Oximetry 100 100 08/02/18 00:00 08/02/18 00:34 08/02/18 00:53 Temperature 98.6 F Pulse Rate 63 67 82 Respiratory Rate Blood Pressure 159/105 H 149/99 H 124/81 Pulse Oximetry 99 96 99 08/02/18 01:00 08/02/18 02:00 08/02/18 03:39 Temperature Pulse Rate 67 61 66 Respiratory Rate Blood Pressure 153/104 H Pulse Oximetry 94 L 98 98 08/02/18 03:55 08/02/18 03:57 08/02/18 04:00 Temperature 98.2 F Pulse Rate 60 62 Respiratory Rate 15 15 Blood Pressure 164/108 H Pulse Oximetry 98 100 08/02/18 05:00 08/02/18 06:00 08/02/18 07:00 Temperature Pulse Rate 62 65 82 Respiratory Rate 25 H Blood Pressure 168/110 H 158/110 H 153/109 H Pulse Oximetry 98 99 99 08/02/18 07:05 08/02/18 07:40 08/02/18 08:00 Temperature 98.7 F Pulse Rate 65 68 Respiratory Rate 22 11 L Blood Pressure 151/108 H 154/106 H Pulse Oximetry 98 99 97 08/02/18 09:00 08/02/18 10:00 08/02/18 11:00 Temperature 98.5 F 98.5 F 98.6 F Pulse Rate 67 68 66 Respiratory Rate 14 12 12 Blood Pressure 167/108 H 158/110 H 153/108 H Pulse Oximetry 92 L 100 100 Intake & Output 08/01/18 08/02/18 08/02/18 18:59 06:59 18:59 Intake Total 4755 / 4755 3261.2 / 3261.2 1700 / 1700 Output Total 1000 / 1000 750 / 750 Balance 3755 / 3755 2511.2 / 2511.2 1700 / 1700 Weight 116.4 kg Intake: IV 4665 / 4665 3261.2 / 3261.2 1700 / 1700 Precedex Inj 200 MCG In NS Inj 50 / 50 350 / 350 50 / 50 48 ML @ 0.2 MCG/KG/HR 5.71 mls/ hr IV.CONT TITRATE PRN Rx#: [id number] Heparin/D5W 25,000 U/250 mL 25, 250 / 250 000 unit In 250 ml @ Per Protocol IV.CONT TITRATE PRN Rx #:[id number] Versed Inj 100 mg In 100 ml @ 2 90 / 90 MG/HR 2 mls/hr IV.CONT TITRATE PRN Rx#:[id number] Levophed Inj 16 MG In NS Inj 250 / 250 234 ML @ 2 MCG/MIN 1.87 mls/hr IV.CONT TITRATE PRN Rx#: [id number] NS Inj 1,000 ML @ 125 mls/hr IV 1000 / 1000 2000 / 2000 1000 / 1000 .CONT .Q8H SUSIE Rx#:[id number] Sodium Bicarbonate 8.4% Inj 150 1000 / 1000 MEQ In Sterile Water for Inj 850 ML @ 150 mls/hr IV.CONT . Q6H40M SUSIE Rx#:[id number] Pitressin Inj 40 UNIT In NS Inj 80 / 80 98 ML @ 0.04 UNITS/MIN 6 mls/ hr IV.CONT CONT SUSIE Rx#: [id number] MVI-12 Inj 10 ML Thiamine Inj 511.2 / 511.2 100 MG Folvite Inj 1 MG In NS Inj 500 ML @ 125 mls/hr IV.SIG Q24H SUSIE Rx#:[id number] Zosyn 2.25 GM Premix 2.25 gm In 100 / 100 100 / 100 50 / 50 50 ml @ 100 mls/hr IV.SIG Q6H SUSIE Rx#:[id number] KCl 20 mEq Premix Inj 20 meq In 100 / 100 100 / 100 100 ml @ 50 mls/hr IV.SIG Q2H PRN Rx#:[id number] KCl 40 mEq Premix Inj 40 meq In 100 / 100 200 / 200 100 ml @ 25 mls/hr IV.SIG Q2H PRN Rx#:[id number] Vancomycin Inj 2,000 MG In NS 520 / 520 Inj 500 ML @ 250 mls/hr IV.SIG ONCE ONE Rx#:[id number] fentaNYL 10 mcg/mL Premix Drip 250 / 250 250 / 250 2,500 mcg In 250 ml @ 50 MCG/HR 5 mls/hr IV.SIG TITRATE PRN Rx #:[id number] Water Bolus Amount 90 / 90 Output: Urine 400 / 400 Urine Amount (Catheter) 1000 / 1000 Indwelling Urethral Catheter 1000 / 1000 Gastric Drainage 350 / 350 Oral 350 / 350 Other: # Bowel Movements 0 - Urinary Catheter Management Indwelling Urethral Catheter Cath placed during this visit: yes, but has since been removed by the nurse Reason for continuing: Hourly intake/output Insertion date: 07/30/18 Insertion time: 09:24 Removal date: 08/01/18 Removal time: 16:00 Assessment and Plan - Assessment (1) Acute kidney injury Code(s): N17.9 - Acute kidney failure, unspecified Status: Acute Plan: Patient was admitted with resp. failure and was intubated. Patient has GRABIEL, most likely due to ATN from Hypotension. CK level trending down Remain non oliguric, and Creatinine is improvin.4-> 1.39 today K is low, on replaced. Weaning as per CCM. (2) Acute respiratory failure Code(s): J96.00 - Acute respiratory failure, unspecified whether with hypoxia or hypercapnia Status: Acute Plan: Wean as tolerated Antibiotics for aspiration pneumonia (3) Septic shock Code(s): A41.9 - Sepsis, unspecified organism; R65.21 - Severe sepsis with septic shock Status: Acute Plan: Improving, off pressors Procedures - Arterial Line Size (Gauge): 18
[2018-08-02] MEDS: Dexmedetomidine Inj 1,000 MCG in Sodium Chlor 0.9% Inj 240 ML IV.CONT PRN ×2 (12:06→17:48)
--- NOTE | 2018-08-02 12:52 | P.PNCA ---
Subjective Interval history: Intubated. Sedated. Medications and Allergies Active Medications: Active Medications Al Hydroxide/Mg Hydroxide (Milk Of Magnrick Liq) 30 ml PO Q12H PRN PRN Reason: Mild Constipation Albuterol (Albuterol Neb (Prn)) 2.5 mg NEB Q2HR NEB PRN PRN Reason: SHORTNESS OF BREATH Albuterol (Duoneb Neb (Michelle)) 1 ampul NEB Q4HR NEB [facility] Last Admin: 08/02/18 11:36 Dose: 1 ampul Artificial Tears (Tears Naturale Opth Drops) 1 drop EACH EYE Q8H [facility] Last Admin: 08/02/18 05:09 Dose: 1 drop Aspirin (Aspirin Chew) 81 mg PO DAILY [facility] Last Admin: 08/02/18 08:00 Dose: 81 mg Bisacodyl (Dulcolax Supp) 10 mg RECTAL DAILY PRN PRN Reason: SEVERE CONSITIPATION Carvedilol (Coreg) 6.25 mg PO BID [facility] Chlorhexidine Gluconate (Peridex 0.12% Oral Kit) 15 ml OROPHARYNG BID@0800, 2000 [facility] Last Admin: 08/02/18 07:37 Dose: 15 ml Chlorhexidine Gluconate (Chlorhexidine 2% Cloth) 3 pack TOPICAL DAILY@0400 [facility] Stop: 08/05/18 03:59 Last Admin: 08/02/18 03:57 Dose: 3 pack Chlorhexidine Gluconate (Chlorhexidine 2% Cloth) 3 pack TOPICAL DAILY@0400 PRN PRN Reason: Extra cloth needed Stop: 08/05/18 03:59 Dextrose (D50w Vial) 50 ml IV.PUSH UNSCH PRN PRN Reason: PER HYPOGLYCEMIA PROTOCOL Glucagon (Glucagon Inj) 1 mg OTHER PRN PRN PRN Reason: for Hypoglycemia Protocol Hydralazine HCl (Apresoline) 25 mg PO Q6H PRN PRN Reason: SBP>165, DBP>90 Hydrocortisone Sodium Succinate (Solucortef Inj) 100 mg IV.PUSH Q8HR [facility] Last Admin: 08/02/18 05:09 Dose: 100 mg Midazolam HCl (Versed Inj) 100 mg in 100 mls @ 2 mls/hr IV.CONT TITRATE PRN; Protocol PRN Reason: See protocol Last Titration: 08/01/18 09:05 Dose: Infused Phenylephrine HCl 160 mg/ (Sodium Chloride) 500 mls @ 7.5 mls/hr IV.CONT TITRATE PRN; Protocol PRN Reason: Per Protocol Last Titration: 08/01/18 07:16 Dose: 0 mcg/min, 0 mls/hr Vasopressin 40 unit/ Sodium (Chloride) 100 mls @ 6 mls/hr IV.CONT CONT [facility]; Protocol Last Infusion: 08/01/18 09:05 Dose: Infused Norepinephrine Bitartrate 16 (mg/ Sodium Chloride) 250 mls @ 1.87 mls/hr IV.CONT TITRATE PRN; Protocol PRN Reason: See Protocol Last Titration: 08/01/18 09:05 Dose: Infused Piperacillin/Tazobactam/Dextrose (Zosyn 2.25 Gm Premix) 2.25 gm in 50 mls @ 100 mls/hr IV.SIG Q6H [facility] Last Infusion: 08/02/18 09:48 Dose: Infused Fentanyl (Fentanyl 10 Mcg/Ml Premix Drip) 2,500 mcg in 250 mls @ 5 mls/hr IV.SIG TITRATE PRN; Protocol PRN Reason: Per Protocol Last Titration: 08/02/18 07:59 Dose: Infused Heparin Sodium/Dextrose (Heparin/D5w 25,000 U/250 Ml) 25,000 unit in 250 mls @ 0 mls/hr IV.CONT TITRATE PRN; Protocol PRN Reason: Per Protocol Last Titration: 08/02/18 07:59 Dose: Infused Magnesium Sulfate 4 gm/ Sodium (Chloride) 100 mls @ 50 mls/hr IV.SIG UNSCH PRN PRN Reason: For Magnesium 0.9 - 1.1 mg/dL Magnesium Sulfate 2 gm/ Sodium (Chloride) 100 mls @ 50 mls/hr IV.SIG UNSCH PRN PRN Reason: For Magnesium 1.2 - 1.6 mg/dL Potassium Chloride (Kcl 40 Meq Premix Inj) 40 meq in 100 mls @ 25 mls/hr IV.SIG Q2H PRN PRN Reason: For Potassium 2.8 - 3.2 mEq/L Last Infusion: 08/02/18 00:32 Dose: Infused Potassium Chloride (Kcl 20 Meq Premix Inj) 20 meq in 100 mls @ 50 mls/hr IV.SIG Q2H PRN PRN Reason: For Potassium 3.3 - 3.5 mEq/L Last Infusion: 08/02/18 09:48 Dose: Infused Potassium Chloride (Kcl 20 Meq Premix Inj) 20 meq in 100 mls @ 50 mls/hr IV.SIG Q2H PRN PRN Reason: For Potassium 2.8 - 3.2 mEq/L Potassium Phosphate 30 mmol/ (Sodium Chloride) 260 mls @ 42 mls/hr IV.SIG UNSCH PRN PRN Reason: SEE LABEL COMMENTS Last Admin: 08/02/18 10:19 Dose: 42 mls/hr Sodium Phosphate 30 mmol/ (Sodium Chloride) 260 mls @ 42 mls/hr IV.SIG UNSCH PRN PRN Reason: For Phosphorus < 2.5 mg/dL Potassium Chloride (Kcl 40 Meq Premix Inj) 40 meq in 100 mls @ 25 mls/hr IV.SIG UNSCH PRN PRN Reason: For Potassium 3.3 - 3.5 mEq/L Sodium Chloride (Ns Inj) 1,000 mls @ 125 mls/hr IV.CONT .Q8H [facility] Last Admin: 08/02/18 09:47 Dose: 125 mls/hr Dexmedetomidine HCl 1,000 mcg/ (Sodium Chloride) 250 mls @ 5.71 mls/hr IV.CONT TITRATE PRN; Protocol PRN Reason: Per Protocol Insulin Aspart (Novolog Insulin Correctional Sugar Inj) 0 unit SQ Q6HR [facility]; Protocol Last Admin: 08/02/18 05:36 Dose: Not Given Labetalol HCl (Trandate Inj) 10 mg IV.PUSH Q1H PRN PRN Reason: Sbp>165, Dbp>90, Hr>65 Lactulose (Lactulose Liq) 30 ml PO DAILY PRN PRN Reason: SEVERE CONSITIPATION Lactulose (Lactulose Liq) 30 ml PO BID [facility] Last Admin: 08/02/18 08:00 Dose: 30 ml Magnesium Oxide (Mag-Ox) 800 mg PO UNSCH PRN PRN Reason: For Magnesium 1.2 - 1.6 mg/dL Miscellaneous Medication () 1 each OROPHARYNG 0000,0400,1200,1600 [facility] Last Admin: 08/02/18 03:57 Dose: 1 each Nitroglycerin (Nitro-Bid 2% Oint) 2 inch TOPICAL Q6HR PRN PRN Reason: Sbp>165, Dbp>90 Last Admin: 08/02/18 10:14 Dose: 2 inch Pantoprazole Sodium (Protonix Inj) 40 mg IV.PUSH DAILY [facility] Last Admin: 08/02/18 08:02 Dose: 40 mg Pharmacy Profile Note (Vancomycin Consult Pharmacy) 1 each OTHER UNSCH PRN PRN Reason: Pharmacy to dose Potassium Bicarb/Potassium Chloride (K-Lyte Cl Eff) 50 meq PO UNSCH PRN PRN Reason: For Potassium 3.3 - 3.5 mEq/L Potassium Phosphate (K-Phos Original) 2,000 mg PO Q4H PRN PRN Reason: Phosphorus Less Than 2.5 mg/dL Potassium Phosphate (K-Phos Original) 2,000 mg PO UNSCH PRN PRN Reason: SEE LABEL COMMENTS Senna/Docusate Sodium (Vonda-Colace) 1 tab PO BID [facility] Last Admin: 08/02/18 08:01 Dose: 1 tab Sennosides (Senokot) 17.2 mg PO Q12H PRN PRN Reason: Moderate Constipation Sodium Chloride (Ns Flush) 2 ml IV.FLUSH BID [facility] Last Admin: 08/02/18 08:01 Dose: 2 ml Sodium Chloride (Ns Flush) 2 ml IV.FLUSH PRN PRN PRN Reason: FLUSH AFTER USING IV ACCESS Last Admin: 08/02/18 08:01 Dose: 2 ml Terbutaline Sulfate (Brethine Inj) 1 mg SQ UNSCH PRN PRN Reason: For Extravasation Allergies Allergy/AdvReac Type Severity Reaction Status Date / Time No Known Allergies Allergy Verified 07/30/18 08:55 Home Medications Medication Instructions Recorded Confirmed Type Unable to Obtain Home Meds 07/30/18 07/30/18 History Physical Exam Vital signs: Vital Signs 08/01/18 13:00 08/01/18 13:15 08/01/18 13:30 Temperature Pulse Rate 68 56 L 62 Respiratory Rate Blood Pressure 118/67 126/73 124/74 Pulse Oximetry 98 98 99 08/01/18 13:45 08/01/18 14:00 08/01/18 15:00 Temperature Pulse Rate 63 64 62 Respiratory Rate Blood Pressure 121/74 122/71 121/72 Pulse Oximetry 99 99 99 08/01/18 15:13 08/01/18 15:15 08/01/18 15:30 Temperature Pulse Rate 64 74 71 Respiratory Rate 15 Blood Pressure 124/80 119/73 Pulse Oximetry 100 100 99 08/01/18 15:45 08/01/18 16:00 08/01/18 16:15 Temperature 98.5 F Pulse Rate 71 70 69 Respiratory Rate Blood Pressure 121/72 119/69 114/71 Pulse Oximetry 99 98 99 08/01/18 16:30 08/01/18 16:45 08/01/18 17:00 Temperature Pulse Rate 69 70 75 Respiratory Rate Blood Pressure 113/69 111/71 Pulse Oximetry 98 99 99 08/01/18 17:15 08/01/18 17:30 08/01/18 17:46 Temperature Pulse Rate 67 75 108 H Respiratory Rate Blood Pressure 117/71 107/58 L 117/71 Pulse Oximetry 100 98 92 L 08/01/18 18:00 08/01/18 18:15 08/01/18 18:30 Temperature Pulse Rate 93 H 74 69 Respiratory Rate Blood Pressure 119/59 L 131/87 123/81 Pulse Oximetry 90 L 94 L 96 08/01/18 18:45 08/01/18 19:00 08/01/18 19:15 Temperature Pulse Rate 73 68 65 Respiratory Rate Blood Pressure 122/80 131/87 131/87 Pulse Oximetry 95 98 99 08/01/18 19:30 08/01/18 19:45 08/01/18 19:47 Temperature Pulse Rate 65 64 Respiratory Rate 15 Blood Pressure 130/88 130/87 Pulse Oximetry 98 99 99 08/01/18 19:50 08/01/18 20:00 08/01/18 20:15 Temperature 98.4 F Pulse Rate 64 65 65 Respiratory Rate 15 Blood Pressure 139/91 H 143/92 H Pulse Oximetry 100 98 08/01/18 20:30 08/01/18 20:45 08/01/18 21:00 Temperature Pulse Rate 62 64 63 Respiratory Rate Blood Pressure 139/92 H 142/93 H 144/93 H Pulse Oximetry 98 98 98 08/01/18 22:00 08/01/18 23:00 08/01/18 23:06 Temperature Pulse Rate 65 62 62 Respiratory Rate Blood Pressure 139/90 147/100 H 148/102 H Pulse Oximetry 99 99 100 08/01/18 23:43 08/01/18 23:45 08/02/18 00:00 Temperature 98.6 F Pulse Rate 61 63 Respiratory Rate 15 15 Blood Pressure 159/105 H Pulse Oximetry 100 99 08/02/18 00:34 08/02/18 00:53 08/02/18 01:00 Temperature Pulse Rate 67 82 67 Respiratory Rate Blood Pressure 149/99 H 124/81 Pulse Oximetry 96 99 94 L 08/02/18 02:00 08/02/18 03:39 08/02/18 03:55 Temperature Pulse Rate 61 66 Respiratory Rate 15 Blood Pressure 153/104 H Pulse Oximetry 98 98 98 08/02/18 03:57 08/02/18 04:00 08/02/18 05:00 Temperature 98.2 F Pulse Rate 60 62 62 Respiratory Rate 15 Blood Pressure 164/108 H 168/110 H Pulse Oximetry 100 98 08/02/18 06:00 08/02/18 07:00 08/02/18 07:05 Temperature Pulse Rate 65 82 65 Respiratory Rate 25 H Blood Pressure 158/110 H 153/109 H 151/108 H Pulse Oximetry 99 99 98 08/02/18 07:40 08/02/18 08:00 08/02/18 09:00 Temperature 98.7 F 98.5 F Pulse Rate 68 67 Respiratory Rate 22 11 L 14 Blood Pressure 154/106 H 167/108 H Pulse Oximetry 99 97 92 L 08/02/18 10:00 08/02/18 11:00 08/02/18 11:35 Temperature 98.5 F 98.6 F Pulse Rate 68 66 82 Respiratory Rate 12 12 20 Blood Pressure 158/110 H 153/108 H Pulse Oximetry 100 100 08/02/18 11:42 Temperature Pulse Rate Respiratory Rate 19 Blood Pressure Pulse Oximetry 99 Intake & Output 08/01/18 08/02/18 08/02/18 18:59 06:59 18:59 Intake Total 4755 / 4755 3261.2 / 3261.2 1700 / 1700 Output Total 1000 / 1000 750 / 750 Balance 3755 / 3755 2511.2 / 2511.2 1700 / 1700 Weight 116.4 kg Intake: IV 4665 / 4665 3261.2 / 3261.2 1700 / 1700 Precedex Inj 200 MCG In NS Inj 50 / 50 350 / 350 50 / 50 48 ML @ 0.2 MCG/KG/HR 5.71 mls/ hr IV.CONT TITRATE PRN Rx#: [id number] Heparin/D5W 25,000 U/250 mL 25, 250 / 250 000 unit In 250 ml @ Per Protocol IV.CONT TITRATE PRN Rx #:[id number] Versed Inj 100 mg In 100 ml @ 2 90 / 90 MG/HR 2 mls/hr IV.CONT TITRATE PRN Rx#:[id number] Levophed Inj 16 MG In NS Inj 250 / 250 234 ML @ 2 MCG/MIN 1.87 mls/hr IV.CONT TITRATE PRN Rx#: [id number] NS Inj 1,000 ML @ 125 mls/hr IV 1000 / 1000 2000 / 2000 1000 / 1000 .CONT .Q8H MICHELLE Rx#:[id number] Sodium Bicarbonate 8.4% Inj 150 1000 / 1000 MEQ In Sterile Water for Inj 850 ML @ 150 mls/hr IV.CONT . Q6H40M [facility] Rx#:[id number] Pitressin Inj 40 UNIT In NS Inj 80 / 80 98 ML @ 0.04 UNITS/MIN 6 mls/ hr IV.CONT CONT MICHELLE Rx#: [id number] MVI-12 Inj 10 ML Thiamine Inj 511.2 / 511.2 100 MG Folvite Inj 1 MG In NS Inj 500 ML @ 125 mls/hr IV.SIG Q24H [facility] Rx#:[id number] Zosyn 2.25 GM Premix 2.25 gm In 100 / 100 100 / 100 50 / 50 50 ml @ 100 mls/hr IV.SIG Q6H [facility] Rx#:[id number] KCl 20 mEq Premix Inj 20 meq In 100 / 100 100 / 100 100 ml @ 50 mls/hr IV.SIG Q2H PRN Rx#:[id number] KCl 40 mEq Premix Inj 40 meq In 100 / 100 200 / 200 100 ml @ 25 mls/hr IV.SIG Q2H PRN Rx#:[id number] Vancomycin Inj 2,000 MG In NS 520 / 520 Inj 500 ML @ 250 mls/hr IV.SIG ONCE ONE Rx#:[id number] fentaNYL 10 mcg/mL Premix Drip 250 / 250 250 / 250 2,500 mcg In 250 ml @ 50 MCG/HR 5 mls/hr IV.SIG TITRATE PRN Rx #:[id number] Water Bolus Amount 90 / 90 Output: Urine 400 / 400 Urine Amount (Catheter) 1000 / 1000 Indwelling Urethral Catheter 1000 / 1000 Gastric Drainage 350 / 350 Oral 350 / 350 Other: # Bowel Movements 0 - Constitutional no acute distress - Routine Neck Exam Absent: JVD - Routine Respiratory Exam Present: wheezes - Routine Cardiovascular Exam Present: RRR, S1, S2. Absent: murmur, gallop - Routine Abdominal Exam Present: soft, normoactive bowel sounds. Absent: distended, organomegaly - Routine Extremities Exam Absent: cyanosis, clubbing, edema - Urinary Catheter Management Indwelling Urethral Catheter Cath placed during this visit: yes, but has since been removed by the nurse Reason for continuing: Hourly intake/output Insertion date: 07/30/18 Insertion time: 09:24 Removal date: 08/01/18 Removal time: 16:00 Results 08/02/18 03:05 08/02/18 03:05 Cardiac Enzymes 08/01/18 08/01/18 08/02/18 Range/Units 05:44 21:00 03:05 AST 328 H 243 H (15-37) U/L CK-MB (CK-2) 12.4 H 7.4 H 6.0 H (0.5-3.6) ng/mL Coagulation 08/01/18 08/01/18 08/01/18 Range/Units 05:44 13:15 21:00 APTT 39.3 H D 38.7 H 34.5 H (23.4-31.7) sec 08/02/18 08/02/18 Range/Units 03:05 09:30 APTT 37.3 H 34.5 H (23.4-31.7) sec CBC 08/01/18 08/02/18 Range/Units 05:44 03:05 WBC 15.0 H 15.3 H (4.0-11.0) th/mm3 RBC 3.84 L 4.09 L (4.50-5.90) mil/mm3 Hgb 10.6 L D 11.0 L (13.0-17.0) gm/dL Hct 31.4 L 34.4 L (39.0-51.0) % Plt Count 162 163 (150-450) th/mm3 Neut # (Auto) 14.3 H (1.8-7.7) th/mm3 Lymph # (Auto) 0.5 L (1.0-4.8) th/mm3 Luna # (Auto) 0.5 (0.0-0.9) th/mm3 Eos # (Auto) 0.0 (0.0-0.4) th/mm3 Baso # (Auto) 0.0 (0.0-0.2) th/mm3 Comprehensive Metabolic Panel 07/31/18 08/01/18 08/01/18 Range/Units 18:30 05:44 13:15 Sodium 141 140 (136-145) meq/L Potassium 3.2 L 3.2 L 2.9 L* (3.5-5.1) meq/L Chloride 99 97 L (98-107) meq/L Carbon Dioxide 37.5 H 36.4 H (21.0-32.0) meq/L BUN 25 H 26 H (7-18) mg/dL Creatinine 1.73 H 1.55 H (0.60-1.30) mg/dL Calcium 7.0 L* 7.0 L* (8.5-10.1) mg/dL AST 328 H (15-37) U/L ALT 275 H (12-78) U/L Alkaline Phosphatase 56 (45-117) U/L Total Protein 5.7 L (6.4-8.2) g/dL Albumin 2.7 L 2.6 L (3.4-5.0) g/dL 08/01/18 08/02/18 Range/Units 21:00 03:05 Sodium 141 143 (136-145) meq/L Potassium 3.4 L 3.4 L (3.5-5.1) meq/L Chloride 101 102 (98-107) meq/L Carbon Dioxide 36.6 H 32.4 H (21.0-32.0) meq/L BUN 23 H 23 H (7-18) mg/dL Creatinine 1.41 H 1.39 H (0.60-1.30) mg/dL Calcium 7.5 L 7.7 L (8.5-10.1) mg/dL AST 243 H (15-37) U/L ALT 315 H (12-78) U/L Alkaline Phosphatase 70 (45-117) U/L Total Protein 6.2 L (6.4-8.2) g/dL Albumin 2.5 L (3.4-5.0) g/dL Intake and Output 08/01/18 08/02/18 08/02/18 22:59 06:59 14:59 Intake Total 2371.2 / 2371.2 2550 / 2550 1700 / 1700 Output Total 1000 / 1000 750 / 750 Balance 1371.2 / 1371.2 1800 / 1800 1700 / 1700 Intake: IV 2281.2 / 2281.2 2550 / 2550 1700 / 1700 Precedex Inj 200 MCG In NS Inj 100 / 100 300 / 300 50 / 50 48 ML @ 0.2 MCG/KG/HR 5.71 mls/ hr IV.CONT TITRATE PRN Rx#: [id number] Heparin/D5W 25,000 U/250 mL 25, 250 / 250 000 unit In 250 ml @ Per Protocol IV.CONT TITRATE PRN Rx #:[id number] NS Inj 1,000 ML @ 125 mls/hr IV 1000 / 1000 2000 / 2000 1000 / 1000 .CONT .Q8H [facility] Rx#:[id number] MVI-12 Inj 10 ML Thiamine Inj 511.2 / 511.2 100 MG Folvite Inj 1 MG In NS Inj 500 ML @ 125 mls/hr IV.SIG Q24H [facility] Rx#:[id number] Zosyn 2.25 GM Premix 2.25 gm In 50 / 50 50 / 50 50 / 50 50 ml @ 100 mls/hr IV.SIG Q6H [facility] Rx#:[id number] KCl 20 mEq Premix Inj 20 meq In 100 / 100 100 / 100 100 ml @ 50 mls/hr IV.SIG Q2H PRN Rx#:[id number] KCl 40 mEq Premix Inj 40 meq In 100 / 100 100 / 100 100 ml @ 25 mls/hr IV.SIG Q2H PRN Rx#:[id number] Vancomycin Inj 2,000 MG In NS 520 / 520 Inj 500 ML @ 250 mls/hr IV.SIG ONCE ONE Rx#:[id number] fentaNYL 10 mcg/mL Premix Drip 250 / 250 2,500 mcg In 250 ml @ 50 MCG/HR 5 mls/hr IV.SIG TITRATE PRN Rx #:[id number] Water Bolus Amount 90 / 90 Output: Urine 400 / 400 Urine Amount (Catheter) 1000 / 1000 Indwelling Urethral Catheter 1000 / 1000 Gastric Drainage 350 / 350 Oral 350 / 350 Other: # Bowel Movements 0 Weight 116.4 kg - Imaging and Cardiology Imaging: Impressions Chest X-Ray 08/02/18 06:00 CONCLUSION: No significant change. Bilateral hazy airspace disease remains. Assessment and Plan - Assessment (1) Non-ST elevated myocardial infarction Code(s): I21.4 - Non-ST elevation (NSTEMI) myocardial infarction Status: Acute Plan: Overall stable cardiac status. Renal indices continue to improve. EF roughly 50% by technically very difficult echo. Continue carvedilol, no TOR- I or ARB for now with his renal insufficiency, continue aspirin/heparin drip, consider cath versus nuclear stress test once extubated. - Plan Code Status: full Procedures - Arterial Line Size (Gauge): 18
[2018-08-02] MEDS: Labetalol HCl Inj 100 MG/20 ML Vial IV.PUSH PRN ×2 (13:35→16:33)
[2018-08-02] MEDS ORDERED: Vancomycin Inj 1,750 MG in Sodium Chlor 0.9% Inj 500 ML IV.SIG ONE (14:00)
[2018-08-02] MEDS: Heparin Drip 25,000 UNIT/250 ML BAG IV.CONT PRN ×2 (14:10→22:35)
[2018-08-02] MEDS: hydrALAZINE 25 MG Tablet PO PRN (14:12)
[2018-08-02] MEDS: Nitroglycerin Drip Premix 50 MG/250 ML BOTTLE IV.CONT PRN (17:47)
[2018-08-02] MEDS: Carvedilol 6.25 MG Tablet PO SCH (20:25)
[2018-08-02 20:51] LABS: Calcium 7.6 mg/dL (8.5-10.1); Carbon Dioxide 32.3 meq/L (21.0-32.0); Magnesium 2.7 mg/dL (1.5-2.5); Phosphorus 2.6 mg/dL (2.5-4.9); Potassium 3.5 meq/L (3.5-5.1)
[2018-08-02 21:10] LABS: Troponin I 4.67 ng/mL (0.02-0.05)
[2018-08-02 21:23] LABS: CKMB Percent 0.1 % (0.0-4.0); Creatine Kinase MB 3.8 ng/mL (0.5-3.6)
[2018-08-02] MEDS ORDERED: Propofol 1000 mg/100 ml Inj 1,000 MG/100 ML BOTTLE IV.CONT PRN (22:22)
[2018-08-02 22:32] LABS: Prothrombin Time 9.8 sec (9.8-11.6)
[2018-08-02] MEDS: Heparin 10,000 UNITS/10 ML Vial (for IV use) IV.PUSH PRN (22:33)
[2018-08-02] MEDS: Potassium Chloride 25 MEQ Effervescent Tablet NG/OG SCH (22:49)
[2018-08-03] MEDS: Dexmedetomidine Inj 1,000 MCG in Sodium Chlor 0.9% Inj 240 ML IV.CONT PRN ×2 (00:14→07:05)
[2018-08-03] MEDS: Oral Hygiene Kit OROPHARYNG SCH ×5 (00:17→23:58)
[2018-08-03] MEDS: Insulin NovoLOG Aspart Correctional Sugar Inj SQ SCH ×5 (00:17→23:58)
[2018-08-03] MEDS: Piperacil/Tazo 2.25 GM Premix 2.25 GM/50 ML PIGGYBACK IV.SIG SCH ×4 (01:29→20:34)
[2018-08-03 03:26] LABS: Hematocrit 35.4 % (39.0-51.0); Hemoglobin 11.6 gm/dL (13.0-17.0); Lymph # (Auto) 0.7 th/mm3 (1.0-4.8); Lymph % (Auto) 5.1 % (9.0-44.0); Mean Corpuscular HGB Conc 32.7 % (32.0-36.0); Mean Corpuscular Volume 82.5 fL (80.0-100.0); Mean Platelet Volume 8.8 fL (7.0-11.0); Mono # (Auto) 0.7 th/mm3 (0.0-0.9); Mono % (Auto) 4.6 % (0.0-8.0); Neut # (Auto) 12.9 th/mm3 (1.8-7.7); Neut % (Auto) 90.3 % (16.0-70.0); Platelet Count 169 th/mm3 (150-450); Red Blood Count 4.29 mil/mm3 (4.50-5.90); Red Cell Distribution Width 14.4 % (11.6-17.2); White Blood Count 14.3 th/mm3 (4.0-11.0)
[2018-08-03 03:52] LABS: Alanine Aminotransferase 272 U/L (12-78); Albumin 2.6 g/dL (3.4-5.0); Anion Gap 6 meq/L (5-15); Aspartate Aminotransferase 149 U/L (15-37); Blood Urea Nitrogen 28 mg/dL (7-18); Calcium 7.8 mg/dL (8.5-10.1); Carbon Dioxide 33.5 meq/L (21.0-32.0); Chloride 107 meq/L (98-107); Glomerular Filtration Rate 52 mL/min (>89); Glucose,Random 159 mg/dL (74-106); Magnesium 2.5 mg/dL (1.5-2.5); Phosphorus 1.8 mg/dL (2.5-4.9); Potassium 3.3 meq/L (3.5-5.1); Sodium 146 meq/L (136-145)
[2018-08-03 04:06] LABS: Alkaline Phosphatase 81 U/L (45-117); Creatine Kinase 3414 U/L (39-308); Total Protein 6.4 g/dL (6.4-8.2)
[2018-08-03 04:19] LABS: CKMB Percent 0.1 % (0.0-4.0); Creatine Kinase MB 2.6 ng/mL (0.5-3.6)
[2018-08-03] MEDS: Chlorhexidine Gluconate 2% 1 Pack (2 Cloths) TOPICAL SCH (04:34)
[2018-08-03] MEDS: Potassium Phosphate Inj 30 MMOL in Sodium Chlor 0.9% Inj 250 ML IV.SIG PRN (04:34)
[2018-08-03] MEDS: Heparin 10,000 UNITS/10 ML Vial (for IV use) IV.PUSH PRN ×2 (04:47→12:19)
[2018-08-03] MEDS: Hydrocortisone Sod Succinate 100 MG Vial IV.PUSH SCH ×3 (05:35→22:48)
[2018-08-03] MEDS: hydrALAZINE 25 MG Tablet PO PRN ×2 (05:35→23:54)
[2018-08-03] MEDS: Artificial Tears Opth Drops 15 ML Bottle EACH EYE SCH ×3 (05:36→23:40)
--- NOTE | 2018-08-03 07:01 | XR ---
EXAM DATE: 08/03/2018 6:26 AM EST AGE/SEX: 53 years / Male INDICATIONS: Shortness of breath, possible pulmonary disease. CLINICAL DATA: This is the patient's subsequent encounter. Patient reports that signs and symptoms h ave been present for 4 - 6 days and indicates a pain score of Nonresponsive. MEDICAL/SURGICAL HISTORY: Non-responsive. Non-responsive. COMPARISON: [facility] – [place], CHEST 1V SINGLE AP, 08/02/2018. . FINDINGS: A single AP semierect view of the chest was obtained and again demonstrates an endotracheal tube in p lace with the tip 1 cm above the lit. The nasogastric tube and right internal jugular central veno us line remain in place. The study is mid inspiratory. Hazy perihilar and bibasilar opacities remain with no distinct effusion. The heart size is at the upper limits of normal. CONCLUSION: Stable appearance with hazy opacity remaining in the lungs. Electronically signed by: Romeo Mishra MD Board Certified Radiologist 08/03/2018 7:00 AM EST
[2018-08-03] MEDS: Carvedilol 6.25 MG Tablet PO SCH ×2 (08:15→20:33)
[2018-08-03] MEDS: Potassium Chloride 25 MEQ Effervescent Tablet NG/OG SCH ×2 (08:15→20:33)
[2018-08-03] MEDS: Pantoprazole Inj 40 MG Vial IV.PUSH SCH (08:16)
[2018-08-03] MEDS: Chlorhexidine 0.12% Oral Kit 15 ML UDC OROPHARYNG SCH ×2 (08:16→20:34)
[2018-08-03] MEDS: Heparin Drip 25,000 UNIT/250 ML BAG IV.CONT PRN ×2 (08:17→23:53)
[2018-08-03] MEDS: Senna/Docusate Sodium 8.6/50 MG Tablet PO SCH ×2 (10:09→20:35)
--- NOTE | 2018-08-03 10:42 | P.PNCC ---
Subjective Subjective Remarks/Hospital Course: This is a 53-year-old male. Date of admission 07/30/2018. Past medical history in reviewing records includes headaches and increased BMI. Per ED documentation this patient arrived to [facility] via private vehicle by a friend who found him unconscious at his residence. According to the friend the patient was unconscious last night, when they reevaluated the patient this morning he was still unconscious with sonorous respirations. Upon Dr. Rodgers examination, this patient was noted to be tachycardic, hypoxic, and severely confused. The patient's blood sugar was 88 at bedside, the patient was administered Narcan intravenously, he became somewhat more responsive but extremely combative and agitated. Bed. No further information is obtainable from the patient. 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 Attempt to contact these people were not successful A central line and arterial line placed with the ED physician. Patient was quite hypotensive and required 4 L of normal saline crystalloid resuscitation. He was started on norepinephrine is currently 50 mcg/min. Patient had no palpable pulse and patient actually was coded for 2 minutes after receiving 1 mg of epinephrine and 1 ampicillin bicarbonate with return of spontaneous circulation after 2 minutes. During the code he received a crystalloid bolus. She is currently on epinephrine, phenylephrine and vasopressin drips. CT brain revealed no acute intracranial signs. Tox screen revealed opiates and cocaine. Laboratories reveal initial lactate of 6.6 currently 4.4. Leukocytosis, acute kidney injury with creatinine 3.1 and elevated transaminases and ammonia level. 13: Lactic currently trending down to 3.6. Elevated troponin start heparin drip overnight. Remains on aspirin. Unable to do beta-amy or TOR inhibitor due to hypotension/is received in acute kidney injury. Lipids normal. Cardiology evaluated the same. Adequate urine output. Replacing electrolytes the same. Arousable the ventilator and follows commands. 1/4: Resting in bed in no acute distress. Attempting weaning today. Creatinine improving. CPK downtrending. Arousable and follows commands. Subjective 5: Afebrile. Creatinine downtrending currently 1.4. CPK downtrending in the 5000. Patient potassium and phosphorus currently. Remains on dexmedetomidine drip at 0.8 mcg/kg/h. Hypertensive we will start carvedilol 08/03: Remains orally intubated on mechanical ventilation Objective Vital Signs / I&O: Vital Signs 08/02/18 11:00 08/02/18 11:35 08/02/18 11:42 Temperature 98.6 F Pulse Rate 66 82 Respiratory Rate 12 20 19 Blood Pressure 153/108 H Pulse Oximetry 100 99 08/02/18 12:00 08/02/18 14:00 08/02/18 14:45 Temperature Pulse Rate 68 65 70 Respiratory Rate 13 Blood Pressure 164/106 H Pulse Oximetry 08/02/18 15:19 08/02/18 16:00 08/02/18 17:00 Temperature 98.5 F Pulse Rate 66 61 Respiratory Rate 13 12 13 Blood Pressure 184/105 H 178/105 H Pulse Oximetry 97 95 94 L 08/02/18 18:00 08/02/18 19:00 08/02/18 19:01 Temperature Pulse Rate 70 67 66 Respiratory Rate 15 17 16 Blood Pressure 191/109 H 156/88 H Pulse Oximetry 97 92 L 94 L 08/02/18 20:00 08/02/18 20:35 08/02/18 21:00 Temperature Pulse Rate 62 60 67 Respiratory Rate 16 16 16 Blood Pressure 149/89 H 168/100 H Pulse Oximetry 92 L 96 94 L 08/02/18 22:00 08/02/18 23:00 08/03/18 00:00 Temperature Pulse Rate 64 51 L 55 L Respiratory Rate 13 0 L 0 L Blood Pressure 159/93 H 142/86 H 160/105 H Pulse Oximetry 95 96 97 08/03/18 00:33 08/03/18 01:00 08/03/18 02:00 Temperature Pulse Rate 55 L 54 L 56 L Respiratory Rate 16 0 L 0 L Blood Pressure 166/104 H 171/104 H Pulse Oximetry 98 97 95 08/03/18 03:00 08/03/18 04:00 08/03/18 04:11 Temperature Pulse Rate 51 L 49 L 48 L Respiratory Rate 0 L 0 L 17 Blood Pressure 170/103 H 177/105 H Pulse Oximetry 95 96 96 08/03/18 05:00 08/03/18 06:00 08/03/18 07:00 Temperature Pulse Rate 46 L 48 L 55 L Respiratory Rate 0 L 16 Blood Pressure 172/103 H 172/106 H Pulse Oximetry 96 97 08/03/18 07:23 08/03/18 07:45 08/03/18 08:00 Temperature Pulse Rate 57 L 71 Respiratory Rate 12 14 22 Blood Pressure 184/109 H Pulse Oximetry 98 96 08/03/18 09:00 08/03/18 10:00 Temperature Pulse Rate 59 L 69 Respiratory Rate 9 L 25 H Blood Pressure 175/107 H Pulse Oximetry 95 96 Intake & Output 08/02/18 08/03/18 08/03/18 18:59 06:59 18:59 Intake Total 3917.5 / 3917.5 1722 / 1722 550 / 550 Output Total 600 / 600 5500 / 5500 Balance 3317.5 / 3317.5 -3778 / -3778 550 / 550 Weight 116 kg Intake: IV 3827.5 / 3827.5 1550 / 1550 550 / 550 Precedex Inj 1,000 MCG In NS 250 / 250 250 / 250 250 / 250 Inj 240 ML @ 0.2 MCG/KG/HR 5.71 mls/hr IV.CONT TITRATE PRN Rx# :[id number] Precedex Inj 200 MCG In NS Inj 100 / 100 48 ML @ 0.2 MCG/KG/HR 5.71 mls/ hr IV.CONT TITRATE PRN Rx#: [id number] Heparin/D5W 25,000 U/250 mL 25, 250 / 250 100 / 100 250 / 250 000 unit In 250 ml @ Per Protocol IV.CONT TITRATE PRN Rx #:[id number] NS Inj 1,000 ML @ 75 mls/hr IV. 1999 / 1999 1000 / 1000 CONT .[id number] SUSIE Rx#:[id number] Zosyn 2.25 GM Premix 2.25 gm In 100 / 100 100 / 100 50 / 50 50 ml @ 100 mls/hr IV.SIG Q6H SUSIE Rx#:[id number] KCl 20 mEq Premix Inj 20 meq In 100 / 100 100 ml @ 50 mls/hr IV.SIG Q2H PRN Rx#:[id number] KCl 40 mEq Premix Inj 40 meq In 100 / 100 100 ml @ 25 mls/hr IV.SIG UNSCH PRN Rx#:[id number] Potassium Phosphate Inj 30 MMOL 260 / 260 In NS Inj 250 ML @ 42 mls/hr IV.SIG UNSCH PRN Rx#:[id number] Vancomycin Inj 1,750 MG In NS 517.5 / 517.5 Inj 500 ML @ 250 mls/hr IV.SIG ONCE ONE Rx#:[id number] fentaNYL 10 mcg/mL Premix Drip 250 / 250 2,500 mcg In 250 ml @ 50 MCG/HR 5 mls/hr IV.SIG TITRATE PRN Rx #:[id number] Tube Feeding 22 / 22 Water Bolus Amount 90 / 90 150 / 150 Output: Urine Amount (Catheter) 600 / 600 5350 / 5350 Condom 600 / 600 5350 / 5350 Gastric Drainage 150 / 150 Oral 150 / 150 Other: # Incontinent Voids 2 # Bowel Movements 0 Result Diagrams: 08/03/18 03:02 08/03/18 03:02 Imaging: Impressions Chest X-Ray 08/02/18 06:00 CONCLUSION: No significant change. Bilateral hazy airspace disease remains. Chest X-Ray 08/03/18 06:00 CONCLUSION: Stable appearance with hazy opacity remaining in the lungs. Objective Remarks: GENERAL: This is a 53-year-old male currently orotracheally intubated SKIN: Warm and dry. Multiple tattoos. HEAD: Atraumatic. Normocephalic. EYES: Pupils equal and round. No scleral icterus. No injection or drainage. ENT: No nasal bleeding or discharge. Mucous membranes pink and moist. NECK: Trachea midline. No JVD. Right IJ CVL is clean dry and intact CARDIOVASCULAR: Regular rate and rhythm. S1, S2. No S4. Without murmur RESPIRATORY: Few crackles in the bases. No wheezing. GASTROINTESTINAL: Abdomen soft, non-tender, nondistended. Hepatic and splenic margins not palpable. MUSCULOSKELETAL: Extremities with trace bilateral lower extremity edema. No obvious deformities. NEUROLOGICAL: Arousable on the ventilator follows simple commands. Opens eyes. Positive gag and cough. Moves all 4 extremities spontaneously. Assessment and Plan - Assessment and Plan Plan: Neuro/Psych: Polysubstance use including heroin, cocaine and opiates Currently on midazolam drip for sedation/analgesia while intubated Goal of RA SS -[address] brain revealed no acute intracranial findings CV: Severe shock Lactic acidosis Status post 4 L normal saline in the ED. Aggressive crystalloid resuscitation. Norepinephrine, phenylephrine and vasopressin to maintain mean artery pressure critical 65 wean as tolerated. Continue sterile water 3 ampoules of sodium bicarbonate 150 cc an hour Serial lactates until cleared. Currently 3.6 Cycle troponins trending upward. Heparin drip initiated overnight 2D echocardiogram ejection fraction 50%. PA P 25 mmHg. Mild TR. Cardiology consultation for elevated troponin. Aspirin 81 mg daily. I will beta-amy or TOR inhibitor due to acute kidney injury/hypotension vasopressors unable to use statin secondary to liver injury. Resp: Acute respiratory failure Aspiration pneumonia PRVC ventilation Head of bed at 30 degrees Ventilator bundle Albuterol/ipratropium aerosols every 4 hours with albuterol aerosols every 2 as needed dyspnea Spontaneous breathing trials and clinically indicated chest x-ray revealed bilateral lower lobe infiltrates 1/3 GI: Elevated transaminases Elevated ammonia NG tube to low inner wall suction to PT if not extubated Pantoprazole for GI prophylax Docusate serum/senna 1 tablet twice daily for bowel regimen Follow-up on ammonia level in a.m. 1/6 Lactulose 30 cc twice daily Hepatitis panel negative : Giles catheter is indicated for accurate I's and O's in a critical patient Endo: Elevated TSH Check free T3-T4. Sliding scale insulin Accu-Cheks to maintain euglycemia Renal: Acute kidney injury Rhabdomyolysis Renal ultrasound revealed enlarged echogenic liver however no signs of hydronephrosis Check urine eosinophil Avoid nephrotoxic medication Nephrology consultation Monitor urine output Follow BMP, CPK . CPK is downtrending Heme: Leukocytosis Normocytic anemia Monitor CBC daily. Follow trends. No indication for transfusion of blood products at this time ID: Empirically placed on vancomycin and piperacillin/tazobactam day #4 Blood cultures x2 no growth. FEN: Hypokalemia Hypophosphatemia Hypermagnesia Replace electro lites as clinically indicated per ICU likely protocol. Currently on sterile water with C bicarbonate for rhabdomyolysis. Continue. MSK: Elevated BMI Weight loss encouraged PT evaluate and treat Access -Right IJ CVL day4. Right femoral arterial line day4 Prophylaxis -GI pantoprazole DVT-SCD/heparin drip 35 minutes critical care time follow-up Code Status: Full code Procedures - Arterial Line Size (Gauge): 18
--- NOTE | 2018-08-03 11:05 | P.PNNP ---
Subjective Interval history: remains intubated Physical Exam Vital signs: Vital Signs 08/02/18 11:00 08/02/18 11:35 08/02/18 11:42 Temperature 98.6 F Pulse Rate 66 82 Respiratory Rate 12 20 19 Blood Pressure 153/108 H Pulse Oximetry 100 99 08/02/18 12:00 08/02/18 14:00 08/02/18 14:45 Temperature Pulse Rate 68 65 70 Respiratory Rate 13 Blood Pressure 164/106 H Pulse Oximetry 08/02/18 15:19 08/02/18 16:00 08/02/18 17:00 Temperature 98.5 F Pulse Rate 66 61 Respiratory Rate 13 12 13 Blood Pressure 184/105 H 178/105 H Pulse Oximetry 97 95 94 L 08/02/18 18:00 08/02/18 19:00 08/02/18 19:01 Temperature Pulse Rate 70 67 66 Respiratory Rate 15 17 16 Blood Pressure 191/109 H 156/88 H Pulse Oximetry 97 92 L 94 L 08/02/18 20:00 08/02/18 20:35 08/02/18 21:00 Temperature Pulse Rate 62 60 67 Respiratory Rate 16 16 16 Blood Pressure 149/89 H 168/100 H Pulse Oximetry 92 L 96 94 L 08/02/18 22:00 08/02/18 23:00 08/03/18 00:00 Temperature Pulse Rate 64 51 L 55 L Respiratory Rate 13 0 L 0 L Blood Pressure 159/93 H 142/86 H 160/105 H Pulse Oximetry 95 96 97 08/03/18 00:33 08/03/18 01:00 08/03/18 02:00 Temperature Pulse Rate 55 L 54 L 56 L Respiratory Rate 16 0 L 0 L Blood Pressure 166/104 H 171/104 H Pulse Oximetry 98 97 95 08/03/18 03:00 08/03/18 04:00 08/03/18 04:11 Temperature Pulse Rate 51 L 49 L 48 L Respiratory Rate 0 L 0 L 17 Blood Pressure 170/103 H 177/105 H Pulse Oximetry 95 96 96 08/03/18 05:00 08/03/18 06:00 08/03/18 07:00 Temperature Pulse Rate 46 L 48 L 55 L Respiratory Rate 0 L 16 Blood Pressure 172/103 H 172/106 H Pulse Oximetry 96 97 08/03/18 07:23 08/03/18 07:45 08/03/18 08:00 Temperature Pulse Rate 57 L 71 Respiratory Rate 12 14 22 Blood Pressure 184/109 H Pulse Oximetry 98 96 08/03/18 09:00 08/03/18 10:00 Temperature Pulse Rate 59 L 69 Respiratory Rate 9 L 25 H Blood Pressure 175/107 H Pulse Oximetry 95 96 Intake & Output 08/02/18 08/03/18 08/03/18 18:59 06:59 18:59 Intake Total 3917.5 / 3917.5 1722 / 1722 550 / 550 Output Total 600 / 600 5500 / 5500 Balance 3317.5 / 3317.5 -3778 / -3778 550 / 550 Weight 116 kg Intake: IV 3827.5 / 3827.5 1550 / 1550 550 / 550 Precedex Inj 1,000 MCG In NS 250 / 250 250 / 250 250 / 250 Inj 240 ML @ 0.2 MCG/KG/HR 5.71 mls/hr IV.CONT TITRATE PRN Rx# :[id number] Precedex Inj 200 MCG In NS Inj 100 / 100 48 ML @ 0.2 MCG/KG/HR 5.71 mls/ hr IV.CONT TITRATE PRN Rx#: [id number] Heparin/D5W 25,000 U/250 mL 25, 250 / 250 100 / 100 250 / 250 000 unit In 250 ml @ Per Protocol IV.CONT TITRATE PRN Rx #:[id number] NS Inj 1,000 ML @ 75 mls/hr IV. 1999 / 1999 1000 / 1000 CONT .[id number] SUSIE Rx#:[id number] Zosyn 2.25 GM Premix 2.25 gm In 100 / 100 100 / 100 50 / 50 50 ml @ 100 mls/hr IV.SIG Q6H SUSIE Rx#:[id number] KCl 20 mEq Premix Inj 20 meq In 100 / 100 100 ml @ 50 mls/hr IV.SIG Q2H PRN Rx#:[id number] KCl 40 mEq Premix Inj 40 meq In 100 / 100 100 ml @ 25 mls/hr IV.SIG UNSCH PRN Rx#:[id number] Potassium Phosphate Inj 30 MMOL 260 / 260 In NS Inj 250 ML @ 42 mls/hr IV.SIG UNSCH PRN Rx#:[id number] Vancomycin Inj 1,750 MG In NS 517.5 / 517.5 Inj 500 ML @ 250 mls/hr IV.SIG ONCE ONE Rx#:[id number] fentaNYL 10 mcg/mL Premix Drip 250 / 250 2,500 mcg In 250 ml @ 50 MCG/HR 5 mls/hr IV.SIG TITRATE PRN Rx #:[id number] Tube Feeding 22 / Water Bolus Amount 90 / 90 150 / 150 Output: Urine Amount (Catheter) 600 / 600 5350 / 5350 Condom 600 / 600 5350 / 5350 Gastric Drainage 150 / 150 Oral 150 / 150 Other: # Incontinent Voids 2 # Bowel Movements 0 - Constitutional no acute distress - Routine HEENT Exam Head: Present: normocephalic - Routine Neck Exam Present: supple - Routine Respiratory Exam Present: patient mechanically ventilated, decreased breath sounds - Routine Cardiovascular Exam Present: RRR - Routine Abdominal Exam Present: soft - Routine Skin Exam Present: intact - Routine Neurological Exam Present: altered mental status - Routine Psychiatric Exam Present: unable to assess - Urinary Catheter Management Indwelling Urethral Catheter Cath placed during this visit: yes, but has since been removed by the nurse Reason for continuing: Hourly intake/output Insertion date: 07/30/18 Insertion time: 09:24 Removal date: 08/01/18 Removal time: 16:00 Condom Cath placed during this visit: no Assessment and Plan - Assessment (1) Acute kidney injury Code(s): N17.9 - Acute kidney failure, unspecified Status: Acute Plan: Patient was admitted with resp. failure and was intubated. Patient has GRABIEL, most likely due to ATN from Hypotension. CK level trending down Remains non oliguric, and Creatinine is stable: 1.4-> 1.39 -> 1.4 today Started on lasix 40mg IV q6 last night to help with weaning off ventilator. 5.9L UOP, continue diuresis for now. Continue to monitor creatinine. K is low, on replacement, closely monitor, follow magnesium as well. Weaning as per CCM. (2) Acute respiratory failure Code(s): J96.00 - Acute respiratory failure, unspecified whether with hypoxia or hypercapnia Status: Acute Plan: Wean as tolerated Antibiotics for aspiration pneumonia (3) Septic shock Code(s): A41.9 - Sepsis, unspecified organism; R65.21 - Severe sepsis with septic shock Status: Acute Plan: Improving, off pressors Procedures - Arterial Line Size (Gauge): 18
--- NOTE | 2018-08-03 12:17 | P.PNCA ---
Subjective Interval history: Intubated. Awake. Denies CP, SOB, dizziness, palpitations. Medications and Allergies Active Medications: Active Medications Al Hydroxide/Mg Hydroxide (Milk Of Magnrick Liq) 30 ml PO Q12H PRN PRN Reason: Mild Constipation Albuterol (Albuterol Neb (Prn)) 2.5 mg NEB Q2HR NEB PRN PRN Reason: SHORTNESS OF BREATH Albuterol (Duoneb Neb ([facility])) 1 ampul NEB Q4HR NEB [facility] Last Admin: 08/03/18 11:10 Dose: 1 ampul Artificial Tears (Tears Naturale Opth Drops) 1 drop EACH EYE Q8H [facility] Last Admin: 08/03/18 05:36 Dose: 1 drop Aspirin (Aspirin Chew) 81 mg PO DAILY [facility] Last Admin: 08/03/18 08:15 Dose: 81 mg Bisacodyl (Dulcolax Supp) 10 mg RECTAL DAILY PRN PRN Reason: SEVERE CONSITIPATION Carvedilol (Coreg) 6.25 mg PO BID [facility] Last Admin: 08/03/18 08:15 Dose: 6.25 mg Chlorhexidine Gluconate (Peridex 0.12% Oral Kit) 15 ml OROPHARYNG BID@0800, 2000 [facility] Last Admin: 08/03/18 08:16 Dose: 15 ml Chlorhexidine Gluconate (Chlorhexidine 2% Cloth) 3 pack TOPICAL DAILY@0400 [facility] Stop: 08/05/18 03:59 Last Admin: 08/03/18 04:34 Dose: 3 pack Chlorhexidine Gluconate (Chlorhexidine 2% Cloth) 3 pack TOPICAL DAILY@0400 PRN PRN Reason: Extra cloth needed Stop: 08/05/18 03:59 Dextrose (D50w Vial) 50 ml IV.PUSH UNSCH PRN PRN Reason: PER HYPOGLYCEMIA PROTOCOL Furosemide (Lasix Inj) 40 mg IV.PUSH Q6H [facility] Last Admin: 08/03/18 08:14 Dose: 40 mg Glucagon (Glucagon Inj) 1 mg OTHER PRN PRN PRN Reason: for Hypoglycemia Protocol Heparin Sodium (Porcine) (Heparin Inj) 2,500 units IV.PUSH UNSCH PRN PRN Reason: aPTT 25-39 Last Admin: 08/02/18 22:33 Dose: 2,500 units Hydralazine HCl (Apresoline) 25 mg PO Q6H PRN PRN Reason: SBP>165, DBP>90 Last Admin: 08/03/18 05:35 Dose: 25 mg Hydrocortisone Sodium Succinate (Solucortef Inj) 100 mg IV.PUSH Q8HR [facility] Last Admin: 08/03/18 05:35 Dose: 100 mg Midazolam HCl (Versed Inj) 100 mg in 100 mls @ 2 mls/hr IV.CONT TITRATE PRN; Protocol PRN Reason: See protocol Last Titration: 08/01/18 09:05 Dose: Infused Phenylephrine HCl 160 mg/ (Sodium Chloride) 500 mls @ 7.5 mls/hr IV.CONT TITRATE PRN; Protocol PRN Reason: Per Protocol Last Titration: 08/01/18 07:16 Dose: 0 mcg/min, 0 mls/hr Norepinephrine Bitartrate 16 (mg/ Sodium Chloride) 250 mls @ 1.87 mls/hr IV.CONT TITRATE PRN; Protocol PRN Reason: See Protocol Last Titration: 08/01/18 09:05 Dose: Infused Piperacillin/Tazobactam/Dextrose (Zosyn 2.25 Gm Premix) 2.25 gm in 50 mls @ 100 mls/hr IV.SIG Q6H [facility] Last Infusion: 08/03/18 10:09 Dose: Infused Fentanyl (Fentanyl 10 Mcg/Ml Premix Drip) 2,500 mcg in 250 mls @ 5 mls/hr IV.SIG TITRATE PRN; Protocol PRN Reason: Per Protocol Last Titration: 08/02/18 07:59 Dose: Infused Magnesium Sulfate 4 gm/ Sodium (Chloride) 100 mls @ 50 mls/hr IV.SIG UNSCH PRN PRN Reason: For Magnesium 0.9 - 1.1 mg/dL Magnesium Sulfate 2 gm/ Sodium (Chloride) 100 mls @ 50 mls/hr IV.SIG UNSCH PRN PRN Reason: For Magnesium 1.2 - 1.6 mg/dL Potassium Chloride (Kcl 40 Meq Premix Inj) 40 meq in 100 mls @ 25 mls/hr IV.SIG Q2H PRN PRN Reason: For Potassium 2.8 - 3.2 mEq/L Last Infusion: 08/02/18 00:32 Dose: Infused Potassium Chloride (Kcl 20 Meq Premix Inj) 20 meq in 100 mls @ 50 mls/hr IV.SIG Q2H PRN PRN Reason: For Potassium 3.3 - 3.5 mEq/L Last Infusion: 08/02/18 09:48 Dose: Infused Potassium Chloride (Kcl 20 Meq Premix Inj) 20 meq in 100 mls @ 50 mls/hr IV.SIG Q2H PRN PRN Reason: For Potassium 2.8 - 3.2 mEq/L Potassium Phosphate 30 mmol/ (Sodium Chloride) 260 mls @ 42 mls/hr IV.SIG UNSCH PRN PRN Reason: SEE LABEL COMMENTS Last Infusion: 08/03/18 11:01 Dose: Infused Sodium Phosphate 30 mmol/ (Sodium Chloride) 260 mls @ 42 mls/hr IV.SIG UNSCH PRN PRN Reason: For Phosphorus < 2.5 mg/dL Potassium Chloride (Kcl 40 Meq Premix Inj) 40 meq in 100 mls @ 25 mls/hr IV.SIG UNSCH PRN PRN Reason: For Potassium 3.3 - 3.5 mEq/L Last Infusion: 08/03/18 02:34 Dose: Infused Dexmedetomidine HCl 1,000 mcg/ (Sodium Chloride) 250 mls @ 5.71 mls/hr IV.CONT TITRATE PRN; Protocol PRN Reason: Per Protocol Last Admin: 08/03/18 07:05 Dose: 1.1 mcg/kg/hr, 31.43 mls/hr Nitroglycerin/Dextrose (Nitroglycerin Drip Premix) 50 mg in 250 mls @ 1.5 mls/ hr IV.CONT TITRATE PRN; Protocol PRN Reason: Per Protocol Last Titration: 08/02/18 23:39 Dose: 30 mcg/min, 9 mls/hr Heparin Sodium/Dextrose (Heparin/D5w 25,000 U/250 Ml) 25,000 unit in 250 mls @ 0 mls/hr IV.CONT TITRATE PRN; Protocol PRN Reason: Per Protocol Last Admin: 08/03/18 08:17 Dose: 1,700 units/hr, 17 mls/hr Propofol (Diprivan 1000 Mg/100 Ml Inj) 1,000 mg in 100 mls @ 3.492 mls/hr IV.CONT TITRATE PRN; Protocol PRN Reason: Per Protocol Last Titration: 08/03/18 03:30 Dose: 5 mcg/kg/min, 3.49 mls/hr Vancomycin HCl 1,500 mg/ (Sodium Chloride) 515 mls @ 250 mls/hr IV.SIG Q24H [facility] Insulin Aspart (Novolog Insulin Correctional Sugar Inj) 0 unit SQ Q6HR [facility]; Protocol Last Admin: 08/03/18 05:35 Dose: Not Given Labetalol HCl (Trandate Inj) 10 mg IV.PUSH Q1H PRN PRN Reason: Sbp>165, Dbp>90, Hr>65 Last Admin: 08/02/18 16:33 Dose: 10 mg Lactulose (Lactulose Liq) 30 ml PO DAILY PRN PRN Reason: SEVERE CONSITIPATION Lactulose (Lactulose Liq) 30 ml PO BID [facility] Last Admin: 08/03/18 08:15 Dose: 30 ml Magnesium Oxide (Mag-Ox) 800 mg PO UNSCH PRN PRN Reason: For Magnesium 1.2 - 1.6 mg/dL Miscellaneous Information ([facility] Ordered Lab Info) 0 each OTHER ONCE ONE Stop: 08/05/18 12:46 Miscellaneous Medication () 1 each OROPHARYNG 0000,0400,1200,1600 [facility] Last Admin: 08/03/18 04:35 Dose: 1 each Nitroglycerin (Nitro-Bid 2% Oint) 2 inch TOPICAL Q6HR PRN PRN Reason: Sbp>165, Dbp>90 Last Admin: 08/02/18 16:32 Dose: 2 inch Pantoprazole Sodium (Protonix Inj) 40 mg IV.PUSH DAILY [facility] Last Admin: 08/03/18 08:16 Dose: 40 mg Pharmacy Profile Note (Vancomycin Consult Pharmacy) 1 each OTHER UNSCH PRN PRN Reason: Pharmacy to dose Potassium Bicarb/Potassium Chloride (K-Lyte Cl Eff) 50 meq PO UNSCH PRN PRN Reason: For Potassium 3.3 - 3.5 mEq/L Potassium Bicarb/Potassium Chloride (K-Lyte Cl Eff) 50 meq NG/OG BID [facility] Stop: 08/03/18 21:01 Last Admin: 08/03/18 08:15 Dose: 50 meq Potassium Phosphate (K-Phos Original) 2,000 mg PO Q4H PRN PRN Reason: Phosphorus Less Than 2.5 mg/dL Potassium Phosphate (K-Phos Original) 2,000 mg PO UNSCH PRN PRN Reason: SEE LABEL COMMENTS Senna/Docusate Sodium (Vonda-Colace) 1 tab PO BID [facility] Last Admin: 08/03/18 10:09 Dose: Not Given Sennosides (Senokot) 17.2 mg PO Q12H PRN PRN Reason: Moderate Constipation Sodium Chloride (Ns Flush) 2 ml IV.FLUSH BID [facility] Last Admin: 08/03/18 08:16 Dose: 2 ml Sodium Chloride (Ns Flush) 2 ml IV.FLUSH PRN PRN PRN Reason: FLUSH AFTER USING IV ACCESS Last Admin: 08/02/18 08:01 Dose: 2 ml Sterile Water (Free Water) 0 ml G-TUBE Q8HR [facility] Last Admin: 08/03/18 05:35 Dose: 100 ml Terbutaline Sulfate (Brethine Inj) 1 mg SQ UNSCH PRN PRN Reason: For Extravasation Allergies Allergy/AdvReac Type Severity Reaction Status Date / Time No Known Allergies Allergy Verified 07/30/18 08:55 Home Medications Medication Instructions Recorded Confirmed Type Unable to Obtain Home Meds 07/30/18 07/30/18 History Physical Exam Vital signs: Vital Signs 08/02/18 14:00 08/02/18 14:45 08/02/18 15:19 Temperature Pulse Rate 65 70 Respiratory Rate 13 13 Blood Pressure Pulse Oximetry 97 08/02/18 16:00 08/02/18 17:00 08/02/18 18:00 Temperature 98.5 F Pulse Rate 66 61 70 Respiratory Rate 12 13 15 Blood Pressure 184/105 H 178/105 H 191/109 H Pulse Oximetry 95 94 L 97 08/02/18 19:00 08/02/18 19:01 08/02/18 20:00 Temperature Pulse Rate 67 66 62 Respiratory Rate 17 16 16 Blood Pressure 156/88 H 149/89 H Pulse Oximetry 92 L 94 L 92 L 08/02/18 20:35 08/02/18 21:00 08/02/18 22:00 Temperature Pulse Rate 60 67 64 Respiratory Rate 16 16 13 Blood Pressure 168/100 H 159/93 H Pulse Oximetry 96 94 L 95 08/02/18 23:00 08/03/18 00:00 08/03/18 00:33 Temperature Pulse Rate 51 L 55 L 55 L Respiratory Rate 0 L 0 L 16 Blood Pressure 142/86 H 160/105 H Pulse Oximetry 96 97 98 08/03/18 01:00 08/03/18 02:00 08/03/18 03:00 Temperature Pulse Rate 54 L 56 L 51 L Respiratory Rate 0 L 0 L 0 L Blood Pressure 166/104 H 171/104 H 170/103 H Pulse Oximetry 97 95 95 08/03/18 04:00 08/03/18 04:11 08/03/18 05:00 Temperature Pulse Rate 49 L 48 L 46 L Respiratory Rate 0 L 17 0 L Blood Pressure 177/105 H 172/103 H Pulse Oximetry 96 96 96 08/03/18 06:00 08/03/18 07:00 08/03/18 07:23 Temperature Pulse Rate 48 L 55 L 57 L Respiratory Rate 16 12 Blood Pressure 172/106 H Pulse Oximetry 97 08/03/18 07:45 08/03/18 08:00 08/03/18 09:00 Temperature Pulse Rate 71 59 L Respiratory Rate 14 22 9 L Blood Pressure 184/109 H 175/107 H Pulse Oximetry 98 96 95 08/03/18 10:00 08/03/18 11:11 Temperature Pulse Rate 69 55 L Respiratory Rate 25 H 13 Blood Pressure Pulse Oximetry 96 96 Intake & Output 08/02/18 08/03/18 08/03/18 18:59 06:59 18:59 Intake Total 3917.5 / 3917.5 1722 / 1722 810 / 810 Output Total 600 / 600 5500 / 5500 Balance 3317.5 / 3317.5 -3778 / -3778 810 / 810 Weight 116 kg Intake: IV 3827.5 / 3827.5 1550 / 1550 810 / 810 Precedex Inj 1,000 MCG In NS 250 / 250 250 / 250 250 / 250 Inj 240 ML @ 0.2 MCG/KG/HR 5.71 mls/hr IV.CONT TITRATE PRN Rx# :[id number] Precedex Inj 200 MCG In NS Inj 100 / 100 48 ML @ 0.2 MCG/KG/HR 5.71 mls/ hr IV.CONT TITRATE PRN Rx#: [id number] Heparin/D5W 25,000 U/250 mL 25, 250 / 250 100 / 100 250 / 250 000 unit In 250 ml @ Per Protocol IV.CONT TITRATE PRN Rx #:[id number] NS Inj 1,000 ML @ 75 mls/hr IV. 1999 / 1999 1000 / 1000 CONT .[id number] [facility] Rx#:[id number] Zosyn 2.25 GM Premix 2.25 gm In 100 / 100 100 / 100 50 / 50 50 ml @ 100 mls/hr IV.SIG Q6H [facility] Rx#:[id number] KCl 20 mEq Premix Inj 20 meq In 100 / 100 100 ml @ 50 mls/hr IV.SIG Q2H PRN Rx#:[id number] KCl 40 mEq Premix Inj 40 meq In 100 / 100 100 ml @ 25 mls/hr IV.SIG UNSCH PRN Rx#:[id number] Potassium Phosphate Inj 30 MMOL 260 / 260 260 / 260 In NS Inj 250 ML @ 42 mls/hr IV.SIG UNSCH PRN Rx#:[id number] Vancomycin Inj 1,750 MG In NS 517.5 / 517.5 Inj 500 ML @ 250 mls/hr IV.SIG ONCE ONE Rx#:[id number] fentaNYL 10 mcg/mL Premix Drip 250 / 250 2,500 mcg In 250 ml @ 50 MCG/HR 5 mls/hr IV.SIG TITRATE PRN Rx #:[id number] Tube Feeding 22 / Water Bolus Amount 90 / 90 150 / 150 Output: Urine Amount (Catheter) 600 / 600 5350 / 5350 Condom 600 / 600 5350 / 5350 Gastric Drainage 150 / 150 Oral 150 / 150 Other: # Incontinent Voids 2 # Bowel Movements 0 - Constitutional no acute distress - Routine Neck Exam Absent: JVD - Routine Respiratory Exam Present: CTA bilaterally - Routine Cardiovascular Exam Present: RRR, S1, S2. Absent: murmur, gallop - Routine Abdominal Exam Present: soft, normoactive bowel sounds. Absent: tenderness, organomegaly - Routine Extremities Exam Absent: cyanosis, clubbing, edema - Urinary Catheter Management Indwelling Urethral Catheter Cath placed during this visit: yes, but has since been removed by the nurse Reason for continuing: Hourly intake/output Insertion date: 07/30/18 Insertion time: 09:24 Removal date: 08/01/18 Removal time: 16:00 Condom Cath placed during this visit: no Results 08/03/18 03:02 08/03/18 03:02 Cardiac Enzymes 08/01/18 08/02/18 08/02/18 Range/Units 21:00 03:05 20:09 AST 243 H (15-37) U/L CK-MB (CK-2) 7.4 H 6.0 H 3.8 H (0.5-3.6) ng/mL Troponin I 4.67 H* (0.02-0.05) ng/mL 08/03/18 Range/Units 03:02 AST 149 H (15-37) U/L CK-MB (CK-2) 2.6 (0.5-3.6) ng/mL Troponin I (0.02-0.05) ng/mL Coagulation 08/01/18 08/01/18 08/02/18 Range/Units 13:15 21:00 03:05 PT (9.8-11.6) sec APTT 38.7 H 34.5 H 37.3 H (23.4-31.7) sec 08/02/18 08/02/18 08/02/18 Range/Units 09:30 20:09 20:09 PT 9.8 (9.8-11.6) sec APTT 34.5 H 32.9 H (23.4-31.7) sec 08/03/18 08/03/18 Range/Units 03:02 10:51 PT (9.8-11.6) sec APTT 39.7 H D 39.1 H (23.4-31.7) sec CBC 08/02/18 08/03/18 Range/Units 03:05 03:02 WBC 15.3 H 14.3 H (4.0-11.0) th/mm3 RBC 4.09 L 4.29 L (4.50-5.90) mil/mm3 Hgb 11.0 L 11.6 L (13.0-17.0) gm/dL Hct 34.4 L 35.4 L (39.0-51.0) % Plt Count 163 169 (150-450) th/mm3 Neut # (Auto) 14.3 H 12.9 H (1.8-7.7) th/mm3 Lymph # (Auto) 0.5 L 0.7 L (1.0-4.8) th/mm3 [place] # (Auto) 0.5 0.7 (0.0-0.9) th/mm3 Eos # (Auto) 0.0 0.0 (0.0-0.4) th/mm3 Baso # (Auto) 0.0 0.0 (0.0-0.2) th/mm3 Comprehensive Metabolic Panel 08/01/18 08/01/18 08/02/18 Range/Units 13:15 21:00 03:05 Sodium 141 143 (136-145) meq/L Potassium 2.9 L* 3.4 L 3.4 L (3.5-5.1) meq/L Chloride 101 102 (98-107) meq/L Carbon Dioxide 36.6 H 32.4 H (21.0-32.0) meq/L BUN 23 H 23 H (7-18) mg/dL Creatinine 1.41 H 1.39 H (0.60-1.30) mg/dL Calcium 7.5 L 7.7 L (8.5-10.1) mg/dL AST 243 H (15-37) U/L ALT 315 H (12-78) U/L Alkaline Phosphatase 70 (45-117) U/L Total Protein 6.2 L (6.4-8.2) g/dL Albumin 2.5 L (3.4-5.0) g/dL 08/02/18 08/03/18 Range/Units 20:09 03:02 Sodium 143 146 H (136-145) meq/L Potassium 3.5 3.3 L (3.5-5.1) meq/L Chloride 107 107 (98-107) meq/L Carbon Dioxide 32.3 H 33.5 H (21.0-32.0) meq/L BUN 25 H 28 H (7-18) mg/dL Creatinine 1.30 1.43 H (0.60-1.30) mg/dL Calcium 7.6 L 7.8 L (8.5-10.1) mg/dL AST 149 H (15-37) U/L ALT 272 H (12-78) U/L Alkaline Phosphatase 81 (45-117) U/L Total Protein 6.4 (6.4-8.2) g/dL Albumin 2.6 L (3.4-5.0) g/dL Intake and Output 08/02/18 08/03/18 08/03/18 22:59 06:59 14:59 Intake Total 2317.5 / 2317.5 1572 / 1572 810 / 810 Output Total 1800 / 1800 4300 / 4300 Balance 517.5 / 517.5 -2728 / -2728 810 / 810 Intake: IV 2227.5 / 2227.5 1400 / 1400 810 / 810 Precedex Inj 1,000 MCG In NS 250 / 250 250 / 250 250 / 250 Inj 240 ML @ 0.2 MCG/KG/HR 5.71 mls/hr IV.CONT TITRATE PRN Rx# :[id number] Heparin/D5W 25,000 U/250 mL 25, 100 / 100 250 / 250 000 unit In 250 ml @ Per Protocol IV.CONT TITRATE PRN Rx #:[id number] NS Inj 1,000 ML @ 75 mls/hr IV. 1000 / 1000 1000 / 1000 CONT .[id number] [facility] Rx#:[id number] Zosyn 2.25 GM Premix 2.25 gm In 100 / 100 50 / 50 50 / 50 50 ml @ 100 mls/hr IV.SIG Q6H [facility] Rx#:[id number] KCl 40 mEq Premix Inj 40 meq In 100 / 100 100 ml @ 25 mls/hr IV.SIG UNSCH PRN Rx#:[id number] Potassium Phosphate Inj 30 MMOL 260 / 260 260 / 260 In NS Inj 250 ML @ 42 mls/hr IV.SIG UNSCH PRN Rx#:[id number] Vancomycin Inj 1,750 MG In NS 517.5 / 517.5 Inj 500 ML @ 250 mls/hr IV.SIG ONCE ONE Rx#:[id number] Tube Feeding / Water Bolus Amount 90 / 90 150 / 150 Output: Urine Amount (Catheter) 1800 / 1800 4150 / 4150 Condom 1800 / 1800 4150 / 4150 Gastric Drainage 150 / 150 Oral 150 / 150 Other: # Incontinent Voids 2 # Bowel Movements 0 Weight 116 kg - Imaging and Cardiology Imaging: Impressions Chest X-Ray 08/02/18 06:00 CONCLUSION: No significant change. Bilateral hazy airspace disease remains. Chest X-Ray 08/03/18 06:00 CONCLUSION: Stable appearance with hazy opacity remaining in the lungs. Assessment and Plan - Assessment (1) Non-ST elevated myocardial infarction Code(s): I21.4 - Non-ST elevation (NSTEMI) myocardial infarction Status: Acute Plan: Overall stable cardiac status. Renal indices stable. EF roughly 50% by technically very difficult echo. Elevation in troponin possibly related to cocaine abuse. Patient denies any history of CP, dyspnea prior to admission. REC continue carvedilol, no TOR-I or ARB for now with his renal insufficiency, continue aspirin, can stop heparin drip. Recommend Lexiscan nuclear stress test once extubated. Will f/u as needed. - Plan Code Status: full Discussed Condition With: patient and family Procedures - Arterial Line Size (Gauge): 18
[2018-08-03] MEDS ORDERED: Vancomycin Inj 1,500 MG in Sodium Chlor 0.9% Inj 500 ML IV.SIG SCH (13:00)
[2018-08-03] MEDS: Nitroglycerin Drip Premix 50 MG/250 ML BOTTLE IV.CONT PRN (18:03)
[2018-08-04] MEDS: Heparin 10,000 UNITS/10 ML Vial (for IV use) IV.PUSH PRN (02:28)
[2018-08-04] MEDS: Piperacil/Tazo 2.25 GM Premix 2.25 GM/50 ML PIGGYBACK IV.SIG SCH ×2 (02:28→09:11)
[2018-08-04 05:19] LABS: Hematocrit 37.6 % (39.0-51.0); Hemoglobin 12.8 gm/dL (13.0-17.0); Mean Corpuscular HGB Conc 33.9 % (32.0-36.0); Mean Corpuscular Hemoglobin 27.7 pg (27.0-34.0); Mean Corpuscular Volume 81.6 fL (80.0-100.0); Mean Platelet Volume 8.8 fL (7.0-11.0); Platelet Count 209 th/mm3 (150-450); Red Blood Count 4.61 mil/mm3 (4.50-5.90); Red Cell Distribution Width 14.4 % (11.6-17.2); White Blood Count 14.6 th/mm3 (4.0-11.0)
[2018-08-04 05:39] LABS: Alanine Aminotransferase 212 U/L (12-78); Albumin 2.7 g/dL (3.4-5.0); Alkaline Phosphatase 83 U/L (45-117); Anion Gap 6 meq/L (5-15); Aspartate Aminotransferase 107 U/L (15-37); Blood Urea Nitrogen 32 mg/dL (7-18); Calcium 8.1 mg/dL (8.5-10.1); Carbon Dioxide 38.6 meq/L (21.0-32.0); Chloride 99 meq/L (98-107); Glomerular Filtration Rate 49 mL/min (>89); Glucose,Random 101 mg/dL (74-106); Phosphorus 3.1 mg/dL (2.5-4.9); Sodium 144 meq/L (136-145); Total Protein 6.6 g/dL (6.4-8.2)
[2018-08-04 05:49] LABS: Potassium 2.8 meq/L (3.5-5.1)
[2018-08-04] MEDS: Oral Hygiene Kit OROPHARYNG SCH ×4 (05:53→23:02)
[2018-08-04] MEDS: Chlorhexidine Gluconate 2% 1 Pack (2 Cloths) TOPICAL SCH (05:53)
[2018-08-04] MEDS: Insulin NovoLOG Aspart Correctional Sugar Inj SQ SCH ×3 (05:54→19:01)
[2018-08-04] MEDS: Potassium Chlor 40 mEq Premix 40 MEQ/100 ML PIGGYBACK IV.SIG PRN ×3 (06:15→23:01)
[2018-08-04] MEDS: Hydrocortisone Sod Succinate 100 MG Vial IV.PUSH SCH ×3 (06:15→21:12)
[2018-08-04] MEDS: Artificial Tears Opth Drops 15 ML Bottle EACH EYE SCH ×3 (06:15→23:01)
[2018-08-04] MEDS: Senna/Docusate Sodium 8.6/50 MG Tablet PO SCH ×2 (09:04→21:11)
[2018-08-04] MEDS: Carvedilol 6.25 MG Tablet PO SCH ×2 (09:04→21:15)
[2018-08-04] MEDS: Chlorhexidine 0.12% Oral Kit 15 ML UDC OROPHARYNG SCH ×2 (09:05→21:10)
[2018-08-04] MEDS: Pantoprazole Inj 40 MG Vial IV.PUSH SCH (09:05)
[2018-08-04] MEDS ORDERED: Regadenoson Inj 0.4 MG/5 ML Syringe IV.PUSH ONE (10:06)
--- NOTE | 2018-08-04 10:24 | P.PNCC ---
Subjective Subjective Remarks/Hospital Course: This is a 53-year-old male. Date of admission 07/30/2018. Past medical history in reviewing records includes headaches and increased BMI. Per ED documentation this patient arrived to [facility] via private vehicle by a friend who found him unconscious at his residence. According to the friend the patient was unconscious last night, when they reevaluated the patient this morning he was still unconscious with sonorous respirations. Upon Dr. Rodgers examination, this patient was noted to be tachycardic, hypoxic, and severely confused. The patient's blood sugar was 88 at bedside, the patient was administered Narcan intravenously, he became somewhat more responsive but extremely combative and agitated. Bed. No further information is obtainable from the patient. 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 Attempt to contact these people were not successful A central line and arterial line placed with the ED physician. Patient was quite hypotensive and required 4 L of normal saline crystalloid resuscitation. He was started on norepinephrine is currently 50 mcg/min. Patient had no palpable pulse and patient actually was coded for 2 minutes after receiving 1 mg of epinephrine and 1 ampicillin bicarbonate with return of spontaneous circulation after 2 minutes. During the code he received a crystalloid bolus. She is currently on epinephrine, phenylephrine and vasopressin drips. CT brain revealed no acute intracranial signs. Tox screen revealed opiates and cocaine. Laboratories reveal initial lactate of 6.6 currently 4.4. Leukocytosis, acute kidney injury with creatinine 3.1 and elevated transaminases and ammonia level. 07/31: Lactic currently trending down to 3.6. Elevated troponin start heparin drip overnight. Remains on aspirin. Unable to do beta-amy or TOR inhibitor due to hypotension/is received in acute kidney injury. Lipids normal. Cardiology evaluated the same. Adequate urine output. Replacing electrolytes the same. Arousable the ventilator and follows commands. 08/01: Resting in bed in no acute distress. Attempting weaning today. Creatinine improving. CPK downtrending. Arousable and follows commands. 08/02: Afebrile. Creatinine downtrending currently 1.4. CPK downtrending in the 5000. Patient potassium and phosphorus currently. Remains on dexmedetomidine drip at 0.8 mcg/kg/h. Hypertensive we will start carvedilol 08/03: Remains orally intubated on mechanical ventilation Subjective 08/04: Afebrile. Swallow evaluation will initiate diet. Currently on 3 L nasal cannula. Appears comfortable. Objective Vital Signs / I&O: Vital Signs 08/03/18 11:00 08/03/18 11:11 08/03/18 12:00 Temperature Pulse Rate 55 L 55 L 55 L Respiratory Rate 13 13 13 Blood Pressure Pulse Oximetry 97 96 97 08/03/18 13:00 08/03/18 13:55 08/03/18 14:00 Temperature Pulse Rate 60 52 L 57 L Respiratory Rate 13 14 13 Blood Pressure 149/95 H Pulse Oximetry 98 98 97 08/03/18 14:41 08/03/18 14:59 08/03/18 15:00 Temperature Pulse Rate 58 L 55 L Respiratory Rate 12 12 13 Blood Pressure Pulse Oximetry 97 98 08/03/18 15:20 08/03/18 16:00 08/03/18 17:00 Temperature Pulse Rate 59 L 70 Respiratory Rate 16 20 Blood Pressure Pulse Oximetry 95 94 L 90 L 08/03/18 18:00 08/03/18 19:00 08/03/18 20:00 Temperature 98.5 F Pulse Rate 74 80 57 L Respiratory Rate 18 21 16 Blood Pressure Pulse Oximetry 95 95 96 08/03/18 20:55 08/03/18 21:00 08/03/18 22:00 Temperature Pulse Rate 56 L 54 L 64 Respiratory Rate 20 14 14 Blood Pressure Pulse Oximetry 95 96 94 L 08/03/18 23:00 08/04/18 00:00 08/04/18 00:22 Temperature Pulse Rate 69 67 103 H Respiratory Rate 14 15 20 Blood Pressure Pulse Oximetry 95 95 08/04/18 01:00 08/04/18 02:00 08/04/18 03:00 Temperature Pulse Rate 73 80 71 Respiratory Rate 15 16 15 Blood Pressure Pulse Oximetry 97 95 96 08/04/18 03:27 08/04/18 03:59 08/04/18 04:00 Temperature Pulse Rate 75 71 86 Respiratory Rate 15 16 26 H Blood Pressure 148/80 H 154/88 H Pulse Oximetry 96 98 97 08/04/18 04:01 08/04/18 04:07 08/04/18 06:00 Temperature Pulse Rate 77 78 84 Respiratory Rate 21 16 Blood Pressure 147/91 H Pulse Oximetry 96 08/04/18 08:22 Temperature Pulse Rate 66 Respiratory Rate 16 Blood Pressure Pulse Oximetry 93 L Intake & Output 08/03/18 08/04/18 08/04/18 18:59 06:59 18:59 Intake Total 1625 / 1625 1850 / 1850 Output Total 4400 / 4400 4700 / 4700 Balance -2775 / -2775 -2850 / -2850 Weight 110.7 kg Intake: IV 1625 / 1625 350 / 350 Precedex Inj 1,000 MCG In NS 250 / 250 Inj 240 ML @ 0.2 MCG/KG/HR 5.71 mls/hr IV.CONT TITRATE PRN Rx# :[id number] Heparin/D5W 25,000 U/250 mL 25, 250 / 250 250 / 250 000 unit In 250 ml @ Per Protocol IV.CONT TITRATE PRN Rx #:[id number] Nitroglycerin Drip Premix 50 mg 250 / 250 In 250 ml @ 5 MCG/MIN 1.5 mls/ hr IV.CONT TITRATE PRN Rx#: [id number] Zosyn 2.25 GM Premix 2.25 gm In 100 / 100 100 / 100 50 ml @ 100 mls/hr IV.SIG Q6H SUSIE Rx#:[id number] Potassium Phosphate Inj 30 MMOL 260 / 260 In NS Inj 250 ML @ 42 mls/hr IV.SIG UNSCH PRN Rx#:[id number] Vancomycin Inj 1,500 MG In NS 515 / 515 Inj 500 ML @ 250 mls/hr IV.SIG Q24H SUSIE Rx#:[id number] Oral 1500 / 1500 Output: Urine Amount (Catheter) 4400 / 4400 4700 / 4700 Condom 4400 / 4400 4700 / 4700 Other: Date of Last Bowel Movement 08/04/18 # Bowel Movements 1 1 Result Diagrams: 08/04/18 04:58 08/04/18 04:58 Other Results: Microbiology 07/30/18 12:00 Blood - Peripheral Aerobic Blood Culture - Preliminary No growth in 4 days 07/30/18 12:00 Blood - Peripheral Anaerobic Blood Culture - Preliminary No growth in 4 days 07/30/18 12:00 Blood - Peripheral Aerobic Blood Culture - Preliminary No growth in 4 days 07/30/18 12:00 Blood - Peripheral Anaerobic Blood Culture - Preliminary No growth in 4 days 07/31/18 00:53 Sputum - Endotracheal Gram Stain - Final 07/31/18 00:53 Sputum - Endotracheal Sputum Culture - Final Heavy growth normal respiratory bree 07/30/18 09:20 Catheterized Urine Urine Culture - Final No growth in 48 hours 07/31/18 00:50 Nasal Wash Influenza Types A,B Antigen - Final Negative for FLU A and B antigen Infection due to influenza A or B cannot be ruled out since the antigen present in the sample may be below the detection limit of the test. Imaging: Venous Doppler Study 07/30/18 00:00 CONCLUSION: 1. Negative for deep venous thrombosis Chest X-Ray 07/30/18 08:54 CONCLUSION: Slight CHF. Head CT 07/30/18 08:54 CONCLUSION: Unremarkable study except for mild chronic sinusitis . Abdomen/Bladder Ultrasound 07/30/18 12:07 CONCLUSION: 1. Enlarged echogenic liver 2. Normal size kidneys without mass or hydronephrosis. 3. 1.4 cm left renal cyst Chest X-Ray 07/31/18 06:00 CONCLUSION: Suspected consolidation in the left perihilar and bases bilaterally. When compared to the prior exam, there has been slight worsening. Chest X-Ray 08/02/18 06:00 CONCLUSION: No significant change. Bilateral hazy airspace disease remains. Chest X-Ray 08/03/18 06:00 CONCLUSION: Stable appearance with hazy opacity remaining in the lungs. Objective Remarks: GENERAL: This is a 53-year-old male currently in bed on nasal cannula no acute distress SKIN: Warm and dry. Multiple tattoos. HEAD: Atraumatic. Normocephalic. EYES: Pupils equal and round. No scleral icterus. No injection or drainage. ENT: No nasal bleeding or discharge. Mucous membranes pink and moist. NECK: Trachea midline. No JVD. Right IJ CVL is clean dry and intact CARDIOVASCULAR: Regular rate and rhythm. S1, S2. No S4. Without murmur RESPIRATORY: Few crackles in the bases. No wheezing. GASTROINTESTINAL: Abdomen soft, non-tender, nondistended. Hepatic and splenic margins not palpable. MUSCULOSKELETAL: Extremities with trace bilateral lower extremity edema. No obvious deformities. NEUROLOGICAL: Cranial nerves II through XII grossly intact. Strength is equal symmetric with normal sensation Assessment and Plan - Assessment and Plan Plan: Neuro/Psych: Polysubstance use including heroin, cocaine and opiates CT brain revealed no acute intracranial findings CV: Severe shock -resolved Lactic acidosis -resolving Elevated troponin Plan for Lexiscan 08/05 per cardiology's recommendations for elevated troponin. Peaked at 29. 2D echocardiogram ejection fraction 50%. PA P 25 mmHg. Mild TR. Cardiology consultation for elevated troponin. Aspirin 81 mg daily. Currently no TOR inhibitor due to acute kidney injury/hypotension vasopressors. I am unable to use statin secondary to liver injury. On carvedilol 6.25 mg twice daily. Increase to 12.5 twice daily and isosorbide dinitrate 10 mg 3 times daily As needed nitroglycerin drip Resp: Acute respiratory failure Aspiration pneumonia Incentive spirometry while awake Nasal cannula to maintain saturations greater or equal to 92% Albuterol/ipratropium aerosols every 4 hours with albuterol aerosols every 2 as needed dyspnea Chest x-ray in a.m. 08/05 GI: Elevated transaminases Elevated ammonia Advance diet as tolerated cardiac/renal/diabetic with thickened liquids Pantoprazole for GI prophylax Docusate serum/senna 1 tablet twice daily for bowel regimen Follow-up on ammonia level in a.m. 08/05 Lactulose 30 cc twice daily Hepatitis panel negative : Giles catheter is indicated for accurate I's and O's in a critical patient Endo: Elevated TSH Sliding scale insulin Accu-Cheks to maintain euglycemia T3/free T4 normal Renal: Acute kidney injury Rhabdomyolysis Renal ultrasound revealed enlarged echogenic liver however no signs of hydronephrosis Negative urine eosinophil Avoid nephrotoxic medication Nephrology consultation Monitor urine output Follow BMP, CPK . CPK is downtrending Heme: Leukocytosis Normocytic anemia Monitor CBC daily. Follow trends. No indication for transfusion of blood products at this time ID: Empirically placed on vancomycin and piperacillin/tazobactam day #7. Discontinued today Blood cultures x2 no growth. FEN: Hypokalemia Replace electro lites as clinically indicated per ICU electrolyte protocol. MSK: Elevated BMI Weight loss encouraged PT evaluate and treat Access -Right IJ CVL day6. Prophylaxis -GI pantoprazole DVT-SCD/heparin subcu Level 3 follow-up Procedures - Arterial Line Size (Gauge): 18
[2018-08-04] MEDS: Piperacil/Tazo 4.5 GM Premix 4.5 GM/100 ML BAG IV.SIG SCH ×3 (11:25→23:01)
[2018-08-04] MEDS: Heparin - SQ 10,000 UNITS/ML Vial SQ SCH ×2 (16:00→21:11)
--- NOTE | 2018-08-04 21:11 | P.PNNP ---
Subjective Interval history: Patient seen in the afternoon,, remain alert, was extubated, not in distress. Physical Exam Vital signs: Vital Signs 08/03/18 22:00 08/03/18 23:00 08/04/18 00:00 Temperature Pulse Rate 64 69 67 Respiratory Rate 14 14 15 Blood Pressure Pulse Oximetry 94 L 95 95 08/04/18 00:22 08/04/18 01:00 08/04/18 02:00 Temperature Pulse Rate 103 H 73 80 Respiratory Rate 20 15 16 Blood Pressure Pulse Oximetry 97 95 08/04/18 03:00 08/04/18 03:27 08/04/18 03:59 Temperature Pulse Rate 71 75 71 Respiratory Rate 15 15 16 Blood Pressure 148/80 H 154/88 H Pulse Oximetry 96 96 98 08/04/18 04:00 08/04/18 04:01 08/04/18 04:07 Temperature Pulse Rate 86 77 78 Respiratory Rate 26 H 21 16 Blood Pressure 147/91 H Pulse Oximetry 97 96 08/04/18 06:00 08/04/18 08:00 08/04/18 08:22 Temperature 99.1 F Pulse Rate 84 64 66 Respiratory Rate 14 16 Blood Pressure 163/82 H Pulse Oximetry 95 93 L 08/04/18 09:00 08/04/18 10:00 08/04/18 10:06 Temperature Pulse Rate 75 85 78 Respiratory Rate 13 25 H 19 Blood Pressure 170/87 H 163/95 H Pulse Oximetry 91 L 95 95 08/04/18 11:00 08/04/18 11:51 08/04/18 11:52 Temperature Pulse Rate 63 73 Respiratory Rate 12 16 Blood Pressure 163/85 H Pulse Oximetry 96 96 08/04/18 12:00 08/04/18 13:00 08/04/18 14:00 Temperature 98.9 F Pulse Rate 66 81 79 Respiratory Rate 12 17 14 Blood Pressure 161/80 H 160/79 H 148/72 H Pulse Oximetry 96 94 L 93 L 08/04/18 15:00 08/04/18 15:48 08/04/18 16:00 Temperature 98.7 F Pulse Rate 74 65 68 Respiratory Rate 14 17 15 Blood Pressure 158/88 H 167/88 H 157/86 H Pulse Oximetry 93 L 94 L 95 08/04/18 16:06 08/04/18 17:00 08/04/18 18:00 Temperature Pulse Rate 73 68 85 Respiratory Rate 18 13 24 Blood Pressure 157/77 H 160/86 H Pulse Oximetry 90 L 94 L Intake & Output 08/04/18 08/04/18 08/05/18 06:59 18:59 06:59 Intake Total 1850 / 1850 1650 / 1650 250 / 250 Output Total 4700 / 4700 2700 / 2700 Balance -2850 / -2850 -1050 / -1050 250 / 250 Weight 110.7 kg Intake: IV 350 / 350 400 / 400 250 / 250 Heparin/D5W 25,000 U/250 mL 25, 250 / 250 200 / 200 000 unit In 250 ml @ Per Protocol IV.CONT TITRATE PRN Rx #:[id number] Zosyn 2.25 GM Premix 2.25 gm In 100 / 100 50 / 50 50 ml @ 100 mls/hr IV.SIG Q6H SUSIE Rx#:[id number] Zosyn 4.5 GM Premix 4.5 gm In 200 / 200 100 ml @ 200 mls/hr IV.SIG Q6H SUSIE Rx#:[id number] KCl 40 mEq Premix Inj 40 meq In 200 / 200 100 ml @ 25 mls/hr IV.SIG Q2H PRN Rx#:[id number] Oral 1500 / 1500 1250 / 1250 Output: Urine Amount (Catheter) 4700 / 4700 2700 / 2700 Condom 4700 / 4700 2700 / 2700 Other: Date of Last Bowel Movement 08/04/18 08/04/18 # Bowel Movements 1 0 Narrative: GENERAL: Patient is alert, not in distress. SKIN: Warm and dry. NECK: Supple, trachea midline. No JVD. CARDIOVASCULAR: Regular rate and rhythm without murmurs, gallops, or rubs. Right triple lumen IJ. Art line right femoral. RESPIRATORY: Breath sounds coarse bilaterally. No accessory muscle use. Intubated. GASTROINTESTINAL: Abdomen soft, non-tender, nondistended. +BS. OG tube present GENITOURINARY: Indwelling Giles catheter with tami urine. MUSCULOSKELETAL: No cyanosis, or edema. - Urinary Catheter Management Indwelling Urethral Catheter Cath placed during this visit: yes, but has since been removed by the nurse Reason for continuing: Hourly intake/output Insertion date: 07/30/18 Insertion time: 09:24 Removal date: 08/01/18 Removal time: 16:00 Condom Cath placed during this visit: no Assessment and Plan - Assessment (1) Acute kidney injury Code(s): N17.9 - Acute kidney failure, unspecified Status: Acute Plan: Patient was admitted with resp. failure and was intubated. Patient has GRABIEL, most likely due to ATN from Hypotension. CK level trending down Remains non oliguric, and Creatinine continue to improve, now it is 1.4, same as yesterday. Started on lasix 40mg IV q6 , Urine out put is good. 5.9L UOP, continue diuresis for now. Continue to monitor creatinine. K is low, on replaced, closely monitor, follow magnesium as well. (2) Acute respiratory failure Code(s): J96.00 - Acute respiratory failure, unspecified whether with hypoxia or hypercapnia Status: Acute Plan: Wean as tolerated Antibiotics for aspiration pneumonia (3) Septic shock Code(s): A41.9 - Sepsis, unspecified organism; R65.21 - Severe sepsis with septic shock Status: Acute Plan: Improving, off pressors Procedures - Arterial Line Size (Gauge): 18
[2018-08-05] MEDS: Insulin NovoLOG Aspart Correctional Sugar Inj SQ SCH ×5 (00:36→23:41)
[2018-08-05] MEDS: Potassium Chlor 40 mEq Premix 40 MEQ/100 ML PIGGYBACK IV.SIG PRN (03:01)
--- NOTE | 2018-08-05 04:21 | XR ---
EXAM DATE: 08/05/2018 4:18 AM EST AGE/SEX: 53 years / Male INDICATIONS: Short of breath. CLINICAL DATA: This is the patient's subsequent encounter. Patient reports that signs and symptoms h ave been present for 1 week and indicates a pain score of 0/10. MEDICAL/SURGICAL HISTORY: Non-responsive. Non-responsive. COMPARISON: [facility] [place]ST 1V SINGLE AP, 08/03/2018. . FINDINGS: A single AP view of the chest demonstrates the lungs to be symmetrically aerated without evidence of mass, infiltrate or effusion. There has been interval extubation and removal of the nasogastric tube. Right-sided central line remains. The cardiomediastinal contours are unremarkable. Osseous structur es are intact. CONCLUSION: Clear lungs. Electronically signed by: Danny Polk MD Board Certified Radiologist 08/05/2018 4:20 AM EST
[2018-08-05] MEDS: Hydrocortisone Sod Succinate 100 MG Vial IV.PUSH SCH ×2 (05:00→15:02)
[2018-08-05] MEDS: Heparin - SQ 10,000 UNITS/ML Vial SQ SCH ×2 (05:00→15:02)
[2018-08-05] MEDS: Oral Hygiene Kit OROPHARYNG SCH ×4 (05:01→23:42)
[2018-08-05] MEDS: Piperacil/Tazo 4.5 GM Premix 4.5 GM/100 ML BAG IV.SIG SCH ×4 (05:01→23:24)
[2018-08-05] MEDS: Artificial Tears Opth Drops 15 ML Bottle EACH EYE SCH ×3 (05:01→21:01)
[2018-08-05 06:08] LABS: Baso % (Auto) 0.1 % (0.0-2.0); Hematocrit 37.8 % (39.0-51.0); Hemoglobin 12.7 gm/dL (13.0-17.0); Lymph # (Auto) 1.4 th/mm3 (1.0-4.8); Lymph % (Auto) 11.9 % (9.0-44.0); Mean Corpuscular HGB Conc 33.5 % (32.0-36.0); Mean Corpuscular Hemoglobin 27.4 pg (27.0-34.0); Mean Corpuscular Volume 81.7 fL (80.0-100.0); Mean Platelet Volume 8.8 fL (7.0-11.0); Mono # (Auto) 0.9 th/mm3 (0.0-0.9); Mono % (Auto) 7.7 % (0.0-8.0); Neut # (Auto) 9.6 th/mm3 (1.8-7.7); Neut % (Auto) 80.3 % (16.0-70.0); Platelet Count 171 th/mm3 (150-450); Red Blood Count 4.62 mil/mm3 (4.50-5.90); Red Cell Distribution Width 14.4 % (11.6-17.2); White Blood Count 11.9 th/mm3 (4.0-11.0)
[2018-08-05 06:34] LABS: Albumin 2.5 g/dL (3.4-5.0); Anion Gap 6 meq/L (5-15); Aspartate Aminotransferase 88 U/L (15-37); Blood Urea Nitrogen 30 mg/dL (7-18); Calcium 8.3 mg/dL (8.5-10.1); Carbon Dioxide 35.3 meq/L (21.0-32.0); Chloride 101 meq/L (98-107); Glomerular Filtration Rate 52 mL/min (>89); Glucose,Random 85 mg/dL (74-106); Magnesium 2.2 mg/dL (1.5-2.5); Potassium 3.6 meq/L (3.5-5.1); Sodium 142 meq/L (136-145)
[2018-08-05 06:37] LABS: Alanine Aminotransferase 204 U/L (12-78); Alkaline Phosphatase 81 U/L (45-117); Creatine Kinase 802 U/L (39-308); Phosphorus 2.2 mg/dL (2.5-4.9)
[2018-08-05 06:54] LABS: CKMB Percent 0.1 % (0.0-4.0)
[2018-08-05] MEDS: Carvedilol 6.25 MG Tablet PO SCH (08:47)
[2018-08-05] MEDS: Chlorhexidine 0.12% Oral Kit 15 ML UDC OROPHARYNG SCH ×2 (08:47→21:01)
[2018-08-05] MEDS: Pantoprazole Inj 40 MG Vial IV.PUSH SCH (08:48)
[2018-08-05] MEDS: Senna/Docusate Sodium 8.6/50 MG Tablet PO SCH ×2 (08:48→21:01)
[2018-08-05] MEDS ORDERED: Regadenoson Inj 0.4 MG/5 ML Syringe IV.PUSH ONE (12:21)
[2018-08-05] MEDS ORDERED: Pharmacy Ordered Lab Info OTHER ONE (12:45)
--- NOTE | 2018-08-05 13:15 | NM ---
EXAM DATE: 08/05/2018 1:07 PM EST AGE/SEX: 53 years / Male INDICATIONS:Abnormal EKG. . CLINICAL DATA: This is the patient's initial encounter. Patient reports that signs and symptoms have been present for 1 day and indicates a pain score of 1/10. MEDICAL/SURGICAL HISTORY: None. None. COMPARISON: No prior exams available for comparison. DOSE: 10 mCi Tc 99m Myoview at rest 30 mCi [id number] at stress 0.4 mg Lexiscan STRESS SYMPTOMS: Asymptomatic. EJECTION FRACTION: 63 % TECHNIQUE: The patient underwent pharmacologic stress with infusion of prescribed dose. Continuous ECG tracing was monitored during stress. Gated SPECT imaging was performed after stress and conventi onal SPECT imaging was performed at rest. The examination was performed on a SPECT/CT scanner, both attenuation and non-corrected datasets were reviewed. FINDINGS: Distribution: The maximum perfused segment at stress is in the anterolateral wall. Perfusion Study: The pattern of perfusion at stress demonstrates a fixed defect involving the infer ior wall probably diaphragmatic attenuation artifact without any significant ischemia fills in on the attenuation corrected images . Gated Study: There are intact wall motion and wall thickening without hypokinetic or dyskinetic segm ents. The ejection fraction is calculated at 63%. RISK CATEGORY: Low (<1% Annual Mortality Rate) CONCLUSION: 1. No significant ischemia. 2. Not mentioned above is vague area of uptake possibly within the anterior superior mediastinum and possibility of underlying mass or adenopathy is not excluded. The exact location is not certain and part of this activity may within the thyroid gland. Further characterization with chest CT is recomme nded. Electronically signed by: Allyson Mitchlel MD Board Certified Radiologist 08/05/2018 1:14 PM EST
--- NOTE | 2018-08-05 17:43 | P.PN ---
Subjective Interval history: awake and alert, interactive feeling better complains of geenralized swelling right calf swelling and tender on exam right UE swelling as well Physical Exam Vital signs: Vital Signs 08/04/18 18:00 08/04/18 19:00 08/04/18 20:00 Temperature Pulse Rate 85 82 102 H Respiratory Rate 24 15 15 Blood Pressure 160/86 H 147/71 H 157/82 H Pulse Oximetry 94 L 94 L 94 L 08/04/18 21:00 08/04/18 21:42 08/04/18 21:43 Temperature Pulse Rate 79 90 Respiratory Rate 15 20 Blood Pressure 171/93 H Pulse Oximetry 93 L 98 08/04/18 22:00 08/04/18 23:00 08/05/18 00:00 Temperature Pulse Rate 77 75 71 Respiratory Rate 13 15 18 Blood Pressure 150/88 H 148/91 H 150/81 H Pulse Oximetry 92 L 95 91 L 08/05/18 01:00 08/05/18 01:21 08/05/18 01:23 Temperature 99 F Pulse Rate 66 66 Respiratory Rate 17 17 Blood Pressure 171/99 H Pulse Oximetry 91 L 97 08/05/18 02:00 08/05/18 03:00 08/05/18 04:00 Temperature 98.9 F Pulse Rate 65 80 65 Respiratory Rate 15 22 13 Blood Pressure 166/76 H 173/83 H 176/84 H Pulse Oximetry 90 L 93 L 91 L 08/05/18 04:42 08/05/18 05:00 08/05/18 06:00 Temperature Pulse Rate 74 59 L 72 Respiratory Rate 20 14 Blood Pressure 171/87 H Pulse Oximetry 95 93 L 08/05/18 07:00 08/05/18 08:29 08/05/18 15:30 Temperature Pulse Rate 79 89 Respiratory Rate 17 18 Blood Pressure Pulse Oximetry 92 L 95 08/05/18 15:57 08/05/18 16:19 Temperature Pulse Rate 97 H Respiratory Rate 36 H Blood Pressure Pulse Oximetry 95 Intake & Output 08/04/18 08/05/18 08/05/18 18:59 06:59 18:59 Intake Total 1650 / 1650 1550 / 1550 750 / 750 Output Total 2700 / 2700 1750 / 1750 600 / 600 Balance -1050 / -1050 -200 / -200 150 / 150 Weight 109 kg Intake: IV 400 / 400 550 / 550 750 / 750 Precedex Inj 1,000 MCG In NS 250 / 250 Inj 240 ML @ 0.2 MCG/KG/HR 5.71 mls/hr IV.CONT TITRATE PRN Rx# :[id number] Heparin/D5W 25,000 U/250 mL 25, 200 / 200 000 unit In 250 ml @ Per Protocol IV.CONT TITRATE PRN Rx #:[id number] Nitroglycerin Drip Premix 50 mg 250 / 250 In 250 ml @ 5 MCG/MIN 1.5 mls/ hr IV.CONT TITRATE PRN Rx#: [id number] Diprivan 1000 mg/100 ml Inj 1, 100 / 100 000 mg In 100 ml @ 5 MCG/KG/MIN 3.492 mls/hr IV.CONT TITRATE PRN Rx#:[id number] Zosyn 2.25 GM Premix 2.25 gm In 50 / 50 50 ml @ 100 mls/hr IV.SIG Q6H SUSIE Rx#:[id number] Zosyn 4.5 GM Premix 4.5 gm In 200 / 200 200 / 200 100 ml @ 200 mls/hr IV.SIG Q6H SUSIE Rx#:[id number] KCl 20 mEq Premix Inj 20 meq In 0 / 0 100 ml @ 50 mls/hr IV.SIG Q2H PRN Rx#:[id number] KCl 40 mEq Premix Inj 40 meq In 200 / 200 100 / 100 100 / 100 100 ml @ 25 mls/hr IV.SIG Q2H PRN Rx#:[id number] Potassium Phosphate Inj 30 MMOL 0 / 0 In NS Inj 250 ML @ 42 mls/hr IV.SIG UNSCH PRN Rx#:[id number] Oral 1250 / 1250 1000 / 1000 Output: Urine 1750 / 1750 600 / 600 Urine Amount (Catheter) 2700 / 2700 Condom 2700 / 2700 Other: Date of Last Bowel Movement 08/04/18 08/05/18 # Bowel Movements 0 8 Narrative: GENERAL: Patient is alert, not in distress. SKIN: Warm and dry. NECK: Supple, trachea midline. No JVD. CARDIOVASCULAR: Regular rate and rhythm Right triple lumen IJ. Art line right femoral. RESPIRATORY: Breath sounds coarse bilaterally. No accessory muscle use. Intubated. GASTROINTESTINAL: Abdomen soft, non-tender, +BS. GENITOURINARY: Indwelling Giles catheter with tami urine. MUSCULOSKELETAL: right UE swelling and right LE swelling- with calf tenderness, good peripheral pulses - Urinary Catheter Management Indwelling Urethral Catheter Cath placed during this visit: yes, but has since been removed by the nurse Reason for continuing: Hourly intake/output Insertion date: 07/30/18 Insertion time: 09:24 Removal date: 08/01/18 Removal time: 16:00 Condom Cath placed during this visit: no Results - Labs CBC & Chem 7: 08/05/18 05:12 08/05/18 05:12 Laboratory Results - last 24 hr 08/04/18 08/04/18 08/05/18 17:51 18:00 05:10 WBC RBC Hgb Hct MCV MCH MCHC RDW Plt Count MPV Neut % (Auto) Lymph % (Auto) [place] % (Auto) Eos % (Auto) Baso % (Auto) Neut # (Auto) Lymph # (Auto) [place] # (Auto) Eos # (Auto) Baso # (Auto) WBC Differential Differential Comment Sodium Potassium 3.0 L Chloride Carbon Dioxide Anion Gap BUN Creatinine Estimated GFR POC Glucose 107 69 Random Glucose Calcium Phosphorus Magnesium Total Bilirubin AST ALT Alkaline Phosphatase Total Creatine Kinase CK-MB (CK-2) CK-MB (CK-2) % Total Protein Albumin Vancomycin Trough 08/05/18 08/05/18 08/05/18 05:12 05:12 05:44 WBC 11.9 H RBC 4.62 Hgb 12.7 L Hct 37.8 L MCV 81.7 MCH 27.4 MCHC 33.5 RDW 14.4 Plt Count 171 MPV 8.8 Neut % (Auto) 80.3 H Lymph % (Auto) 11.9 [place] % (Auto) 7.7 Eos % (Auto) 0.0 Baso % (Auto) 0.1 Neut # (Auto) 9.6 H Lymph # (Auto) 1.4 [place] # (Auto) 0.9 Eos # (Auto) 0.0 Baso # (Auto) 0.0 WBC Differential . Differential Comment Auto diff final Sodium 142 Potassium 3.6 Chloride 101 Carbon Dioxide 35.3 H Anion Gap 6 BUN 30 H Creatinine 1.42 H Estimated GFR 52 L POC Glucose 111 H Random Glucose 85 Calcium 8.3 L Phosphorus 2.2 L Magnesium 2.2 Total Bilirubin 1.1 H AST 88 H ALT 204 H Alkaline Phosphatase 81 Total Creatine Kinase 802 H CK-MB (CK-2) Less than 1.0 CK-MB (CK-2) % 0.1 Total Protein 6.0 L D Albumin 2.5 L Vancomycin Trough 08/05/18 08/05/18 08/05/18 15:04 16:20 16:46 WBC RBC Hgb Hct MCV MCH MCHC RDW Plt Count MPV Neut % (Auto) Lymph % (Auto) [place] % (Auto) Eos % (Auto) Baso % (Auto) Neut # (Auto) Lymph # (Auto) [place] # (Auto) Eos # (Auto) Baso # (Auto) WBC Differential Differential Comment Sodium Potassium Chloride Carbon Dioxide Anion Gap BUN Creatinine Estimated GFR POC Glucose 129 H 119 H Random Glucose Calcium Phosphorus Magnesium Total Bilirubin AST ALT Alkaline Phosphatase Total Creatine Kinase CK-MB (CK-2) CK-MB (CK-2) % Total Protein Albumin Vancomycin Trough 3.8 L - Imaging Impressions Myocardial Perfusion Scan Nuc Med 08/05/18 00:00 CONCLUSION: 1. No significant ischemia. 2. Not mentioned above is vague area of uptake possibly within the anterior superior mediastinum and possibility of underlying mass or adenopathy is not excluded. The exact location is not certain and part of this activity may within the thyroid gland. Further characterization with chest CT is recommended. Chest X-Ray 08/05/18 06:00 CONCLUSION: Clear lungs. Assessment and Plan - Plan 53 years old Polysubstance use including heroin, cocaine and opiates CT brain revealed no acute intracranial findings counselled-patietn motivated with lifestyle changes CV: Severe shock -resolved Lactic acidosis -resolving NTEMI Elevated troponin- likely related to cocaine use Echo with EF 50 % Hypertension Lexiscan done- negative for ischemia 2D echocardiogram ejection fraction 50%. PA P 25 mmHg. Mild TR. Aspirin 81 mg daily. Currently no TOR inhibitor due to acute kidney injury/ hypotension vasopressors. unable to use statin secondary to liver injury. On carvedilol 12.5 twice daily- increase to 25 mg po bid continue on isosorbide dinitrate 10 mg 3 times daily received IV Lasix 40 mg q 6 previously Edema on exam - start po Lasix 20 mg bid - will help with HTN- ff BMP Edema Swelling generalized but more on the right UE and right LE r/o DVT Check stat repeat doppler US of the right leg and right LE r/o DVT received IV Lasix 30 mg po q 6 previously start on Lsix 20 mg bid po ff renal functions Acute respiratory failure- resolved Aspiration pneumonia Incentive spirometry while awake Nasal cannula to maintain saturations greater or equal to 92% Albuterol/ipratropium aerosols every 4 hours with albuterol aerosols every 2 as needed dyspnea Chest x-ray in a.m. 08/05- stable GI: Elevated transaminases Elevated ammonia Advance diet as tolerated cardiac/renal/diabetic with thickened liquids Pantoprazole for GI prophylax Docusate serum/senna 1 tablet twice daily for bowel regimen Lactulose 30 cc twice daily Hepatitis panel negative Elevated TSH Sliding scale insulin Accu-Cheks to maintain euglycemia T3/free T4 normal Renal: Acute kidney injury Rhabdomyolysis Generalized edema Patient was admitted with resp. failure and was intubated. Patient has GRABIEL, most likely due to ATN from Hypotension. CK level trending down Remains non oliguric, and Creatinine stabilizing start lasix at 20 mg po bid Renal ultrasound revealed enlarged echogenic liver however no signs of hydronephrosis Negative urine eosinophil Heme: Leukocytosis Normocytic anemia Monitor CBC daily. Follow trends. No indication for transfusion of blood products at this time ID: Empirically placed on vancomycin and piperacillin/tazobactam day #7. Discontinued 08/05 Blood cultures x2 no growth. FEN: Hypokalemia- improved recheck in am MSK: Elevated BMI Weight loss encouraged PT evaluate and treat smoker- counselled - 1 pack per day Access -Right IJ CVL day6. Prophylaxis -GI pantoprazole DVT-SCD/heparin subcu Procedures - Arterial Line Size (Gauge): 18
--- NOTE | 2018-08-05 19:20 | US ---
EXAM DATE: 08/05/2018 7:17 PM EST AGE/SEX: 53 years / Male INDICATIONS: Right leg pain. CLINICAL DATA: This is the patient's initial encounter. Patient reports that signs and symptoms have been present for 4 - 6 days and indicates a pain score of 8/10. MEDICAL/SURGICAL HISTORY: . Drug abuse. Sinusitis. None. COMPARISON: [facility] [place], [facility]ENOUS DOPPLER LEG BI, 07/30/2018. . TECHNIQUE: Venous ultrasound of both lower extremities was performed from the inguinal ligament to t he proximal calf. Real-time, color Doppler and spectral tracing, compression and augmentation techni ques were used. FINDINGS: There is thrombosis in the superficial femoral vein, occlusive just above the knee. CONCLUSION: 1. Nonocclusive thrombus in the distal superficial femoral vein occlusive thrombus from posterior ti bial vein to mid superficial femoral vein. Electronically signed by: Steve Pacheco MD Board Certified Radiologist 08/05/2018 7:19 PM EST
--- NOTE | 2018-08-05 19:25 | US ---
EXAM DATE: 08/05/2018 7:22 PM EST AGE/SEX: 53 years / Male INDICATIONS: Right arm pain. CLINICAL DATA: This is the patient's initial encounter. Patient reports that signs and symptoms have been present for 4 - 6 days and indicates a pain score of 6/10. MEDICAL/SURGICAL HISTORY: . Sinusitis. Drug abuse. None. COMPARISON: No prior exams available for comparison. FINDINGS: Occlusive thrombus in the basilic vein. The axillary vein is patent. CONCLUSION: 1. Occlusive thrombus basilic vein. Electronically signed by: Steve Pacheco MD Board Certified Radiologist 08/05/2018 7:23 PM EST
--- NOTE | 2018-08-05 20:24 | P.PNNP ---
Subjective Interval history: Patient is alert, now eating, not in distress. Physical Exam Vital signs: Vital Signs 08/04/18 21:00 08/04/18 21:42 08/04/18 21:43 Temperature Pulse Rate 79 90 Respiratory Rate 15 20 Blood Pressure 171/93 H Pulse Oximetry 93 L 98 08/04/18 22:00 08/04/18 23:00 08/05/18 00:00 Temperature Pulse Rate 77 75 71 Respiratory Rate 13 15 18 Blood Pressure 150/88 H 148/91 H 150/81 H Pulse Oximetry 92 L 95 91 L 08/05/18 01:00 08/05/18 01:21 08/05/18 01:23 Temperature 99 F Pulse Rate 66 66 Respiratory Rate 17 17 Blood Pressure 171/99 H Pulse Oximetry 91 L 97 08/05/18 02:00 08/05/18 03:00 08/05/18 04:00 Temperature 98.9 F Pulse Rate 65 80 65 Respiratory Rate 15 22 13 Blood Pressure 166/76 H 173/83 H 176/84 H Pulse Oximetry 90 L 93 L 91 L 08/05/18 04:42 08/05/18 05:00 08/05/18 06:00 Temperature Pulse Rate 74 59 L 72 Respiratory Rate 20 14 Blood Pressure 171/87 H Pulse Oximetry 95 93 L 08/05/18 07:00 08/05/18 07:01 08/05/18 08:00 Temperature 98.5 F Pulse Rate 75 76 66 Respiratory Rate 19 13 12 Blood Pressure 153/73 H 167/86 H Pulse Oximetry 93 L 91 L 92 L 08/05/18 08:29 08/05/18 09:05 08/05/18 09:26 Temperature Pulse Rate 79 94 H 88 Respiratory Rate 17 Blood Pressure 170/99 H Pulse Oximetry 95 97 08/05/18 10:00 08/05/18 10:06 08/05/18 12:00 Temperature Pulse Rate 77 77 96 H Respiratory Rate 15 13 Blood Pressure 164/98 H Pulse Oximetry 99 97 08/05/18 13:18 08/05/18 14:00 08/05/18 15:00 Temperature 98.7 F Pulse Rate 95 H 82 92 H Respiratory Rate 23 21 23 Blood Pressure Pulse Oximetry 08/05/18 15:09 08/05/18 15:30 08/05/18 15:57 Temperature Pulse Rate 77 89 Respiratory Rate 22 18 Blood Pressure 154/84 H Pulse Oximetry 95 08/05/18 16:00 08/05/18 16:19 08/05/18 17:00 Temperature 98.5 F Pulse Rate 75 97 H 76 Respiratory Rate 18 36 H 23 Blood Pressure 157/85 H 159/88 H Pulse Oximetry 90 L 08/05/18 18:00 08/05/18 18:11 08/05/18 19:00 Temperature Pulse Rate 86 81 80 Respiratory Rate 23 Blood Pressure 163/96 H Pulse Oximetry 95 95 95 Intake & Output 08/05/18 08/05/18 08/06/18 06:59 18:59 06:59 Intake Total 1550 / 1550 850 / 850 Output Total 1750 / 1750 700 / 700 Balance -200 / -200 150 / 150 Weight 109 kg Intake: IV 550 / 550 850 / 850 Precedex Inj 1,000 MCG In NS 250 / 250 Inj 240 ML @ 0.2 MCG/KG/HR 5.71 mls/hr IV.CONT TITRATE PRN Rx# :[id number] Heparin/D5W 25,000 U/250 mL 25, 200 / 200 000 unit In 250 ml @ Per Protocol IV.CONT TITRATE PRN Rx #:[id number] Nitroglycerin Drip Premix 50 mg 250 / 250 In 250 ml @ 5 MCG/MIN 1.5 mls/ hr IV.CONT TITRATE PRN Rx#: [id number] Diprivan 1000 mg/100 ml Inj 1, 100 / 100 000 mg In 100 ml @ 5 MCG/KG/MIN 3.492 mls/hr IV.CONT TITRATE PRN Rx#:[id number] Zosyn 2.25 GM Premix 2.25 gm In 50 / 50 50 ml @ 100 mls/hr IV.SIG Q6H SUSIE Rx#:[id number] Zosyn 4.5 GM Premix 4.5 gm In 200 / 200 100 / 100 100 ml @ 200 mls/hr IV.SIG Q6H SUSIE Rx#:[id number] KCl 20 mEq Premix Inj 20 meq In 0 / 0 100 ml @ 50 mls/hr IV.SIG Q2H PRN Rx#:[id number] KCl 40 mEq Premix Inj 40 meq In 100 / 100 100 / 100 100 ml @ 25 mls/hr IV.SIG Q2H PRN Rx#:[id number] Potassium Phosphate Inj 30 MMOL 0 / 0 In NS Inj 250 ML @ 42 mls/hr IV.SIG UNSCH PRN Rx#:[id number] Oral 1000 / 1000 Output: Urine 1750 / 1750 700 / 700 Other: Date of Last Bowel Movement 08/05/18 08/05/18 # Bowel Movements 8 5 Narrative: GENERAL: Patient is alert, not in distress. SKIN: Warm and dry. NECK: Supple, trachea midline. No JVD. CARDIOVASCULAR: Regular rate and rhythm Right triple lumen IJ. Art line right femoral. RESPIRATORY: Breath sounds coarse bilaterally. No accessory muscle use. Intubated. GASTROINTESTINAL: Abdomen soft, non-tender, +BS. GENITOURINARY: Indwelling Giles catheter with tami urine. MUSCULOSKELETAL: right UE swelling and right LE swelling- with calf tenderness, good peripheral pulses - Urinary Catheter Management Indwelling Urethral Catheter Cath placed during this visit: yes, but has since been removed by the nurse Reason for continuing: Hourly intake/output Insertion date: 07/30/18 Insertion time: 09:24 Removal date: 08/01/18 Removal time: 16:00 Condom Cath placed during this visit: no Assessment and Plan - Assessment (1) Acute kidney injury Code(s): N17.9 - Acute kidney failure, unspecified Status: Acute Plan: Patient was admitted with resp. failure and was intubated. Patient has GRABIEL, most likely due to ATN from Hypotension. CK level trending down Remains non oliguric, and Creatinine remain stable at 1.4. Urine out put is good. On Lasix 20 mg BID, continue diuresis for now. Continue to monitor creatinine. Follow the urine out put and BMP. Avoid Nephrotoxins. (2) Acute respiratory failure Code(s): J96.00 - Acute respiratory failure, unspecified whether with hypoxia or hypercapnia Status: Acute Plan: Wean as tolerated Antibiotics for aspiration pneumonia (3) Septic shock Code(s): A41.9 - Sepsis, unspecified organism; R65.21 - Severe sepsis with septic shock Status: Acute Plan: Improving, off pressors Procedures - Arterial Line Size (Gauge): 18
[2018-08-05] MEDS: Carvedilol 12.5 MG Tablet PO SCH (21:00)
[2018-08-06] MEDS: Piperacil/Tazo 4.5 GM Premix 4.5 GM/100 ML BAG IV.SIG SCH ×4 (05:30→22:34)
[2018-08-06] MEDS: Artificial Tears Opth Drops 15 ML Bottle EACH EYE SCH ×3 (05:30→21:31)
[2018-08-06] MEDS: Oral Hygiene Kit OROPHARYNG SCH ×3 (05:30→15:02)
[2018-08-06] MEDS: Insulin NovoLOG Aspart Correctional Sugar Inj SQ SCH ×3 (06:39→17:22)
--- NOTE | 2018-08-06 07:52 | P.PN ---
Subjective Interval history: feeling better, some calf pain - "better" very motivatd with lifestyle changes and very appreciative of the care he is getting here having loose stools - on review of meds- on MUltiple laxatives- shceduled sttols brown no abdominla pain good po, no N/V Physical Exam Vital signs: Vital Signs 08/05/18 08:00 08/05/18 08:29 08/05/18 09:05 Temperature 98.5 F Pulse Rate 66 79 94 H Respiratory Rate 12 17 Blood Pressure 167/86 H Pulse Oximetry 92 L 95 08/05/18 09:26 08/05/18 10:00 08/05/18 10:06 Temperature Pulse Rate 88 77 77 Respiratory Rate 15 13 Blood Pressure 170/99 H 164/98 H Pulse Oximetry 97 99 97 08/05/18 12:00 08/05/18 13:18 08/05/18 14:00 Temperature 98.7 F Pulse Rate 96 H 95 H 82 Respiratory Rate 23 21 Blood Pressure Pulse Oximetry 08/05/18 15:00 08/05/18 15:09 08/05/18 15:30 Temperature Pulse Rate 92 H 77 89 Respiratory Rate 23 22 18 Blood Pressure 154/84 H Pulse Oximetry 08/05/18 15:57 08/05/18 16:00 08/05/18 16:19 Temperature 98.5 F Pulse Rate 75 97 H Respiratory Rate 18 36 H Blood Pressure 157/85 H Pulse Oximetry 95 08/05/18 17:00 08/05/18 18:00 08/05/18 18:11 Temperature Pulse Rate 76 86 81 Respiratory Rate 23 Blood Pressure 159/88 H 163/96 H Pulse Oximetry 90 L 95 95 08/05/18 19:00 08/05/18 20:00 08/05/18 20:27 Temperature 97.8 F Pulse Rate 80 73 77 Respiratory Rate 23 13 17 Blood Pressure Pulse Oximetry 95 99 99 08/05/18 21:00 08/05/18 22:00 08/05/18 23:00 Temperature Pulse Rate 73 78 75 Respiratory Rate 20 29 H 16 Blood Pressure Pulse Oximetry 95 90 L 95 08/05/18 23:04 08/06/18 00:00 08/06/18 00:20 Temperature Pulse Rate 69 69 66 Respiratory Rate 20 25 H 20 Blood Pressure 129/78 Pulse Oximetry 95 95 95 08/06/18 00:21 08/06/18 01:00 08/06/18 02:00 Temperature Pulse Rate 65 64 Respiratory Rate 26 H 22 Blood Pressure Pulse Oximetry 95 93 L 94 L 08/06/18 03:00 08/06/18 03:55 08/06/18 03:56 Temperature Pulse Rate 66 68 Respiratory Rate 16 19 Blood Pressure Pulse Oximetry 94 L 96 08/06/18 04:00 08/06/18 05:00 08/06/18 05:43 Temperature Pulse Rate 63 63 65 Respiratory Rate 19 20 19 Blood Pressure 152/94 H Pulse Oximetry 99 90 L 94 L 08/06/18 06:00 08/06/18 07:29 Temperature Pulse Rate 72 66 Respiratory Rate 23 17 Blood Pressure 140/76 Pulse Oximetry 94 L 100 Intake & Output 08/05/18 08/06/18 08/06/18 18:59 06:59 18:59 Intake Total 850 / 850 700 / 700 Output Total 700 / 700 1200 / 1200 Balance 150 / 150 -500 / -500 Weight 107.7 kg Intake: IV 850 / 850 200 / 200 Precedex Inj 1,000 MCG In NS 250 / 250 Inj 240 ML @ 0.2 MCG/KG/HR 5.71 mls/hr IV.CONT TITRATE PRN Rx# :[id number] Nitroglycerin Drip Premix 50 mg 250 / 250 In 250 ml @ 5 MCG/MIN 1.5 mls/ hr IV.CONT TITRATE PRN Rx#: [id number] Diprivan 1000 mg/100 ml Inj 1, 100 / 100 000 mg In 100 ml @ 5 MCG/KG/MIN 3.492 mls/hr IV.CONT TITRATE PRN Rx#:[id number] Zosyn 4.5 GM Premix 4.5 gm In 100 / 100 200 / 200 100 ml @ 200 mls/hr IV.SIG Q6H SUSIE Rx#:[id number] KCl 20 mEq Premix Inj 20 meq In 0 / 0 100 ml @ 50 mls/hr IV.SIG Q2H PRN Rx#:[id number] KCl 40 mEq Premix Inj 40 meq In 100 / 100 100 ml @ 25 mls/hr IV.SIG Q2H PRN Rx#:[id number] Potassium Phosphate Inj 30 MMOL 0 / 0 In NS Inj 250 ML @ 42 mls/hr IV.SIG UNSCH PRN Rx#:[id number] Oral 500 / 500 Output: Urine 700 / 700 1200 / 1200 Other: Date of Last Bowel Movement 08/05/18 08/06/18 # Bowel Movements 5 7 Narrative: GENERAL: Patient is alert, not in distress. SKIN: Warm and dry. NECK: Supple, No JVD. CARDIOVASCULAR: Regular rate and rhythm RESPIRATORY: Breath sounds decrease No accessory muscle use. GASTROINTESTINAL: Abdomen soft, non-tender, +BS. GENITOURINARY: Indwelling Giles catheter with tami urine. MUSCULOSKELETAL: right UE swelling and right calf swelling- with calf tenderness good peripheral pulses - Urinary Catheter Management Indwelling Urethral Catheter Cath placed during this visit: yes, but has since been removed by the nurse Reason for continuing: Hourly intake/output Insertion date: 07/30/18 Insertion time: 09:24 Removal date: 08/01/18 Removal time: 16:00 Condom Cath placed during this visit: no Results - Labs CBC & Chem 7: 08/05/18 05:12 08/06/18 05:24 Laboratory Results - last 24 hr 08/05/18 08/05/18 08/05/18 15:04 16:20 16:46 POC Glucose 129 H 119 H Vancomycin Trough 3.8 L 08/05/18 08/06/18 23:36 06:52 POC Glucose 105 138 H Vancomycin Trough - Imaging Impressions Myocardial Perfusion Scan Nuc Med 08/05/18 00:00 CONCLUSION: 1. No significant ischemia. 2. Not mentioned above is vague area of uptake possibly within the anterior superior mediastinum and possibility of underlying mass or adenopathy is not excluded. The exact location is not certain and part of this activity may within the thyroid gland. Further characterization with chest CT is recommended. Venous Doppler Study 08/05/18 17:57 CONCLUSION: 1. Occlusive thrombus basilic vein. Venous Doppler Study 08/05/18 17:57 CONCLUSION: 1. Nonocclusive thrombus in the distal superficial femoral vein occlusive thrombus from posterior tibial vein to mid superficial femoral vein. Assessment and Plan - Plan 53 years old Polysubstance use including heroin, cocaine and opiates CT brain revealed no acute intracranial findings counselled-patietn motivated with lifestyle changes CV: Severe shock -resolved Lactic acidosis -resolving NTEMI Elevated troponin- likely related to cocaine use Echo with EF 50 % Hypertension- better readings this am Lexiscan done- negative for ischemia 2D echocardiogram ejection fraction 50%. PA P 25 mmHg. Mild TR. Aspirin 81 mg daily. Currently no TOR inhibitor due to acute kidney injury/ hypotension vasopressors. unable to use statin secondary to liver injury. on ASA On carvedilol increase to 25 mg po bid 08/05 continue on isosorbide dinitrate 10 mg 3 times daily received IV Lasix 40 mg q 6 previously Edema on exam - started po Lasix 20 mg bid 08/05 - will help with HTN- ff BMP continue to monitor and adjust Acute DVT RLE, RUE DVT on doppler 08/05 Swelling generalized but more on the right UE and right LE - 08/05 started on Eliquis 10 mg bid for 7 days then 5 mg bid Acute respiratory failure- resolved Aspiration pneumonia Incentive spirometry while awake Nasal cannula to maintain saturations greater or equal to 92% Albuterol/ipratropium aerosols every 4 hours with albuterol aerosols every 2 as needed dyspnea Chest x-ray 08/05- improved. clear on Zosyn since 07/30 Acute kidney injury Rhabdomyolysis Generalized edema Patient was admitted with resp. failure and was intubated. Patient has GRABIEL, most likely due to ATN from Hypotension. CK level trending down Remains non oliguric, and Creatinine stabilizing start lasix at 20 mg po bid 08/05 . FF BMP Renal ultrasound revealed enlarged echogenic liver however no signs of hydronephrosis Negative urine eosinophil GI: Elevated transaminases Elevated ammonia Diarrhea ff LFTs Advance diet as tolerated cardiac/renal/diabetic with thickened liquids Pantoprazole for GI prophylax DC Senna and Lactulose Hepatitis panel negative Elevated TSH Sliding scale insulin Accu-Cheks to maintain euglycemia T3/free T4 normal Substance abuse- cocaine - patient very motivated with lifestylke changes " a new man" Heme: Leukocytosis Normocytic anemia Monitor CBC daily. Follow trends. No indication for transfusion of blood products at this time FEN: Hypokalemia- on previous labs now with diarrhea ff BMP- pending started on lasix 20 mg po bid replace as needed and may need scheduled doses MSK: Elevated BMI Weight loss encouraged PT evaluate and treat smoker- counselled - 1 pack per day CM consult- good candidate for inpatient rehab Procedures - Arterial Line Size (Gauge): 18
[2018-08-06] MEDS: Carvedilol 12.5 MG Tablet PO SCH ×2 (08:26→20:33)
[2018-08-06] MEDS: Furosemide 20 MG Tablet PO SCH ×2 (08:26→18:10)
[2018-08-06] MEDS: Chlorhexidine 0.12% Oral Kit 15 ML UDC OROPHARYNG SCH ×2 (08:27→20:33)
[2018-08-06] MEDS: Pantoprazole Inj 40 MG Vial IV.PUSH SCH (08:27)
[2018-08-06 08:32] LABS: Anion Gap 10 meq/L (5-15); Blood Urea Nitrogen 24 mg/dL (7-18); Calcium 8.6 mg/dL (8.5-10.1); Carbon Dioxide 29.9 meq/L (21.0-32.0); Chloride 103 meq/L (98-107); Creatine Kinase 426 U/L (39-308); Glomerular Filtration Rate 65 mL/min (>89); Glucose,Random 83 mg/dL (74-106); Sodium 143 meq/L (136-145)
[2018-08-06 08:59] LABS: CKMB Percent 0.2 % (0.0-4.0)
[2018-08-06 09:03] LABS: Potassium 2.9 meq/L (3.5-5.1)
[2018-08-06] MEDS ORDERED: Loperamide 2 MG Capsule PO ONE (09:17)
[2018-08-06] MEDS ORDERED: Potassium Chlor 20 mEq Premix 20 MEQ/100 ML PIGGYBACK IV.SIG ONE (09:19)
[2018-08-06 11:14] LABS: Albumin 2.8 g/dL (3.4-5.0)
[2018-08-06 11:22] LABS: Total Protein 6.9 g/dL (6.4-8.2)
--- NOTE | 2018-08-06 20:59 | P.PNNP ---
Subjective Interval history: Patient seen in the afternoon, alert, sitting on the chair. Physical Exam Vital signs: Vital Signs 08/05/18 20:27 08/05/18 21:00 08/05/18 22:00 Temperature Pulse Rate 77 73 78 Respiratory Rate 17 20 29 H Blood Pressure Pulse Oximetry 99 95 90 L 08/05/18 23:00 08/05/18 23:04 08/06/18 00:00 Temperature Pulse Rate 75 69 69 Respiratory Rate 16 20 25 H Blood Pressure 129/78 Pulse Oximetry 95 95 95 08/06/18 00:20 08/06/18 00:21 08/06/18 01:00 Temperature Pulse Rate 66 65 Respiratory Rate 20 26 H Blood Pressure Pulse Oximetry 95 95 93 L 08/06/18 02:00 08/06/18 03:00 08/06/18 03:55 Temperature Pulse Rate 64 66 68 Respiratory Rate 22 16 19 Blood Pressure Pulse Oximetry 94 L 94 L 08/06/18 03:56 08/06/18 04:00 08/06/18 05:00 Temperature Pulse Rate 63 63 Respiratory Rate 19 20 Blood Pressure Pulse Oximetry 96 99 90 L 08/06/18 05:43 08/06/18 06:00 08/06/18 07:00 Temperature Pulse Rate 65 72 67 Respiratory Rate 19 23 23 Blood Pressure 152/94 H 140/76 130/79 Pulse Oximetry 94 L 94 L 95 08/06/18 07:29 08/06/18 08:00 08/06/18 08:01 Temperature 98.2 F Pulse Rate 66 64 64 Respiratory Rate 17 21 22 Blood Pressure 148/81 H Pulse Oximetry 100 96 98 08/06/18 09:00 08/06/18 10:00 08/06/18 11:00 Temperature Pulse Rate 75 76 70 Respiratory Rate 24 25 H 20 Blood Pressure 154/93 H 136/76 140/85 Pulse Oximetry 100 100 100 08/06/18 11:26 08/06/18 12:00 08/06/18 13:00 Temperature 98.7 F Pulse Rate 66 66 67 Respiratory Rate 17 20 22 Blood Pressure 130/75 140/78 Pulse Oximetry 100 100 08/06/18 14:00 08/06/18 15:00 08/06/18 15:01 Temperature Pulse Rate 78 71 74 Respiratory Rate 28 H 29 H 29 H Blood Pressure 140/94 H 176/120 H Pulse Oximetry 98 100 94 L 08/06/18 16:00 08/06/18 18:00 Temperature Pulse Rate 65 71 Respiratory Rate 20 Blood Pressure Pulse Oximetry 100 Intake & Output 08/06/18 08/06/18 08/07/18 06:59 18:59 06:59 Intake Total 700 / 700 1260 / 1260 Output Total 1200 / 1200 1000 / 1000 Balance -500 / -500 260 / 260 Weight 107.7 kg Intake: IV 200 / 200 300 / 300 Zosyn 4.5 GM Premix 4.5 gm In 200 / 200 200 / 200 100 ml @ 200 mls/hr IV.SIG Q6H SUSIE Rx#:[id number] KCl 20 mEq Premix Inj 20 meq In 100 / 100 100 ml @ 50 mls/hr IV.SIG ONCE ONE Rx#:[id number] Oral 500 / 500 960 / 960 Output: Urine 1200 / 1200 1000 / 1000 Other: Date of Last Bowel Movement 08/06/18 08/06/18 # Bowel Movements 7 2 Narrative: GENERAL: Patient is alert, not in distress. SKIN: Warm and dry. NECK: Supple, No JVD. CARDIOVASCULAR: Regular rate and rhythm RESPIRATORY: Breath sounds decrease No accessory muscle use. GASTROINTESTINAL: Abdomen soft, non-tender, +BS. GENITOURINARY: Indwelling Giles catheter with tami urine. MUSCULOSKELETAL: right UE swelling and right calf swelling- with calf tenderness good peripheral pulses - Urinary Catheter Management Indwelling Urethral Catheter Cath placed during this visit: yes, but has since been removed by the nurse Reason for continuing: Hourly intake/output Insertion date: 07/30/18 Insertion time: 09:24 Removal date: 08/01/18 Removal time: 16:00 Condom Cath placed during this visit: no Assessment and Plan - Assessment (1) Acute kidney injury Code(s): N17.9 - Acute kidney failure, unspecified Status: Acute Plan: Patient was admitted with resp. failure and was intubated. Patient has GRABIEL, most likely due to ATN from Hypotension. CK level trending down Remains non oliguric, Urine out put is good. On Lasix 20 mg BID, continue diuresis for now. Continue to monitor creatinine. Creatinine continue to improve at 1.18 now, K was low and replaced. Follow the urine out put and BMP. Avoid Nephrotoxins. (2) Acute respiratory failure Code(s): J96.00 - Acute respiratory failure, unspecified whether with hypoxia or hypercapnia Status: Acute Plan: Wean as tolerated Antibiotics for aspiration pneumonia (3) Septic shock Code(s): A41.9 - Sepsis, unspecified organism; R65.21 - Severe sepsis with septic shock Status: Acute Plan: Improving, off pressors Procedures - Arterial Line Size (Gauge): 18
[2018-08-06] MEDS ORDERED: Haloperidol Inj 5 MG/ML Ampul IM ONE (22:01)
[2018-08-06] MEDS ORDERED: Potassium Chloride 10 MEQ ER Capsule PO ONE (22:02)
[2018-08-07] MEDS: Oral Hygiene Kit OROPHARYNG SCH ×5 (00:24→23:59)
[2018-08-07] MEDS: Insulin NovoLOG Aspart Correctional Sugar Inj SQ SCH ×4 (00:24→17:57)
[2018-08-07] MEDS: Piperacil/Tazo 4.5 GM Premix 4.5 GM/100 ML BAG IV.SIG SCH ×4 (04:49→23:59)
[2018-08-07] MEDS: Artificial Tears Opth Drops 15 ML Bottle EACH EYE SCH ×3 (05:40→21:57)
[2018-08-07] MEDS: Chlorhexidine 0.12% Oral Kit 15 ML UDC OROPHARYNG SCH ×2 (07:16→21:07)
--- NOTE | 2018-08-07 07:39 | P.PN ---
Subjective Interval history: feeling better "much" has been up sitting side of the bed voiding well no further diarrhea - all scheduled laxatives was DC calf pain improved Physical Exam Vital signs: Vital Signs 08/06/18 08:00 08/06/18 08:01 08/06/18 09:00 Temperature 98.2 F Pulse Rate 64 64 75 Respiratory Rate 21 22 24 Blood Pressure 148/81 H 154/93 H Pulse Oximetry 96 98 100 08/06/18 10:00 08/06/18 11:00 08/06/18 11:26 Temperature Pulse Rate 76 70 66 Respiratory Rate 25 H 20 17 Blood Pressure 136/76 140/85 Pulse Oximetry 100 100 08/06/18 12:00 08/06/18 13:00 08/06/18 14:00 Temperature 98.7 F Pulse Rate 66 67 78 Respiratory Rate 20 22 28 H Blood Pressure 130/75 140/78 140/94 H Pulse Oximetry 100 100 98 08/06/18 15:00 08/06/18 15:01 08/06/18 16:00 Temperature Pulse Rate 71 74 65 Respiratory Rate 29 H 29 H 20 Blood Pressure 176/120 H Pulse Oximetry 100 94 L 100 08/06/18 17:00 08/06/18 18:00 08/06/18 18:01 Temperature Pulse Rate 64 71 68 Respiratory Rate 17 25 H 21 Blood Pressure 145/76 H 162/100 H Pulse Oximetry 96 95 94 L 08/06/18 19:00 08/06/18 20:00 08/06/18 20:01 Temperature 98.5 F Pulse Rate 78 83 85 Respiratory Rate 25 H 25 H 25 H Blood Pressure 127/58 L 171/80 H Pulse Oximetry 91 L 95 95 08/06/18 20:26 08/06/18 21:00 08/06/18 21:01 Temperature Pulse Rate 82 83 Respiratory Rate 24 24 Blood Pressure 148/66 H Pulse Oximetry 96 92 L 92 L 08/06/18 22:00 08/06/18 22:02 08/06/18 23:00 Temperature Pulse Rate 80 84 81 Respiratory Rate 22 19 24 Blood Pressure 157/73 H 152/83 H Pulse Oximetry 93 L 94 L 93 L 08/07/18 00:00 08/07/18 01:00 08/07/18 02:00 Temperature 98.1 F Pulse Rate 63 62 71 Respiratory Rate 20 41 H 22 Blood Pressure 154/81 H 166/92 H 178/112 H Pulse Oximetry 97 96 97 08/07/18 02:04 08/07/18 03:00 08/07/18 04:00 Temperature 98.4 F Pulse Rate 69 62 62 Respiratory Rate 30 H 17 34 H Blood Pressure 162/85 H 150/91 H 161/99 H Pulse Oximetry 97 98 97 08/07/18 05:00 08/07/18 06:00 Temperature Pulse Rate 63 68 Respiratory Rate 37 H 32 H Blood Pressure 144/88 H 145/81 H Pulse Oximetry 97 95 Intake & Output 08/06/18 08/07/18 08/07/18 18:59 06:59 18:59 Intake Total 1260 / 1260 900 / 900 Output Total 1000 / 1000 1300 / 1300 Balance 260 / 260 -400 / -400 Intake: IV 300 / 300 200 / 200 Zosyn 4.5 GM Premix 4.5 gm In 200 / 200 200 / 200 100 ml @ 200 mls/hr IV.SIG Q6H SUSIE Rx#:[id number] KCl 20 mEq Premix Inj 20 meq In 100 / 100 100 ml @ 50 mls/hr IV.SIG ONCE ONE Rx#:[id number] Oral 960 / 960 700 / 700 Output: Urine 1000 / 1000 1300 / 1300 Other: Date of Last Bowel Movement 08/06/18 08/06/18 # Bowel Movements 2 3 - Urinary Catheter Management Indwelling Urethral Catheter Cath placed during this visit: yes, but has since been removed by the nurse Reason for continuing: Hourly intake/output Insertion date: 07/30/18 Insertion time: 09:24 Removal date: 08/01/18 Removal time: 16:00 Condom Cath placed during this visit: no Results - Labs CBC & Chem 7: 08/05/18 05:12 08/07/18 05:59 Laboratory Results - last 24 hr 08/06/18 08/06/18 08/06/18 05:24 05:24 12:33 Sodium 143 Potassium 2.9 L* Chloride 103 Carbon Dioxide 29.9 Anion Gap 10 BUN 24 H Creatinine 1.18 Estimated GFR 65 L POC Glucose 113 H Random Glucose 83 Calcium 8.6 Total Bilirubin 0.9 Direct Bilirubin 0.2 Indirect Bilirubin 0.7 AST 65 H ALT 176 H Alkaline Phosphatase 74 Total Creatine Kinase 426 H CK-MB (CK-2) Less than 1.0 CK-MB (CK-2) % 0.2 Total Protein 6.9 D Albumin 2.8 L 08/06/18 08/06/18 08/07/18 17:11 20:11 00:21 Sodium Potassium 3.2 L Chloride Carbon Dioxide Anion Gap BUN Creatinine Estimated GFR POC Glucose 91 101 Random Glucose Calcium Total Bilirubin Direct Bilirubin Indirect Bilirubin AST ALT Alkaline Phosphatase Total Creatine Kinase CK-MB (CK-2) CK-MB (CK-2) % Total Protein Albumin 08/07/18 05:44 Sodium Potassium Chloride Carbon Dioxide Anion Gap BUN Creatinine Estimated GFR POC Glucose 100 Random Glucose Calcium Total Bilirubin Direct Bilirubin Indirect Bilirubin AST ALT Alkaline Phosphatase Total Creatine Kinase CK-MB (CK-2) CK-MB (CK-2) % Total Protein Albumin Assessment and Plan - Plan 53 years old Polysubstance use including heroin, cocaine and opiates CT brain revealed no acute intracranial findings counselled-patiet motivated with lifestyle changes CV: Severe shock -resolved Lactic acidosis -resolving NTEMI Elevated troponin- likely related to cocaine use Echo with EF 50 % Hypertension- overall improved- continue to monitor and adjust Lexiscan done- negative for ischemia 2D echocardiogram ejection fraction 50%. PA P 25 mmHg. Mild TR. Aspirin 81 mg daily. Currently no TOR inhibitor due to acute kidney injury/ hypotension vasopressors. unable to use statin secondary to liver injury. On carvedilol increase to 25 mg po bid 08/05 continue on isosorbide dinitrate 10 mg 3 times daily Edema on exam - improving - started po Lasix 20 mg bid 08/05 - will help with HTN- ff BMP continue to monitor and adjust Acute DVT RLE, RUE DVT on doppler 08/05 - right calf swelling imporved and less tender and indurated on exam this am - pain also improved - 08/05 started on Eliquis 10 mg bid for 7 days then 5 mg bid Acute respiratory failure- resolved Aspiration pneumonia Incentive spirometry while awake Nasal cannula to maintain saturations greater or equal to 92% Albuterol/ipratropium aerosols every 4 hours with albuterol aerosols every 2 as needed dyspnea Chest x-ray 08/05- improved. clear on Zosyn since 07/30 Acute kidney injury Rhabdomyolysis Generalized edema- improving Patient has GRABIEL, most likely due to ATN from Hypotension. CK level trending down- recheck this am Remains non oliguric, and Creatinine stabilizing start lasix at 20 mg po bid 08/05 . FF BMP KCL 20 meq bid Renal ultrasound revealed enlarged echogenic liver however no signs of hydronephrosis Negative urine eosinophil Renal service ff Hypokalemia- - diarrhea previously- now none- we DC all scheduled laxatives 08/06 started on lasix 20 mg po bid on KCL 20 meq po bid BMP this am pending MSK: Elevated transaminases Elevated ammonia Diarrhea ff LFTs Advance diet as tolerated cardiac/renal/diabetic with thickened liquids Pantoprazole for GI prophylax DC Senna and Lactulose Hepatitis panel negative Elevated TSH Sliding scale insulin Accu-Cheks to maintain euglycemia T3/free T4 normal Substance abuse- cocaine - patient very motivated with lifestylke changes " a new man" Heme: Leukocytosis Normocytic anemia Monitor CBC daily. Follow trends WBC trednignd down No indication for transfusion of blood products at this time FEN: Elevated BMI Weight loss encouraged PT evaluate and treat smoker- counselled - 1 pack per day CM consult- good candidate for inpatient rehab Procedures - Arterial Line Size (Gauge): 18
[2018-08-07] MEDS: Carvedilol 12.5 MG Tablet PO SCH ×2 (08:31→21:53)
[2018-08-07] MEDS: Pantoprazole Inj 40 MG Vial IV.PUSH SCH (08:31)
[2018-08-07] MEDS: Furosemide 20 MG Tablet PO SCH ×2 (08:32→17:12)
[2018-08-07 08:37] LABS: Albumin 2.7 g/dL (3.4-5.0); Anion Gap 8 meq/L (5-15); Aspartate Aminotransferase 72 U/L (15-37); Blood Urea Nitrogen 23 mg/dL (7-18); Calcium 8.3 mg/dL (8.5-10.1); Carbon Dioxide 26.9 meq/L (21.0-32.0); Chloride 104 meq/L (98-107); Glomerular Filtration Rate 62 mL/min (>89); Glucose,Random 90 mg/dL (74-106); Potassium 3.7 meq/L (3.5-5.1); Sodium 139 meq/L (136-145)
[2018-08-07 08:39] LABS: Alanine Aminotransferase 162 U/L (12-78)
[2018-08-07 08:41] LABS: Alkaline Phosphatase 68 U/L (45-117)
--- NOTE | 2018-08-07 17:15 | P.PNNP ---
Subjective Interval history: Seen in AM. Sitting up in bed working with PT. Denies any shortness of breath , chest pain, nausea, or vomiting. <Mariama Childress - Last Filed: 08/07/18 17:09> Physical Exam Vital signs: Vital Signs 08/06/18 18:00 08/06/18 18:01 08/06/18 19:00 Temperature Pulse Rate 71 68 78 Respiratory Rate 25 H 21 25 H Blood Pressure 162/100 H 127/58 L Pulse Oximetry 95 94 L 91 L 08/06/18 20:00 08/06/18 20:01 08/06/18 20:26 Temperature 98.5 F Pulse Rate 83 85 Respiratory Rate 25 H 25 H Blood Pressure 171/80 H Pulse Oximetry 95 95 96 08/06/18 21:00 08/06/18 21:01 08/06/18 22:00 Temperature Pulse Rate 82 83 80 Respiratory Rate 24 24 22 Blood Pressure 148/66 H Pulse Oximetry 92 L 92 L 93 L 08/06/18 22:02 08/06/18 23:00 08/07/18 00:00 Temperature 98.1 F Pulse Rate 84 81 63 Respiratory Rate 19 24 20 Blood Pressure 157/73 H 152/83 H 154/81 H Pulse Oximetry 94 L 93 L 97 08/07/18 01:00 08/07/18 02:00 08/07/18 02:04 Temperature Pulse Rate 62 71 69 Respiratory Rate 41 H 22 30 H Blood Pressure 166/92 H 178/112 H 162/85 H Pulse Oximetry 96 97 97 08/07/18 03:00 08/07/18 04:00 08/07/18 05:00 Temperature 98.4 F Pulse Rate 62 62 63 Respiratory Rate 17 34 H 37 H Blood Pressure 150/91 H 161/99 H 144/88 H Pulse Oximetry 98 97 97 08/07/18 06:00 08/07/18 07:00 08/07/18 08:00 Temperature 98.3 F Pulse Rate 68 70 61 Respiratory Rate 32 H 23 18 Blood Pressure 145/81 H 154/86 H 145/79 H Pulse Oximetry 95 97 97 08/07/18 08:23 08/07/18 09:00 08/07/18 10:00 Temperature Pulse Rate 75 79 Respiratory Rate 25 H 16 Blood Pressure 149/102 H 139/87 Pulse Oximetry 97 95 98 08/07/18 11:00 08/07/18 12:00 08/07/18 13:00 Temperature 98 F Pulse Rate 72 72 75 Respiratory Rate 21 21 27 H Blood Pressure 135/79 117/57 L Pulse Oximetry 96 95 98 08/07/18 13:01 08/07/18 14:00 08/07/18 15:00 Temperature Pulse Rate 79 70 66 Respiratory Rate 27 H 24 21 Blood Pressure 117/81 112/57 L 109/61 Pulse Oximetry 97 93 L 95 08/07/18 16:00 08/07/18 16:01 Temperature Pulse Rate 66 66 Respiratory Rate 20 26 H Blood Pressure 93/60 L Pulse Oximetry 97 96 Intake & Output 08/06/18 08/07/18 08/07/18 18:59 06:59 18:59 Intake Total 1260 / 1260 900 / 900 100 / 100 Output Total 1000 / 1000 1300 / 1300 Balance 260 / 260 -400 / -400 100 / 100 Intake: IV 300 / 300 200 / 200 100 / 100 Zosyn 4.5 GM Premix 4.5 gm In 200 / 200 200 / 200 100 / 100 100 ml @ 200 mls/hr IV.SIG Q6H SUSIE Rx#:[id number] KCl 20 mEq Premix Inj 20 meq In 100 / 100 100 ml @ 50 mls/hr IV.SIG ONCE ONE Rx#:[id number] Oral 960 / 960 700 / 700 Output: Urine 1000 / 1000 1300 / 1300 Other: Date of Last Bowel Movement 08/06/18 08/06/18 08/06/18 # Bowel Movements 2 3 Narrative: GENERAL: Patient is alert and oriented. not in distress. SKIN: Warm and dry. NECK: Supple, No JVD. CARDIOVASCULAR: Regular rate and rhythm RESPIRATORY: Breath sounds clear. No accessory muscle use. GASTROINTESTINAL: Abdomen soft, non-tender, +BS. - Urinary Catheter Management Indwelling Urethral Catheter Cath placed during this visit: yes, but has since been removed by the nurse Reason for continuing: Hourly intake/output Insertion date: 07/30/18 Insertion time: 09:24 Removal date: 08/01/18 Removal time: 16:00 Condom Cath placed during this visit: no <Mariama Childress - Last Filed: 08/07/18 17:09> Vital signs: Vital Signs 08/06/18 21:00 08/06/18 21:01 08/06/18 22:00 Temperature Pulse Rate 82 83 80 Respiratory Rate 24 24 22 Blood Pressure 148/66 H Pulse Oximetry 92 L 92 L 93 L 08/06/18 22:02 08/06/18 23:00 08/07/18 00:00 Temperature 98.1 F Pulse Rate 84 81 63 Respiratory Rate 19 24 20 Blood Pressure 157/73 H 152/83 H 154/81 H Pulse Oximetry 94 L 93 L 97 08/07/18 01:00 08/07/18 02:00 08/07/18 02:04 Temperature Pulse Rate 62 71 69 Respiratory Rate 41 H 22 30 H Blood Pressure 166/92 H 178/112 H 162/85 H Pulse Oximetry 96 97 97 08/07/18 03:00 08/07/18 04:00 08/07/18 05:00 Temperature 98.4 F Pulse Rate 62 62 63 Respiratory Rate 17 34 H 37 H Blood Pressure 150/91 H 161/99 H 144/88 H Pulse Oximetry 98 97 97 08/07/18 06:00 08/07/18 07:00 08/07/18 08:00 Temperature 98.3 F Pulse Rate 68 70 61 Respiratory Rate 32 H 23 18 Blood Pressure 145/81 H 154/86 H 145/79 H Pulse Oximetry 95 97 97 08/07/18 08:23 08/07/18 09:00 08/07/18 10:00 Temperature Pulse Rate 75 79 Respiratory Rate 25 H 16 Blood Pressure 149/102 H 139/87 Pulse Oximetry 97 95 98 08/07/18 11:00 08/07/18 12:00 08/07/18 13:00 Temperature 98 F Pulse Rate 72 72 75 Respiratory Rate 21 21 27 H Blood Pressure 135/79 117/57 L Pulse Oximetry 96 95 98 08/07/18 13:01 08/07/18 14:00 08/07/18 15:00 Temperature Pulse Rate 79 70 66 Respiratory Rate 27 H 24 21 Blood Pressure 117/81 112/57 L 109/61 Pulse Oximetry 97 93 L 95 08/07/18 16:00 08/07/18 16:01 08/07/18 18:00 Temperature Pulse Rate 66 66 72 Respiratory Rate 20 26 H Blood Pressure 93/60 L Pulse Oximetry 97 96 Intake & Output 08/07/18 08/07/18 08/08/18 06:59 18:59 06:59 Intake Total 900 / 900 1160 / 1160 Output Total 1300 / 1300 1200 / 1200 Balance -400 / -400 -40 / -40 Intake: IV 200 / 200 200 / 200 Zosyn 4.5 GM Premix 4.5 gm In 200 / 200 200 / 200 100 ml @ 200 mls/hr IV.SIG Q6H SUSIE Rx#:[id number] Oral 700 / 700 960 / 960 Output: Urine 1300 / 1300 1200 / 1200 Other: Date of Last Bowel Movement 08/06/18 08/07/18 # Bowel Movements 3 5 - Urinary Catheter Management Indwelling Urethral Catheter Cath placed during this visit: no Condom Cath placed during this visit: no <Gelacio Nguyen - Last Filed: 08/07/18 20:43> Assessment and Plan - Assessment (1) Acute kidney injury Code(s): N17.9 - Acute kidney failure, unspecified Status: Acute Plan: Patient was admitted with resp. failure and was intubated. Patient has GRABIEL, most likely due to ATN from Hypotension. On Lasix 20 mg BID, continue diuresis for now. Creatinine stable at 1.23, with good urinary output. Follow the urine out put and BMP. Avoid Nephrotoxins. With improvement in creatinine Nephrology will sign off and see PRN only. <Mariama Childress - Last Filed: 08/07/18 17:09> - Assessment (1) Acute kidney injury Code(s): N17.9 - Acute kidney failure, unspecified Status: Acute Plan: Patient seen and examined, agree with above. Creatinine continue to improve, will sign off from Nephrology and see PRN as needed. <Gelacio Nguyen - Last Filed: 08/07/18 20:43> Procedures - Arterial Line Size (Gauge): 18 <Mariama Childress - Last Filed: 08/07/18 17:09>
[2018-08-07 22:10] VITALS: RESP 18; O2SAT 95
[2018-08-08] MEDS: Insulin NovoLOG Aspart Correctional Sugar Inj SQ SCH ×2 (00:15→06:43)
[2018-08-08] MEDS: Oral Hygiene Kit OROPHARYNG SCH (03:17)
[2018-08-08] MEDS ORDERED: Flumazenil Inj 1 MG/10 ML Vial IV.PUSH ONE (06:11)
[2018-08-08] MEDS ORDERED: Calcium Chloride Inj 1 GM/10 ML Syringe IV.PUSH ONE (06:11)
[2018-08-08] MEDS: Piperacil/Tazo 4.5 GM Premix 4.5 GM/100 ML BAG IV.SIG SCH (06:42)
[2018-08-08] MEDS: Artificial Tears Opth Drops 15 ML Bottle EACH EYE SCH (06:44)
[2018-08-09 04:36] VITALS: BP 161/79; PULSE 72; TEMP 99.1
== END 2018-08-08 06:12 | disposition expired | DRG 870 ==
LOC: NEPE 08:39 → NEDA 11:17 → HIMC 13:15 → N04 08-07 18:54
PROVIDERS: ADMIT Hospitalist; ATTEND Hospitalist
CPT/HCPCS: 31500; 36556; 36569; 36600; 36620; 51702; 70450; 71010; 71045; 76775; 76937; 78452; 80048; 80053; 80061; 80074; 80076; 80178; 80184; 80185; 80202; 80307; 81001; 82040; 82140; 82150; 82550; 82552; 82570; 82805; 82948; 82962; 83036; 83605; 83690; 83735; 84100; 84132; 84300; 84443; 84484; 85025; 85027; 85384; 85610; 85730; 87040; 87070; 87086; 87205; 87275; 87276; 87641; 87804; 90761; 90765; 90768; 90775; 92526; 92610; 92950; 93005; 93017; 93306; 93970; 93971; 94002; 94003; 94150; 94640; 94656; 94657; 94664; 94665; 96125; 96361; 96365; 96368; 96375; 97110; 97162; 97166; 97530; 99291; A9502; C9113; G0195; J0171; J0282; J0330; J1630; J1644; J1720; J1815; J1940; J2212; J2250; J2310; J2370; J2543; J2704; J2785; J3010; J3370; J3411; J3475; J3480; J7030; J7040; J7050